=== PATIENT | male | born 1990 | race Caucasian/White ===

== ENCOUNTER 2021-07-02 09:32 | Inpatient (IN) | payer MEDICAID, SELFPAY ==
[2021-07-02 09:42] VITALS: BP 125/82; PULSE 78; RESP 16; TEMP 37.2; O2SAT 98; BMI 19.4
--- NOTE | 2021-07-02 09:53 | ED_ITS ---
HPI - Psych General: Chief Complaint: Altered Mental Status Stated Complaint: MHE EVAL Time Seen by Provider: 07/02/21 09:33 History of Present Illness: HPI Narrative: 30-year-old male presents emergency room via EMS. He was stopped by the police for driving a vehicle without tags on it he was unable to answer questions and seemed altered. EMS was called and he was transported here. On arrival here he is not able to answer very many questions he can tell me he has asthma and uses albuterol on produces an albuterol inhaler that is 124 puffs out of it but is from May 2020 the inhaler is also broken. He denies any recent illness. He does state that he was headed to [place] then later when asked about a pain smear on his right forearm states he had been painting in [place] but he cannot tell me who he was with where he stayed or any other details. He denies any suicidal homicidal ideation denies any visual or auditory hallucinations. He does admit to using alcohol yesterday but will not quantify the amount he used he denies any other illicit drug use. Denies any history of suicidal ideation previous psychiatry admissions or mental health diagnoses. MD complaint: altered mental status Onset (ago): unknown Duration: constant History of same: No Relieving factors: none Exacerbating factors: none Associated psychiatric symptoms: none Associated symptoms: Deny auditory hallucinations, visual hallucinations, delusions, depression, homicidal ideation, suicidal ideation or racing thoughts Treatments prior to arrival: none Review of Systems Const: Denies: fever(s), chills, body aches, change in appetite, fatigue or malaise ENMT: Denies: throat pain, ear or mastoid pain, nasal discharge or nasal congestion Card: Denies: chest pain, edema, dyspnea on exertion or orthopnea Resp: Denies: dyspnea, productive cough or non-productive cough GI: Denies: abdominal pain, nausea, vomiting, hematemesis, coffee ground emesis, diarrhea, constipation, bloating, hematochezia or melena : Denies: flank pain, dysuria, urinary frequency or urinary urgency Skin/Breast: Denies: rash or pruritus Psych: Denies: depression, visual hallucinations, auditory hallucinations, suicidal ideation or homicidal ideation Physical Exam Const: COMMON NORMALS: no acute distress GENERAL APPEARANCE: cooperative and comfortable ORIENTATION/CONSCIOUSNESS: Yes awake and Yes oriented to time HENMT: COMMON NORMALS: normocephalic and atraumatic HEAD & SCALP: normocephalic and atraumatic Resp: COMMON NORMALS: normal respiratory effort, No retractions, No use of accessory muscles and clear to auscultation bilaterally AUSCULTATION: clear to auscultation bilaterally Cardio: COMMON NORMALS: regular rate, regular rhythm and No murmurs present (Cardio) RATE: regular rate RHYTHM: regular rhythm GI: COMMON NORMALS: Soft to palpation and No hepatosplenomegaly present AUSCULTATION: Yes normoactive bowel sounds PALPATION: Yes Soft to palpation, No Tenderness to palpation present (GI), No Guarding due to palpation present (GI) and Yes No hepatosplenomegaly present Extremity: COMMON NORMALS: normal to inspection, capillary refill normal, no clubbing, cyanosis or edema, no calf tenderness and no pedal edema Neuro: SENSORIUM/ORIENTATION: Yes oriented to time Psych: THOUGHT CONTENT: No delusions Skin: COMMON NORMALS: no rashes or lesions noted GENERAL SKIN EXAM: no rashes or lesions noted Course Vital Signs: Vital signs: Vital Signs Temperature 98.9 F 07/02/21 09:42 Pulse Rate 78 07/02/21 09:42 Respiratory Rate 16 07/02/21 09:42 Blood Pressure 125/82 07/02/21 09:42 Pulse Oximetry 98 07/02/21 09:42 MDM - Psych MDM Narrative: Medical decision making narrative: Discussed with Dr. Schulz he is agreed to accept the patient admission discussed with the patient he is agreeable to admission. Registration is still time to determine the patient's exact right name. First name he registered on appears to be some sort of alias. Lab Data: Labs: Lab Results 07/02/21 07/02/21 07/02/21 10:05 10:05 10:05 WBC 10.5 10^3/uL H 10 ^3/uL (4.0-10.0) RBC 4.62 10^6/uL 10^6 /uL (4.1-5.3) Hgb 14.4 g/dL g/dL (11.7-16.6) Hct 41.5 % L % (42.0-52.0) MCV 89.8 fl fl (80-94) MCH 31.2 pg pg (28.0-34.0) MCHC 34.7 g/dL g/dL (30.0-36.0) RDW 11.4 % L % (12.1-15.1) Plt Count 257 10^3/cmm 10^3 /cmm (130-400) MPV 12.0 fL H fL (7.4-10.4) Neut % (Auto) 74.6 % % Lymph % (Auto) 15.4 % % [place] % (Auto) 8.3 % % Eos % (Auto) 1.2 % % Baso % (Auto) 0.3 % % Neut # (Auto) 7.81 10^3/uL H 10 ^3/uL (1.8-7.7) Lymph # (Auto) 1.6 10^3/uL 10^3/ uL (0.8-4.8) [place] # (Auto) 0.9 10^3/uL 10^3/ uL (0.2-0.9) Eos # (Auto) 0.1 10^3/uL 10^3/ uL (0.0-0.8) Baso # (Auto) 0.0 10^3/uL 10^3/ uL (0.0-0.1) Nucleated RBC % (a uto) 0 % % Nucleated RBCs # 0.0 /100WBC /100W BC Specimen Type Sample Site ABG pH ABG pCO2 ABG pO2 ABG HCO3 ABG O2 Saturation ABG Base Excess Sancho Test A-a O2 Gradient Hematocrit Hgb O2 Saturation Carboxyhemoglobin Methemoglobin Total Hemoglobin Ionized Calcium O2 Delivery Device FiO2 Freight Shipping Agent ID Sodium 139 mmol/L mmol/L (136-145) Potassium 4.4 mmol/L mmol/L (3.5-5.1) Chloride 103 mmol/L mmol/L (98-107) Carbon Dioxide 28 mmol/L mmol/L (22-29) Anion Gap 12.4 (5-19) BUN 9 mg/dL mg/dL (6-20) Creatinine 0.5 mg/dL L mg/dL (0.7-1.2) GFR Calculation 195.2 mL/min H mL /min (90-130) Glucose 110 mg/dL mg/dL (65-115) POC Glucose Calculated Osmolal ity 287 mOsm/kg mOsm/ kg (285-295) Lactic Acid 1.1 mmol/L mmol/L (0.5-2.2) Calcium 9.4 mg/dL mg/dL (8.5-10.5) Total Bilirubin 0.3 mg/dL mg/dL (0.15-1.2) AST 27 U/L U/L (0-40) ALT 53 U/L H U/L (0-41) Alkaline Phosphata se 74 IU/L IU/L (40-130) Total Protein 6.8 g/dL g/dL (6.6-8.7) Albumin 4.5 g/dL g/dL (3.5-5.2) Globulin 2.3 g/dL g/dL (1.3-4.6) Salicylates < 0.3 mg/dL L mg/ dL (3-10) Urine Opiates Scre en Acetaminophen < 5.0 ug/mL L ug/ mL (10-30) Ur Barbiturates Sc reen Ur Phencyclidine S crn Ur Amphetamines Sc reen U Benzodiazepines Scrn Urine Cocaine Scre en U Marijuana (THC) Screen Ethyl Alcohol < 10 mg/dL mg/dL (0-10) Serum Ketones 07/02/21 07/02/21 07/02/21 10:05 10:11 10:23 WBC RBC Hgb Hct MCV MCH MCHC RDW Plt Count MPV Neut % (Auto) Lymph % (Auto) [place] % (Auto) Eos % (Auto) Baso % (Auto) Neut # (Auto) Lymph # (Auto) [place] # (Auto) Eos # (Auto) Baso # (Auto) Nucleated RBC % (a uto) Nucleated RBCs # Specimen Type Arterial Sample Site Radial, left ABG pH 7.44 (7.35-7.45) ABG pCO2 37.7 mmHg mmHg (35-45) ABG pO2 93.6 mmHg mmHg (80.0-100.0) ABG HCO3 25.5 mmol/L mmol/ L (22-26) ABG O2 Saturation 98.3 ABG Base Excess 1.4 mmol/L mmol/L (-2.0-2.0) Sancho Test Pos A-a O2 Gradient 1.1 mmHg L mmHg (5-10) Hematocrit 45.5 % % (42-52) Hgb O2 Saturation 96.8 % % (95-100) Carboxyhemoglobin 0.8 %THgb %THgb (0.4-20.1) Methemoglobin 0.7 % % (0.4-1.5) Total Hemoglobin 14.8 g/dL g/dL (14-18) Ionized Calcium 1.2 mmol/L mmol/L (1.1-1.4) O2 Delivery Device Room air FiO2 21.0 % % Freight Shipping Agent ID Caak Sodium 140.0 mmol/L mmol /L (131-143) Potassium 3.9 mmol/L mmol/L (3.5-5.0) Chloride Carbon Dioxide Anion Gap BUN Creatinine GFR Calculation Glucose 128.0 mg/dL H mg/ dL (70-115) POC Glucose 115 mg/dL H mg/dL (70-110) Calculated Osmolal ity Lactic Acid Calcium Total Bilirubin AST ALT Alkaline Phosphata se Total Protein Albumin Globulin Salicylates Urine Opiates Scre en Acetaminophen Ur Barbiturates Sc reen Ur Phencyclidine S crn Ur Amphetamines Sc reen U Benzodiazepines Scrn Urine Cocaine Scre en U Marijuana (THC) Screen Ethyl Alcohol Serum Ketones Negative (Negative) 07/02/21 10:26 WBC RBC Hgb Hct MCV MCH MCHC RDW Plt Count MPV Neut % (Auto) Lymph % (Auto) [place] % (Auto) Eos % (Auto) Baso % (Auto) Neut # (Auto) Lymph # (Auto) [place] # (Auto) Eos # (Auto) Baso # (Auto) Nucleated RBC % (a uto) Nucleated RBCs # Specimen Type Sample Site ABG pH ABG pCO2 ABG pO2 ABG HCO3 ABG O2 Saturation ABG Base Excess Sancho Test A-a O2 Gradient Hematocrit Hgb O2 Saturation Carboxyhemoglobin Methemoglobin Total Hemoglobin Ionized Calcium O2 Delivery Device FiO2 Freight Shipping Agent ID Sodium Potassium Chloride Carbon Dioxide Anion Gap BUN Creatinine GFR Calculation Glucose POC Glucose Calculated Osmolal ity Lactic Acid Calcium Total Bilirubin AST ALT Alkaline Phosphata se Total Protein Albumin Globulin Salicylates Urine Opiates Scre en Negative ng/mL ng /mL (Negative) Acetaminophen Ur Barbiturates Sc reen Negative ng/mL ng /mL (Negative) Ur Phencyclidine S crn Negative ng/mL ng /mL (Negative) Ur Amphetamines Sc reen Negative ng/mL ng /mL (Negative) U Benzodiazepines Scrn Negative ng/mL ng /mL (Negative) Urine Cocaine Scre en Negative ng/mL ng /mL (Negative) U Marijuana (THC) Screen Positive ng/mL H ng/mL (Negative) Ethyl Alcohol Serum Ketones Discharge Plan Discharge Patient Disposition: Admitted As Inpatient Admit Provider: Ar Schulz Clinical Impression: Altered mental status Condition: Stable Coding Level of Care Code ED Residential Nurse for Mandeep Fwd Exam Comprehensive
--- NOTE | 2021-07-02 10:03 | CT_ITS ---
WS: [id number] CT HEAD TECHNIQUE: Noncontrast CT of the head obtained from the skullbase to the vertex. CLINICAL INFORMATION: altered mental status COMPARISON: None. DLP: 839.[address] scans at [facility] use at least one of these dose optimization techniques: automated e xposure control; mA and/or kV adjustment per patient size (includes targeted exams where dose is matc hed to clinical indication); or iterative reconstruction. FINDINGS: No evidence of intracranial hemorrhage or mass effect. Ventricular system and basal cisterns are vital nt.No extra-axial fluid collections. No evidence of mass or mass effect. Normal jara-white differenti ation. Paranasal sinuses and mastoid air cells are well aerated. .Normal visualized soft tissues. CT/CT head wo con* [id number] IMPRESSION: 1. No evidence of intracranial hemorrhage or mass effect. 2. Normal jara-white differentiation. 3. No acute intracranial findings.
[2021-07-02 10:14] LABS: Glucose Point of Care 115 mg/dL (70-110)
[2021-07-02 10:21] LABS: Basophils % 0.3 %; Eosinophils # 0.1 10^3/uL (0.0-0.8); Eosinophils % 1.2 %; Hematocrit 41.5 % (42.0-52.0); Hemoglobin 14.4 g/dL (11.7-16.6); Lymphocytes # 1.6 10^3/uL (0.8-4.8); Lymphocytes % 15.4 %; Mean Corpuscular HGB Conc 34.7 g/dL (30.0-36.0); Mean Corpuscular Hemoglobin 31.2 pg (28.0-34.0); Mean Corpuscular Volume 89.8 fl (80-94); Monocytes # 0.9 10^3/uL (0.2-0.9); Monocytes % 8.3 %; Neutrophils # 7.81 10^3/uL (1.8-7.7); Neutrophils % 74.6 %; Nucleated Red Blood Cells % 0 %; Platelet Count 257 10^3/cmm (130-400); Red Blood Count 4.62 10^6/uL (4.1-5.3); Red Cell Distribution Width 11.4 % (12.1-15.1); White Blood Count 10.5 10^3/uL (4.0-10.0)
[2021-07-02 10:32] LABS: Ketone (Acetest) Serum Negative (Negative)
[2021-07-02 10:34] LABS: ABG PCO2 37.7 mmHg (35-45); ABG PH Result 7.44 (7.35-7.45); Alveolar-Arterial Oxygen Gradi 1.1 mmHg (5-10); Arterial Blood Gas Hematocrit 45.5 % (42-52); Base Excess ABG 1.4 mmol/L (-2.0-2.0); Blood Gas Allen Test Pos; Blood Gas Operator Identificat CAAK; Blood Gas Sample Site Radial, left; Blood Gas Sample Type Arterial; Carboxyhemoglobin 0.8 %THgb (0.4-20.1); HCO3 ABG 25.5 mmol/L (22-26); HGB O2 Sat 96.8 % (95-100); Ionized Calcium Level - ABG 1.2 mmol/L (1.1-1.4); Methemoglobin 0.7 % (0.4-1.5); Oxygen Device ROOM AIR; Oxygen Saturation ABG 98.3; PO2 ABG 93.6 mmHg (80.0-100.0); Potassium Level - ABG 3.9 mmol/L (3.5-5.0); Total Hemoglobin 14.8 g/dL (14-18)
[2021-07-02 10:40] LABS: Lactic Sepsis W/Reflex 1.1 mmol/L (0.5-2.2)
--- NOTE | 2021-07-02 10:40 | PC.PHAR ---
PT STATES HE DOESNT TAKEN ANY RX MEDICATIONS PT STATES HE TAKES OTC MEDS BUT DOESNT KNOW THE NAME OF WHAT HES BEEN TAKING-NO MEDS PULL UP IN EXT MED HISTORY-PT STATES HE DOESNT KNOW THE NAME OF THE PHARMACY HE WAS USING
[2021-07-02 10:41] LABS: Alanine Aminotransferase 53 U/L (0-41); Albumin Level 4.5 g/dL (3.5-5.2); Alkaline Phosphatase 74 IU/L (40-130); Blood Urea Nitrogen 9 mg/dL (6-20); Calcium 9.4 mg/dL (8.5-10.5); Carbon Dioxide 28 mmol/L (22-29); Chloride 103 mmol/L (98-107); Globulin 2.3 g/dL (1.3-4.6); Glomerular Filtration Rate 195.2 mL/min (90-130); Glucose 110 mg/dL (65-115); Osmolality Calculated 287 mOsm/kg (285-295); Sodium 139 mmol/L (136-145); Total Bilirubin 0.3 mg/dL (0.15-1.2); Total Protein 6.8 g/dL (6.6-8.7)
[2021-07-02 10:44] LABS: Acetaminophen < 5.0 ug/mL (10-30); Alcohol Level < 10 mg/dL (0-10); Salicylate < 0.3 mg/dL (3-10)
[2021-07-02 10:46] LABS: Anion Gap 12.4 (5-19); Aspartate Amino Transferase 27 U/L (0-40); Potassium 4.4 mmol/L (3.5-5.1)
[2021-07-02 11:05] LABS: Amphetamines Screen Urine Negative (Negative); Barbiturates Screen Urine Negative (Negative); Benzodiazepines Screen Urine Negative (Negative); Cocaine Screen Urine Negative (Negative); Opiate Screen Urine Negative (Negative); PCP Screen Urine Negative (Negative); THC Screen Urine Positive (Negative)
[2021-07-02 14:00] VITALS: BP 110/78; PULSE 70; RESP 17; TEMP 37.1; O2SAT 98
[2021-07-02 20:35] VITALS: BP 94/62; PULSE 78; RESP 17; TEMP 36.9; O2SAT 96
[2021-07-03 06:00] VITALS: BP 92/58; PULSE 81; RESP 19; TEMP 36.9; O2SAT 100
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
--- NOTE | 2021-07-03 12:30 | NPU.GN ---
[facility] Topic:Coping Skills General Mood of Group:Refused group, was sick
[2021-07-03 14:00] VITALS: BP 107/61; PULSE 70; RESP 16; TEMP 36.6; O2SAT 97
[2021-07-03 22:00] VITALS: BP 121/91; PULSE 79; RESP 18; TEMP 36.7; O2SAT 98
[2021-07-04 06:00] VITALS: BP 97/62; PULSE 68; RESP 14; TEMP 36.6; O2SAT 99
--- NOTE | 2021-07-04 09:56 | P.PN_ITS ---
Subjective NPU Subjective: Interval history: Patient presents today to struggle with his thinking. He cannot give any clear conceptualization about how he got been to ideas. When pressed he said something about a wigi board and his sister and how her somehow playing with that board led to him having those diabetes and having 2 personalities.. We discussed the concerns about his confusion and clear paranoia, and the risk-benefit and alternatives of him and starting a trial of Abilify and he understood and was still resistant. Mental Status Exam MSE Comments: This is an underweight, white male, with hospital scrubs on with adequate grooming and limited eye contact. No abnormal movements except for psychomotor retardation. Mostly cooperative with exam in no acute distress. Speech was limited and decreased rate and volume with significant pauses after questions and some sense of confusion. Mood described as Oay; affect subdued and odd. Thought process, linear and at times organized. Thought content: patient denied any suicidal or homicidal ideation, he endorsed paranoia and paranoia was noted. He denied auditory or visual hallucinations. Attention and concentration were limited, and memory was unreliable, but none were formally tested. He is alert and oriented times three. Insight and judgment are impaired, impulse control is impaired. Vitals/I&O/Wt Last Vital Signs Temp 98.1 F 07/03/21 22:00 Pulse 79 07/03/21 22:00 Resp 18 07/03/21 22:00 BP 121/91 07/03/21 22:00 Pulse Ox 98 07/03/21 22:00 Weight last 48 hrs Weight 53.07 kg Data NPU : 07/02/21 10:05 07/02/21 10:05 A&P Additional A&P Information (1) Psychosis: (2) Altered mental status: (3) Cannabis abuse: This is a 30-year-old, white male, with no consistent mental health treatment in the past with past hospitalizations, suicide attempts, and genetic loading for mental health and addiction issues, who presents with confusion, likely psychosis, but currently unwilling to consider medication trial. RECOMMENDATION AND PLAN: 1. Continue to offer Abilify to assist with psychosis. He reports that he will consider it. 2. Encourage individual, group, and milieu therapy. 3. Continue q-15 minute checks for safety. 4. Encourage sober living treatment after discharge at the highest level of care to which he is willing to commit. Involuntary Hold Information 96 Hour Hold: 96 Hour Involuntary Admission: No Attestations NPU Medical Necessity Statement*: Inpatient hospitalization is medically necessary and the clinically appropriate intervention, at this time. We will monitor medications and make changes as indicated. Likely length of stay is four to six days. Coding Level of Care Code Acute Data Security Administrator for Mandeep Hammond
[2021-07-04 14:00] VITALS: BP 105/68; PULSE 90; RESP 18; TEMP 36.3; O2SAT 99
[2021-07-04 22:00] VITALS: BP 112/69; PULSE 98; RESP 18; TEMP 36.8; O2SAT 99
[2021-07-05 06:00] VITALS: BP 108/73; PULSE 68; RESP 21; TEMP 36.7; O2SAT 100
[2021-07-05] MEDS: ARIPiprazole 10 mg Tablet PO (09:59)
--- NOTE | 2021-07-05 11:59 | PM.NPN ---
Subjective NPU Subjective: Interval history: Patient presents today continuing to have confusion and not have clear answers to the questions about his identity. Continue to endorse some paranoia and some supernatural occurrences. Once again we discussed the risk benefits and alternatives of Abilify and he understood and agreed to proceed as documented in this note. He took the medication without incident and denied any issues thus far. Mental Status Exam MSE Comments: This is an underweight, white male, with hospital scrubs on with adequate grooming and limited eye contact. No abnormal movements except for psychomotor retardation. Mostly cooperative with exam in no acute distress. Speech was limited and decreased rate and volume. Mood described as okay; affect subdued and odd. Thought process, linear and at times organized. Thought content: patient denied any suicidal or homicidal ideation, he endorsed paranoia and paranoia was noted. He denied auditory or visual hallucinations. Attention and concentration were limited, and memory was unreliable, but none were formally tested. He is alert and oriented times three. Insight and judgment are impaired, impulse control is impaired. Vitals/I&O/Wt Last Vital Signs Temp 98.0 F 07/05/21 06:00 Pulse 68 07/05/21 06:00 Resp 21 H 07/05/21 06:00 BP 108/73 07/05/21 06:00 Pulse Ox 100 07/05/21 06:00 Data NPU : 07/02/21 10:05 07/02/21 10:05 A&P Additional A&P Information (1) Psychosis: (2) Altered mental status: (3) Cannabis abuse: This is a 30-year-old, white male, with no consistent mental health treatment in the past with past hospitalizations, suicide attempts, and genetic loading for mental health and addiction issues, who presents with confusion, likely psychosis, but currently unwilling to consider medication trial. RECOMMENDATION AND PLAN: 1. Abilify 10 mg p.o. every morning was started. 2. Encourage individual, group, and milieu therapy. 3. Continue q-15 minute checks for safety. 4. Encourage sober living treatment after discharge at the highest level of care to which he is willing to commit. Involuntary Hold Information 96 Hour Hold: 96 Hour Involuntary Admission: No Attestations NPU Medical Necessity Statement*: Inpatient hospitalization is medically necessary and the clinically appropriate intervention, at this time. We will monitor medications and make changes as indicated. Likely length of stay is four to six days. Coding Level of Care Code Acute Automotive Services Manager for Mandeep Hammond
[2021-07-05 14:00] VITALS: BP 113/66; PULSE 91; RESP 20; TEMP 36.3; O2SAT 100
[2021-07-05 20:45] VITALS: BP 131/79; PULSE 89; RESP 18; TEMP 37; O2SAT 98
[2021-07-06 06:00] VITALS: BP 131/79; PULSE 89; RESP 18; TEMP 37; O2SAT 98
[2021-07-06] MEDS: ARIPiprazole 10 mg Tablet PO (07:58)
[2021-07-06] MEDS: ondansetron 4 MG Tablet PO ×2 (07:58→13:36)
--- NOTE | 2021-07-06 08:19 | P.PN_ITS ---
Subjective NPU Subjective: Interval history: Patient continues to be quite confused and unclear. At one point he was asked where he would like to go when he is feeling better and less confused and he did not respond. Later he stopped this account underwriter in the hallway and said [place], and then there was a prolonged pause and he continued or some other state. He then told some story about him having a son that he is trying to protect and that he is trying to keep him alive and got somewhat tearful and try to explain how the different diabetes fit into that paradigm but failed woefully. Mental Status Exam MSE Comments: This is an underweight, white male, with hospital scrubs on with adequate grooming and limited eye contact. No abnormal movements except for psychomotor retardation. Mostly cooperative with exam in no acute distress. Speech was limited and decreased rate and volume. Mood described as okay; affect subdued and odd. Thought process, linear and at times organized. Thought shoshana nt: patient denied any suicidal or homicidal ideation, he endorsed paranoia and paranoia was noted. He denied auditory or visual hallucinations. Attention and concentration were limited, and memory was unreliable, but none were formally tested. He is alert and oriented times three. Insight and judgment are impaired, impulse control is impaired. Vitals/I&O/Wt Last Vital Signs Temp 98.6 F 07/06/21 06:00 Pulse 89 07/06/21 06:00 Resp 18 07/06/21 06:00 BP 131/79 07/06/21 06:00 Pulse Ox 98 07/06/21 06:00 Data NPU : 07/02/21 10:05 07/02/21 10:05 A&P Additional A&P Information (1) Psychosis: (2) Altered mental status: (3) Cannabis abuse: This is a 30-year-old, white male, with no consistent mental health treatment in the past with past hospitalizations, suicide attempts, and genetic loading for mental health and addiction issues, who presents with confusion, likely psychosis, but currently unwilling to consider medication trial. RECOMMENDATION AND PLAN: 1. Abilify 10 mg p.o. every morning was started. 2. Encourage individual, group, and milieu therapy. 3. Continue q-15 minute checks for safety. 4. Encourage sober living treatment after discharge at the highest level of care to which he is willing to commit. Involuntary Hold Information 96 Hour Hold: 96 Hour Involuntary Admission: No Attestations NPU Medical Necessity Statement*: Inpatient hospitalization is medically necessary and the clinically appropriate intervention, at this time. We will monitor medications and make changes as indicated. Likely length of stay is four to six days. Coding Level of Care Code Acute Entry Level Account Executive for Mandeep Hammond
[2021-07-06 14:00] VITALS: BP 121/81; PULSE 115; RESP 17; TEMP 36.7; O2SAT 97
[2021-07-06] MEDS: acetaminophen 325 mg Tablet 650 MG PO (14:22)
[2021-07-06 20:44] VITALS: BP 113/87; PULSE 96; RESP 18; TEMP 36.6; O2SAT 97
[2021-07-06] MEDS: nicotine 2 mg Gum BUCCAL (21:13)
[2021-07-06] MEDS: trazodone 50 mg Tablet PO (21:13)
[2021-07-06] MEDS: hyDROXYzine 25 mg Capsule 50 MG PO (21:13)
--- NOTE | 2021-07-06 21:40 | PC.NURSE ---
Addendum entered by Jing Jimenez RN 07/07/21 06:08: PRNS were effective. Original Note: PRN meds Pt requested Nicotine gum Trazodone 50mg PO given for sleep Visteril 50mg PO given for anxiety
--- NOTE | 2021-07-06 21:45 | PC.NURSE ---
PM Assessment Pt confused, unable to give me his last name rakesh, I don't know my last name. Pt states, I am from [place], not sure why I am here. Pt states he would like to Drive to [place], [place]. States he would like to work there but has no reference to what kind of job he would like to do .. 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 Pt is evasive when asked questions and affect is flat. Pt is not sure where he is and what time of year that it is, redirected. Pt mildly anxious, states at times I hear voices talking to me that i can not find. Pt states, I don't have any family here they are in [place] . Cooperative with assessment, lungs and heart sounds WNL. Prn's given for anxiety and sleep onset.
[2021-07-07 06:00] VITALS: BP 113/87; PULSE 96; RESP 18; TEMP 36.6; O2SAT 97
--- NOTE | 2021-07-07 08:34 | PM.NPN ---
Subjective NPU Subjective: Interval history: Patient presents today unchanged, continues to be isolative and not speaking much and was spoken to. Continue limited goal-directed behavior. He denies any new issues or concerns. Reports that he is eating fine and sleeping well. But continuing to have odd presentation. Mental Status Exam MSE Comments: This is an underweight, white male, with hospital scrubs on with adequate grooming and limited eye contact. No abnormal movements except for psychomotor retardation. Mostly cooperative with exam in no acute distress. Speech was limited and decreased rate and volume. Mood described as okay; affect subdued and odd. Thought process, linear and at times organized. Thought content: patient denied any suicidal or homicidal ideation, he endorsed paranoia and paranoia was noted. He denied auditory or visual hallucinations. Attention and concentration were limited, and memory was unreliable, but none were formally tested. He is alert and oriented times three. Insight and judgment are impaired, impulse control is impaired. Vitals/I&O/Wt Last Vital Signs Temp 97.8 F 07/07/21 06:00 Pulse 96 07/07/21 06:00 Resp 18 07/07/21 06:00 BP 113/87 07/07/21 06:00 Pulse Ox 97 07/07/21 06:00 Data NPU : 07/02/21 10:05 07/02/21 10:05 A&P Additional A&P Information (1) Psychosis: (2) Altered mental status: (3) Cannabis abuse: This is a 30-year-old, white male, with no consistent mental health treatment in the past with past hospitalizations, suicide attempts, and genetic loading for mental health and addiction issues, who presents with confusion, likely psychosis, but currently unwilling to consider medication trial. RECOMMENDATION AND PLAN: 1. Abilify 10 mg p.o. every morning was started. 2. Encourage individual, group, and milieu therapy. 3. Continue q-15 minute checks for safety. 4. Encourage sober living treatment after discharge at the highest level of care to which he is willing to commit. Involuntary Hold Information 96 Hour Hold: 96 Hour Involuntary Admission: No Attestations NPU Medical Necessity Statement*: Inpatient hospitalization is medically necessary and the clinically appropriate intervention, at this time. We will monitor medications and make changes as indicated. Likely length of stay is 3-5 days. Coding Level of Care Code Acute Director Of Plant Operations for Mandeep Hammond
[2021-07-07] MEDS: ARIPiprazole 10 mg Tablet 15 MG PO (09:59)
[2021-07-07 14:00] VITALS: BP 113/87; PULSE 96; RESP 18; TEMP 36.6; O2SAT 97
[2021-07-07 20:55] VITALS: BP 100/65; PULSE 98; RESP 18; TEMP 36.8; O2SAT 97
--- NOTE | 2021-07-07 21:13 | PC.NURSE ---
Addendum entered by Jing Jimenez RN 07/08/21 03:09: PRN's effective, reduction in anxiety and sleep achieved Original Note: PRNs Trazodone 50mg PO given for sleep onset, Vistaril 50mg po given for anxiety.
[2021-07-08 06:00] VITALS: BP 95/52; PULSE 80; RESP 16; TEMP 36.4; O2SAT 99
--- NOTE | 2021-07-08 07:31 | P.PN_ITS ---
Subjective NPU Subjective: Interval history: David presents today reporting no clear changes but from first time asking about discharge. We discussed the concerns of the treatment team that he is still fairly confused and seeming limited in his ability to have informed consent. Still reporting odd circumstances that seem much more like paranoia than reality. Still seeming quite paranoid when talking about some issues surrounding his son and he went to discuss many things do to need to maintain secrecy. Mental Status Exam MSE Comments: This is an underweight, white male, with hospital scrubs on with adequate grooming and limited eye contact. No abnormal movements except for psychomotor retardation. Mostly cooperative with exam in no acute distress. Speech was limited and decreased rate and volume. Mood described as fine I guess; affect subdued and odd. Thought process, linear and at times organized. Thought content: patient denied any suicidal or homicidal ideation, he endorsed paranoia and paranoia was noted. He denied auditory or visual hallucinations. Attention and concentration were limited, and memory was unreliable, but none were formally tested. He is alert and oriented times three. Insight and judgment are impaired, impulse control is impaired. Vitals/I&O/Wt Last Vital Signs Temp 98.2 F 07/07/21 20:55 Pulse 98 07/07/21 20:55 Resp 18 07/07/21 20:55 BP 100/65 07/07/21 20:55 Pulse Ox 97 07/07/21 20:55 Data NPU : 07/02/21 10:05 07/02/21 10:05 A&P Additional A&P Information (1) Psychosis: (2) Altered mental status: (3) Cannabis abuse: This is a 30-year-old, white male, with no consistent mental health treatment in the past with past hospitalizations, suicide attempts, and genetic loading for mental health and addiction issues, who presents with confusion, likely psychosis, but currently unwilling to consider medication trial. RECOMMENDATION AND PLAN: 1. Continue current medication. Abilify increased to 15 mg p.o. every morning yesterday. 2. Encourage individual, group, and milieu therapy. 3. Continue q-15 minute checks for safety. 4. Encourage sober living treatment after discharge at the highest level of care to which he is willing to commit. Involuntary Hold Information 96 Hour Hold: 96 Hour Involuntary Admission: No Attestations NPU Medical Necessity Statement*: Inpatient hospitalization is medically necessary and the clinically appropriate intervention, at this time. We will monitor medications and make changes as indicated. Likely length of stay is 3-5 days. Coding Level of Care Code Acute Neurological Physiotherapist for Mandeep Hammond
[2021-07-08] MEDS: ARIPiprazole 10 mg Tablet 15 MG PO (08:21)
[2021-07-08 14:00] VITALS: BP 115/79; PULSE 95; RESP 16; TEMP 36.3; O2SAT 99
[2021-07-08] MEDS: nicotine 2 mg Gum BUCCAL (17:27)
[2021-07-08 20:06] VITALS: BP 92/66; PULSE 79; RESP 17; TEMP 36.6; O2SAT 94
[2021-07-08] MEDS: trazodone 50 mg Tablet PO (21:50)
[2021-07-08] MEDS: acetaminophen 325 mg Tablet 650 MG PO (21:50)
[2021-07-08] MEDS: hyDROXYzine 25 mg Capsule 50 MG PO (21:50)
--- NOTE | 2021-07-08 21:55 | PC.NURSE ---
pt requested sleep, anxiety and med for a headache. tylenol 650mg po for headache, trazodone 50mg po for sleep and vistaril 50mg po for anxiety given.
--- NOTE | 2021-07-08 22:45 | PC.NURSE ---
pt resting quietly with both eyes closed
[2021-07-09 06:00] VITALS: BP 106/71; PULSE 82; RESP 17; TEMP 36.8; O2SAT 98
[2021-07-09] MEDS: ARIPiprazole 10 mg Tablet 15 MG PO (09:31)
[2021-07-09 14:00] VITALS: BP 108/72; PULSE 95; RESP 18; TEMP 37.1; O2SAT 98
--- NOTE | 2021-07-09 15:46 | PM.NPN ---
Subjective NPU Subjective: Interval history: I reviewed the case with Dr. Schulz and the treatment team. There are many questions still unanswered about this young man's condition. Dr. Schulz described him as quite guarded and protective of his son. When I spoke with him he said he was having a good day. He said his mood was okay and denied any depression or worry. He did not want to talk much about his son, who he did disclose was in foster care. He cannot say what makes him not want to talk about his son. He denied auditory and visual hallucinations. He denied suicidal and homicidal ideation. He also denied medication side effects. Mental Status Exam MSE Comments: This is an underweight, white male, with hospital scrubs on with adequate grooming and limited eye contact. No abnormal movements or tics noted. He does have psychomotor retardation. He is pretty guarded and removed. Speech was limited and decreased rate and volume. Mood described as pretty good. Affect continues to be subdued and odd. Thought process: He has poverty of thinking. Thought content: patient denied any suicidal or homicidal ideation, he continues to express paranoia. He denied auditory or visual hallucinations. Attention and concentration were limited, and memory was unreliable, but none were formally tested. He is alert and oriented times three. Insight and judgment are impaired, impulse control is impaired. Vitals/I&O/Wt Last Vital Signs Temp 97.8 F 07/09/21 22:00 Pulse 97 07/09/21 22:00 Resp 15 07/09/21 22:00 BP 106/66 07/09/21 22:00 Pulse Ox 98 07/09/21 22:00 Weight last 48 hrs Weight 52.163 kg Data NPU : 07/02/21 10:05 07/02/21 10:05 A&P Assessment and plan (1) Psychosis: Status: Acute (2) Altered mental status: Status: Acute (3) Cannabis abuse: Status: Acute Additional A&P Information This is a 30-year-old, white male, with no consistent mental health treatment in the past with past hospitalizations, suicide attempts, and genetic loading for mental health and addiction issues, who presents with confusion, likely psychosis, and was initially unwilling to consider medication trial. There is much information needed to make sense of his situation. RECOMMENDATION AND PLAN: 1. Continue current medication. Abilify increased to 15 mg p.o. every morning yesterday. 2. Encourage individual, group, and milieu therapy. 3. Continue q-15 minute checks for safety. 4. Encourage sober living treatment after discharge at the highest level of care to which he is willing to commit. Involuntary Hold Information 96 Hour Hold: 96 Hour Involuntary Admission: No Attestations NPU Medical Necessity Statement*: Inpatient hospitalization is medically necessary and the clinically appropriate intervention, at this time. We will monitor medications and make changes as indicated. Likely length of stay is 2-4 days. Coding Level of Care Code Acute Human Services Assistant for Mandeep Hammond Diagnoses Psychosis F29 Altered mental status R41.82 Cannabis abuse F12.10
[2021-07-09] MEDS: ondansetron 4 MG Tablet PO (16:58)
[2021-07-09] MEDS: trazodone 50 mg Tablet PO (21:42)
[2021-07-09] MEDS: hyDROXYzine 25 mg Capsule 50 MG PO (21:42)
[2021-07-09] MEDS: OLANZapine 5 mg ODT PO (21:42)
[2021-07-09 22:00] VITALS: BP 106/66; PULSE 97; RESP 15; TEMP 36.6; O2SAT 98
--- NOTE | 2021-07-10 02:08 | PC.NURSE ---
2nd Trazodone 50mg PO given for insomnia and to enable pt to return to sleep.
[2021-07-10] MEDS: trazodone 50 mg Tablet PO ×2 (02:17→19:49)
[2021-07-10 06:00] VITALS: BP 112/73; PULSE 67; RESP 15; TEMP 37.1; O2SAT 97
[2021-07-10] MEDS: ARIPiprazole 10 mg Tablet 15 MG PO (08:01)
[2021-07-10] MEDS: ondansetron 4 MG Tablet PO (11:36)
--- NOTE | 2021-07-10 11:36 | PC.NURSE ---
PRN ZOFRAN 4 MG GIVEN PO PER PT C/O STATED NAUSEA
--- NOTE | 2021-07-10 13:03 | PM.NPN ---
Subjective NPU Subjective: Interval history: I met with the patient in his room with the door open. I chatted with him some about his life. He says he was raised in [place]. When I asked what brought him to [place] he said, I am here because I was just driving around. And he gives no more details. He does not seem to know that this would be an insufficient description of his motivation to move to another state. He says he was raised by his grandmother who is no longer living, who also raised his brothers. He says his brothers all live in different states. He has no connection to any family members. When I asked him if he is the kind of bandar who has a set of friends, he said, I know how to make friends. When I ask him if he has friends currently, he says he has made friends with some of the people on the unit. 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 He could not say what he enjoyed about this. The patient says that he has been living in his car for 1 or 2 years. He also says that he had recently pawned the title to his car, and the police impounded his car, so he no longer has it. He is interested in obtaining housing and finding out how to get another vehicle. He says his mood is okay, and he does not feel depressed. He denied auditory and visual hallucinations. He denied suicidal and homicidal ideation. He also denied medication side effects. Mental Status Exam MSE Comments: This is an underweight, white male, with hospital scrubs on with adequate grooming and improved eye contact. No abnormal movements or tics noted. He continues to have psychomotor retardation. He is guarded but not as much as yesterday. Speech --he was more talkative today. Regular rate and rhythm. Mood is improving affect continues to be subdued and odd. Thought process: He shares his thoughts more today, that his thinking is disorganized at times. Thought content: patient denied any suicidal or homicidal ideation, he continues to express paranoia. He denied auditory or visual hallucinations. Attention and concentration were limited, and memory was unreliable, but none were formally tested. He is alert and oriented times three. Insight and judgment are impaired, impulse control is impaired. Vitals/I&O/Wt Last Vital Signs Temp 97.2 F L 07/10/21 14:00 Pulse 78 07/10/21 14:00 Resp 20 H 07/10/21 14:00 BP 117/80 07/10/21 14:00 Pulse Ox 99 07/10/21 14:00 Data NPU : 07/02/21 10:05 07/02/21 10:05 A&P Assessment and plan (1) Cannabis abuse: Status: Acute (2) Psychosis: Status: Acute (3) Altered mental status: Status: Acute Additional A&P Information This is a 30-year-old, white male, with no consistent mental health treatment in the past with past hospitalizations, suicide attempts, and genetic loading for mental health and addiction issues, who presents with confusion, likely psychosis, and was initially unwilling to consider medication trial. There is much information needed to make sense of his situation. He seems like a lost soul and it is not clear yet to what degree mental illness plays a role in his retreat from the world. RECOMMENDATION AND PLAN: 1. Continue current medication. Abilify was increased to 15 mg p.o. every morning. He appears to be opening up more the longer he is on this medication. No side effects. 2. Encourage individual, group, and milieu therapy. 3. Continue q-15 minute checks for safety. 4. Encourage sober living treatment after discharge at the highest level of care to which he is willing to commit. Involuntary Hold Information 96 Hour Hold: 96 Hour Involuntary Admission: No Attestations NPU Medical Necessity Statement*: Inpatient hospitalization is medically necessary and the clinically appropriate intervention, at this time. We will monitor medications and make changes as indicated. Likely length of stay is 2-3 days. Coding Level of Care Code Acute Thread Singer for Mandeep Hammond Diagnoses Cannabis abuse F12.10 Psychosis F29 Altered mental status R41.82
[2021-07-10] MEDS: acetaminophen 325 mg Tablet 650 MG PO (13:43)
[2021-07-10 14:00] VITALS: BP 117/80; PULSE 78; RESP 20; TEMP 36.2; O2SAT 99
[2021-07-10] MEDS: hyDROXYzine 25 mg Capsule 50 MG PO ×2 (16:28→19:49)
--- NOTE | 2021-07-10 16:28 | PC.NURSE ---
MED SEEKING FOR ANY AND ALL PRN MEDICATIONS. SOMATIC COMPLAINTS, PRN VISTARIL 50 MG GIVEN PO PER PT C/O STATED ANXIETY ALTHOUGH NO OUTWARD S/S OF ANXIETY NOTED. PT HAS HAS MANY COMPLAINTS TODAY AND PRN MEDICATIONS GIVEN REQUESTED. WILL CONT TO MONITOR
[2021-07-10] MEDS: nicotine 2 mg Gum BUCCAL (19:49)
--- NOTE | 2021-07-10 19:50 | PC.NURSE ---
PRNs Vistaril 50mg PO given for anxiety. Trazdone 50 mg PO given for sleep Nicotine Gum given to pt
[2021-07-10 22:00] VITALS: BP 112/77; PULSE 77; RESP 20; TEMP 36.4; O2SAT 97
[2021-07-10] MEDS: docusate sodium 100 mg Capsule 200 MG PO (22:06)
[2021-07-11 06:00] VITALS: BP 114/76; PULSE 85; RESP 18; TEMP 36.8; O2SAT 99
[2021-07-11] MEDS: ARIPiprazole 10 mg Tablet 15 MG PO (08:30)
[2021-07-11 14:00] VITALS: BP 114/76; PULSE 85; RESP 18; TEMP 36.8; O2SAT 99
--- NOTE | 2021-07-11 14:21 | P.PN_ITS ---
Subjective NPU Subjective: Interval history: The patient started off by asking how he could get an emotional support animal. We talked about his experience with a previous pet dog, who knew when he was in distress and would come to him. He would like to have a similar experience in the future. He says his mood is improving. He fell asleep fairly easily last night. He denies auditory and visual hallucinations. He denies suicidal and homicidal ideation. He denies medication side effects. When we started talking about his son, who was previously part of his paranoia, his thinking began to get more disorganized. His thoughts did not fit together in any logical sequence, and, when questioned, he was unable to put them together. For example, he talked about children's eyes twitching, and that that set some signal. Mental Status Exam MSE Comments: This is an underweight, white male, with hospital scrubs on with adequate grooming and improved eye contact. No abnormal movements or tics noted. He continues to have psychomotor retardation. He is less guarded. Speech --fairly talkative today. Regular rate and rhythm. Mood is improving -- affect continues to be subdued and odd. Thought process: He shares his thoughts more today, that his thinking is disorganized at times. Thought content: patient denied any suicidal or homicidal ideation, he continues to express paranoia. He denied auditory or visual hallucinations. Attention and concentration were limited, and memory was unreliable, but none were formally tested. He is alert and oriented times three. Insight and judgment are impaired, impulse control is impaired. Vitals/I&O/Wt Last Vital Signs Temp 98.2 F 07/11/21 14:00 Pulse 85 07/11/21 14:00 Resp 18 07/11/21 14:00 BP 114/76 07/11/21 14:00 Pulse Ox 99 07/11/21 14:00 Data NPU : 07/02/21 10:05 07/02/21 10:05 A&P Assessment and plan (1) Psychosis: Status: Acute (2) Altered mental status: Status: Acute (3) Cannabis abuse: Status: Acute Additional A&P Information This is a 30-year-old, white male, with no consistent mental health treatment in the past with past hospitalizations, suicide attempts, and genetic loading for mental health and addiction issues, who presents with confusion, likely psychosis, and was initially unwilling to consider medication trial. There is much information needed to make sense of his situation. He seems like a lost soul and it is not clear yet to what degree mental illness plays a role in his retreat from the world. RECOMMENDATION AND PLAN: 1. Continue current medication. Abilify was increased to 15 mg p.o. every morning. He appears to be opening up more the longer he is on this medication. No side effects. 2. Encourage individual, group, and milieu therapy. 3. Continue q-15 minute checks for safety. 4. Encourage sober living treatment after discharge at the highest level of care to which he is willing to commit. Involuntary Hold Information 96 Hour Hold: 96 Hour Involuntary Admission: No Attestations NPU Medical Necessity Statement*: Inpatient hospitalization is medically necessary and the clinically appropriate intervention, at this time. We will monitor medications and make changes as indicated. Likely length of stay is 2-3 days. Coding Level of Care Code Acute Registered Mail Clerk for Mandeep Hammond Diagnoses Psychosis F29 Altered mental status R41.82 Cannabis abuse F12.10
[2021-07-11] MEDS: acetaminophen 325 mg Tablet 650 MG PO (17:21)
[2021-07-11] MEDS: trazodone 50 mg Tablet PO ×2 (21:24→23:26)
[2021-07-11] MEDS: hyDROXYzine 25 mg Capsule 50 MG PO (21:25)
[2021-07-11] MEDS: docusate sodium 100 mg Capsule 200 MG PO (21:25)
--- NOTE | 2021-07-11 21:38 | PC.NURSE ---
PRN's Visteril 50 mg po given for anxiety colace 200mg po given for constipation, last bowel movement 07/08/21 trazodone given for sleep onset
[2021-07-11 21:51] VITALS: BP 108/69; PULSE 83; RESP 14; O2SAT 98
[2021-07-11] MEDS: OLANZapine 5 mg ODT PO (23:27)
[2021-07-12 06:00] VITALS: BP 106/70; PULSE 100; RESP 16; O2SAT 96
[2021-07-12] MEDS: ARIPiprazole 10 mg Tablet 15 MG PO (09:26)
--- NOTE | 2021-07-12 13:42 | P.PN_ITS ---
Subjective NPU Subjective: Interval history: The patient says his mood is all right, and he slept well last night. He denies auditory or visual hallucinations. He says that the Abilify has been helping his anxiety and causes no side effects. On the other hand, he says he is not yet back to normal. He is not able to characterize what normal is for him. We did talk about discharge plans. He is hoping to go to [facility]. We talked about the emotional support animal as well. He would need to make that application when he is in more permanent housing. Mental Status Exam MSE Comments: This is an underweight, white male, with hospital scrubs on with adequate grooming and improved eye contact. No abnormal movements or tics noted. He continues to have psychomotor retardation. He is less guarded. Speech -- fairly talkative today. Regular rate and rhythm. Mood is improving -- affect continues to be subdued and odd. Thought process: He shares his thoughts more today, that his thinking is disorganized at times. Thought content: patient denied any suicidal or homicidal ideation, he continues to express paranoia. He denied auditory or visual hallucinations. Attention and concentration were limited, and memory was unreliable, but none were formally tested. He is alert and oriented times three. Insight and judgment are impaired, impulse control is impaired. Vitals/I&O/Wt Last Vital Signs Temp 96.8 F L 07/12/21 14:00 Pulse 89 07/12/21 14:00 Resp 18 07/12/21 14:00 BP 103/58 07/12/21 14:00 Pulse Ox 98 07/12/21 14:00 Data NPU : 07/02/21 10:05 07/02/21 10:05 A&P Assessment and plan (1) Cannabis abuse: Status: Acute (2) Psychosis: Status: Acute (3) Altered mental status: Status: Acute Additional A&P Information This is a 30-year-old, white male, with no consistent mental health treatment in the past with past hospitalizations, suicide attempts, and genetic loading for mental health and addiction issues, who presents with confusion, likely psychosis, and was initially unwilling to consider medication trial. There is much information needed to make sense of his situation. He seems like a lost soul and it is not clear yet to what degree mental illness plays a role in his retreat from the world. RECOMMENDATION AND PLAN: 1. Continue current medication. Abilify was increased to 15 mg p.o. every morning. He appears to be opening up more the longer he is on this medication. No side effects. 2. Encourage individual, group, and milieu therapy. 3. Continue q-15 minute checks for safety. 4. Encourage sober living treatment after discharge at the highest level of care to which he is willing to commit. Involuntary Hold Information 96 Hour Hold: 96 Hour Involuntary Admission: No Attestations NPU 2 Medical Necessity Statement*: Inpatient hospitalization is medically necessary and the clinically appropriate intervention, at this time. We will monitor medic ations and make changes as indicated. Likely length of stay is 2-3 days. Coding Level of Care Code Acute Pediatric Orthodontist for Mandeep Hammond Diagnoses Cannabis abuse F12.10 Psychosis F29 Altered mental status R41.82
[2021-07-12 14:00] VITALS: BP 103/58; PULSE 89; RESP 18; TEMP 36; O2SAT 98
[2021-07-12] MEDS: polyethylene glycol 3350 Pkt 17 gm PO (17:32)
[2021-07-12 22:00] VITALS: PULSE 79; RESP 18; TEMP 37; O2SAT 96
[2021-07-13 06:00] VITALS: BP 108/60; PULSE 90; RESP 16; TEMP 36.6; O2SAT 96
[2021-07-13] MEDS: ARIPiprazole 10 mg Tablet 15 MG PO (09:16)
[2021-07-13] MEDS: polyethylene glycol 3350 Pkt 17 gm PO ×2 (09:16→17:31)
--- NOTE | 2021-07-13 13:41 | PM.NPN ---
Subjective NPU Subjective: Interval history: I met with the patient in his room with the door open. He says that he is anxious to get out of here. We talked about aiming for Friday or Friday to leave. He likes this idea. He will [place] [facility] [place] He is interested in assistance getting a job and finding transportation to and from the job. No auditory visual hallucinations. No suicidal and homicidal ideation. No medication side effects. Mental Status Exam MSE Comments: This is an underweight, white male, with hospital scrubs on with adequate grooming and improved eye contact. No abnormal movements or tics noted. Psychomotor retardation is improving. He continues to get more open about his inner experiences. Speech --chatty. Regular rate and rhythm. Mood is improving -- affect is a little brighter but still odd. Thought process: Becoming more organized. Thought content: patient denied any suicidal or homicidal ideation. Less paranoia. He denied auditory or visual hallucinations. Attention and concentration were limited, and memory was unreliable, but none were formally tested. He is alert and oriented times three. Insight and judgment are impaired, impulse control is impaired. Vitals/I&O/Wt Last Vital Signs Temp 97.8 F 07/13/21 06:00 Pulse 90 07/13/21 06:00 Resp 16 07/13/21 06:00 BP 108/60 07/13/21 06:00 Pulse Ox 96 07/13/21 06:00 Data NPU : 07/02/21 10:05 07/02/21 10:05 A&P Assessment and plan (1) Psychosis: Status: Acute (2) Altered mental status: Status: Acute (3) Cannabis abuse: Status: Acute Additional A&P Information This is a 30-year-old, white male, with no consistent mental health treatment in the past with past hospitalizations, suicide attempts, and genetic loading for mental health and addiction issues, who presents with confusion, likely psychosis, and was initially unwilling to consider medication trial. There is much information needed to make sense of his situation. He seems like a lost soul and it is not clear yet to what degree mental illness plays a role in his retreat from the world. RECOMMENDATION AND PLAN: 1. Continue current medication. Abilify was increased to 15 mg p.o. every morning. He appears to be opening up more the longer he is on this medication. No side effects. 2. Encourage individual, group, and milieu therapy. 3. Continue q-15 minute checks for safety. 4. Encourage sober living treatment after discharge at the highest level of care to which he is willing to commit. Involuntary Hold Information 96 Hour Hold: 96 Hour Involuntary Admission: No Attestations NPU Medical Necessity Statement*: Inpatient hospitalization is medically necessary and the clinically appropriate intervention, at this time. We will monitor medications and make changes as indicated. Likely length of stay is 2-3 days. Coding Level of Care Code Acute Geothermal Heat Pump Machinist for Mandeep Hammond Diagnoses Psychosis F29 Altered mental status R41.82 Cannabis abuse F12.10
[2021-07-13 14:00] VITALS: BP 116/82; PULSE 90; RESP 20; TEMP 36.3; O2SAT 100
[2021-07-13] MEDS: acetaminophen 325 mg Tablet 650 MG PO ×2 (16:55→20:43)
[2021-07-13] MEDS: nicotine 2 mg Gum BUCCAL (17:31)
[2021-07-13 20:39] VITALS: BP 130/84; PULSE 67; RESP 16; TEMP 36.9; O2SAT 99
[2021-07-13] MEDS: hyDROXYzine 25 mg Capsule 50 MG PO (20:43)
[2021-07-13] MEDS: docusate sodium 100 mg Capsule 200 MG PO (20:43)
[2021-07-13] MEDS: trazodone 50 mg Tablet PO (20:43)
--- NOTE | 2021-07-14 03:26 | PC.NURSE ---
Patient was given trazodone and vistaril for sleep and anxiety, pt responded well
[2021-07-14] MEDS: hyDROXYzine 25 mg Capsule 50 MG PO ×2 (05:05→20:32)
[2021-07-14 06:00] VITALS: BP 107/75; PULSE 18; RESP 104; TEMP 36.9; O2SAT 95
[2021-07-14] MEDS: polyethylene glycol 3350 Pkt 17 gm PO ×2 (08:22→16:50)
[2021-07-14] MEDS: ARIPiprazole 10 mg Tablet 15 MG PO (08:22)
[2021-07-14 14:00] VITALS: BP 120/86; PULSE 92; RESP 17; TEMP 36.6; O2SAT 97
--- NOTE | 2021-07-14 15:02 | P.PN_ITS ---
Subjective NPU Subjective: Interval history: Patient is about the same today. He continues to work on future goals. No auditory or visual hallucinations. No suicidal or homicidal ideation. No medication side effects. Thinking is becoming more organized. Mental Status Exam MSE Comments: This is an underweight, white male, with hospital scrubs on with adequate grooming and improved eye contact. No abnormal movements or tics noted. Psychomotor retardation is improving. He continues to get more open about his inner experiences. Speech --chatty. Regular rate and rhythm. Mood is improving -- affect is a little brighter but still odd. Thought process: Becoming more organized. Thought content: patient denied any suicidal or homicidal ideation. Less paranoia. He denied auditory or visual hallucinations. Attention and concentration were limited, and memory was unreliable, but none were formally tested. He is alert and oriented times three. Insight and judgment are impaired, impulse control is impaired. Vitals/I&O/Wt Last Vital Signs Temp 97.8 F 07/14/21 14:00 Pulse 92 07/14/21 14:00 Resp 17 07/14/21 14:00 BP 120/86 07/14/21 14:00 Pulse Ox 97 07/14/21 14:00 Data NPU : 07/02/21 10:05 07/02/21 10:05 A&P Assessment and plan (1) Psychosis: Status: Acute (2) Altered mental status: Status: Acute (3) Cannabis abuse: Status: Acute Additional A&P Information This is a 30-year-old, white male, with no consistent mental health treatment in the past with past hospitalizations, suicide attempts, and genetic loading for mental health and addiction issues, who presents with confusion, likely psychosis, and was initially unwilling to consider medication trial. There is much information needed to make sense of his situation. He seems like a lost soul and it is not clear yet to what degree mental illness plays a role in his retreat from the world. RECOMMENDATION AND PLAN: 1. Continue current medication. Abilify was increased to 15 mg p.o. every morning. He appears to be opening up more the longer he is on this medication. No side effects. 2. Encourage individual, group, and milieu therapy. 3. Continue q-15 minute checks for safety. 4. Encourage sober living treatment after discharge at the highest level of care to which he is willing to commit. Involuntary Hold Information 96 Hour Hold: 96 Hour Involuntary Admission: No Attestations NPU Medical Necessity Statement*: Inpatient hospitalization is medically necessary and the clinically appropriate intervention, at this time. We will monitor medications and make changes as indicated. Likely length of stay is 2-3 days. Coding Level of Care Code Acute Air Conditioning Manager for Mandeep Fwd Diagnoses Psychosis F29 Altered mental status R41.82 Cannabis abuse F12.10
[2021-07-14] MEDS: acetaminophen 325 mg Tablet 650 MG PO (15:21)
[2021-07-14] MEDS: trazodone 50 mg Tablet PO (20:32)
[2021-07-14 20:50] VITALS: BP 107/66; PULSE 68; RESP 16; TEMP 36.7; O2SAT 97
[2021-07-14] MEDS: OLANZapine 5 mg ODT PO (22:42)
[2021-07-14] MEDS: docusate sodium 100 mg Capsule 200 MG PO (22:42)
[2021-07-15 06:00] VITALS: BP 95/62; PULSE 108; RESP 19; TEMP 37.1; O2SAT 95
[2021-07-15] MEDS: ARIPiprazole 10 mg Tablet 15 MG PO (09:30)
--- NOTE | 2021-07-15 09:30 | PC.NURSE ---
refused scheduled Miralax packet
[2021-07-15] MEDS: acetaminophen 325 mg Tablet 650 MG PO ×2 (11:02→15:27)
[2021-07-15] MEDS: nicotine 2 mg Gum BUCCAL ×2 (13:12→15:33)
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
--- NOTE | 2021-07-15 13:44 | PC.NURSE ---
Patient is JAJA Davis. Patient states his name is David Huerta JR. but he has had problems because his father's name is also David Huerta. Patient states he has legally changed his name to Yasir Davis. RD notified and states he will call the [facility].
[2021-07-15 14:00] VITALS: BP 111/67; PULSE 81; RESP 17; TEMP 36.6; O2SAT 95
[2021-07-15] MEDS: trazodone 50 mg Tablet PO (20:37)
[2021-07-15] MEDS: polyethylene glycol 3350 Pkt 17 gm PO (20:37)
--- NOTE | 2021-07-15 20:40 | PC.NURSE ---
pt requested ttrazodone for sleep. Trazodone 50mg po given.
[2021-07-15 21:25] VITALS: BP 118/78; PULSE 98; RESP 16; TEMP 37.2; O2SAT 98
--- NOTE | 2021-07-15 22:50 | PC.NURSE ---
pt requested andditional medication to help him sleep. i've got to sleep zyprexa 5mg SL given.
[2021-07-15] MEDS: OLANZapine 5 mg ODT PO (22:54)
[2021-07-16 06:00] VITALS: BP 124/82; PULSE 92; RESP 16; TEMP 36.7; O2SAT 97
[2021-07-16] MEDS: ARIPiprazole 10 mg Tablet 15 MG PO (08:57)
--- NOTE | 2021-07-16 08:59 | PC.NURSE ---
refused scheduled Miralax packet
[2021-07-16] MEDS: acetaminophen 325 mg Tablet 650 MG PO (12:11)
[2021-07-16 14:00] VITALS: BP 123/69; PULSE 87; RESP 18; TEMP 36.5; O2SAT 98
[2021-07-16] MEDS: nicotine 2 mg Gum BUCCAL ×2 (14:21→17:42)
--- NOTE | 2021-07-16 15:57 | PM.NPN ---
Subjective NPU Subjective: Interval history: I met with the patient in his room. He asked for a mood stabilizer medicine. He explained that sometimes he feels agitated and sometimes he feels anxious, and his mood shifts between the 2 states. I explained that he probably needs a medication like sertraline which can help with anxiety. He understands risks, benefits and side effects and agrees to a trial. He also ask whether I could start him on progesterone. I explained that he needs to find someone with expertise in transitioning medicine. The patient's mother called and I returned her call but we haven't connected yet. Mental Status Exam MSE Comments: This is an underweight, white male, with hospital scrubs on with adequate grooming and improved eye contact. No abnormal movements or tics noted. Psychomotor retardation is improving. He continues to get more open about his inner experiences. Speech -- not hesitating now. Regular rate and rhythm. Mood is improving -- affect is still pretty serious and odd. Thought process: Becoming more organized. Thought content: patient denied any suicidal or homicidal ideation. He still has delusional ideas, for example about being poisoned. He denied auditory or visual hallucinations. Attention and concentration were limited, and memory was unreliable, but none were formally tested. He is alert and oriented times three. Insight and judgment are impaired, impulse control is impaired. Vitals/I&O/Wt Last Vital Signs Temp 97.7 F 07/16/21 14:00 Pulse 87 07/16/21 14:00 Resp 18 07/16/21 14:00 BP 123/69 07/16/21 14:00 Pulse Ox 98 07/16/21 14:00 Weight last 48 hrs Weight 61.915 kg Data NPU : 07/02/21 10:05 07/02/21 10:05 A&P Assessment and plan (1) Schizotypal personality disorder: Status: Acute (2) Cannabis abuse: Status: Acute (3) Psychosis: Status: Acute (4) Altered mental status: Status: Acute (5) Anxiety disorder, unspecified: Status: Acute Additional A&P Information This is a 30-year-old, white male, with no consistent mental health treatment in the past with past hospitalizations, suicide attempts, and genetic loading for mental health and addiction issues, who presents with confusion, likely psychosis, and was initially unwilling to consider medication trial. There is much information needed to make sense of his situation. He seems like a lost soul and it is not clear yet to what degree mental illness plays a role in his retreat from the world. Now it appears that he does have a delusions, perhaps schizotypal personality disorder or delusional disorder or schizophrenia. RECOMMENDATION AND PLAN: 1. Continue current medication. Abilify was increased to 15 mg p.o. every morning. He appears to be opening up more the longer he is on this medication. No side effects. 2. Add Zoloft 50 mg daily for anxiety - will also add a diagnosis of unspecified anxiety disorder. 3. Clarify diagnosis: schizotypal personality disorder vs delusional disorder vs schizophrenia. We will give a presumptive diagnosis of schizotypal personality disorder at this time. It would be helpful if we had collateral information, but he is unwilling to let us contact anyone in his family. 4. Encourage individual, group, and milieu therapy. 5. Continue q-15 minute checks for safety. 6. Encourage sober living treatment after discharge at the highest level of care to which he is willing to commit. 7. The hospital will need to sort out what his true identity is, for the purposes of registration, billing, etc. Involuntary Hold Information 96 Hour Hold: 96 Hour Involuntary Admission: No Attestations NPU Medical Necessity Statement*: Inpatient hospitalization is medically necessary and the clinically appropriate intervention, at this time. We will monitor medications and make changes as indicated. Starting new medication today. Likely length of stay is 1-2 days. Coding Level of Care Code Acute Temporary Help Agency Referral Clerk for Mandeep Hammond Diagnoses Schizotypal personality disorder F21 Cannabis abuse F12.10 Psychosis F29 Altered mental status R41.82 Anxiety disorder, unspecified F41.9
[2021-07-16] MEDS: sertraline 50 mg Tablet PO (17:04)
[2021-07-16] MEDS: trazodone 50 mg Tablet PO (21:36)
[2021-07-16] MEDS: polyethylene glycol 3350 Pkt 17 gm PO (21:36)
[2021-07-16 22:00] VITALS: BP 120/82; PULSE 107; RESP 18; TEMP 36.9; O2SAT 94
[2021-07-17 06:00] VITALS: BP 104/67; PULSE 95; RESP 15; TEMP 37.1; O2SAT 96
[2021-07-17] MEDS: ARIPiprazole 10 mg Tablet 15 MG PO (09:00)
--- NOTE | 2021-07-17 09:00 | PC.NURSE ---
refused scheduled zoloft
[2021-07-17] MEDS: polyethylene glycol 3350 Pkt 17 gm PO (09:01)
[2021-07-17] MEDS: nicotine 2 mg Gum BUCCAL (09:26)
[2021-07-17 11:28] VITALS: BP 104/67; PULSE 95; RESP 15; TEMP 37.1; O2SAT 96
[2021-07-17 14:00] VITALS: BP 104/67; PULSE 95; RESP 15; TEMP 37.1; O2SAT 96
--- NOTE | 2021-07-17 18:07 | P.PN_ITS ---
Subjective NPU Subjective: Interval history: The plan was to discharge the patient to the [facility] today, however we were unable to make contact with him despite numerous attempts. The patient refused to take his Zoloft, because he is convinced that it made him dizzy. He says that this is the only time he has felt dizzy after taking it. No amount of discussion or encouragement succeeded in getting him to take the medication. He said his mood is okay, and he denies feeling depressed. He does have worries about how he will manage his life, including how to get a job, how to get transportation between the homeless skilled nursing and treatment and between the [facility] skilled nursing and work, etc. He denies auditory and visual hallucinations. No suicidal or homicidal ideation. No side effects on medication except for Zoloft. Mental Status Exam MSE Comments: This is an underweight, white male, with hospital scrubs on with adequate grooming and fair eye contact. No abnormal movements or tics noted. Psychomotor retardation is improving. He does posture some with his arms bent at a 90 degree angle when he walks. He continues to get more open about his inner experiences. Speech --more fluent. Regular rate and rhythm. Mood is improving -- affect is still pretty serious and odd. Thought process: more organized. Thought content: patient denied any suicidal or homicidal ideation. He still has delusional ideas, for example about being poisoned. He denied auditory or visual hallucinations. Attention and concentration were limited, and memory was unreliable, but none were formally tested. He is alert and oriented times three. Insight and judgment are improved, impulse control is improved. Vitals/I&O/Wt Last Vital Signs Temp 98.7 F 07/17/21 20:29 Pulse 95 07/17/21 20:29 Resp 15 07/17/21 20:29 BP 104/67 07/17/21 20:29 Pulse Ox 96 07/17/21 20:29 Data NPU : 07/02/21 10:05 07/02/21 10:05 A&P Assessment and plan (1) Schizotypal personality disorder: Status: Chronic (2) Anxiety disorder, unspecified: Status: Chronic (3) Cannabis abuse: Status: Chronic (4) Psychosis: Status: Resolved (5) Altered mental status: This is resolved. Status: Resolved Additional A&P Information This is a 30-year-old, white male, with no consistent mental health treatment in the past with past hospitalizations, suicide attempts, and genetic loading for mental health and addiction issues, who presents with confusion, likely psycho sis, and was initially unwilling to consider medication trial. There is much information needed to make sense of his situation. He seems like a lost soul and it is not clear yet to what degree mental illness plays a role in his retreat from the world. Now it appears that he does have a delusions, perhaps schizotypal personality disorder or delusional disorder or schizophrenia. RECOMMENDATION AND PLAN: 1. Continue current medication. Abilify was increased to 15 mg p.o. every morning. He appears to be opening up more the longer he is on this medication. No side effects. 2. Add Zoloft 50 mg daily for anxiety -patient is now refusing to take it because he believes it caused him to be dizzy today. 3. Clarify diagnosis: schizotypal personality disorder vs delusional disorder vs schizophrenia. We will give a presumptive diagnosis of schizotypal personality disorder at this time. It would be helpful if we had collateral information, but he is unwilling to let us contact anyone in his family. 4. Encourage individual, group, and milieu therapy. 5. Continue q-15 minute checks for safety. 6. Encourage sober living treatment after discharge at the highest level of care to which he is willing to commit. 7. The patient's mother says that his name is David HuertaJunior. She confirms that he legally changed his name to Yasir Davis. Involuntary Hold Information 96 Hour Hold: 96 Hour Involuntary Admission: No Attestations NPU Medical Necessity Statement*: We were planning on discharging the patient today. Psychiatric hospitalization is medically necessary, because without adequate housing, the patient is at risk of harming himself. Anticipate discharge tomorrow. Coding Level of Care Code Acute Panel Gluer for Mandeep Hammond Diagnoses Schizotypal personality disorder F21 Anxiety disorder, unspecified F41.9 Cannabis abuse F12.10 Psychosis F29 Altered mental status R41.82
[2021-07-17 20:29] VITALS: BP 104/67; PULSE 95; RESP 15; TEMP 37.1; O2SAT 96
[2021-07-17] MEDS: hyDROXYzine 25 mg Capsule 50 MG PO (21:25)
[2021-07-18] MEDS: trazodone 50 mg Tablet PO (01:25)
[2021-07-18 06:00] VITALS: BP 125/81; PULSE 81; RESP 17; TEMP 37.2; O2SAT 99
[2021-07-18] MEDS: sertraline 50 mg Tablet PO (09:43)
[2021-07-18] MEDS: ARIPiprazole 10 mg Tablet 15 MG PO (09:43)
[2021-07-18] MEDS: polyethylene glycol 3350 Pkt 17 gm PO (09:43)
--- NOTE | 2021-07-18 11:00 | P.DS_ITS ---
Diagnoses at Discharge Discharge Diagnosis (1) Schizotypal personality disorder: Status: Chronic (2) Cannabis abuse: Status: Chronic (3) Psychosis: Status: Resolved (4) Altered mental status: Status: Resolved (5) Anxiety disorder, unspecified: Status: Chronic Reason for Visit Reason for Visit: MHE EVAL Brief History: Daivd Huerta is a 30 year old male who presented to the ED with the following report: Chief Complaint: Altered Mental Status Stated Complaint: MHE EVAL Time Seen by Provider: 07/02/21 09:33 History of Present Illness: HPI Narrative: 30-year-old male presents emergency room via EMS. He was stopped by the police for driving a vehicle without tags on it he was unable to answer questions and seemed altered. EMS was called and he was transported here. On arrival here he is not able to answer very many questions he can tell me he has asthma and uses albuterol on produces an albuterol inhaler that is 124 puffs out of it but is from May 2020 the inhaler is also broken. He denies any recent illness. He does state that he was headed to [place] then later when asked about a pain smear on his right forearm states he had been painting in [place] but he cannot tell me who he was with where he stayed or any other details. He denies any suicidal homicidal ideation denies any visual or auditory hallucinations. He does admit to using alcohol yesterday but will not quantify the amount he used he denies any other illicit drug use. Denies any history of suicidal ideation previous psychiatry admissions or mental health diagnoses. MD complaint: altered mental status Onset (ago): unknown Duration: constant History of same: No Relieving factors: none Exacerbating factors: none Associated psychiatric symptoms: none Associated symptoms: Deny auditory hallucinations, visual hallucinations, delusions, depression, homicidal ideation, suicidal ideation or racing thoughts Treatments prior to arrival: none. He was admitted to the neuropsychiatric unit for definitive treatment of those issues. He presents today reporting that he had one psychiatric hospitalization at [facility] in 2017 or 2018 but denies outpatient services or ever being on medication. He reports he did have a suicide attempt in 2012 after his son?s mom was keeping his son away and he did not respond well to that. He endorses smoking two to three packs of cigars a day, drinking alcohol maybe once a week, smoking marijuana daily, but denied any other illicit drug use. He denies ever being in a rehab or having a DUI. He was positive for cannabis on his drug screen. After this, his ability to provide history was very limited with many questions followed by significant pauses and answers of I don?t know. He reports he is here because the tool specialist pulled him over and took his ID?s and brought him here, but he has no understanding of why they brought him here. He reports his vehicle had no tags and that is what elicited the stop, but beyond that he cannot give any articulated information about what happened. When asked about what could lead to concerns that people were having, that led to him being put on a 96-hour hold, he said he did not know, and then he reported that sometimes he cannot eat because he was poisoned from years ago. He did endorse paranoia and we discussed the risks, benefits, and alternatives of a trial of Abilify, and he understood and agreed to proceed as is documented in this note but was unwilling to start medication at this time. PSYCHIATRIC HISTORY: As above. SUBSTANCE ABUSE HISTORY: As above. FAMILY HISTORY: He reports that there is mental health on his mother?s side including DID and addiction issues on his father?s side. He denies any suicide attempts or completions in the family. DEVELOPMENTAL HISTORY: He denies any issues with his mother?s or delivery of him. He met all developmental milestones on time. He denies learning support, emotional support, or special education classes. He stated that he required speech therapy in school. PSYCHOSOCIAL HISTORY: He reports his parents were together when he was born but ended up splitting up. They had four children together including him as the youngest and his three older sisters. His mother did not have any other children, but he is unsure about whether his father has other children. When asked about his childhood, he had one of the longest pauses that happened during the interview, and then he reported he did not know how his childhood was. He could not explain this, but then when asked specifically about emotional, physical, or sexual abuse, he did not have any, and when I asked how he could not remember his childhood, but knew that there was no abuse, he made some response about his mother asking him did he want some job and somehow the intonation in her voice let him know that ev erything was alright, but he denied CYS involvement or placement. He graduated from high school and had a few credits of college. He endorses being homosexual with his longest relationship being seven years. He has never been , he has an 11-year-old son with whom he does not have contact, he has never been in the , and does not have any congregation belief system. His longest employment he reports was in his youth when he worked for [employer] and [employer] until about 2004 for about three or four years. He is currently homeless; he could not give an approximation of how long that has been the case. LEGAL HISTORY: He endorses he went to residential one time in 2014 for two weeks. MEDICAL HISTORY: He denied any issues but please see E.D. note for full details. Hospital Course Hospital Course The patient was admitted to the neuropsychiatric unit for definitive treatment of these issues. On the unit he slowly acclimated to the individual, group and milieu therapies. There were some psychotic symptoms present initially which improved with addition of Abilify and its titration to 15 mg daily. He was also started on Zoloft 50 mg for anxiety. At the time of discharge he had one episode of dizziness which he was convinced was caused by the Zoloft, and refused to take it again. I said we couldn't be sure it was the Zoloft since he had been on it for several days without side effects, but he wanted to stop it anyway. The patient never gave us permission to speak with his family. On 07/16/21, the patient's mother, Candace, called. She said she knew the patient was here because he called her and told her. I explained that she was not on his contact list, so I couldn't provide her with any information. I told her that she could provide me with information, though. We felt that the patient most closely met criteria for schizotypal personality disorder. He had a pervasive pattern of intense discomfort with and reduced capacity for close relationships, had distorted cognition and perceptions, and had eccentric behavior. Candace says that the patient was born by emergency due to breach presentation. They kept them in the hospital for a few days. He quit breathing at 2 weeks and then was placed on a monitor until 8 or 9 months old. He didn't have noticeable sequelae from these events. He got average grades in school and had a friend named Carlos. Candace says the patient has called Carlos from here, too. She says he had no mental health issues while growing up. Candace says that several years ago, her son had gotten some charges from an altercation he had with his sister. He missed his court date because he had traveled to [place] for the first time, about two years ago. When he returned to [place], the container crane operator picked him up on a warrant for missing his court date. The patient wasn't acting right, so the container crane operator took him to [facility]. [place] said he had either Bipolar or Schizophrenia. He also had meth in his system. They got him on a medicine that helped. Sometime after that he was not acting right at a homeless intermediate, and they called an ambulance that took him to the [facility]. He was talking to himself. He was saying strange things. For example, he was talking about where his dog was buried, but his dog wasn't even . [facility] also said he had either Bipolar or Schizophrenia too. Candace says that David has applied for disability. Also, when David tried to get medicaid, it messed up his son's medicaid. So Candace asked him to change his address to see if that would help the Medicaid application. She also confirms that he had his name legally changed from David to Yasir Davis. She was not sure why he did that. She is hoping that he gets into some treatment and can get straightened out. The patient was receptive to treatment team recommendations and showed modest improvement and was able to contract for safety prior to discharge. Plans were made for him to go to the [facility] and to follow up with [facility], with recommendations to attend the [facility] day treatment program and have a correctional case records supervisor. During the hospitalization, patient had routine laboratory studies which were within normal limits except for few outliers. Additionally there was a general medical evaluation which was also within normal limits and revealed no new acute processes. Discharge Summary: At the time of discharge, psychosis and lethality were denied. Mood and anxiety were well managed. Patient endorsed a plan to avoid all drugs of abuse and follow-up with the aftercare recommendations of the treatment team. Patient was evaluated and deemed to be absent credible lethality, and had achieved the maximum benefit from an inpatient hospitalization, so was discharged. Involuntary Hold Information 96 Hour Hold: 96 Hour Involuntary Admission: No Mental Status Exam MSE Comments: This is an underweight, white male, with hospital scrubs on with adequate grooming and fair eye contact. No abnormal movements or tics noted. Psychomotor retardation is improving. He does posture some with his arms bent at a 90 degree angle when he walks. He continues to get more open about his inner experiences. Speech --more fluent. Regular rate and rhythm. Mood is improving -- affect is still pretty serious and odd. Thought process: more organized. Thought content: patient denied any suicidal or homicidal ideation. He still has delusional ideas, for example about being poisoned. He denied auditory or visual hallucinations. Attention and concentration were limited, and memory was unreliable, but none were formally tested. He is alert and oriented times three. Insight and judgment are improved, impulse control is improved. Discharge Data Data Completed and Pending: Completed Studies During Hospitalization Category Date Time Status CT head wo con* 7 0450 Stat Cat Scan 07/02/21 10:03 Completed Vitals: Last Vital Signs Temp 98.7 F 07/17/21 06:00 Pulse 95 07/17/21 06:00 Resp 15 07/17/21 06:00 BP 104/67 07/17/21 06:00 Pulse Ox 96 07/17/21 06:00 Discharge Plan Discharge Patient Disposition: Home Condition: Stable Prescriptions: New aripiprazole 10 mg Tablet 15 mg PO DAILY 30 Days Qty: 45 RF: 0 Discharge Orders: Discharge Order (Routine); Ordered 07/18/21 Ordered By: Todd Brenner Referrals: [facility] [Outside] Discharge Diet: Usual diet Discharge Activity: Resume usual activity Patient Instructions: Aripiprazole (By mouth), Opioid Safety Discharge Attestations NPU Time Spent in Discharge Care*: less than 30 min Specific Discharge Activities: Specific discharge activities: educating patient, discussing with caser shoe parts/social workers/dc planners, documenting/other paperwork and evaluating patient/reviewing data Status at Discharge: Cognitive status at discharge: mildly impaired cognition , Behavioral status at discharge: cooperative and can be uncooperative , Functional status at discharge: independent ambulation Overall status at discharge: patient is back to baseline Coding Level of Care Code Acute Chg FW DC note Diagnoses Schizotypal personality disorder F21 Cannabis abuse F12.10 Psychosis F29 Altered mental status R41.82 Anxiety disorder, unspecified F41.9
[2021-07-18] MEDS: nicotine 2 mg Gum BUCCAL (12:16)
[2021-07-18 14:00] VITALS: BP 124/78; PULSE 63; RESP 17; TEMP 36.6; O2SAT 98
[2021-07-18 14:19] VITALS: BP 125/81; PULSE 81; RESP 17; TEMP 37.2; O2SAT 99
== END 2021-07-18 16:00 | disposition home or self-care (01) | DRG 883 ==
LOC: ER 11:34 → NP 11:48
PROVIDERS: Admitting Provider Psychiatry & Neurology Psychiatry; Emergency Provider Family Medicine; Visit Provider Psychiatry & Neurology Child & Adolescent Psychiatry
DX: F21 Schizotypal disorder (principal); J45.909 Unspecified asthma, uncomplicated; Z86.51 Personal history of combat and operational stress reaction; F12.10 Cannabis abuse, uncomplicated; F41.9 Anxiety disorder, unspecified
CPT/HCPCS: 36416; 36600; 70450; 80051; 80053; 80306; 80307; 82009; 82330; 82805; 82962; 83605; 85025; 97150; 97165; 99285; Q0162

== ENCOUNTER 2021-07-21 17:22 | Inpatient (IN) | payer MEDICAID, SELFPAY ==
[2021-07-21 17:26] VITALS: BP 132/86; PULSE 94; RESP 14; TEMP 36.8; O2SAT 95; BMI 22.6
[2021-07-21 17:39] VITALS: BP 145/96; PULSE 107; O2SAT 96
--- NOTE | 2021-07-21 17:54 | W.ED.GENADLT ---
HPI - General Adult General: Chief complaint: General Medical Stated complaint: TIRED; EXCESSIVE SALIVATION Time Seen by Provider: 07/21/21 17:31 History of Present Illness: HPI narrative: 30-year-old male presents emergency room via EMS. He was recently hospitalized in the neuropsychiatric unit for an extended period of time. He was discharged home on 15 mg of Abilify and went to the [facility]. He presents to the emergency room today via EMS complaining of excessive drooling essentially his arms neck being locked into place. On initial arrival he has obviously having extrapyramidal symptoms. He denies any other issues. He is on still been taking his Abilify regularly denies taking any excessive doses. Onset (ago): unknown Location: head, neck and upper extremity Severity: severe Relieving factors: none Exacerbating factors: none Associated symptoms: Deny chest pain, dyspnea, nausea or vomiting Review of Systems Const: Denies: fever(s) or chills ENMT: Denies: throat pain, ear or mastoid pain, nasal discharge or nasal congestion Card: Denies: chest pain, edema or dyspnea on exertion Resp: Denies: dyspnea, productive cough or non-productive cough GI: Denies: abdominal pain, nausea or vomiting : Denies: flank pain, dysuria, urinary frequency or urinary urgency Physical Exam Const: COMMON NORMALS: no acute distress GENERAL APPEARANCE: cooperative HENMT: COMMON NORMALS: normocephalic and atraumatic HEAD & SCALP: normocephalic and atraumatic Neck/C-Spine: COMMON NORMALS: no JVD Resp: COMMON NORMALS: normal respiratory effort, No retractions, No use of accessory muscles and clear to auscultation bilaterally AUSCULTATION: clear to auscultation bilaterally Cardio: COMMON NORMALS: no JVD, regular rate, regular rhythm and No murmurs present (Cardio) RATE: regular rate RHYTHM: regular rhythm GI: COMMON NORMALS: Soft to palpation and No hepatosplenomegaly present AUSCULTATION: Yes normoactive bowel sounds PALPATION: Yes Soft to palpation, No Tenderness to palpation present (GI), No Guarding due to palpation present (GI) and Yes No hepatosplenomegaly present Extremity: COMMON NORMALS: normal to inspection, capillary refill normal, no clubbing, cyanosis or edema, no calf tenderness and no pedal edema OTHER: Patient has obvious classical symptoms of extraparametal side effects. His stiffening of the neck and upper extremities locked into position. Skin: COMMON NORMALS: no rashes or lesions noted GENERAL SKIN EXAM: no rashes or lesions noted Course Vital Signs: Vital signs: Vital Signs Temperature 97.2 F L 07/24/21 14:00 Pulse Rate 68 07/24/21 14:00 Respiratory Rate 17 07/24/21 14:00 Blood Pressure 116/78 07/24/21 14:00 Pulse Oximetry 98 07/24/21 14:00 MDM - General Adult MDM Narrative: Medical decision making narrative: Discussed with Dr. Schulz. Given his prolonged hospital stay difficulty they had getting his medications adjusted change medications regularly precipitate another episode of psychosis. We will go ahead and readmit him for medication side effects hold the Abilify and giving Benadryl and Cogentin in the emergency room Dr. Schulz will make adjustments to his medications. Discharge Plan Discharge Patient Disposition: Admitted As Inpatient Admit Provider: Ar Schulz Clinical Impression: Extrapyramidal reaction, Schizotypal personality disorder Condition: Stable Discharge Diet: Regular Discharge Activity: Resume usual activity Coding Level of Care Code ED Lidding Machine Operator for [place] Fwd Exam Comprehensive
[2021-07-21] MEDS: benztropine 1 mg/mL SDV 2 mL IM (18:04)
[2021-07-21] MEDS: diphenhydrAMINE 50 mg/mL SDV 1mL IM (18:07)
[2021-07-21 19:52] VITALS: BP 121/87; PULSE 76; RESP 17; O2SAT 98
[2021-07-21] MEDS: benztropine 1 mg/mL SDV 2 mL IVP (20:27)
[2021-07-21 20:29] VITALS: BP 114/72; PULSE 63; RESP 16; O2SAT 100
[2021-07-21 21:29] VITALS: BP 107/70; PULSE 61; RESP 18; O2SAT 100
[2021-07-21 22:50] VITALS: BP 117/78; PULSE 85; RESP 18; TEMP 36.7; O2SAT 97
[2021-07-22] MEDS: blistex lip oint 7 gm Tube 1 APPLIC TOPICAL (03:48)
[2021-07-22] MEDS: hyDROXYzine 25 mg Capsule 50 MG PO ×2 (03:48→22:51)
--- NOTE | 2021-07-22 03:48 | PC.NURSE ---
PRN Vistaril given for anxiety. Patient tolerated well. Will continue to monitor.
[2021-07-22 06:00] VITALS: BP 119/82; PULSE 80; RESP 17; TEMP 36.6; O2SAT 98
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
[2021-07-22 14:00] VITALS: BP 132/69; PULSE 98; RESP 20; TEMP 36.8; O2SAT 98
[2021-07-22 21:28] VITALS: BP 128/78; PULSE 68; RESP 17; TEMP 36.7; O2SAT 95
[2021-07-22] MEDS: trazodone 50 mg Tablet PO (22:51)
--- NOTE | 2021-07-22 23:00 | PC.NURSE ---
pt requesting meds for sleep and anxiety, trazodone 50mg for sleep and vistaril 50mg for anxiety given.
--- NOTE | 2021-07-23 02:38 | PC.NURSE ---
pt resting quietly with both eyes closed
[2021-07-23 06:00] VITALS: BP 121/86; PULSE 86; RESP 19; TEMP 37; O2SAT 98
[2021-07-23] MEDS: benztropine 1 mg Tablet PO (11:51)
--- NOTE | 2021-07-23 11:52 | PC.NURSE ---
Addendum entered by Stella Patel LPN 07/23/21 18:43: LATE ENTRY PRN MED EFFECTIVE NO FURTHER C/O EPS Original Note: PRN COGENTIN 1 MG GIVEN PO PER PT C/O STATED EPS, SAYS HIS HANDS ARE ALL SHAKY
[2021-07-23 14:00] VITALS: BP 102/64; PULSE 82; RESP 20; TEMP 36.6; O2SAT 96
--- NOTE | 2021-07-23 14:59 | PC.NURSE ---
Patient complaining of headache 4/10 scale, Tylenol given, instructed patient to inform if no improvement in 1 hour.
[2021-07-23] MEDS: acetaminophen 325 mg Tablet 650 MG PO (15:00)
--- NOTE | 2021-07-23 15:26 | NPU.GN ---
[facility] Topic:Depression Bingo General Mood of Group: Yasir refused he was too sleepy.
--- NOTE | 2021-07-23 18:13 | PM.NPN ---
Subjective NPU Subjective: Interval history: Patient resents today reporting that he is feeling better now that he has the medication for EPS as medication has been decreased. He denies any specific symptoms and reports that the people SOC told him that as long as you know the hospital will have a place to stay when he returns. Reports he is eating and sleeping okay. We discussed the likelihood of discharge tomorrow. Mental Status Exam MSE Comments: This is an underweight, white male, with hospital scrubs on with adequate grooming and limited eye contact. No abnormal movements except for psychomotor retardation. Cooperative with exam in no acute distress. Speech was limited and decreased rate and volume. Mood described as better; affect subdued and odd. Thought process organized. Thought content: patient denied any suicidal or homicidal ideation, he denied delusions and none specifically were noted. He denied auditory or visual hallucinations. Attention and concentration were intact, and memory was mostly reliable, but none were formally tested. He is alert and oriented times three. Insight and judgment are limited, impulse control is fair. Vitals/I&O/Wt Last Vital Signs Temp 97.8 F 07/23/21 14:00 Pulse 82 07/23/21 14:00 Resp 18 07/23/21 21:10 BP 102/64 07/23/21 14:00 Pulse Ox 96 07/23/21 14:00 Weight last 48 hrs Weight 61.689 kg A&P Additional A&P Information (1) Extrapyramidal reaction: (2) Anxiety disorder, unspecified: (3) Schizotypal personality disorder: (4) Cannabis abuse: Additional A&P Information (1) Psychosis: This is a 30-year-old, white male, with no consistent mental health treatment in the past with past hospitalizations, suicide attempts, and genetic loading for mental health and addiction issues, who presents after recent successful discharge to [facility] returning now with clear EPS. RECOMMENDATION AND PLAN: 1. Continue current medication. 2. Encourage individual, group, and milieu therapy. 3. Continue q-15 minute checks for safety. 4. Encourage sober living treatment after discharge at the highest level of care to which he is willing to commit. Involuntary Hold Information 96 Hour Hold: 96 Hour Involuntary Admission: No Attestations NPU Medical Necessity Statement*: Inpatient hospitalization is medically necessary and the clinically appropriate intervention, at this time. We will monitor medications and make changes as indicated. Likely length of stay is 1-3 days. Coding Level of Care Code Acute Customer Success Manager for Mandeep Hammond
[2021-07-23 21:10] VITALS: RESP 18
[2021-07-23] MEDS: ARIPiprazole 10 mg Tablet PO (21:15)
[2021-07-24] MEDS: hyDROXYzine 25 mg Capsule 50 MG PO (00:15)
[2021-07-24] MEDS: trazodone 50 mg Tablet PO (00:15)
[2021-07-24 06:00] VITALS: PULSE 78; RESP 17; O2SAT 99
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
[2021-07-24 07:51] VITALS: BP 112/78; PULSE 64; RESP 16; TEMP 36.8; O2SAT 99
[2021-07-24] MEDS: ARIPiprazole 10 mg Tablet PO (08:35)
--- NOTE | 2021-07-24 11:05 | NPU.GN ---
[facility] Group Topic:Sail Boat/ Mechanisms General Mood of Group: Yasir did not attend group today.
[2021-07-24] MEDS: nicotine 2 mg Gum BUCCAL (12:19)
[2021-07-24 14:00] VITALS: BP 116/78; PULSE 68; RESP 17; TEMP 36.2; O2SAT 98
== END 2021-07-24 15:49 | disposition home or self-care (01) | DRG 57 ==
LOC: ER 20:57 → NP 21:44
PROVIDERS: Admitting Provider Psychiatry & Neurology Psychiatry; Emergency Provider Family Medicine; Visit Provider Psychiatry & Neurology Psychiatry
DX: G25.9 Extrapyramidal and movement disorder, unspecified (principal); F41.9 Anxiety disorder, unspecified; F21 Schizotypal disorder; F12.10 Cannabis abuse, uncomplicated
CPT/HCPCS: 96372; 96374; 97150; 97165; 99285; J0515; J1200

== ENCOUNTER 2021-09-06 09:46 | Emergency (ER) | payer MEDICAID, SELFPAY ==
[2021-09-06 09:47] VITALS: BP 129/77; PULSE 91; RESP 15; TEMP 36.8; O2SAT 98; BMI 22.7
[2021-09-06] MEDS: sodium chloride 0.9% 1,000 ML 999 ML IV (10:32)
[2021-09-06] MEDS: ondansetron 2 mg/ML SDV 2 mL 4 MG IVP (10:34)
[2021-09-06 10:35] LABS: Basophils % 0.5 %; Eosinophils # 0.1 10^3/uL (0.0-0.8); Eosinophils % 1.3 %; Lymphocytes # 1.5 10^3/uL (0.8-4.8); Lymphocytes % 23.6 %; Mean Corpuscular HGB Conc 34.1 g/dL (30.0-36.0); Mean Corpuscular Volume 90.9 fl (80-94); Mean Platelet Volume 11.7 fL (7.4-10.4); Monocytes # 0.4 10^3/uL (0.2-0.9); Monocytes % 6.6 %; Neutrophils # 4.21 10^3/uL (1.8-7.7); Neutrophils % 67.7 %; Nucleated Red Blood Cells % 0 %; Platelet Count 243 10^3/cmm (130-400); Red Blood Count 4.51 10^6/uL (4.1-5.3); Red Cell Distribution Width 12.2 % (12.1-15.1); White Blood Count 6.2 10^3/uL (4.0-10.0)
--- NOTE | 2021-09-06 10:38 | ED_ITS ---
HPI - Headache General: Chief Complaint: Headache Stated Complaint: HEADACHE, ABD PAIN Time Seen by Provider: 09/06/21 09:47 Source: patient Mode of arrival: EMS History of Present Illness: HPI Narrative: 30-year-old male presenting with history of headache and abdominal pain for the last 5 days. Household contact tested positive for Covid yesterday. No cough or difficulty breathing. No upper respiratory congestion. Does have midepigastric abdominal pain, nausea and decreased appetite, but no vomiting. Has chills and sweats, denies any objective fever. No loss of taste or smell. He took aspirin, 1000 mg, last night for his headache. He has not been vaccinated for COVID-19. He denies marijuana use in the last month. MD elicited complaint: headache Onset (ago): day(s) Associated symptoms: Reports diaphoresis, malaise and nausea; Deny chest pain, confusion, rash or vomiting Review of Systems General: Reports: 10 or more systems reviewed and unremarkable except in HPI and below Const: Reports: chills, body aches, change in appetite, fatigue, malaise and diaphoresis Eyes: Denies: change in vision or blurry vision ENMT: Denies: hoarseness, mouth pain or oral sores Card: Denies: chest pain or irregular heart rhythm Resp: Denies: dyspnea, productive cough or non-productive cough GI: Reports: abdominal pain and nausea; Denies: vomiting : Denies: flank pain, difficulty urinating or dysuria Musc: Denies: neck pain, back pain or extremity pain Skin/Breast: Reports: erythema; Denies: rash or pruritus Neuro: Reports: headache(s); Denies: numbness in extremities, weakness in extremities, lack of coordination or confusion Psych: Reports: anxiety and depression Axel/Lymph: Denies: easy bruising or easy bleeding PFSH ED PFSH: Medical History Psychiatric care Social History Smoking and tobacco status: current every day smoker Physical Exam Const: COMMON NORMALS: no acute distress and patient oriented x3 GENERAL APPEARANCE: anxious, disheveled and ill appearing; not in distress and not frail appearing HENMT: COMMON NORMALS: normocephalic and atraumatic HEAD & SCALP: n ormocephalic and atraumatic FACE & SINUS: normal facial exam and face symmetric Eye: COMMON NORMALS: Equal, round and reactive pupils present, EOMs intact bilaterally, conjunctivae normal and no scleral icterus CONJUNCTIVA: Yes conjunctivae normal PUPIL: Yes Equal, round and reactive pupils present Resp: COMMON NORMALS: normal respiratory effort, No retractions and No use of accessory muscles EFFORT & INSPECTION: Yes able to speak in complete sentences Cardio: COMMON NORMALS: regular rate and regular rhythm RATE: regular rate RHYTHM: regular rhythm GI: COMMON NORMALS: Soft to palpation; negative for No hepatosplenomegaly present AUSCULTATION: Yes normoactive bowel sounds PALPATION: Yes Soft to palpation, Yes Tenderness to palpation present (GI) (Mild epigastric), No Guarding due to palpation present (GI), No Rigid due to palpation, No No hepatosplenomegaly present, No Pulsatile mass present and No Ascites present Extremity: COMMON NORMALS: normal to inspection, full ROM, capillary refill normal and no clubbing, cyanosis or edema GENERAL: Yes normal exam except as noted Neuro: COMMON NORMALS: patient oriented x3, CN's II-XII intact bilaterally, moves all extremities and no focal motor deficits Skin: COMMON NORMALS: no rashes or lesions noted, no wounds, turgor normal and no jaundice GENERAL SKIN EXAM: no rashes or lesions noted and turgor normal Course Vital Signs: Vital signs: Vital Signs Temperature 98.3 F 09/06/21 09:47 Pulse Rate 91 09/06/21 09:47 Respiratory Rate 15 09/06/21 12:49 Blood Pressure 138/91 09/06/21 12:49 Pulse Oximetry 100 09/06/21 12:49 MDM - Headache MDM Narrative: Medical decision making narrative: 30-year-old male with headache, abdominal pain, household exposure to Covid?19. Covid test today is negative. Lab work stable, Symptoms improved with a dose of Zofran and IV fluid bolus. Most likely nonspecific viral syndrome versus false negative Covid result. Prescription for promethazine 25 mg as needed for nausea and difficulty sleeping. Emphasized importance of avoiding any cannabis as it can cause abdominal pain and nausea Medical Records: Attestation: I reviewed the patient's medical records. Lab Data: Attestation: I reviewed the patient's lab results. Labs: Lab Results 09/06/21 09/06/21 09/06/21 10:22 10:22 11:20 WBC 6.2 10^3/uL 10^3/ uL (4.0-10.0) RBC 4.51 10^6/uL 10^6 /uL (4.1-5.3) Hgb 14.0 g/dL g/dL (11.7-16.6) Hct 41.0 % L % (42.0-52.0) MCV 90.9 fl fl (80-94) MCH 31.0 pg pg (28.0-34.0) MCHC 34.1 g/dL g/dL (30.0-36.0) RDW 12.2 % % (12.1-15.1) Plt Count 243 10^3/cmm 10^3 /cmm (130-400) MPV 11.7 fL H fL (7.4-10.4) Neut % (Auto) 67.7 % % Lymph % (Auto) 23.6 % % [place] % (Auto) 6.6 % % Eos % (Auto) 1.3 % % Baso % (Auto) 0.5 % % Neut # (Auto) 4.21 10^3/uL 10^3 /uL (1.8-7.7) Lymph # (Auto) 1.5 10^3/uL 10^3/ uL (0.8-4.8) [place] # (Auto) 0.4 10^3/uL 10^3/ uL (0.2-0.9) Eos # (Auto) 0.1 10^3/uL 10^3/ uL (0.0-0.8) Baso # (Auto) 0.0 10^3/uL 10^3/ uL (0.0-0.1) Nucleated RBC % (a uto) 0 % % Nucleated RBCs # 0.0 /100WBC /100W BC Sodium 138 mmol/L mmol/L (136-145) Potassium 4.0 mmol/L mmol/L (3.5-5.1) Chloride 103 mmol/L mmol/L (98-107) Carbon Dioxide 24 mmol/L mmol/L (22-29) Anion Gap 15.0 (5-19) BUN 7 mg/dL mg/dL (6-20) Creatinine 0.5 mg/dL L mg/dL (0.7-1.2) GFR Calculation 195.2 mL/min H mL /min (90-130) Glucose 94 mg/dL mg/dL (65-115) Calculated Osmolal ity 284 mOsm/kg L mOs m/kg (285-295) Calcium 9.0 mg/dL mg/dL (8.5-10.5) Total Bilirubin 0.6 mg/dL mg/dL (0.15-1.2) AST 22 U/L U/L (0-40) ALT 22 U/L U/L (0-41) Alkaline Phosphata se 75 IU/L IU/L (40-130) C-Reactive Protein 1.4 mg/L mg/L (0.0-4.9) Total Protein 6.7 g/dL g/dL (6.6-8.7) Albumin 4.7 g/dL g/dL (3.5-5.2) Globulin 2.0 g/dL g/dL (1.3-4.6) Lipase 10 U/L L U/L (13-60) SARS-CoV-2 Ag (Rap id) Negative (Negative) Discharge Plan Discharge Patient Disposition: Home Clinical Impression: Nonspecific syndrome suggestive of viral illness, Close exposure to COVID-19 virus Headache Qualifiers: Headache type: unspecified Headache chronicity pattern: unspecified pattern Intractability: not intractable Qualified Code(s): R51.9 - Headache, unspecified Condition: Stable Prescriptions: New promethazine 25 mg tablet 25 mg PO TID PRN (Reason: sleep, nausea) Qty: 20 RF: 0 No Action prednisone 20 mg tablet 20 mg PO DAILY 5 Days Qty: 10 RF: 0 triamcinolone acetonide 0.1 % cream 1 applic topical BID 7 Days Qty: 30 RF: 0 benztropine 1 mg Tablet 1 mg PO BID PRN (Reason: Mild Extrapyramidal symptoms) 30 Days Qty: 60 RF: 1 aripiprazole 10 mg Tablet 10 mg PO QAM 30 Days Qty: 30 RF: 1 Discharge Orders: Discharge ED (Routine); Ordered 09/06/21 Ordered By: Pam Jimenez Discharge Diet: Advance as tolerated Discharge Activity: Increase activity as tolerated Patient Instructions: Viral Syndrome (ED) Activity Restrictions/Additional Instructions: Rest, drink plenty of fluids, take [id number] Tylenol or ibuprofen as needed for headache. Follow-up with your primary care doctor in the next 3 to 5 days for recheck. Avoid any marijuana or cannabis products as they could be making your nausea and abdominal pain worse. Return immediately to ER if you develop worsening abdominal pain, vomiting, fever, or if you cannot keep down liquids. Coding Level of Care Code ED [facility] Dental Technician for Mandeep Hammond
[2021-09-06 11:05] LABS: Alanine Aminotransferase 22 U/L (0-41); Albumin Level 4.7 g/dL (3.5-5.2); Alkaline Phosphatase 75 IU/L (40-130); Blood Urea Nitrogen 7 mg/dL (6-20); C Reactive Protein 1.4 mg/L (0.0-4.9); Carbon Dioxide 24 mmol/L (22-29); Chloride 103 mmol/L (98-107); Glomerular Filtration Rate 195.2 mL/min (90-130); Glucose 94 mg/dL (65-115); Lipase 10 U/L (13-60); Osmolality Calculated 284 mOsm/kg (285-295); Sodium 138 mmol/L (136-145); Total Bilirubin 0.6 mg/dL (0.15-1.2); Total Protein 6.7 g/dL (6.6-8.7)
[2021-09-06 11:08] LABS: Aspartate Amino Transferase 22 U/L (0-40)
[2021-09-06 11:47] LABS: SARS Covid-2 Antigen Negative (Negative)
[2021-09-06 12:49] VITALS: BP 138/91; RESP 15; O2SAT 100
== END 2021-09-06 12:50 | disposition home or self-care (01) ==
PROVIDERS: Emergency Provider Family Medicine
DX: R51.9 Headache, unspecified (principal); B34.9 Viral infection, unspecified; Z20.822 Contact with and (suspected) exposure to COVID-19; F17.210 Nicotine dependence, cigarettes, uncomplicated
CPT/HCPCS: 80053; 83690; 85025; 86140; 87426; 96361; 96374; 99283; J2405; J7030

== ENCOUNTER → 2021-09-13 13:39 | Outpatient (BNVA) | payer MEDICAID, SELFPAY | PROVIDERS: Visit Provider Psychiatry & Neurology Psychiatry | DX: F60.9 Personality disorder, unspecified (principal); F64.9 Gender identity disorder, unspecified; F12.10 Cannabis abuse, uncomplicated; L23.7 Allergic contact dermatitis due to plants, except food | CPT/HCPCS: 99204 ==

== ENCOUNTER → 2022-01-11 14:47 | Outpatient (BNVA) | payer MEDICAID, SELFPAY | PROVIDERS: Visit Provider Psychiatry & Neurology Psychiatry | DX: F60.9 Personality disorder, unspecified (principal); F64.9 Gender identity disorder, unspecified; F12.10 Cannabis abuse, uncomplicated | CPT/HCPCS: 99213 ==

== ENCOUNTER 2022-02-26 07:25 | Inpatient (IN) | payer MEDICAID, SELFPAY ==
[2022-02-26 07:32] VITALS: BP 122/87; PULSE 83; RESP 18; TEMP 37.2; O2SAT 97; BMI 19.8
--- NOTE | 2022-02-26 07:47 | W.ED.PSYCHS ---
Documented by User: ASPEN Faye 02/26/22 09:16 HPI - Psych General: Chief Complaint: Psychiatric Symptoms Stated Complaint: Mental Health eval Time Seen by Provider: 02/26/22 07:26 Source: patient Mode of arrival: ambulatory Limitations: no limitations History of Present Illness: Patient is a 31-year-old male who presents to the ED today requesting a mental health evaluation . During my assessment when I asked patient what symptoms he is having to warrant a mental health evaluation, he does not respond and instead pulls out his certificate and points to the hospital in which he was born at. I asked patient how this is affecting his mental health and again he does not respond but instead pulls out his change of address form and points to his new address. Patient then pulls out a notary stamp that does indeed have his name on it. 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 I questioned him further and he states that he obtained this due to his work but then tells me he worked at [employer]. 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 He responds no ma'am when asked if he is SI/HI, hallucinations, drug/etoh abuse, previous psychiatric diagnoses, or any current medications. Patient was seen at [facility] twice last year for similar presentation (diagnosed with schizotypal personality disorder). Overall his ability to provide history was very limited with many questions followed by significant pauses and answers of I don?t know.? complaint: altered mental status Onset (ago): unknown History of same: Yes Associated psychiatric symptoms: none Associated symptoms: Reports no associated symptoms; Deny auditory hallucinations, visual hallucinations, depression, homicidal ideation or suicidal ideation Treatments prior to arrival: none Review of Systems Const: Denies: fever(s) or chills Card: Denies: chest pain, palpitations, lightheadedness or syncope Resp: Denies: dyspnea GI: Denies: abdominal pain, nausea, vomiting or diarrhea Skin/Breast: Denies: rash Neuro: Denies: headache(s) Psych: Denies: anxiety, depression, visual hallucinations, auditory hallucinations, suicidal ideation or homicidal ideation [facility] ED PFSH: Medical History Psychiatric care Social History Smoking and tobacco status: current every day smoker cigars Cigars smoked per week: 40 Years smoked cigars: 19 Quit status (tobacco): has tried quititng Number of times tried to quit tobacco: 1 Second hand smoke exposure: Yes Physical Exam Const: COMMON NORMALS: no acute distress, average body habitus, alert and well nourished GENERAL APPEARANCE: cooperative ORIENTATION/CONSCIOUSNESS: Yes awake and Yes oriented to person HENMT: COMMON NORMALS: normocephalic and atraumatic HEAD & SCALP: normocephalic and atraumatic Resp: COMMON NORMALS: normal respiratory effort and clear to auscultation bilaterally AUSCULTATION: clear to auscultation bilaterally Cardio: COMMON NORMALS: regular rate and regular rhythm RATE: regular rate RHYTHM: regular rhythm Neuro: RAMO COMA SCALE: document GCS findings Ramo coma scale eye opening: Spontaneous [place] coma scale verbal response: Orientated [place] coma scale motor response: Obey commands [place] coma scale total score: 15 COMMON NORMALS: moves all extremities, no focal motor deficits, no sensory deficits noted and gait normal SENSORIUM/ORIENTATION: Yes alert and Yes oriented to person Psych: COMMON NORMALS: cooperative, activity/motor behavior normal, denies hallucinations, denies homicidal ideation and denies suicidal ideation APPEARANCE: Yes grossly normal ATTITUDE: Yes bizarre ACTIVITY/MOTOR BEHAVIOR: Yes appropriate eye contact SPEECH: Yes delayed THOUGHT PROCESS: disorganized and Illogical thought process present THOUGHT CONTENT: Yes Normal thought content present ATTENTION/CONCENTRATION: Yes attention grossly intact and Yes concentration grossly intact INSIGHT: Limited insight present (Psych) JUDGEMENT: Limited judgement present (Psych) Course Consultations: Consultation #1: Dr. Hollins-accepts to [facility] Vital Signs: Vital signs: Vital Signs Temperature 98.7 F 02/26/22 08:39 Pulse Rate 68 02/26/22 08:39 Respiratory Rate 18 02/26/22 08:39 Blood Pressure 112/55 02/26/22 08:39 Pulse Oximetry 96 02/26/22 08:39 MDM - Psych Medical Decision Making Patient will be voluntary to [facility] to Dr. Hollins. Lab Data : 02/26/22 07:40 02/26/22 07:40 Laboratory Results WBC 8.0 10^3/uL (4.0-10.0) 02/26/22 07:40 RBC 4.54 10^6/uL (4.1-5.3) 02/26/22 07:40 Hgb 14.2 g/dL (11.7-16.6) 02/26/22 07:40 Hct 41.6 % (42.0-52.0) L 02/26/22 07:40 MCV 91.6 fl (80-94) 02/26/22 07:40 MCH 31.3 pg (28.0-34.0) 02/26/22 07:40 MCHC 34.1 g/dL (30.0-36.0) 02/26/22 07:40 RDW 12.1 % (12.1-15.1) 02/26/22 07:40 Plt Count 251 10^3/cmm (130-400) 02/26/22 07:40 MPV 13.0 fL (7.4-10.4) H 02/26/22 07:40 Neut % (Auto) 58.8 % 02/26/22 07:40 Lymph % (Auto) 27.3 % 02/26/22 07:40 [place] % (Auto) 8.6 % 02/26/22 07:40 Eos % (Auto) 4.0 % 02/26/22 07:40 Baso % (Auto) 1.0 % 02/26/22 07:40 Neut # (Auto) 4.70 10^3/uL (1.8-7.7) 02/26/22 07:40 Lymph # (Auto) 2.2 10^3/uL (0.8-4.8) 02/26/22 07:40 [place] # (Auto) 0.7 10^3/uL (0.2-0.9) 02/26/22 07:40 Eos # (Auto) 0.3 10^3/uL (0.0-0.8) 02/26/22 07:40 Baso # (Auto) 0.1 10^3/uL (0.0-0.1) 02/26/22 07:40 Nucleated RBC % (auto) 0 % 02/26/22 07:40 Nucleated RBCs # 0.0 /100WBC 02/26/22 07:40 Sodium 139 mmol/L (136-145) 02/26/22 07:40 Potassium 3.8 mmol/L (3.5-5.1) 02/26/22 07:40 Chloride 103 mmol/L (98-107) 02/26/22 07:40 Carbon Dioxide 24 mmol/L (22-29) 02/26/22 07:40 Anion Gap 15.8 (5-19) 02/26/22 07:40 BUN 25 mg/dL (6-20) H 02/26/22 07:40 Creatinine 0.7 mg/dL (0.7-1.2) 02/26/22 07:40 GFR Calculation 131.5 mL/min (90-130) H 02/26/22 07:40 Glucose 101 mg/dL (65-115) 02/26/22 07:40 Calculated Osmolality 293 mOsm/kg (285-295) 02/26/22 07:40 Calcium 8.7 mg/dL (8.5-10.5) 02/26/22 07:40 Total Bilirubin 0.7 mg/dL (0.15-1.2) 02/26/22 07:40 AST 27 U/L (0-40) 02/26/22 07:40 ALT 22 U/L (0-41) 02/26/22 07:40 Alkaline Phosphatase 76 IU/L (40-130) 02/26/22 07:40 Total Protein 7.0 g/dL (6.6-8.7) 02/26/22 07:40 Albumin 4.9 g/dL (3.5-5.2) 02/26/22 07:40 Globulin 2.1 g/dL (1.3-4.6) 02/26/22 07:40 Salicylates < 0.3 mg/dL (3-10) L 02/26/22 07:40 Urine Opiates Screen Negative ng/mL (Negative) 02/26/22 Unknown Acetaminophen < 5.0 ug/mL (10-30) L 02/26/22 07:40 Ur Barbiturates Screen Negative ng/mL (Negative) 02/26/22 Unknown Ur Phencyclidine Scrn Negative ng/mL (Negative) 02/26/22 Unknown Ur Amphetamines Screen Negative ng/mL (Negative) 02/26/22 Unknown U Benzodiazepines Scrn Negative ng/mL (Negative) 02/26/22 Unknown Urine Cocaine Screen Negative ng/mL (Negative) 02/26/22 Unknown U Marijuana (THC) Screen Negative ng/mL (Negative) 02/26/22 Unknown Ethyl Alcohol < 10 mg/dL (0-10) 02/26/22 07:40 Discharge Plan Discharge Patient Disposition: Admitted As Inpatient Clinical Impression: History of schizotypal personality disorder, Bizarre behavior Condition: Stable Coding Level of Care Code ED Principal Military Analyst for Chg Fwd Exam Detailed Documented by User: Keshawn Gomez DO 02/26/22 09:57 HPI - Psych General: Chief Complaint: Psychiatric Symptoms Stated Complaint: Mental Health eval Time Seen by Provider: 02/26/22 07:26 PFSH ED PFSH: Medical History Psychiatric care Social History Smoking and tobacco status: current every day smoker cigars Cigars smoked per week: 40 Years smoked cigars: 19 Quit status (tobacco): has tried quititng Number of times tried to quit tobacco: 1 Second hand smoke exposure: Yes Physical Exam Neuro: RAMO COMA SCALE: document GCS findings Ramo coma scale total score: 15 Course Vital Signs: Vital signs: Vital Signs Temperature 98.7 F 02/26/22 08:39 Pulse Rate 68 02/26/22 08:39 Respiratory Rate 18 02/26/22 08:39 Blood Pressure 112/55 02/26/22 08:39 Pulse Oximetry 96 02/26/22 08:39 MDM - Psych Medical Decision Making Patient will be voluntary to [facility] to Dr. Hollins. Acute psychosis. Patient does not have any suicidal homicidal ideation. Will admit discussed with [facility]-Hist actually received initially. Lab Data : 02/26/22 07:40 02/26/22 07:40 Laboratory Results WBC 8.0 10^3/uL (4.0-10.0) 02/26/22 07:40 RBC 4.54 10^6/uL (4.1-5.3) 02/26/22 07:40 Hgb 14.2 g/dL (11.7-16.6) 02/26/22 07:40 Hct 41.6 % (42.0-52.0) L 02/26/22 07:40 MCV 91.6 fl (80-94) 02/26/22 07:40 MCH 31.3 pg (28.0-34.0) 02/26/22 07:40 MCHC 34.1 g/dL (30.0-36.0) 02/26/22 07:40 RDW 12.1 % (12.1-15.1) 02/26/22 07:40 Plt Count 251 10^3/cmm (130-400) 02/26/22 07:40 MPV 13.0 fL (7.4-10.4) H 02/26/22 07:40 Neut % (Auto) 58.8 % 02/26/22 07:40 Lymph % (Auto) 27.3 % 02/26/22 07:40 [place] % (Auto) 8.6 % 02/26/22 07:40 Eos % (Auto) 4.0 % 02/26/22 07:40 Baso % (Auto) 1.0 % 02/26/22 07:40 Neut # (Auto) 4.70 10^3/uL (1.8-7.7) 02/26/22 07:40 Lymph # (Auto) 2.2 10^3/uL (0.8-4.8) 02/26/22 07:40 [place] # (Auto) 0.7 10^3/uL (0.2-0.9) 02/26/22 07:40 Eos # (Auto) 0.3 10^3/uL (0.0-0.8) 02/26/22 07:40 Baso # (Auto) 0.1 10^3/uL (0.0-0.1) 02/26/22 07:40 Nucleated RBC % (auto) 0 % 02/26/22 07:40 Nucleated RBCs # 0.0 /100WBC 02/26/22 07:40 Sodium 139 mmol/L (136-145) 02/26/22 07:40 Potassium 3.8 mmol/L (3.5-5.1) 02/26/22 07:40 Chloride 103 mmol/L (98-107) 02/26/22 07:40 Carbon Dioxide 24 mmol/L (22-29) 02/26/22 07:40 Anion Gap 15.8 (5-19) 02/26/22 07:40 BUN 25 mg/dL (6-20) H 02/26/22 07:40 Creatinine 0.7 mg/dL (0.7-1.2) 02/26/22 07:40 GFR Calculation 131.5 mL/min (90-130) H 02/26/22 07:40 Glucose 101 mg/dL (65-115) 02/26/22 07:40 Calculated Osmolality 293 mOsm/kg (285-295) 02/26/22 07:40 Calcium 8.7 mg/dL (8.5-10.5) 02/26/22 07:40 Total Bilirubin 0.7 mg/dL (0.15-1.2) 02/26/22 07:40 AST 27 U/L (0-40) 02/26/22 07:40 ALT 22 U/L (0-41) 02/26/22 07:40 Alkaline Phosphatase 76 IU/L (40-130) 02/26/22 07:40 Total Protein 7.0 g/dL (6.6-8.7) 02/26/22 07:40 Albumin 4.9 g/dL (3.5-5.2) 02/26/22 07:40 Globulin 2.1 g/dL (1.3-4.6) 02/26/22 07:40 Salicylates < 0.3 mg/dL (3-10) L 02/26/22 07:40 Urine Opiates Screen Negative ng/mL (Negative) 02/26/22 Unknown Acetaminophen < 5.0 ug/mL (10-30) L 02/26/22 07:40 Ur Barbiturates Screen Negative ng/mL (Negative) 02/26/22 Unknown Ur Phencyclidine Scrn Negative ng/mL (Negative) 02/26/22 Unknown Ur Amphetamines Screen Negative ng/mL (Negative) 02/26/22 Unknown U Benzodiazepines Scrn Negative ng/mL (Negative) 02/26/22 Unknown Urine Cocaine Screen Negative ng/mL (Negative) 02/26/22 Unknown U Marijuana (THC) Screen Negative ng/mL (Negative) 02/26/22 Unknown Ethyl Alcohol < 10 mg/dL (0-10) 02/26/22 07:40 Discharge Plan Discharge Patient Disposition: Admitted As Inpatient Clinical Impression: History of schizotypal personality disorder, Bizarre behavior Condition: Stable Coding Level of Care Code ED Principal Military Analyst for Mandeep Fwginny Exam Detailed
[2022-02-26 08:08] LABS: Basophils # 0.1 10^3/uL (0.0-0.1); Eosinophils # 0.3 10^3/uL (0.0-0.8); Hematocrit 41.6 % (42.0-52.0); Hemoglobin 14.2 g/dL (11.7-16.6); Lymphocytes # 2.2 10^3/uL (0.8-4.8); Lymphocytes % 27.3 %; Mean Corpuscular HGB Conc 34.1 g/dL (30.0-36.0); Mean Corpuscular Hemoglobin 31.3 pg (28.0-34.0); Mean Corpuscular Volume 91.6 fl (80-94); Monocytes # 0.7 10^3/uL (0.2-0.9); Monocytes % 8.6 %; Neutrophils % 58.8 %; Nucleated Red Blood Cells % 0 %; Platelet Count 251 10^3/cmm (130-400); Red Blood Count 4.54 10^6/uL (4.1-5.3); Red Cell Distribution Width 12.1 % (12.1-15.1)
[2022-02-26 08:25] LABS: Alanine Aminotransferase 22 U/L (0-41); Albumin Level 4.9 g/dL (3.5-5.2); Alkaline Phosphatase 76 IU/L (40-130); Anion Gap 15.8 (5-19); Aspartate Amino Transferase 27 U/L (0-40); Blood Urea Nitrogen 25 mg/dL (6-20); Calcium 8.7 mg/dL (8.5-10.5); Carbon Dioxide 24 mmol/L (22-29); Chloride 103 mmol/L (98-107); Globulin 2.1 g/dL (1.3-4.6); Glomerular Filtration Rate 131.5 mL/min (90-130); Glucose 101 mg/dL (65-115); Osmolality Calculated 293 mOsm/kg (285-295); Potassium 3.8 mmol/L (3.5-5.1); Sodium 139 mmol/L (136-145); Total Bilirubin 0.7 mg/dL (0.15-1.2)
[2022-02-26 08:26] LABS: Acetaminophen < 5.0 ug/mL (10-30); Alcohol Level < 10 mg/dL (0-10); Salicylate < 0.3 mg/dL (3-10)
[2022-02-26 08:39] VITALS: BP 112/55; PULSE 68; RESP 18; TEMP 37.1; O2SAT 96
[2022-02-26 09:05] LABS: Amphetamines Screen Urine Negative (Negative); Barbiturates Screen Urine Negative (Negative); Benzodiazepines Screen Urine Negative (Negative); Cocaine Screen Urine Negative (Negative); Opiate Screen Urine Negative (Negative); PCP Screen Urine Negative (Negative); THC Screen Urine Negative (Negative)
--- NOTE | 2022-02-26 09:46 | PC.NURSE ---
Sleeping, has been cooperative & calm since arrival.
[2022-02-26] MEDS: acetaminophen 325 mg Tablet 650 MG PO (13:48)
[2022-02-26] MEDS: nicotine 2 mg Gum BUCCAL (13:48)
[2022-02-26 14:00] VITALS: BP 106/69; PULSE 82; RESP 16; TEMP 37.4; O2SAT 99
[2022-02-26 20:22] VITALS: BP 117/76; PULSE 88; RESP 18; TEMP 36.8; O2SAT 96
[2022-02-26] MEDS: hyDROXYzine 25 mg Capsule 50 MG PO (21:31)
--- NOTE | 2022-02-26 22:08 | PC.NURSE ---
PT C/O OF POISON PAN ON RIGHT ANKLE. SMALL RED RASH NOTED, REPORTS SLIGHTLY ITCHY AT THAT TIME. NEW ORDER FOR HYDROCORTISONE CREAM AND BENADRYL PRN. PT IN BED SOON AFTER REPORT WITH NO FURTHER C/O. MED CHANGE NOTED.
[2022-02-27 06:00] VITALS: BP 93/49; PULSE 56; RESP 16; TEMP 36.6; O2SAT 99
[2022-02-27] MEDS: hydrocortisone 1% cream 28 gm 1 APPLIC TOPICAL (09:36)
--- NOTE | 2022-02-27 10:03 | PC.NURSE ---
RESTING IN BED AROUSES TO VOICE. DENIES SI/HI AND AVH AT THIS TIME. DENIES PAIN. STATES HE WAS TIRED AND ROLLED OVER IN BED AND WENT BACK TO BED.
--- NOTE | 2022-02-27 10:54 | P.NPUHP_ITS ---
Providers/Chief Complaint Admitting Physician: Cal Hollins MD Chief Complaint: Mental Health eval [facility] History of Present Illness Yasir Davis is a 31 year old male who was admitted to our emergency department with the following report: Patient is a 31-year-old male who presents to the ED today requesting a mental health evaluation .? During my assessment when I asked patient what symptoms he is having to warrant a mental health evaluation, he does not respond and instead pulls out his certificate and points to the hospital in which he was born at.? I asked patient how this is affecting his mental health and again he does not respond but instead pulls out his change of address form and points to his new address.? Patient then pulls out a notary stamp that does indeed have his name on it.? 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 I questioned him further and he states that he obtained this due to his work but then tells me he worked at [employer]. 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 He responds no ma'am when asked if he is SI/HI, hallucinations, drug/etoh abuse, previous psychiatric diagnoses, or any current medications. Patient was seen at [facility] twice last year for similar presentation (diagnosed with schizotypal personality disorder). Overall his ability to provide history was very limited with many questions followed by significant pauses and answers of I don?t know.? He was admitted to the neuropsychiatry unit for definitive treatment of his problems. He says that he came to the emergency room because when he was walking his bone was hitting his leg. He does not know why they sent him to the neuropsychiatry unit. He says that he has no emotional difficulties. He says that he does not have anxiety, depression, auditory or visual hallucinations or paranoia. He says that he sleeps and eats well. He says that he has been homeless for the last couple of months. He worked at [employer] for 2 months but has not had significant other employment. He actually has been homeless for significantly longer than that. He was living with some people in [place] that were not his family and they kicked him out because the matriarch of the family . For some reason they needed to kick him out so that they could keep the house. He said that he visited [place] and has a fake address there. He says that he has something all prepared and it just needs to be notarized and sent to [place]. He implied start something special would happen because the previous governor of [place] is now the automotive service professionalvice president of advertising. He also said he scanned something with his cell phone and now he can listen to other people through other people's cell phones. He said that the president can also hear it also. I told him that I heard that he was transitioning to female using some supplements from [place]. He also said something about going after Lauro Britneyin. He said it would be better if he did not. He was admitted here last year and treated with Abilify 15 mg but returned shortly thereafter with extrapyramidal side effects. The Abilify was reduced to 10 mg daily and Cogentin 1 mg twice a day was added with good response. Psychiatry SOAP Note Diagnosis (1) Unspecified personality disorder: ?Status:?Acute (2) Cannabis use disorder, mild, abuse: ?Status:?Acute (3) Gender dysphoria: ?Status:?Acute Subjective Subjective: Patient was seen by telemedicine for total 15 minutes.? We did review his past evaluation, he is not interested in medication management at this time.? He denies any suicidal thoughts denies any need for medications at this time.? He says he does have gender dysphoria and he still plans on applying for disability in [place] but is working in [place].? He did indicate that he may be interested in seeing a therapist so I advised him to get on the wait list.? Overall seems a little unclear about what he is wanting from our clinic and why he is applying for disability in [place] but working in [place].? He acknowledges continued occasional marijuana use but denies other alcohol or drugs. Objective Objective: He is alert and oriented to person, place, time, and situation. His hygiene is appropriate. Sensorium is clear. Speech is of a regular rate, rhythm, volume, tone, and prosody. Eye contact is appropriate. There are no psychomotor changes reported. Mood is fine . Affect is mood congruent and non-labile. Thought process is linear, logical, and goal directed. He denies auditory or visual hallucinations and does not endorse any delusional thinking. He denies suicidal or homicidal thoughts. There is no passive wish of . Memory is intact for recent and remote events. He is cooperative and relates well to me by phone. Insight and judgment were deemed to be good given the recognition of problems and desire for treatment. He was admitted here last year and discharged on 13 July with the following discharge summary: Diagnoses at Discharge Discharge Diagnosis (1) Extrapyramidal reaction: ?Status:?Acute (2) Anxiety disorder, unspecified: ?Status:?Chronic (3) Schizotypal personality disorder: ?Status:?Chronic (4) Cannabis abuse: ?Status:?Chronic ? TIRED; EXCESSIVE SALIVATION? Brief History: History of Present Illness Yasir Davis is a 30 year old male who presented to the emergency department with the following report: Chief complaint: General Medical Stated complaint: TIRED; EXCESSIVE SALIVATION Time Seen by Provider: 07/21/21 17:31 History of Present Illness:? HPI narrative: 30-year-old male presents emergency room via EMS.? He was rec ently hospitalized in the neuropsychiatric unit for an extended period of time.? He was discharged home on 15 mg of Abilify and went to the [facility].? He presents to the emergency room today via EMS complaining of excessive drooling essentially his arms neck being locked into place.? On initial arrival he has obviously having extrapyramidal symptoms.? He denies any other issues.? He is on still been taking his Abilify regularly denies taking any excessive doses. Onset (ago): unknown Location: head, neck and upper extremity Severity: severe Relieving factors: none Exacerbating factors: none Associated symptoms: Deny chest pain, dyspnea, nausea or vomiting. He was admitted to the neuropsychiatric unit for definitive treatment of those issues.? 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 We treated and had significant response and he was discharged to [facility].? He presented back to the emergency department as identified above secondary to significant EPS.? In the emergency department he received Cogentin and Benadryl with positive response essentially verifying the diagnosis.? He presents today with limited speech as usual but confirming the stiffening and side effects of EPS that were identified and also reporting improvement with the medications given.? We discussed the risk benefits and alternatives of adjusting the medication down to 10 mg p.o. daily of the Abilify and continuing Cogentin and Benadryl as needed to make sure that he can tolerate the medication going forward.? He understood agreed to proceed as documented in this note.? We reviewed his last inpatient hospitalization and he denies any substantive changes so an excerpt is included below for context. Per his 07/03/2021 [facility] inpatient psychiatric evaluation: History of Present Illness David Huerta is a 30 year old male who presented to the ED with the following report: Chief Complaint: Altered Mental Status Stated Complaint: MHE EVAL Time Seen by Provider: 07/02/21 09:33 History of Present Illness:? HPI Narrative: 30-year-old male presents emergency room via EMS.? He was stopped by the police for driving a vehicle without tags on it he was unable to answer questions and seemed altered.? EMS was called and he was transported here.? On arrival here he is not able to answer very many questions he can tell me he has asthma and uses albuterol on produces an albuterol inhaler that is 124 puffs out of it but is from May 2020 the inhaler is also broken.? He denies any recent illness.? 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 He denies any suicidal homicidal ideation denies any visual or auditory hallucinations.? He does admit to using alcohol yesterday but will not quantify the amount he used he denies any other illicit drug use.? Denies any history of suicidal ideation previous psychiatry admissions or mental health diagnoses. complaint: altered mental status Onset (ago): unknown Duration: constant History of same: No Relieving factors: none Exacerbating factors: none Associated psychiatric symptoms: none Associated symptoms: Deny auditory hallucinations, visual hallucinations, delusions, depression, homicidal ideation, suicidal ideation or racing thoughts Treatments prior to arrival: none. He was admitted to the neuropsychiatric unit for definitive treatment of those issues. He presents today reporting that he had one psychiatric hospitalization at [facility] in 2017 or 2018 but denies outpatient services or ever being on medication. He reports he did have a suicide attempt in 2012 after his son?s mom was keeping his son away and he did not respond well to that. He endorses smoking two to three packs of cigars a day, drinking alcohol maybe once a week, smoking marijuana daily, but denied any other illicit drug use. He denies ever being in a rehab or having a DUI. He was positive for cannabis on his drug screen. After this, his ability to provide history was very limited with many questions followed by significant pauses and answers of I don?t know. He reports he is here because the superintendent container terminal pulled him over and took his ID?s and brought him here, but he has no understanding of why they brought him here. He reports his vehicle had no tags and that is what elicited the stop, but beyond that he cannot give any articulated information about what happened. When asked about what could lead to concerns that people were having, that led to him being put on a 96-hour hold, he said he did not know, and then he reported that sometimes he cannot eat because he was poisoned from years ago. He did endorse paranoia and we discussed the risks, benefits, and alternatives of a trial of Abilify, and he understood and agreed to proceed as is documented in this note but was unwilling to start medication at this time. Hospital Course He quickly acclimated to individual, group and milieu therapies. Cogentin was started and Abilify was decreased to 10 mg from 15mg po qdaily with marked improvement. He was able to contract for safety outside of the hospital. During the hospitalization, patient had routine laboratory studies which were within normal limits except for few outliers.? Additionally there was a general medical evaluation which was also within normal limits and revealed no new acute processes. Discharge Summary: At the time of discharge, he denied psychosis or lethality.? Mood and anxiety were well managed.? Patient endorsed a plan to avoid all drugs of abuse and follow-up with the aftercare recommendations of the treatment team.? Patient was evaluated and deemed to be absent credible lethality, and had achieved the maximum benefit from an inpatient hospitalization, so was discharged. ? Prescriptions: New ? benztropine 1 mg Tablet ?? 1 mg PO BID PRN (Reason: Mild Extrapyramidal symptoms) 30 Days Qty: 60 RF: 1 ? aripiprazole 10 mg Tablet ?? 10 mg PO QAM 30 Days Qty: 30 RF: 1 Meds NPU Home Medications Medication Instructions Recorded Confirmed Last Taken Type No Known Home Medications 02/26/22 02/26/22 Unknown History Allergies Allergy/AdvReac Type Severity Reaction Status Date / Time No Known Allergies Allergy Verified 02/26/22 11:47 PFSH N[facility] PFSH: Medical History Psychiatric care Social History Smoking and tobacco status: current every day smoker cigars Cigars smoked per week: 40 Years smoked cigars: 19 Quit status (tobacco): has tried quititng Number of times tried to quit tobacco: 1 Second hand smoke exposure: Yes Mental Status Exam MSE Comments: This is a 31-year-old and male who appears well- developed and well-nourished and approximately his stated age. He is pleasant and cooperative with the evaluation. He is evasive with some questions. His grooming is only fair. He has long hair and it is uncombed. He is dressed in hospital scrubs psychomotor activity is normal. Speech is at a regular rate and rhythm, normal volume, good articulation, not pressured. Alert, oriented X3 Attention and concentration appears to be normal. Memory is intact Mood is good. Affect is mildly blunted. Thought process is logical and goal-directed. Thought content: Denies auditory and visual hallucinations. He appears to be delusional. He denies current suicidal ideation. He denies homicidal ideation. Fund of knowledge is probably average. Insight and judgment appear to be poor. Impulse control is poor. Vitals/I&O/Wt Last Vital Signs Temp 97.9 F 02/27/22 06:00 Pulse 56 L 02/27/22 06:00 Resp 16 02/27/22 06:00 BP 93/49 02/27/22 06:00 Pulse Ox 99 02/27/22 06:00 Weight last 48 hrs Weight 57.606 kg Data NPU : 02/26/22 07:40 02/26/22 07:40 A&P Assessment and plan (1) Schizophrenia: Status: Acute (2) Bizarre behavior: Status: Acute (3) Gender dysphoria: Status: Acute (4) Cannabis use disorder, mild, abuse: Status: Acute Plan This is a 31-year-old male who has reported 12 hospitalizations in the last 2 years and has been homeless for the last 2 years. He was treated here previous ly with Abilify 10 mg and Cogentin 1 mg twice a day. Plan: 1. Restart Abilify at 5 mg daily and Cogentin 1 mg twice daily would increase the Abilify to 10 mg as tolerated. 2. Continue every 15 minute checks for safety. 3. Encourage individual, group and milieu therapies. 4. Encourage sober living treatment after discharge at the highest level of care to which he is willing to commit. 5. We will monitor for safety for himself in the community prior to discharge. Involuntary Hold Information 96 Hour Hold: 96 Hour Involuntary Admission: No Attestations U Medical Necessity Statement*: Inpatient hospitalization is medically necessary and the clinically appropriate intervention at this time. We will initiate medications and make changes as indicated. He will be in the hospital for over 2 midnights. Likely length of stay 4-6 days Coding Level of Care Code Acute Mail Sorting Supervisor for Mandeep Skaggsd Diagnoses Schizophrenia F20.9 Bizarre behavior R46.2 Gender dysphoria F64.9 Cannabis use disorder, mild, abuse F12.10
[2022-02-27] MEDS: ARIPiprazole 10 mg Tablet 5 MG PO (12:47)
[2022-02-27 14:00] VITALS: BP 101/67; PULSE 75; RESP 18; TEMP 36.8; O2SAT 96
--- NOTE | 2022-02-27 18:46 | PC.NURSE ---
Pt refused to take scheduled med 1mg of Benztropine. Pt seemed confused when nurse explained and educated about the medication.
[2022-02-27 20:53] VITALS: RESP 18
[2022-02-28 06:00] VITALS: BP 101/65; PULSE 77; RESP 16; TEMP 36.8; O2SAT 96
[2022-02-28] MEDS: acetaminophen 325 mg Tablet 650 MG PO (07:57)
[2022-02-28] MEDS: ARIPiprazole 10 mg Tablet 5 MG PO (07:57)
[2022-02-28] MEDS: nicotine 2 mg Gum BUCCAL (07:58)
[2022-02-28] MEDS: benztropine 1 mg Tablet PO ×2 (08:24→17:01)
--- NOTE | 2022-02-28 13:49 | W.PM.NPUPNS ---
Subjective NPU Subjective: Patient presents today much like he has in previous interactions. Limited clarity in his thoughts and ability to articulate the reasons for anything going on or asked about. When asked why he came to the hospital he reported that the hospital is virtual difficult was noted there cannot explain why that, him having right lower leg bone pain, or him riding in a helicopter when he was real real small led to him coming to the hospital or needing psychiatric care. He denied being open or interested in medication. Lacked any insight into the purpose of the medication concern for him and reports he has been living under a bridge and had no clear plan about what he would do when he left the hospital. Mental Status Exam MSE Comments: This is an underweight, white male, with hospital scrubs on with adequate grooming and eye contact. No abnormal movements except for mild psychomotor retardation. Cooperative with exam in no acute distress. Speech was limited and decreased rate and volume. Mood described as great; affect subdued and odd. Thought process disorganized. Thought content: patient denied any suicidal or homicidal ideation, he denied delusions and none were specifically noted. He denied auditory or visual hallucinations. Attention and concentration were intact, and memory was mostly reliable, but none were formally tested. He is alert and oriented times person and place. Insight and judgment are impaired, impulse control is fair. Vitals/I&O/Wt Last Vital Signs Temp 98.3 F 02/28/22 06:00 Pulse 77 02/28/22 06:00 Resp 16 02/28/22 06:00 BP 101/65 02/28/22 06:00 Pulse Ox 96 02/28/22 06:00 Data NPU : 02/26/22 07:40 02/26/22 07:40 A&P Assessment and plan (1) Schizophrenia: Status: Acute (2) Bizarre behavior: Status: Acute (3) Gender dysphoria: Status: Acute (4) Cannabis use disorder, mild, abuse: Status: Acute (5) Unspecified personality disorder: Status: Acute (6) History of schizotypal personality disorder: Status: Acute Plan This is a 31-year-old male who has reported 12 hospitalizations in the last 2 years and has been homeless for the last 2 years.? He was treated here previously with Abilify 10 mg and Cogentin 1 mg twice a day. Consistent with past hospitalizations he has disjointed thought/thought disorder and significantly impaired insight. Plan: 1.? Restarted Abilify at 5 mg daily and Cogentin 1 mg twice daily will increase the Abilify to 10 mg as tolerated soon. 2.? Continue every 15 minute checks for safety. 3.? Encourage individual, group and milieu therapies. 4.? Encourage sober living treatment after discharge at the highest level of care to which he is willing to commit. 5.? We will need to determine whether he is well enough to be discharged as desired or a 96-hour hold may be indicated. Involuntary Hold Information 96 Hour Hold: 96 Hour Involuntary Admission: No Attestations [facility] Medical Necessity Statement*: Inpatient hospitalization is medically necessary and the clinically appropriate intervention at this time.? We will initiate medications and make changes as indicated.? Likely length of stay 4-6 days Coding Level of Care Code Acute Insurance Salesman for g Fwd Diagnoses Schizophrenia F20.9 Bizarre behavior R46.2 Gender dysphoria F64.9 Cannabis use disorder, mild, abuse F12.10 Unspecified personality disorder F60.9 History of schizotypal personality disorder Z86.59
[2022-02-28 14:00] VITALS: BP 95/56; PULSE 75; RESP 18; TEMP 36.6; O2SAT 98
[2022-02-28] MEDS: ibuprofen 600 mg Tablet PO (16:12)
[2022-02-28 21:23] VITALS: BP 113/77; PULSE 68; RESP 17; TEMP 36.6; O2SAT 95
[2022-03-01 06:00] VITALS: BP 110/68; PULSE 107; RESP 18; TEMP 36.8; O2SAT 95
[2022-03-01] MEDS: ARIPiprazole 10 mg Tablet 5 MG PO (09:11)
--- NOTE | 2022-03-01 09:24 | PC.NURSE ---
Pt refused to take benztropine, in the morning med pass. Pt stated that he doesn't take that.
[2022-03-01] MEDS: hydrocortisone 1% cream 28 gm 1 APPLIC TOPICAL ×2 (10:08→21:29)
[2022-03-01] MEDS: ondansetron 4 MG Tablet PO (10:59)
[2022-03-01 14:00] VITALS: BP 102/61; PULSE 100; RESP 18; TEMP 36.7; O2SAT 96
--- NOTE | 2022-03-01 18:17 | W.PM.NPUPNS ---
Subjective NPU Subjective: Patient presents today continuing to have an awkwardness and limitations in his motivation and self determination. Answers to questions about what he is going to do and what he hopes to be the next step in his treatment progression I generally met with no and clear lack of energy and motivation. He denies any issues with the medication and we discussed increasing the as planned to 10 mg p.o. every morning. He reports he is eating and sleeping okay. Mental Status Exam MSE Comments: This is an underweight, white male, with hospital scrubs on with adequate grooming and eye contact. No abnormal movements except for mild psychomotor retardation. Cooperative with exam in no acute distress. Speech was limited and decreased rate and volume. Mood described as pretty good; affect subdued and odd. Thought process disorganized. Thought content: patient denied any suicidal or homicidal ideation, he denied delusions and none were specifically noted. He denied auditory or visual hallucinations. Attention and concentration were intact, and memory was mostly reliable, but none were formally tested. He is alert and oriented times person and place. Insight and judgment are impaired, impulse control is fair. Vitals/I&O/Wt Last Vital Signs Temp 98.6 F 03/01/22 21:13 Pulse 84 03/01/22 21:13 Resp 14 03/01/22 21:13 BP 98/60 03/01/22 21:13 Pulse Ox 98 03/01/22 21:13 Data NPU : 02/26/22 07:40 02/26/22 07:40 A&P Assessment and plan (1) Schizophrenia: Status: Acute (2) Bizarre behavior: Status: Acute (3) Gender dysphoria: Status: Acute (4) Cannabis use disorder, mild, abuse: Status: Acute (5) Unspecified personality disorder: Status: Acute (6) History of schizotypal personality disorder: Status: Acute Plan This is a 31-year-old male who has reported 12 hospitalizations in the last 2 years and has been homeless for the last 2 years.? He was treated here previously with Abilify 10 mg and Cogentin 1 mg twice a day.? Consistent with past hospitalizations he has disjointed thought/thought disorder and significantly impaired insight. Plan: 1.? Restarted Abilify at 5 mg daily and Cogentin 1 mg twice daily will increase the Abilify to 10 mg as tolerated soon. 2.? Continue every 15 minute checks for safety. 3.? Encourage individual, group and milieu therapies. 4.? Encourage sober living treatment after discharge at the highest level of care to which he is willing to commit. 5.? We will need to determine whether he is well enough to be discharged as desired when he requests it or a 96-hour hold may be indicated. Involuntary Hold Information 96 Hour Hold: 96 Hour Involuntary Admission: No Attestations [facility] Medical Necessity Statement*: Inpatient hospitalization is medically necessary and the clinically appropriate intervention at this time.? We will initiate medications and make changes as indicated.? Likely length of stay 4-6 days Coding Level of Care Code Acute Section Crews Activities Clerk for g Fwd Diagnoses Schizophrenia F20.9 Bizarre behavior R46.2 Gender dysphoria F64.9 Cannabis use disorder, mild, abuse F12.10 Unspecified personality disorder F60.9 History of schizotypal personality disorder Z86.59
[2022-03-01] MEDS: acetaminophen 325 mg Tablet 650 MG PO (20:15)
[2022-03-01 21:13] VITALS: BP 98/60; PULSE 84; RESP 14; TEMP 37; O2SAT 98
[2022-03-02 06:00] VITALS: BP 92/59; PULSE 80; RESP 16; TEMP 36.4; O2SAT 98
[2022-03-02] MEDS: ARIPiprazole 10 mg Tablet PO (08:33)
[2022-03-02] MEDS: nicotine 2 mg Gum BUCCAL ×2 (09:32→17:28)
--- NOTE | 2022-03-02 13:47 | P.NPUPN_ITS ---
Subjective NPU Subjective: Patient presents today reporting that he is feeling okay. He got his first dose of Abilify 10 this morning and does not know if him feeling sleepy or lethargic is secondary to the increase or just how his day is going today. She denied any new issues denied any inspiration or direction on what he plans on doing next. Reports he is eating and sleeping okay and denied any concerns at this time. Mental Status Exam MSE Comments: This is an underweight, white male, with hospital scrubs on with adequate grooming and eye contact. No abnormal movements except for psychomotor retardation. Cooperative with exam in no acute distress. Speech was limited and decreased rate and volume. Mood described as really tired; affect subdued and odd. Thought process linear. Thought content: patient denied any suicidal or homicidal ideation, he denied delusions and none were specifically noted. He denied auditory or visual hallucinations. Attention and concentration were intact, and memory was mostly reliable, but none were formally tested. He is alert and oriented times person and place. Insight and judgment are impaired, impulse control is fair. Vitals/I&O/Wt Last Vital Signs Temp 97.5 F L 03/02/22 06:00 Pulse 80 03/02/22 06:00 Resp 16 03/02/22 06:00 BP 92/59 03/02/22 06:00 Pulse Ox 98 03/02/22 06:00 Data NPU : 02/26/22 07:40 02/26/22 07:40 A&P Assessment and plan (1) Schizophrenia: Status: Acute (2) Bizarre behavior: Status: Acute (3) Gender dysphoria: Status: Acute (4) Cannabis use disorder, mild, abuse: Status: Acute (5) Unspecified personality disorder: Status: Acute (6) History of schizotypal personality disorder: Status: Acute Plan This is a 31-year-old male who has reported 12 hospitalizations in the last 2 years and has been homeless for the last 2 years.? He was treated here previously with Abilify 10 mg and Cogentin 1 mg twice a day.? Consistent with past hospitalizations he has disjointed thought/thought disorder and s ignificantly impaired insight. Plan: 1.? Continue current medication. Restarted Abilify and increased to 10 mg p.o. every morning and Cogentin 1 mg twice daily. 2.? Continue every 15 minute checks for safety. 3.? Encourage individual, group and milieu therapies. 4.? Encourage sober living treatment after discharge at the highest level of care to which he is willing to commit. 5.? We will need to determine whether he is well enough to be discharged as desired when he requests it or a 96-hour hold may be indicated. Still lacking direction or insight. But taking the Abilify and the increase without conflict. Work with treatment team for safe and proper discharge. Involuntary Hold Information 96 Hour Hold: 96 Hour Involuntary Admission: No Attestations NPU Medical Necessity Statement*: Inpatient hospitalization is medically necessary and the clinically appropriate intervention at this time.? We will initiate medications and make changes as indicated.? Likely length of stay 4-6 days Coding Level of Care Code Acute Bonbon Cream Warmer for g Fwd Diagnoses Schizophrenia F20.9 Bizarre behavior R46.2 Gender dysphoria F64.9 Cannabis use disorder, mild, abuse F12.10 Unspecified personality disorder F60.9 History of schizotypal personality disorder Z86.59
[2022-03-02 14:00] VITALS: BP 153/62; PULSE 70; RESP 18; TEMP 37.1; O2SAT 99
[2022-03-02] MEDS: hydrocortisone 1% cream 28 gm 1 APPLIC TOPICAL (15:46)
[2022-03-02 20:31] VITALS: BP 110/65; PULSE 77; RESP 18; TEMP 36.6; O2SAT 98
[2022-03-03] MEDS: nicotine 2 mg Gum BUCCAL ×3 (04:52→18:14)
[2022-03-03 05:44] VITALS: BMI 22.6
[2022-03-03 06:00] VITALS: BP 123/70; PULSE 78; RESP 18; TEMP 37.2; O2SAT 100
[2022-03-03] MEDS: ARIPiprazole 10 mg Tablet PO (08:40)
[2022-03-03] MEDS: hydrocortisone 1% cream 28 gm 1 APPLIC TOPICAL ×2 (09:48→15:20)
[2022-03-03] MEDS: neomycin-poly-bacitracin oint 28 gm 1 APPLIC TOPICAL (09:56)
--- NOTE | 2022-03-03 13:02 | P.NPUPN_ITS ---
Subjective NPU Subjective: Patient presents today reporting that he is feeling okay. He denies any problems with the increase in the Abilify. He was somewhat bizarre and that his main question that he had today was when was going to raining and. He did not express any information that would identify the importance of when it was normal and and how strong a chance it was. We continue to discuss the possible plan for discharge which he had limited options reported. We discussed the fact that the social work team will be back tomorrow and we can really focus on the options that exist. We talked about the possibility of long-acting injection and he he seems somewhat ambivalent about the conversation but did not express interest in moving forward with an injection. Mental Status Exam MSE Comments: This is an underweight, white male, with hospital scrubs on with adequate grooming and eye contact. No abnormal movements except for psychomotor retardation. Cooperative with exam in no acute distress. Speech was limited and decreased rate and volume. Mood described as still tired, but okay affect subdued and odd. Thought process linear but disorganized at a certain level. Thought content: patient denied any suicidal or homicidal ideation, he denied delusions and none were specifically noted. He denied auditory or visual hallucinations. Attention and concentration were intact, and memory was mostly reliable, but none were formally tested. He is alert and oriented times person and place. Insight and judgment are impaired, impulse control is fair. Vitals/I&O/Wt Last Vital Signs Temp 98.3 F 03/03/22 13:40 Pulse 75 03/03/22 13:40 Resp 17 03/03/22 13:40 BP 89/52 03/03/22 13:40 Pulse Ox 98 03/03/22 13:40 Weight last 48 hrs Weight 65.589 kg Weight 65.589 kg Data NPU : 02/26/22 07:40 02/26/22 07:40 A&P Assessment and plan (1) Schizophrenia: Status: Acute (2) Bizarre behavior: Status: Acute (3) Gender dysphoria: Status: Acute (4) Cannabis use disorder, mild, abuse: Status: Acute (5) Unspecified personality disorder: Status: Acute (6) History of schizotypal personality disorder: Status: Acute Plan This is a 31-year-old male who has reported 12 hospitalizations in the last 2 years and has been homeless for the last 2 years.? He was treated here previously with Abilify 10 mg and Cogentin 1 mg twice a day.? Consistent with past hospitalizations he has disjointed thought/thought disorder and significantly impaired insight. Plan: 1.? Continue current medication.? Restarted Abilify and increased to 10 mg p.o. every morning and Cogentin 1 mg twice daily. Consider continuing to increase the Abilify as well as initiate a long-acting injectable. 2.? Continue every 15 minute checks for safety. 3.? Encourage individual, group and milieu therapies. 4.? Encourage sober living treatment after discharge at the highest level of care to which he is willing to commit. 5.? We will need to determine whether he is well enough to be discharged as desired when he requests it or a 96-hour hold may be indicated.? Still lacking direction or insight.? But taking the Abilify and the increase without conflict.? Work with treatment team for safe and proper discharge. Involuntary Hold Information 96 Hour Hold: 96 Hour Involuntary Admission: No Attestations NPU Medical Necessity Statement*: Inpatient hospitalization is medically necessary and the clinically appropriate intervention at this time.? We will initiate medications and make changes as indicated.? 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
[2022-03-03 13:23] VITALS: BP 123/70; PULSE 78; RESP 18; TEMP 37.2; O2SAT 100
[2022-03-03 13:40] VITALS: BP 89/52; PULSE 75; RESP 17; TEMP 36.8; O2SAT 98
[2022-03-03] MEDS: diphenhydrAMINE 25 mg Capsule PO (15:20)
[2022-03-03] MEDS: ondansetron 4 MG Tablet PO (17:10)
[2022-03-03 19:53] VITALS: BP 122/76; PULSE 88; RESP 16; TEMP 37.1; O2SAT 98
[2022-03-03 21:48] VITALS: BP 122/76; PULSE 88; RESP 16; TEMP 37.1; O2SAT 98
[2022-03-04 06:00] VITALS: BP 121/78; PULSE 84; RESP 18; TEMP 36.6; O2SAT 98
[2022-03-04] MEDS: ibuprofen 600 mg Tablet PO (06:30)
[2022-03-04] MEDS: ARIPiprazole 10 mg Tablet PO (08:28)
--- NOTE | 2022-03-04 08:31 | PC.NURSE ---
REFUSED SCHEDULED COGENTIN AND TRIPLE ANTIBIOTIC OINTMENT
[2022-03-04] MEDS: nicotine 2 mg Gum BUCCAL ×2 (12:20→12:36)
[2022-03-04] MEDS: acetaminophen 325 mg Tablet 650 MG PO (13:06)
--- NOTE | 2022-03-04 13:59 | P.NPUPN_ITS ---
Subjective NPU Subjective: Patient presents today reporting that he is feeling a little better. He still making occasional odd comments like he is tired about a cordero that had millions of dollars buried in his backyard. He also asked about a person with a suitcase at his last visit and other just random thoughts that seem to come to his mind when you ask him why he is asking about that thing he asked about the answer is I don't know. He did bring up the idea of discharge but then acknowledged he was homeless and had no plan for what's next and appeared aimless again. Mental Status Exam MSE Comments: This is an underweight, white male, with hospital scrubs on with adequate grooming and eye contact. No abnormal movements except for mild psychomotor retardation. Cooperative with exam in no acute distress. Speech was limited and decreased rate and volume. Mood described as a little better, affect subdued and odd. Thought process appears slightly more organized.? Thought content: patient denied any suicidal or homicidal ideation, he denied delusions and none were specifically noted, but some bizarre delusions likely present based on his comments during conversations. He denied auditory or visual hallucinations. Attention and concentration were intact, and memory was mostly reliable, but none were formally tested. He is alert and oriented times person and place. Insight and judgment are impaired, impulse control is fair. Vitals/I&O/Wt Last Vital Signs Temp 97.8 F 03/04/22 06:00 Pulse 84 03/04/22 06:00 Resp 18 03/04/22 06:00 BP 121/78 03/04/22 06:00 Pulse Ox 98 03/04/22 06:00 Weight last 48 hrs Weight 65.589 kg Weight 65.589 kg Data NPU : 02/26/22 07:40 02/26/22 07:40 A&P Assessment and plan (1) Schizophrenia: Status: Acute (2) Bizarre behavior: Status: Acute (3) Gender dysphoria: Status: Acute (4) Cannabis use disorder, mild, abuse: Status: Acute (5) Unspecified personality disorder: Status: Acute (6) History of schizotypal personality disorder: Status: Acute (7) Anxiety disorder, unspecified: Status: Chronic Plan This is a 31-year-old male who has reported 12 hospitalizations in the last 2 years and has been homeless for the last 2 years.? He was treated here previously with Abilify 10 mg and Cogentin 1 mg twice a day.? Consistent with past hospitalizations he has disjointed thought/thought disorder and significantly impaired insight. Plan: 1.? Continue current medication.? Restarted Abilify and increased to 10 mg p.o. every morning and Cogentin 1 mg twice daily.? Consider increasing the Abilify to 15 mg as well as initiate a long-acting injectable. 2.? Continue every 15 minute checks for safety. 3.? Encourage individual, group and milieu therapies. 4.? Encourage sober living treatment after discharge at the highest level of care to which he is willing to commit. 5.? We will need to determine whether he is well enough to be discharged as desired when he requests it or a 96-hour hold may be indicated.? Still lacking direction or insight.? But taking the Abilify and taking the increase without conflict.? Work with treatment team for safe and proper discharge. Involuntary Hold Information 96 Hour Hold: 96 Hour Involuntary Admission: No Attestations NPU Medical Necessity Statement*: Inpatient hospitalization is medically necessary and the clinically appropriate intervention at this time.? We will initiate medications and make changes as indicated.? Likely length of stay 3-5 days Coding Level of Care Code Acute Synthetic Chemist for g Fwd Diagnoses Schizophrenia F20.9 Bizarre behavior R46.2 Gender dysphoria F64.9 Cannabis use disorder, mild, abuse F12.10 Unspecified personality disorder F60.9 History of schizotypal personality disorder Z86.59 Anxiety disorder, unspecified F41.9
[2022-03-04 14:00] VITALS: BP 124/77; PULSE 80; RESP 17; TEMP 36.4; O2SAT 99
[2022-03-04] MEDS: trazodone 50 mg Tablet PO (19:56)
[2022-03-04 21:26] VITALS: BP 126/89; PULSE 77; RESP 16; TEMP 37
[2022-03-05 06:00] VITALS: BP 116/65; PULSE 66; RESP 16; TEMP 36.8; O2SAT 98
[2022-03-05] MEDS: acetaminophen 325 mg Tablet 650 MG PO ×2 (07:56→18:29)
[2022-03-05] MEDS: ARIPiprazole 10 mg Tablet PO (07:57)
[2022-03-05] MEDS: neomycin-poly-bacitracin oint 28 gm 1 APPLIC TOPICAL (07:59)
[2022-03-05] MEDS: nicotine 2 mg Gum BUCCAL (10:34)
--- NOTE | 2022-03-05 13:21 | W.PM.NPUPNS ---
Subjective NPU Subjective: And thenPatient presents today being mostly just with increase in the Abilify. Discussed possibly changing to nighttime dosing. Otherwise he continues to work with the treatment team for possible discharge plan. He continues to not have any clear direction as to what he is going to do as far as living. He does believe however if he gets that he will be able to get a place just from that tax money. Discussed consideration of discharge soon. Mental Status Exam MSE Comments: This is an underweight, white male, with hospital scrubs on with adequate grooming and eye contact. No abnormal movements except for mild psychomotor retardation. Cooperative with exam in no acute distress. Speech was limited and decreased rate and volume. Mood described as okay I guess, affect subdued and odd. Thought process appears slightly more organized.? Thought content: patient denied any suicidal or homicidal ideation, he denied delusions and none were specifically noted, but some bizarre delusions likely present based on his comments during conversations.? He denied auditory or visual hallucinations. Attention and concentration were intact, and memory was mostly reliable, but none were formally tested. He is alert and oriented times person and place. Insight and judgment are impaired, impulse control is fair. Vitals/I&O/Wt Last Vital Signs Temp 98.3 F 03/05/22 06:00 Pulse 66 03/05/22 06:00 Resp 16 03/05/22 06:00 BP 116/65 03/05/22 06:00 Pulse Ox 98 03/05/22 06:00 Data NPU : 02/26/22 07:40 02/26/22 07:40 A&P Assessment and plan (1) Schizophrenia: Status: Acute (2) Bizarre behavior: Status: Acute (3) Gender dysphoria: Status: Acute (4) Cannabis use disorder, mild, abuse: Status: Acute (5) Unspecified personality disorder: Status: Acute (6) History of schizotypal personality disorder: Status: Acute (7) Anxiety disorder, unspecified: Status: Chronic Plan This is a 31-year-old male who has reported 12 hospitalizations in the last 2 years and has been homeless for the last 2 years.? He was treated here previously with Abilify 10 mg and Cogentin 1 mg twice a day.? Consistent with past hospitalizations he has disjointed thought/thought disorder and significantly impaired insight. Plan: 1.? Continue current medication.? Restarted Abilify and increased to 10 mg p.o. every morning and Cogentin 1 mg twice daily.? Consider increasing the Abilify to 15 mg as well as initiating a long-acting injectable. 2.? Continue every 15 minute checks for safety. 3.? Encourage individual, group and milieu therapies. 4.? Encourage sober living treatment after discharge at the highest level of care to which he is willing to commit. 5.? We will need to determine whether he is well enough to be discharged as desired when he requests it or a 96-hour hold may be indicated.? Still lacking direction or insight.? But taking the Abilify and taking the increase without conflict.? Work with treatment team for safe and proper discharge. Involuntary Hold Information 96 Hour Hold: 96 Hour Involuntary Admission: No Attestations NPU Medical Necessity Statement*: Inpatient hospitalization is medically necessary and the clinically appropriate intervention at this time.? We will initiate medications and make changes as indicated.? Likely length of stay 3-5 days Coding Level of Care Code Acute Hand Finisher for [facility] Fwd Diagnoses Schizophrenia F20.9 Bizarre behavior R46.2 Gender dysphoria F64.9 Cannabis use disorder, mild, abuse F12.10 Unspecified personality disorder F60.9 History of schizotypal personality disorder Z86.59 Anxiety disorder, unspecified F41.9
[2022-03-05 14:00] VITALS: BP 113/78; PULSE 66; RESP 16; TEMP 36.9; O2SAT 96
[2022-03-05 20:54] VITALS: BP 116/73; PULSE 88; RESP 17; TEMP 36.5; O2SAT 100
[2022-03-06 06:00] VITALS: BP 109/65; PULSE 90; RESP 16; TEMP 37.1; O2SAT 98
[2022-03-06] MEDS: ARIPiprazole 10 mg Tablet PO (08:30)
[2022-03-06] MEDS: nicotine 2 mg Gum BUCCAL (08:39)
[2022-03-06] MEDS: hydrocortisone 1% cream 28 gm 1 APPLIC TOPICAL (09:22)
[2022-03-06] MEDS: neomycin-poly-bacitracin oint 28 gm 1 APPLIC TOPICAL (09:22)
--- NOTE | 2022-03-06 13:51 | P.NPUPN_ITS ---
Subjective NPU Subjective: Patient presents today reporting that he is doing a little bit better. Conversation with social work team confirmed this plan but he is hoping he can get his tax return and use that as the foundation of getting himself back on his feet. He seems a little less foggy today and that is the report getting from staff of greater clarity. He also is endorsing some difficulty with being tired but denies thinking that it is a product of the morning Abilify. We discussed working with treatment team to figure out a discharge plan possibly in the next few days. He continues to have no insight into any approach or options he can have outside of going back under the bridge. Mental Status Exam MSE Comments: This is an underweight, white male, with hospital scrubs on with adequate grooming and eye contact. No abnormal movements except for mild psychomotor retardation. Cooperative with exam in no acute distress. Speech was limited and decreased rate and volume. Mood described as maybe feeling better, affect subdued and odd. Thought process appears slightly more organized.? Thought content: patient denied any suicidal or homicidal ideation, he denied delusions and none were specifically noted, but some bizarre delusions likely present based on his comments during conversations.? He denied auditory or visual hallucinations. Attention and concentration were intact, and memory was mostly reliable, but none were formally tested. He is alert and oriented times person and place. Insight and judgment are impaired, impulse control is fair. Vitals/I&O/Wt Last Vital Signs Temp 98.7 F 03/06/22 06:00 Pulse 90 03/06/22 06:00 Resp 16 03/06/22 06:00 BP 109/65 03/06/22 06:00 Pulse Ox 98 03/06/22 06:00 Data NPU : 02/26/22 07:40 02/26/22 07:40 A&P Assessment and plan (1) Schizophrenia: Status: Acute (2) Bizarre behavior: Status: Acute (3) Gender dysphoria: Status: Acute (4) Cannabis use disorder, mild, abuse: Status: Acute (5) Unspecified personality disorder: Status: Acute (6) History of schizotypal personality disorder: Status: Acute (7) Anxiety disorder, unspecified: Status: Chronic Plan This is a 31-year-old male who has reported 12 hospitalizations in the last 2 years and has been homeless for the last 2 years.? He was treated here previously with Abilify 10 mg and Cogentin 1 mg twice a day.? Consistent with past hospitalizations he has disjointed thought/thought disorder and signif icantly impaired insight. Plan: 1.? Continue current medication.? Restarted Abilify and increased to 10 mg p.o. every morning and Cogentin 1 mg twice daily.? Consider increasing the Abilify to 15 mg as well as initiating a long-acting injectable. 2.? Continue every 15 minute checks for safety. 3.? Encourage individual, group and milieu therapies. 4.? Encourage sober living treatment after discharge at the highest level of care to which he is willing to commit. 5.? We will need to determine whether he is well enough to be discharged as desired when he requests it or a 96-hour hold may be indicated.? Still lacking direction or insight.? But taking the Abilify and taking the increase without co nflict.? Work with treatment team for safe and proper discharge. Involuntary Hold Information 96 Hour Hold: 96 Hour Involuntary Admission: No Attestations NPU Medical Necessity Statement*: Inpatient hospitalization is medically necessary and the clinically appropriate intervention at this time.? We will initiate medications and make changes as indicated.? 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
[2022-03-06 14:00] VITALS: BP 106/65; PULSE 104; RESP 16; TEMP 36.3; O2SAT 98
[2022-03-06 20:35] VITALS: BP 97/62; PULSE 95; RESP 18; TEMP 36.6; O2SAT 96
[2022-03-07] MEDS: acetaminophen 325 mg Tablet 650 MG PO ×3 (01:11→16:05)
[2022-03-07 06:00] VITALS: BP 102/77; PULSE 92; RESP 16; TEMP 36.4; O2SAT 77
[2022-03-07] MEDS: nicotine 2 mg Gum BUCCAL ×4 (08:38→17:28)
[2022-03-07] MEDS: ARIPiprazole 10 mg Tablet PO (08:38)
[2022-03-07] MEDS: ibuprofen 600 mg Tablet PO (12:25)
[2022-03-07 14:00] VITALS: BP 134/73; PULSE 86; RESP 18; TEMP 36.7; O2SAT 99
--- NOTE | 2022-03-07 18:22 | W.PM.NPUPNS ---
Subjective NPU Subjective: Patient is in today reporting that he is having some improvement and has a plan for where to go from here. He worked with social work team for a possible discharge plan which appears to have materialized with him going to [facility] and working his way hopefully back to work he had [employer]. He plans on switching his address over to [facility] as he waits for his income tax check. He did request that he be discharged with an inhaler since he has not seen his PCP recently. We had a lengthy discussion and patient had no recollection or idea about why gender dysphoria was identified by Dr. Hollins. Endorsing being heterosexual and denies any confusion about his sexuality. Mental Status Exam MSE Comments: This is an underweight, white male, with hospital scrubs on with adequate grooming and eye contact. No abnormal movements except for mild psychomotor retardation. Cooperative with exam in no acute distress. Speech was more spontaneous and more normal rate and volume. Mood described as feeling better, affect congruent but odd. Thought process appears slightly more organized.? Thought content: patient denied any suicidal or homicidal ideation, he denied delusions and none were specifically noted.? He denied auditory or visual hallucinations. Attention and concentration were intact, and memory was mostly reliable, but none were formally tested. He is alert and oriented times 3. Insight and judgment are limited but improving, impulse control is fair. Vitals/I&O/Wt Last Vital Signs Temp 97.3 F L 03/07/22 20:25 Pulse 80 03/07/22 20:25 Resp 16 03/07/22 20:25 BP 93/61 03/07/22 20:25 Pulse Ox 98 03/07/22 20:25 Data NPU : 02/26/22 07:40 02/26/22 07:40 A&P Assessment and plan (1) Schizophrenia: Status: Acute (2) Bizarre behavior: Status: Acute (3) Cannabis use disorder, mild, abuse: Status: Acute (4) Unspecified personality disorder: Status: Acute (5) History of schizotypal personality disorder: Status: Acute (6) Anxiety disorder, unspecified: Status: Chronic Plan This is a 31-year-old male who has reported 12 hospitalizations in the last 2 years and has been homeless for the last 2 years.? He was treated here previously with Abilify 10 mg and Cogentin 1 mg twice a day.? Consistent with past hospitalizations he has disjointed thought/thought disorder and significantly impaired insight. Plan: 1.? Continue current medication.? Restarted Abilify and increased to 10 mg p.o. every morning and Cogentin 1 mg twice daily.? 2.? Continue every 15 minute checks for safety. 3.? Encourage individual, group and milieu therapies. 4.? Encourage sober living treatment after discharge at the highest level of care to which he is willing to commit. 5.? Plan for discharge tomorrow. Involuntary Hold Information 96 Hour Hold: 96 Hour Involuntary Admission: No Attestations NPU Medical Necessity Statement*: Inpatient hospitalization is medically necessary and the clinically appropriate intervention at this time.? We will initiate medications and make changes as indicated.? Likely length of stay 1-3 days Coding Level of Care Code Acute Thermometer Tester for g Fwd Diagnoses Schizophrenia F20.9 Bizarre behavior R46.2 Cannabis use disorder, mild, abuse F12.10 Unspecified personality disorder F60.9 History of schizotypal personality disorder Z86.59 Anxiety disorder, unspecified F41.9
[2022-03-07 20:25] VITALS: BP 93/61; PULSE 80; RESP 16; TEMP 36.3; O2SAT 98
[2022-03-08] MEDS: acetaminophen 325 mg Tablet 650 MG PO ×2 (02:10→10:32)
[2022-03-08 06:00] VITALS: BP 100/64; PULSE 75; RESP 16; TEMP 36.6; O2SAT 95
[2022-03-08] MEDS: nicotine 2 mg Gum BUCCAL ×2 (07:47→11:42)
[2022-03-08] MEDS: ARIPiprazole 10 mg Tablet PO (09:04)
--- NOTE | 2022-03-08 10:33 | PC.NURSE ---
PRN PATIENT COMPLAINED OF HEADACHE /. ONLY WANTED ONE TABLET OF TYLENOL (325MG). OTHER TAB WAS WASTED.
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
[2022-03-08 12:55] VITALS: BP 100/64; PULSE 75; RESP 16; TEMP 36.6; O2SAT 95
== END 2022-03-08 13:30 | disposition home or self-care (01) | DRG 885 ==
LOC: ER 09:45 → NP 02-28 11:41
PROVIDERS: Physician Assistant; Admitting Provider Psychiatry & Neurology Psychiatry; Emergency Provider Family Medicine; Visit Provider Psychiatry & Neurology Psychiatry
DX: F20.9 Schizophrenia, unspecified (principal); F12.10 Cannabis abuse, uncomplicated; F41.9 Anxiety disorder, unspecified; F60.9 Personality disorder, unspecified; Z59.00 Homelessness unspecified
CPT/HCPCS: 80053; 80306; 80307; 85025; 97150; 97165; 99285; Q0162

== ENCOUNTER → 2022-03-12 08:26 | Outpatient (BNVA) | payer MEDICAID, SELFPAY | PROVIDERS: Visit Provider Psychiatry & Neurology Psychiatry | DX: F60.9 Personality disorder, unspecified (principal); F12.10 Cannabis abuse, uncomplicated | CPT/HCPCS: 99214 ==

== ENCOUNTER 2022-04-26 23:31 | Emergency (ER) | payer MEDICAID, SELFPAY ==
[2022-04-26 23:39] VITALS: BP 120/75; PULSE 76; RESP 18; TEMP 37.1; O2SAT 95; BMI 20.9
--- NOTE | 2022-04-27 00:42 | ED.C_ITS ---
Documented by User: ASPEN Davis 04/28/22 02:55 HPI - Psych General: Chief Complaint: Psychiatric Symptoms Stated Complaint: MHE Time Seen by Provider: 04/26/22 23:57 History of Present Illness: Patient is a 31-year-old male who comes to the ED via EMS for mental health evaluation. Past medical history of schizophrenia schizotypal personality disorder and anxiety. Patient was at [facility] just prior to arrival and swiped his EBT card and then felt a buzzing in his stomach immediately after. Episode only lasted for a second. He says that is never happened before. Denies any abdominal pain, nausea, vomiting or fever. He denies any SI, HI, hearing voices or any visual hallucinations. He denies any thoughts of self-harm. Associated symptoms: Deny auditory hallucinations, visual hallucinations, depression, homicidal ideation or suicidal ideation Review of Systems Const: Denies: fever(s), chills or fatigue Eyes: Denies: change in vision or eye discomfort ENMT: Denies: throat pain, odynophagia, nasal discharge or nasal congestion Card: Denies: chest pain, palpitations, edema, swelling of feet/ankles, dyspnea on exertion or orthopnea Resp: Denies: dyspnea, productive cough or non-productive cough GI: Denies: abdominal pain, nausea, vomiting, diarrhea, constipation or hematochezia : Denies: flank pain, difficulty urinating, dysuria or hematuria Musc: Denies: neck pain, back pain or extremity swelling Skin/Breast: Denies: rash or new lesions Neuro: Denies: headache(s), numbness in extremities or weakness in extremities Psych: Denies: anxiety, depression, visual hallucinations, auditory hallucinations, suicidal ideation or homicidal ideation PFS ED PFSH: Medical History (Updated 04/28/22 @ 02:54 by ASPEN Davis) History of schizotypal personality disorder Psychiatric care Schizophrenia Surgical History (Updated 04/28/22 @ 02:54 by ASPEN Davis) No pertinent past surgical history Social History (Updated 03/12/22 @ 09:10 by Miguel Sosa LPN) Smoking and tobacco status: current every day smoker cigarettes Packs smoked per day: 1 Years cigarettes smoked: 20 and cigars Cigars smoked per week: 40 Years smoked cigars: 19 Quit status (tobacco): has tried quititng Number of times tried to quit tobacco: 5 Second hand smoke exposure: Yes Physical Exam Const: COMMON NORMALS: no acute distress, patient oriented x3 and alert GENERAL APPEARANCE: cooperative and comfortable HENMT: COMMON NORMALS: normocephalic HEAD & SCALP: normocephalic MOUTH: Normal oral and palatal mucosa present THROAT: posterior oropharynx normal and uvula midline Neck/C-Spine: COMMON NORMALS: supple GENERAL: Yes normal visual inspection Resp: COMMON NORMALS: normal respiratory effort, No retractions, No use of accessory muscles and clear to auscultation bilaterally AUSCULTATION: clear to auscultation bilaterally Cardio: COMMON NORMALS: regular rate, regular rhythm, S1 normal heart sound present, S2 normal heart sound present, No gallops present (Cardio), No clicks present (Cardio), No murmurs present (Cardio) and Peripheral pulses 2+ throughout RATE: regular rate RHYTHM: regular rhythm HEART SOUNDS: S1 normal heart sound present and S2 normal heart sound present PERIPHERAL PULSES: Peripheral pulses 2+ throughout GI: COMMON NORMALS: Normal to inspection, nondistended, normoactive bowel sounds present, Soft to palpation, non-tender and no masses PALPATION: Yes Soft to palpation : COMMON NORMALS: Yes no CVA tenderness BLADDER/KIDNEY EXAM: Yes no CVA tenderness Back/Pelvis: COMMON NORMALS: no CVA tenderness Extremity: COMMON NORMALS: normal to inspection Neuro: COMMON NORMALS: patient oriented x3 and moves all extremities SENSORIUM/ORIENTATION: Yes alert Psych: COMMON NORMALS: mental status grossly normal, cooperative, speech normal, activity/motor behavior normal, denies hallucinations, denies homicidal ideation and denies suicidal ideation SPEECH: Yes normal speech Skin: GENERAL SKIN EXAM: dry skin Course Vital Signs: Vital signs: Vital Signs Temperature 98.7 F 04/26/22 23:39 Pulse Rate 72 04/27/22 02:01 Respiratory Rate 18 04/26/22 23:39 Blood Pressure 120/80 04/27/22 02:01 Pulse Oximetry 98 04/27/22 02:01 [facility] - Psych Medical Decision Making Patient is a 31-year-old male who comes to the ED via EMS for mental health evaluation. Past medical history of schizophrenia schizotypal personality disorder and anxiety. Patient was at [facility] just prior to arrival and swiped his EBT card and then felt a buzzing in his stomach immediately after. Episode only lasted for a second. He says that is never happened before. Denies any abdominal pain, nausea, vomiting or fever. He denies any SI, HI, hearing voices or any visual hallucinations. He denies any thoughts of self-harm. Vitals are stable and exam is benign. I talked with Dr. Arana about patient case and he agreed patient is safe to discharge home and does not appear to be at any risk of harming himself or others. Patient diagnosed with a history of schizophrenia and was discharged home. Strict return to ED precautions given. Follow-up with PCP in the next week for reevaluation. Patient understood and agreed with plan. Discharge Plan Discharge Patient Disposition: Home Clinical Impression: History of schizophrenia Condition: Stable Prescriptions: No Action No Known Home Medications 0RF Discharge Orders: Discharge ED (Routine); Ordered 04/27/22 Ordered By: Marco A Whitlock Discharge Diet: Regular Discharge Activity: Increase activity as tolerated Activity Restrictions/Additional Instructions: Follow-up with medical provider as directed. Take medications as prescribed. Return to the ER or your medical provider if condition worsens. Please read and understand discharge instructions. Thank you for choosing [facility] for your healthcare needs today. Please realize this is an emergency room and that we are providing you with a medical screening exam and this may not be complete and all inclusive of all the testing and or work up that you may need to determine your ailment or severity of your illness. It is very important that you follow up as instructed or that you return to the Emergency Department should you have concerns or if your condition changes or worsens in any way. Coding Level of Care Code ED Technical Specialist Cytology for Chg Fwd Exam Comprehensive Documented by User: Samir Arana, 04/28/22 15:24 HPI - Psych General: Chief Complaint: Psychiatric Symptoms Stated Complaint: MHE Time Seen by Provider: 04/26/22 23:57 PFS ED PFSH: Medical History (Updated 04/28/22 @ 02:54 by ASPEN Davis) History of schizotypal personality disorder Psychiatric care Schizophrenia Surgical History (Updated 04/28/22 @ 02:54 by ASPEN Davis) No pertinent past surgical history Social History (Updated 03/12/22 @ 09:10 by Miguel Sosa LPN) Smoking and tobacco status: current every day smoker cigarettes Packs smoked per day: 1 Years cigarettes smoked: 20 and cigars Cigars smoked per week: 40 Years smoked cigars: 19 Quit status (tobacco): has tried quititng Number of times tried to quit tobacco: 5 Second hand smoke exposure: Yes Course Vital Signs: Vital signs: Vital Signs Temperature 98.7 F 04/26/22 23:39 Pulse Rate 72 04/27/22 02:01 Respiratory Rate 18 04/26/22 23:39 Blood Pressure 120/80 04/27/22 02:01 Pulse Oximetry 98 04/27/22 02:01 MDM - Psych Medical Decision Making Patient is a 31-year-old male who comes to the ED via EMS for mental health evaluation. Past medical history of schizophrenia schizotypal personality disorder and anxiety. Patient was at [facility] just prior to arrival and swiped his EBT card and then felt a buzzing in his stomach immediately after. Episode only lasted for a second. He says that is never happened before. Denies any abdominal pain, nausea, vomiting or fever. He denies any SI, HI, hearing voices or any visual hallucinations. He denies any thoughts of self-harm. Vitals are stable and exam is benign. I talked with Dr. Arana about patient case and he agreed patient is safe to discharge home and does not appear to be at any risk of harming himself or others. Patient diagnosed with a history of schizophrenia and was discharged home. Strict return to ED precautions given. Follow-up with PCP in the next week for reevaluation. Patient understood and agreed with plan. This patient was originally seen by Mr. Kamlesh PA-C. I agree with his history, evaluation and treatement. Discharge Plan Discharge Patient Disposition: Home Clinical Impression: History of schizophrenia Condition: Stable Prescriptions: No Action No Known Home Medications 0RF Discharge Orders: Discharge ED (Routine); Ordered 04/27/22 Ordered By: Marco A Whitlock Discharge Diet: Regular Discharge Activity: Increase activity as tolerated Activity Restrictions/Additional Instructions: Follow-up with medical provider as directed. Take medications as prescribed. Return to the ER or your medical provider if condition worsens. Please read and understand discharge instructions. Thank you for choosing [facility] for your healthcare needs today. Please realize this is an emergency room and that we are providing you with a medical screening exam and this may not be complete and all inclusive of all the testing and or work up that you may need to determine your ailment or severity of your illness. It is very important that you follow up as instructed or that you return to the Emergency Department should you have concerns or if your condition changes or worsens in any way. Coding Level of Care Code ED Technical Specialist Cytology for Mandeep Fwd Exam Comprehensive
[2022-04-27 02:01] VITALS: BP 120/80; PULSE 72; O2SAT 98
== END 2022-04-27 02:02 | disposition home or self-care (01) ==
PROVIDERS: Emergency Provider Physician Assistant
DX: Z00.8 Encounter for other general examination (principal); F20.9 Schizophrenia, unspecified; F17.210 Nicotine dependence, cigarettes, uncomplicated
CPT/HCPCS: 99283

== ENCOUNTER 2022-04-30 09:20 | Inpatient (IN) | payer MEDICAID, SELFPAY ==
[2022-04-30 09:25] VITALS: BP 108/67; PULSE 76; RESP 18; TEMP 36.7; O2SAT 95; BMI 24.6
--- NOTE | 2022-04-30 09:54 | ED.C_ITS ---
HPI - Psych General: Chief Complaint: Psychiatric Symptoms Stated Complaint: MHE Time Seen by Provider: 04/30/22 09:35 Source: patient and other (caes worker) Mode of arrival: ambulatory Limitations: altered mental status History of Present Illness: Patient is a 31-year-old male here along with his static balancer for concerns of bizarre behavior. Apparently patient resides at [facility]. All of history is provided by caser up as patient himself apparently doesn't know why he is here and answers no to the majority of my questions. Geriatric Nursing Assistant states that the patient has been having very bizarre behaviors stating that he will stay up all night and rearrange the thrift store. He has been found breaking eggs randomly in the hallway. He takes markers and pins and writes gibberish above electrical outlets. He states he has a device in his stomach that was placed in [place] many years ago that intermittently beeps and has interference on cell phones or nearby. He also states his device is affected by the campos. He was found attempting to clean a dumpster for hours. MD complaint: other (bizarre behavior) History of same: Yes Relieving factors: none Exacerbating factors: none Treatments prior to arrival: other (affidavit by caser up) Review of Systems General: Reports: ROS unobtainable due to medical condition [facility] ED PFSH: Medical History History of schizotypal personality disorder Psychiatric care Schizophrenia Surgical History No pertinent past surgical history Social History Smoking and tobacco status: current every day smoker cigarettes Packs smoked per day: 1 Years cigarettes smoked: 20 and cigars Cigars smoked per week: 40 Years smoked cigars: 19 Quit status (tobacco): has tried quititng Number of times tried to quit tobacc o: 5 Second hand smoke exposure: Yes Physical Exam Const: COMMON NORMALS: no acute distress, alert and well nourished EXAM LIMITATIONS: altered mental status GENERAL APPEARANCE: cooperative ORIENTA TION/CONSCIOUSNESS: Yes awake, Yes oriented to person and Yes oriented to place ([facility] [place] ) HENMT: COMMON NORMALS: normocephalic and atraumatic HEAD & SCALP: normal to inspection, normocephalic and atraumatic Resp: COMMON NORMALS: normal respiratory effort and clear to auscultation bilaterally AUSCULTATION: clear to auscultation bilaterally Cardio: COMMON NORMALS: regular rate and regular rhythm RATE: regular rate RHYTHM: regular rhythm Neuro: REGLA COMA SCALE: document GCS findings Richey coma scale eye opening: Spontaneous Richey coma scale verbal response: Orientated Richey coma scale motor response: Obey commands Regla coma scale total score: 15 COMMON NORMALS: moves all extremities, no focal motor deficits and no sensory deficits noted SENSORIUM/ORIENTATION: Yes alert, Yes oriented to person and Yes oriented to place ([facility] ) Psych: COMMON NORMALS: mental status grossly normal APPEARANCE: Yes grossly normal ATTITUDE: Yes calm ACTIVITY/MOTOR BEHAVIOR: Yes appropriate eye contact SPEECH: Yes minimal THOUGHT PROCESS: disorganized ATTENTION/CONCENTRATION: Yes attention grossly intact and Yes concentration grossly intact MEMORY/COGNITION: Yes cognition grossly impaired INSIGHT: Poor insight present (Psych) JUDGEMENT: Poor judgement present (Psych) Course Consultations: Consultation #1: Dr. Davila-accepts to NPU Vital Signs: Vital signs: Vital Signs Temperature 98.1 F 04/30/22 09:25 Pulse Rate 76 04/30/22 09:25 Respiratory Rate 18 04/30/22 09:25 Blood Pressure 108/67 04/30/22 09:25 Pulse Oximetry 95 04/30/22 09:25 MDM - Psych Medical Decision Making Will be a voluntary with affidavit to NPU per Dr. Davila. Lab Data : 04/30/22 10:42 04/30/22 10:42 Laboratory Results WBC 5.5 10^3/uL (4.0-10.0) 04/30/22 10:42 RBC 4.70 10^6/uL (4.1-5.3) 04/30/22 10:42 Hgb 14.7 g/dL (11.7-16.6) 04/30/22 10:42 Hct 41.9 % (42.0-52.0) L 04/30/22 10:42 MCV 89.1 fl (80-94) 04/30/22 10:42 MCH 31.3 pg (28.0-34.0) 04/30/22 10:42 MCHC 35.1 g/dL (30.0-36.0) 04/30/22 10:42 RDW 11.9 % (12.1-15.1) L 04/30/22 10:42 Plt Count 229 10^3/cmm (130-400) 04/30/22 10:42 MPV 12.2 fL (7.4-10.4) H 04/30/22 10:42 Neut % (Auto) 57.8 % 04/30/22 10:42 Lymph % (Auto) 30.2 % 04/30/22 10:42 Walsh % (Auto) 8.9 % 04/30/22 10:42 Eos % (Auto) 2.2 % 04/30/22 10:42 Baso % (Auto) 0.7 % 04/30/22 10:42 Neut # (Auto) 3.17 10^3/uL (1.8-7.7) 04/30/22 10:42 Lymph # (Auto) 1.7 10^3/uL (0.8-4.8) 04/30/22 10:42 Walsh # (Auto) 0.5 10^3/uL (0.2-0.9) 04/30/22 10:42 Eos # (Auto) 0.1 10^3/uL (0.0-0.8) 04/30/22 10:42 Baso # (Auto) 0.0 10^3/uL (0.0-0.1) 04/30/22 10:42 Nucleated RBC % (auto) 0 % 04/30/22 10:42 Nucleated RBCs # 0.0 /100WBC 04/30/22 10:42 Sodium 139 mmol/L (136-145) 04/30/22 10:42 Potassium 4.2 mmol/L (3.5-5.1) 04/30/22 10:42 Chloride 99 mmol/L (98-107) 04/30/22 10:42 Carbon Dioxide 27 mmol/L (22-29) 04/30/22 10:42 Anion Gap 17.2 (5-19) 04/30/22 10:42 BUN 10 mg/dL (6-20) 04/30/22 10:42 Creatinine 0.8 mg/dL (0.7-1.2) 04/30/22 10:42 GFR Calculation 112.8 mL/min (90-130) 04/30/22 10:42 Glucose 84 mg/dL (65-115) 04/30/22 10:42 Calculated Osmolality 286 mOsm/kg (285-295) 04/30/22 10:42 Calcium 9.7 mg/dL (8.5-10.5) 04/30/22 10:42 Total Bilirubin 0.7 mg/dL (0.15-1.2) 04/30/22 10:42 AST 16 U/L (0-40) 04/30/22 10:42 ALT 12 U/L (0-41) 04/30/22 10:42 Alkaline Phosphatase 65 IU/L (40-130) 04/30/22 10:42 Total Protein 6.9 g/dL (6.6-8.7) 04/30/22 10:42 Albumin 4.9 g/dL (3.5-5.2) 04/30/22 10:42 Globulin 2.0 g/dL (1.3-4.6) 04/30/22 10:42 Salicylates < 0.3 mg/dL (3-10) L 04/30/22 10:42 Acetaminophen < 5.0 ug/mL (10-30) L 04/30/22 10:42 Ethyl Alcohol < 10 mg/dL (0-10) 04/30/22 10:42 Discharge Plan Discharge Patient Disposition: Admitted As Inpatient Clinical Impression: Bizarre behavior, Schizotypal personality disorder, Psychosis Condition: Stable Coding Level of Care Code ED Consulting Group Analyst for Moniqueg Fwd Exam Detailed
--- NOTE | 2022-04-30 10:25 | PC.PHAR ---
PT STATES HE TAKES NO MEDICATIONS
[2022-04-30 10:49] LABS: Basophils % 0.7 %; Eosinophils # 0.1 10^3/uL (0.0-0.8); Eosinophils % 2.2 %; Hematocrit 41.9 % (42.0-52.0); Hemoglobin 14.7 g/dL (11.7-16.6); Lymphocytes # 1.7 10^3/uL (0.8-4.8); Lymphocytes % 30.2 %; Mean Corpuscular HGB Conc 35.1 g/dL (30.0-36.0); Mean Corpuscular Hemoglobin 31.3 pg (28.0-34.0); Mean Corpuscular Volume 89.1 fl (80-94); Mean Platelet Volume 12.2 fL (7.4-10.4); Monocytes # 0.5 10^3/uL (0.2-0.9); Monocytes % 8.9 %; Neutrophils # 3.17 10^3/uL (1.8-7.7); Neutrophils % 57.8 %; Nucleated Red Blood Cells % 0 %; Platelet Count 229 10^3/cmm (130-400); Red Cell Distribution Width 11.9 % (12.1-15.1); White Blood Count 5.5 10^3/uL (4.0-10.0)
[2022-04-30 11:04] LABS: Alanine Aminotransferase 12 U/L (0-41); Albumin Level 4.9 g/dL (3.5-5.2); Alkaline Phosphatase 65 IU/L (40-130); Anion Gap 17.2 (5-19); Aspartate Amino Transferase 16 U/L (0-40); Blood Urea Nitrogen 10 mg/dL (6-20); Calcium 9.7 mg/dL (8.5-10.5); Carbon Dioxide 27 mmol/L (22-29); Chloride 99 mmol/L (98-107); Glomerular Filtration Rate 112.8 mL/min (90-130); Glucose 84 mg/dL (65-115); Osmolality Calculated 286 mOsm/kg (285-295); Potassium 4.2 mmol/L (3.5-5.1); Sodium 139 mmol/L (136-145); Total Bilirubin 0.7 mg/dL (0.15-1.2); Total Protein 6.9 g/dL (6.6-8.7)
[2022-04-30 11:05] LABS: Acetaminophen < 5.0 ug/mL (10-30); Alcohol Level < 10 mg/dL (0-10); Salicylate < 0.3 mg/dL (3-10)
[2022-04-30 14:09] VITALS: BP 110/73; PULSE 76; RESP 16; O2SAT 95
[2022-04-30 14:28] VITALS: BP 98/64; PULSE 61; RESP 17; TEMP 36.7; O2SAT 98
[2022-04-30 19:15] LABS: Amphetamines Screen Urine Negative (Negative); Barbiturates Screen Urine Negative (Negative); Benzodiazepines Screen Urine Negative (Negative); Cocaine Screen Urine Negative (Negative); Opiate Screen Urine Negative (Negative); PCP Screen Urine Negative (Negative); THC Screen Urine Negative (Negative)
[2022-04-30 19:58] VITALS: BP 105/69; PULSE 78; RESP 16; TEMP 36.9; O2SAT 95
[2022-05-01 06:00] VITALS: RESP 18
--- NOTE | 2022-05-01 08:12 | W.PM.NPUH&PS ---
Providers/Chief Complaint Admitting Physician: Rogelio Davila MD Chief Complaint: MHE HPI NPU History of Present Illness Yasir Davis is a 31 year old transgender female admitted to NPU after reporting previously to her therapist that there was a tracking device in her stomach. The patient reports that she has been in the process of transitioning to female and reports very little today on interview simply answering yes and no to open ended questioning. She reports that she had recently driven from [facility] to [place] but did not elaborate. She reports that she has struggled with falling asleep. She was unable to answer any questions regarding her safety or her mood. She did not answer any questions regarding whether she was safe or was hearing voices. Past Psychiatric History: hx of multiple inpatient hospitalizations, previous diagnosis of schizophrenia, schizotypal disorder, anxiety disorder nos, Outpatient tx: previously seen at [facility] under Dr. Christian and active psychotherapy, previously discharged from NPU in February 2022. Hx of trials on Abilify Medical Hx: receives treatment for gender transition, on spironolactone, on progesterone Allergies: nkda Surgical Hx: unknown Social Hx: unclear due to being poor historian, previous records indicate that he had lived in [place], and has been [place] He reports daily use of THC, unknown hx of trauma, unknown history of family Family Hx; unknown. Meds NPU Home Medications Medication Instructions Recorded Confirmed Last Taken Type progesterone micronized 100 mg 100 mg PO BEDTIME 04/30/22 04/30/22 Unknown History capsule spironolactone 50 mg tablet 50 mg PO BID 04/30/22 04/30/22 Unknown History Allergies Allergy/AdvReac Type Severity Reaction Status Date / Time aripiprazole [From Abilify] Allergy Intermediate Drooling Verified 03/12/22 09:04 PFS NPU PFSH: Medical History History of schizotypal personality disorder Psychiatric care Schizophrenia Surgical History No pertinent past surgical history Social History Smoking and tobacco status: current every day smoker cigarettes Packs smoked per day: 1 Years cigarettes smoked: 20 and cigars Cigars smoked per week: 40 Years smoked cigars: 19 Quit status (tobacco): has tried quititng Number of times tried to quit tobacco: 5 Second hand smoke exposure: Yes Mental Status Exam MSE Comments: This is an underweight, white male, with hospital scrubs on with poor grooming and eye contact. No abnormal movements except for psychomotor retardation. Cooperative with exam in no acute distress. Speech was limited and decreased rate and volume. Mood described as really tired; affect appeared subdued and odd. Thought process: nonlinear but appeared to be initially capable of discussing things in clear fashion followed by derailment when discussing anything more personal. Thought content: patient denied any suicidal or homicidal ideation, he denied delusions and none were specifically noted. He denied auditory or visual hallucinations. There was evidence of some thought blocking. Attention and concentration were impaired. and his memory was poor as he refused any further questioning simply answering yes or no to open ended questions and repeatedly asking if the tag writer here could speak kuwaiti. Refused to answer questions regarding where he was, date, place or time. Vitals/I&O/Wt Last Vital Signs Temp 98.4 F 04/30/22 19:58 Pulse 78 04/30/22 19:58 Resp 18 05/01/22 06:00 BP 105/69 04/30/22 19:58 Pulse Ox 95 04/30/22 19:58 Weight last 48 hrs Weight 67.132 kg Data NPU : 04/30/22 10:42 04/30/22 10:42 A&P Assessment and plan (1) Psychosis: Status: Acute (2) History of schizophrenia: Status: Acute (3) Bizarre behavior: Status: Acute (4) Cannabis use disorder, mild, abuse: Status: Acute (5) Unspecified personality disorder: Status: Acute (6) Schizotypal personality disorder: Status: Chronic Plan TO-15 minute checks monitor for need for antipsychotics social work aid to help with current homeless situation which may be underlying issue regarding patient's recent breakdown. Involuntary Hold Information 96 Hour Hold: 96 Hour Involuntary Admission: No Attestations NPU Medical Necessity Statement*: Inpatient hospitalization is medically necessary and the clinically appropriate intervention at this time expected to cross 2 midnights and we will initiate medications and make changes as indicated.? Likely length of stay 3-5 days. Coding Level of Care Code New Pt Acute Contour Path Tape Mill Operator for Chg Fwd Patient Type New History Problem Focused Exam Problem Focused Medical Decision Making Straight Forward Diagnoses Psychosis F29 History of schizophrenia Z86.59 Bizarre behavior R46.2 Cannabis use disorder, mild, abuse F12.10 Unspecified personality disorder F60.9 Schizotypal personality disorder F21
--- NOTE | 2022-05-01 08:35 | PC.NURSE ---
patient refused breakfast, wanted to sleep
--- NOTE | 2022-05-01 08:58 | PC.NURSE ---
IN BED RESTING. AROUSES TO VOICE. PT DENIES PAIN. DENIES SI/HI AND AVH AT THIS TIME. PT IS DISHOVELED AND SLOW TO RESPOND TO QUESTIONS. ALL QUESTIONS ANSWERED AND SUPPORT VOICED.
[2022-05-01 14:00] VITALS: BP 109/71; PULSE 83; RESP 16; O2SAT 97
--- NOTE | 2022-05-01 17:02 | PC.NURSE ---
BEHAVIORS PT WAS OBSERVED WRITING ON THE WALL WITH CRAYON. PT WAS VERBALLY REDIRECTED BY 2 STAFF AND OFFERED PAPER TO WRITE ON. PT WAS THEN OBSERVED ON THE [place] MONITORING SPEAKING TO THE TV AND WALKING AROUND THE [place] LOOKING AND TALKING TO UNSEEN OTHES.
[2022-05-01 19:55] VITALS: BP 98/64; PULSE 78; RESP 18; TEMP 36.9; O2SAT 96
--- NOTE | 2022-05-02 00:15 | NUR.SHIFT ---
2000- PT IN DAYROOM FOR ASSESSMENT. PRESENTS CALM AND COOPERATIVE ALTHOUGH ISOLATING WITHIN THE MILIEU. DENIES SI/HI/AVH. TOOK MEDS PRESCRIBED. A&OX4.
--- NOTE | 2022-05-02 03:12 | NUR.SHIFT ---
PT IN DAY ROOM ALMOST ALL OF SHIFT THUS FAR. DENIES SI/HI/AVH. PT EXTREMELY DISORGANIZED. WHEN ASKED IF PT WOULD TAKE SOMETHING FOR SYMPTOM RELIEF AND TO HELP WITH SLEEP, PT DECLINED. PT WROTE MANY NOTES WITH DISORGANIZED THOUGHT PROCESS. PLACED NOTES IN PATIENT CHART.
[2022-05-02 06:00] VITALS: RESP 15
--- NOTE | 2022-05-02 11:39 | P.NPUPN_ITS ---
Subjective NPU Subjective: Yasir was admitted with a history of bizarre behavior, inability to contract for safety outside of the hospital and has been spending most of his day writing and had not slept at all last night. She has been eating poorly but consuming fluids. She reports that all the medications that the NPU are giving her is counteracting her medications. She been refusing any antipsychotics. Mental Status Exam MSE Comments: This is an underweight, white male, with hospital scrubs on with poor? grooming and eye contact. No abnormal movements except for psychomotor retardation. Cooperative with exam in no acute distress. Speech was limited and decreased rate and volume. Thought process: nonlinear, very disorganized. Thought content: patient denied any suicidal or homicidal ideation, he appeared actively delusional and none were specifically noted. He denied auditory or visual hallucinations. There was evidence of some thought blocking. ? Attention and concentration were impaired. ? He was guarded and not willing to show his writings to the pattern chart writer of this note with active paranoia noted and the writings consisted of nonsense statements and perseverative ideas of transitioning. ? Continued to minimize his problems. Evidence of disorganized thinking. Vitals/I&O/Wt Last Vital Signs Temp 98.3 F 05/02/22 14:00 Pulse 75 05/02/22 14:00 Resp 16 05/02/22 14:00 BP 98/64 05/02/22 14:00 Pulse Ox 96 05/02/22 14:00 Data NPU : 04/30/22 10:42 04/30/22 10:42 A&P Assessment and plan (1) Schizophrenia: Status: Acute (2) Schizotypal personality disorder: Status: Chronic (3) Anxiety disorder, unspecified: Status: Chronic (4) Unspecified personality disorder: Status: Acute Plan TO-15 minute checks monitor for need for antipsychotics, patient remains psychotic and may require forceable medications as he appears unable to care for self and remains a significant threat for decompensation social work aid to help with current homeless situation which may be underlying issue regarding patient's recent breakdown.? Involuntary Hold Information 96 Hour Hold: 96 Hour Involuntary Admission: No Attestations NPU Medical Necessity Statement*: Inpatient hospitalization is medically necessary and the clinically appropriate intervention at this time expected to cross 2 midnights and? we will initiate medications and make changes as indicated.? Likely length of stay 5-8days. Coding Level of Care Code Established Pt Acute Plant Operator Control Room Operator for [facility] Patient Type Established History Problem Focused Exam Problem Focused Medical Decision Making Straight Forward Diagnoses Schizotypal personality disorder F21 Anxiety disorder, unspecified F41.9 Unspecified personality disorder F60.9 Schizophrenia F20.9
[2022-05-02 14:00] VITALS: BP 98/64; PULSE 75; RESP 16; TEMP 36.8; O2SAT 96
[2022-05-02] MEDS: spironolactone 25 mg Tablet PO (18:01)
[2022-05-02 20:08] VITALS: BP 105/67; PULSE 67; RESP 16; TEMP 36.7; O2SAT 96
[2022-05-03 06:00] VITALS: BP 104/69; PULSE 68; RESP 16; TEMP 36.6; O2SAT 100
--- NOTE | 2022-05-03 09:19 | W.PM.NPUPNS ---
Subjective NPU Subjective: Yasir was admitted with a history of bizarre behavior, significant psychotic symptoms with an inability to maintain safety outside of the hospital. The patient continues to engage in bizarre behavior including writing with crayon around various objects on the wall stating this is where they are planting bugs in the hospital. Patient reports being uncertain about his living situation when stabilized. He minimized any problems related to his mental state as he ignored any questions regarding his mental state and what brought him in the hospital. Mental Status Exam MSE Comments: This is an underweight, white male, with hospital scrubs on with poor? grooming and eye contact. No abnormal movements except for psychomotor retardation. Cooperative with exam in no acute distress. Speech was limited and decreased rate and volume.? Thought process: nonlinear, very disorganized.? Thought content: patient denied any suicidal or homicidal ideation, he appeared actively delusional. He denied auditory or visual hallucinations. There was evidence of some thought blocking. ? Attention and concentration were impaired. ? He was guarded and not willing to show his writings to the content writer of this note with active paranoia noted and the writings consisted of nonsense statements and perseverative ideas of transitioning. ? ? Continued to minimize his problems. Evidence of disorganized thinking.? Vitals/I&O/Wt Last Vital Signs Temp 97.9 F 05/03/22 06:00 Pulse 68 05/03/22 06:00 Resp 17 05/03/22 14:00 BP 112/70 05/03/22 14:00 Pulse Ox 97 05/03/22 14:00 Data NPU : 04/30/22 10:42 04/30/22 10:42 A&P Assessment and plan (1) Psychosis: Status: Acute (2) Schizophrenia: Status: Acute (3) History of schizophrenia: Status: Acute (4) Bizarre behavior: Status: Acute Plan TO-15 minute checks monitor for need for antipsychotics, patient remains psychotic and may require forceable medications as he appears unable to care for self and remains a significant threat for decompensation and inability to improve in the absence of medications. social work aid to help with current homeless situation which may be underlying issue regarding patient's recent breakdown.? He may require involuntary hospitalization Involuntary Hold Information 96 Hour Hold: 96 Hour Involuntary Admission: No Attestations NPU Medical Necessity Statement*: Inpatient hospitalization is medically necessary and the clinically appropriate intervention at this time expected to cross 2 midnights and? we will initiate medications and make changes as indicated.? Likely length of stay 5-8days. He continues to refuse all psychotropic medications. Coding Level of Care Code Established Pt Acute Media Supervisor for [facility] Patient Type Established History Problem Focused Exam Problem Focused Medical Decision Making Straight Forward Diagnoses Psychosis F29 Schizophrenia F20.9 History of schizophrenia Z86.59 Bizarre behavior R46.2
[2022-05-03] MEDS: spironolactone 25 mg Tablet PO ×2 (13:01→20:36)
[2022-05-03 14:00] VITALS: BP 112/70; RESP 17; O2SAT 97
[2022-05-03 20:23] VITALS: BP 101/66; PULSE 100; RESP 16; TEMP 36.4; O2SAT 95
[2022-05-04 06:00] VITALS: RESP 16
--- NOTE | 2022-05-04 08:34 | PC.NURSE ---
refused scheduled Aldactone...staff encouraged patient to take it, pt says I don't need that, I'm good
--- NOTE | 2022-05-04 10:53 | P.NPUPN_ITS ---
Subjective NPU Subjective: Yasir was admitted with a history of bizarre behavior, significant psychotic symptoms with an inability to maintain safety outside of the hospital. Patient continues to refuse any medications on the unit. He reports today that she was fine. She refused to answer any questions regarding her health and feelings. She reports no when asked about her living situation and when asked about her medications. She continues to sleep only a few hours per night and has been spending time writing about various issues for several hours on the unit. The writings consisted of various paranoid thoughts of things being bugged and implanted inside of him. Mental Status Exam MSE Comments: This is an underweight, white male, with hospital scrubs on with poor? grooming and eye contact. No abnormal movements appreciated, no posturing. . Relatively noncooperative with exam. Speech was limited and decreased rate and volume.? Thought process: nonlinear, very disorganized. Use of nonsequitirs. ? Thought content: patient denied any suicidal or homicidal ideation, he appeared actively delusional based on writings. He denied auditory or visual hallucinations. There was evidence of some thought blocking. ? Attention and concentration were impaired. Continued to minimize his problems. Vitals/I&O/Wt Last Vital Signs Temp 97.5 F L 05/03/22 20:23 Pulse 100 05/03/22 20:23 Resp 16 05/04/22 06:00 BP 101/66 05/03/22 20:23 Pulse Ox 95 05/03/22 20:23 Data NPU : 04/30/22 10:42 04/30/22 10:42 A&P Assessment and plan (1) Schizophrenia: TO-15 minute checks monitor for need for antipsychotics, patient remains psychotic and may require forceable medications as he appears unable to care for self and remains a significant threat for decompensation and inability to improve in the absence of medications.? social work aid to help with current homeless situation which may be underlying issue regarding patient's recent breakdown.? He may require involuntary hospitalization immediately. Status: Acute (2) Psychosis: Status: Acute (3) History of schizophrenia: Status: Acute (4) Bizarre behavior: Status: Acute (5) Anxiety disorder, unspecified: Status: Chronic Involuntary Hold Information 96 Hour Hold: 96 Hour Involuntary Admission: No Attestations NPU Medical Necessity Statement*: Inpatient hospitalization is medically necessary with likely length of stay 5-8 days.? He continues to refuse all psychotropic medications.? Coding Level of Care Code Established Pt Acute Stenographic Court Reporter for [facility] Patient Type Established History Problem Focused Exam Problem Focused Medical Decision Making Straight Forward Diagnoses Schizophrenia F20.9 Psychosis F29 History of schizophrenia Z86.59 Bizarre behavior R46.2 Anxiety disorder, unspecified F41.9
[2022-05-04 14:00] VITALS: BP 113/74; PULSE 75; RESP 17; TEMP 36.6; O2SAT 95
[2022-05-04] MEDS: spironolactone 25 mg Tablet PO (19:53)
[2022-05-04 22:00] VITALS: BP 109/69; PULSE 74; RESP 18; TEMP 36.5; O2SAT 99
[2022-05-05 06:00] VITALS: BP 95/63; PULSE 69; RESP 16; TEMP 36.8; O2SAT 97; BMI 24.6
[2022-05-05] MEDS: spironolactone 25 mg Tablet PO ×2 (09:22→19:53)
--- NOTE | 2022-05-05 10:15 | W.PM.NPUPNS ---
Subjective NPU Subjective: Yasir was admitted with a history of bizarre behavior, significant psychotic symptoms with an inability to maintain safety outside of the hospital.? He continues to engage in bizarre behavior on the unit while remaining guarded with staff. He has been writing about how his room is bugged and that pointing out areas where Russians have infiltrated into his system with reports that the Russians somehow influenced his Hormone Replacement Therapy Mental Status Exam MSE Comments: This is an normal weight, white male, with hospital scrubs on with improved grooming and intermittent eye contact. No abnormal movements appreciated, no posturing.? . Relatively noncooperative with exam. ? Speech was limited in productivity and decreased rate and decreased volume.? Thought process: nonlinear, very disorganized.? Answering in simple yes no fashion only. ? Thought content: patient denied any suicidal or homicidal ideation, he appeared actively delusional based on writings with signficant paranoia. He denied auditory or visual hallucinations. There was evidence of some thought blocking. ? Attention and concentration were impaired. Continued to minimize his problems. Vitals/I&O/Wt Last Vital Signs Temp 97.3 F L 05/05/22 14:00 Pulse 54 L 05/05/22 14:00 Resp 16 05/05/22 14:00 BP 94/61 05/05/22 14:00 Pulse Ox 96 05/05/22 14:00 Weight last 48 hrs Weight 67.132 kg Data NPU : 04/30/22 10:42 04/30/22 10:42 A&P Assessment and plan (1) Schizophrenia: Status: Acute (2) Psychosis: Status: Acute (3) Bizarre behavior: Status: Acute (4) Unspecified personality disorder: Status: Acute (5) Schizotypal personality disorder: Status: Chronic Plan TO-15 minute checks monitor for need for antipsychotics, patient remains psychotic and may require forceable medications as he appears unable to care for self and remains a significant threat for decompensation and inability to improve in the absence of medications.? social work aid to help with current homeless situation which may be underlying issue regarding patient's recent breakdown.? Place on involuntary basis. OT evaluation completed. Involuntary Hold Information 96 Hour Hold: 96 Hour Involuntary Admission: No Attestations NPU Medical Necessity Statement*: Inpatient hospitalization is medically necessary with likely length of stay 5-8 days.? He continues to refuse all psychotropic medications.? Coding Level of Care Code Established Pt Acute Sorting And Folding Supervisor for [facility] Patient Type Established History Problem Focused Exam Problem Focused Medical Decision Making Straight Forward Diagnoses Schizophrenia F20.9 Psychosis F29 Bizarre behavior R46.2 Unspecified personality disorder F60.9 Schizotypal personality disorder F21
[2022-05-05 14:00] VITALS: BP 94/61; PULSE 54; RESP 16; TEMP 36.3; O2SAT 96
[2022-05-05 17:09] VITALS: PULSE 60
[2022-05-05 20:37] VITALS: BP 101/61; PULSE 66; RESP 17; TEMP 36.8; O2SAT 97
[2022-05-06 05:58] VITALS: BP 97/55; PULSE 83; RESP 16; TEMP 36.6; O2SAT 99
--- NOTE | 2022-05-06 09:06 | PC.NURSE ---
refused scheduled Aldactone
[2022-05-06 14:00] VITALS: BP 100/64; PULSE 82; RESP 18; TEMP 36.6; O2SAT 94
--- NOTE | 2022-05-06 15:55 | P.NPUPN_ITS ---
Subjective NPU Subjective: Patient presents today much like previous presentations with a lot of unknowns into explanations for his behavior. 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 However he has no explanation for the behaviors that brought him to the hospital. We discussed surrounding that and the behaviors listed in the affidavit and discussed the likelihood of a 96-hour hold given his reticence for continued medication compliance and behavior. Mental Status Exam MSE Comments: This is a well-developed well-nourished white male, in hospital scrubs on with limited grooming and eye contact. No abnormal movements except for mild psychomotor retardation. Cooperative with exam in no acute distress. Speech was decreased rate and volume. Mood described as I will know; affect subdued and odd. Thought process mostly organized. Thought content: patient answered I do not know about suicidal or homicidal ideation, he denied delusions and none were specifically noted. He denied auditory or visual hallucinations. Attention and concentration were intact, and memory was mostly unreliable as he answered I do not know to many questions but none were formally tested. He is alert and oriented times person and place. Insight and judgment are impaired, impulse control is fair. Vitals/I&O/Wt Last Vital Signs Temp 98 F 05/06/22 14:00 Pulse 82 05/06/22 14:00 Resp 18 05/06/22 14:00 BP 100/64 05/06/22 14:00 Pulse Ox 94 05/06/22 14:00 Weight last 48 hrs Weight 67.132 kg Data NPU : 04/30/22 10:42 04/30/22 10:42 A&P Assessment and plan (1) Schizophrenia: Status: Acute (2) Psychosis: Status: Acute (3) Bizarre behavior: Status: Acute (4) Cannabis use disorder, mild, abuse: Status: Acute (5) Unspecified personality disorder: Status: Acute (6) Schizotypal personality disorder: Status: Chronic (7) Anxiety disorder, unspecified: Status: Chronic Plan This is a 31-year-old male who has reported double-digit hospitalizations in the last 2 years in the past and has become homeless again recently due to odd behavior after discontinuing his medication with significant thought disorder and impaired insight. Plan: 1.? Continue current medication.? We will attempt to restart medication but may need to wait until 21-day hold for forced medication 2.? Continue every 15 minute checks for safety. 3.? Encourage individual, group and milieu therapies. 4.? Encourage sober living treatment after discharge at the highest level of care to which he is willing to commit. 5.? We will place on 96-hour hold due to psychosis and poor functioning. Involuntary Hold Information 96 Hour Hold: 96 Hour Involuntary Admission: No Attestations NPU Medical Necessity Statement*: Inpatient hospitalization is medically necessary and the clinically appropriate intervention at this time.? We will initiate medications and make changes as indicated.? He will be in the hospital for over 2 midnights.? Likely length of stay 7-10 days Coding Level of Care Code Acute Adjunct History Instructor for [facility] Fwd Diagnoses Schizophrenia F20.9 Psychosis F29 Bizarre behavior R46.2 Cannabis use disorder, mild, abuse F12.10 Unspecified personality disorder F60.9 Schizotypal personality disorder F21 Anxiety disorder, unspecified F41.9
[2022-05-06] MEDS: spironolactone 25 mg Tablet PO (19:38)
[2022-05-06 20:06] VITALS: BP 91/55; PULSE 52; RESP 17; TEMP 36.6; O2SAT 98
[2022-05-07 06:00] VITALS: RESP 16
[2022-05-07] MEDS: spironolactone 25 mg Tablet PO ×2 (10:15→20:57)
[2022-05-07 13:51] VITALS: BP 97/64; PULSE 81; RESP 17; TEMP 36.8; O2SAT 95
--- NOTE | 2022-05-07 16:46 | P.NPUPN_ITS ---
Subjective NPU Subjective: Patient presents today with a continued minimalist response. Mostly responding with I do not know and okay as his answers and lack of response to other questions. We discussed the 96-hour hold to which he simply responded okay. He had no explanation for dramatic change in his behavior. Mental Status Exam MSE Comments: This is a well-developed well-nourished white male, in hospital scrubs on with limited grooming and eye contact. No abnormal movements except for mild psychomotor retardation. Cooperative with exam in no acute distress. Speech was decreased rate and volume. Mood described as I will know; affect subdued and odd. Thought process mostly organized. Thought content: patient ans wered I do not know about suicidal or homicidal ideation, he denied delusions and none were specifically noted. He denied auditory or visual hallucinations. Attention and concentration were intact, and memory was mostly unreliable as he answered I do not know to many questions but none were formally tested. He is alert and oriented times person and place. Insight and judgment are impaired, impulse control is fair. Vitals/I&O/Wt Last Vital Signs Temp 98.3 F 05/07/22 13:51 Pulse 67 05/07/22 20:00 Resp 16 05/07/22 20:00 BP 94/61 05/07/22 20:00 Pulse Ox 99 05/07/22 20:00 O2 Del Method 05/07/22 13:51 Data NPU : 04/30/22 10:42 04/30/22 10:42 A&P Assessment and plan (1) Schizophrenia: Status: Acute (2) Psychosis: Status: Acute (3) Bizarre behavior: Status: Acute (4) Cannabis use disorder, mild, abuse: Status: Acute (5) Unspecified personality disorder: Status: Acute (6) Schizotypal personality disorder: Status: Chronic (7) Anxiety disorder, unspecified: Status: Chronic Plan This is a 31-year-old male who has reported double-digit hospitalizations in the last 2 years in the past and has become homeless again recently due to odd behavior after discontinuing his medication with significant thought disorder and impaired insight. Plan: 1.? Continue current medication.? We will attempt to restart medication but may need to wait until 21-day hold for forced medication 2.? Continue every 15 minute checks for safety. 3.? Encourage individual, group and milieu therapies. 4.? Encourage sober living treatment after discharge at the highest level of care to which he is willing to commit. 5.? We will place on 96-hour hold due to psychosis and poor functioning. Involuntary Hold Information 96 Hour Hold: 96 Hour Involuntary Admission: No Attestations NPU Medical Necessity Statement*: Inpatient hospitalization is medically necessary and the clinically appropriate intervention at this time.? We will initiate medications and make changes as indicated.? Likely length of stay 7-10 days Coding Level of Care Code Acute Drink Waiter for [facility] Fwd Diagnoses Schizophrenia F20.9 Psychosis F29 Bizarre behavior R46.2 Cannabis use disorder, mild, abuse F12.10 Unspecified personality disorder F60.9 Schizotypal personality disorder F21 Anxiety disorder, unspecified F41.9
[2022-05-07 20:00] VITALS: BP 94/61; PULSE 67; RESP 16; O2SAT 99
[2022-05-08 06:00] VITALS: RESP 17
[2022-05-08] MEDS: spironolactone 25 mg Tablet PO ×2 (08:05→22:13)
[2022-05-08 14:00] VITALS: BP 100/52; PULSE 67; RESP 16; TEMP 37.1; O2SAT 94
--- NOTE | 2022-05-08 15:58 | W.PM.NPUPNS ---
Subjective NPU Subjective: Patient resents today with again with limited motivation towards completion about anything. Mostly amotivational syndrome where does not seem to matter to him what goes on. He is eating and sleeping okay. He mostly seems to be in his own world looking at a book or randomly writing on things. A patient advised me that at the start keeping his drawings in his room because Yasir had an PICC he was drawing up writing some random thing on it on the back and throwing it in the trash. He had no explanation for his behavior. Mental Status Exam MSE Comments: This is a well-developed well-nourished white male, in hospital scrubs on with limited grooming and eye contact. No abnormal movements except for mild psychomotor retardation. Cooperative with exam in no acute distress. Speech was decreased rate and volume. Mood described as I don't know; affect subdued and odd. Thought process mostly organized. Thought content: patient answered I do not know about suicidal or homicidal ideation, he denied delusions and none were specifically noted. He denied auditory or visual hallucinations. Attention and concentration were intact, and memory was mostly unreliable as he answered I do not know to many questions but none were formally tested. He is alert and oriented times person and place. Insight and judgment are impaired, impulse control is fair. Vitals/I&O/Wt Last Vital Signs Temp 98.3 F 05/07/22 13:51 Pulse 67 05/07/22 20:00 Resp 17 05/08/22 06:00 BP 94/61 05/07/22 20:00 Pulse Ox 99 05/07/22 20:00 O2 Del Method 05/07/22 13:51 Data NPU : 04/30/22 10:42 04/30/22 10:42 A&P Assessment and plan (1) Schizophrenia: Status: Acute (2) Psychosis: Status: Acute (3) Bizarre behavior: Status: Acute (4) Cannabis use disorder, mild, abuse: Status: Acute (5) Unspecified personality disorder: Status: Acute (6) Schizotypal personality disorder: Status: Chronic (7) Anxiety disorder, unspecified: Status: Chronic Plan This is a 31-year-old male who has reported double-digit hospitalizations in the last 2 years in the past and has become homeless again recently due to odd behavior after discontinuing his medication with significant thought disorder and impaired insight. Plan: 1.? Continue current medication.? We will attempt to restart medication but may need to wait until 21-day hold for forced medication 2.? Continue every 15 minute checks for safety. 3.? Encourage individual, group and milieu therapies. 4.? Encourage sober living treatment after discharge at the highest level of care to which he is willing to commit. 5.? 96-hour hold filed. We will switch to 21-day hold quickly to consider forced medication. Involuntary Hold Information 96 Hour Hold: 96 Hour Involuntary Admission: No Attestations NPU Medical Necessity Statement*: Inpatient hospitalization is medically necessary and the clinically appropriate intervention at this time.? We will initiate medications and make changes as indicated.? Likely length of stay 7-10 days Coding Level of Care Code Acute Senior Software Developer for g Fwd Diagnoses Schizophrenia F20.9 Psychosis F29 Bizarre behavior R46.2 Cannabis use disorder, mild, abuse F12.10 Unspecified personality disorder F60.9 Schizotypal personality disorder F21 Anxiety disorder, unspecified F41.9
[2022-05-08 19:44] VITALS: BP 88/55; PULSE 72; RESP 18; TEMP 36.9; O2SAT 96
[2022-05-09 06:00] VITALS: RESP 16
[2022-05-09] MEDS: spironolactone 25 mg Tablet PO (09:35)
[2022-05-09 14:00] VITALS: BP 123/69; PULSE 62; RESP 14; TEMP 36.7; O2SAT 98
--- NOTE | 2022-05-09 16:04 | P.NPUPN_ITS ---
Subjective NPU Subjective: Patient presents today reporting that things are going okay. However he continues to have bizarre behaviors. When I asked him what he was doing he had a page with $500 written countless times in a haphazard arrangement. That he had a random number [id number] and something -[id number] and something incorrectly subtracted leaving $207. That he had almost a binary code underneath with mostly ones that show me the paper as if it meant something. We discussed the 96-hour hold which he showed the paper and a plan to file a 21-day hold as he is not doing any better and refusing his medication. Mental Status Exam MSE Comments: This is a well-developed well-nourished white male, in hospital scrubs on with limited grooming and eye contact. No abnormal movements except for mild psychomotor retardation. Cooperative with exam in no acute distress. Speech was decreased rate and volume. Mood not described he just smiled and showed me the paper he was working on; affect subdued and odd. Thought process mostly organized. Thought content: patient answered I do not know about suicidal or homicidal ideation, he denied delusions and none were specifically noted. He denied auditory or visual hallucinations. Attention and concentration were intact, and memory was mostly unreliable as he answered I do not know to many questions but none were formally tested. He is alert and oriented times person and place. Insight and judgment are impaired, impulse control is fair. 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 Plan: 1.? Continue current medication.? We will attempt to restart medication but may need to wait until 21-day hold for forced medication 2.? Continue every 15 minute checks for safety. 3.? Encourage individual, group and milieu therapies. 4.? Encourage sober living treatment after discharge at the highest level of care to which he is willing to commit. 5.? 96-hour hold filed. We will switch to 21-day hold quickly to consider forced medication. Involuntary Hold Information 96 Hour Hold: 96 Hour Involuntary Admission: No Attestations NPU Medical Necessity Statement*: Inpatient hospitalization is medically necessary and the clinically appropriate intervention at this time.? We will initiate medications and make changes as indicated.? Likely length of stay 7-10 days Coding Level of Care Code Acute Instructor Dramatic Arts for g Fwd Diagnoses Schizophrenia F20.9 Psychosis F29 Bizarre behavior R46.2 Cannabis use disorder, mild, abuse F12.10 Unspecified personality disorder F60.9 Schizotypal personality disorder F21 Anxiety disorder, unspecified F41.9
[2022-05-09 19:43] VITALS: BP 99/63; PULSE 90; RESP 16; TEMP 37.1; O2SAT 98
[2022-05-10 06:00] VITALS: RESP 18
[2022-05-10] MEDS: spironolactone 25 mg Tablet PO ×2 (08:31→21:45)
--- NOTE | 2022-05-10 12:12 | W.PM.NPUPNS ---
Subjective NPU Subjective: Patient presents today reporting that he is doing okay. He 1 point he stated he liked being here. With that he said he was just getting. The time during our interview going through magazine and at one point identified an actress and a dress and endorsed that he liked the dress. Otherwise still lacking significant motivated behaviors. Mental Status Exam MSE Comments: This is a well-developed well-nourished white male, in hospital scrubs on with limited grooming and eye contact. No abnormal movements except for mild psychomotor retardation. Cooperative with exam in no acute distress. Speech was decreased rate and volume. Mood not okay; affect subdued and odd. Thought process mostly organized. Thought content: patient answered I do not know about suicidal or homicidal ideation, he denied delusions and none were specifically noted. He denied auditory or visual hallucinations. Attention and concentration were intact, and memory was mostly unreliable as he answered I do not know to many questions but none were formally tested. He is alert and oriented times person and place. Insight and judgment are impaired, impulse control is fair. 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 Plan: 1.? Continue current medication.? We will attempt to restart medication but may need to wait until 21-day hold for forced medication 2.? Continue every 15 minute checks for safety. 3.? Encourage individual, group and milieu therapies. 4.? Encourage sober living treatment after discharge at the highest level of care to which he is willing to commit. 5.? 96-hour hold filed. We will switch to 21-day hold quickly to consider forced medication. Involuntary Hold Information 96 Hour Hold: 96 Hour Involuntary Admission: No Attestations NPU Medical Necessity Statement*: Inpatient hospitalization is medically necessary and the clinically appropriate intervention at this time.? We will initiate medications and make changes as indicated.? Likely length of stay 7-10 days Coding Level of Care Code Acute Day Care Center Director for [facility] Fwd Diagnoses Schizophrenia F20.9 Psychosis F29 Bizarre behavior R46.2 Cannabis use disorder, mild, abuse F12.10 Unspecified personality disorder F60.9 Schizotypal personality disorder F21 Anxiety disorder, unspecified F41.9
[2022-05-10] MEDS: acetaminophen 325 mg Tablet 650 MG PO (12:20)
--- NOTE | 2022-05-10 12:21 | PC.NURSE ---
SCANNER NOT WORKING FOR PATIENT OR MEDICATION. PT ADMINISTERED TYLENOL FOR 7/10 HEAD PAIN
[2022-05-10 13:44] VITALS: BP 137/77; PULSE 89; RESP 16; O2SAT 97
[2022-05-10 19:41] VITALS: BP 92/60; PULSE 90; RESP 15; TEMP 36.9; O2SAT 98
[2022-05-11 06:00] VITALS: BP 100/64; PULSE 77; RESP 14; TEMP 36.6; O2SAT 99
--- NOTE | 2022-05-11 07:37 | P.NPUPN_ITS ---
Subjective NPU Subjective: Patient presents today essentially unchanged. He was found as usual sitting alone in the day room reading something. He had no self driven conversational thoughts. Had a couple times he laughed that things that were odd to find humor in. He continues to seem aware of the whole process and we did discuss that we would submit a 21-day hold in the morning. He has not expressed any resistance about staying here but as stated already he lacks goal direction or goal motivated behavior. Mental Status Exam MSE Comments: This is a well-developed well-nourished white male, in hospital scrubs on with limited grooming and eye contact. No abnormal movements except for mild psychomotor retardation. Cooperative with exam in no acute distress. Speech was decreased rate and volume. Mood not okay; affect subdued and odd. Thought process mostly organized. Thought content: patient denied suicidal or homicidal ideation, he denied delusions and none were specifically noted. He denied auditory or visual hallucinations. Attention and concentration were intact, and memory was mostly unreliable as he answered I do not know to many questions but none were formally tested. He is alert and oriented times person and place. Insight and judgment are impaired, impulse control is fair. 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 Plan: 1.? Continue current medication.? Continues to refuse to initiate medication so we will need to wait until 21-day hold for forced medication 2.? Continue every 15 minute checks for safety. 3.? Encourage individual, group and milieu therapies. 4.? Encourage sober living treatment after discharge at the highest level of care to which he is willing to commit. 5.? 96-hour hold filed. We will switch to 21-day hold quickly to consider forced medication. Involuntary Hold Information 96 Hour Hold: 96 Hour Involuntary Admission: No Attestations NPU Medical Necessity Statement*: Inpatient hospitalization is medically necessary and the clinically appropriate intervention at this time.? We will initiate medications and make changes as indicated.? Likely length of stay 7-10 days Coding Level of Care Code Acute Information Services Assistant for [facility] Fwd Diagnoses Schizophrenia F20.9 Psychosis F29 Bizarre behavior R46.2 Cannabis use disorder, mild, abuse F12.10 Unspecified personality disorder F60.9 Schizotypal personality disorder F21 Anxiety disorder, unspecified F41.9
[2022-05-11] MEDS: spironolactone 25 mg Tablet PO ×2 (09:48→20:35)
[2022-05-11 13:45] VITALS: BP 111/63; PULSE 64; RESP 15; TEMP 36.5; O2SAT 98
[2022-05-11 20:15] VITALS: BP 106/63; PULSE 79; RESP 17; TEMP 36.9; O2SAT 97
[2022-05-12 06:00] VITALS: RESP 16
--- NOTE | 2022-05-12 06:46 | P.NPUPN_ITS ---
Subjective NPU Subjective: Patient presents today reporting that he has no new issues. We discussed the fact that Friday we?d be filing a 21 day and he responded Okay with no negative emotion. He had no concerns continues to have limited self motivation. He essentially isolated sitting at a table and reads whatever hap pen to be lying there. Did not give any real explanation for why he was not willing to take medication. Continues to be isolative and without direction. Mental Status Exam MSE Comments: This is a well-developed well-nourished white male, in hospital scrubs on with limited grooming and eye contact. No abnormal movements except for mild psychomotor retardation. Cooperative with exam in no acute distress. Speech was decreased rate and volume. Mood okay; affect subdued and odd. Thought process mostly organized. Thought content: patient denied suicidal or homicidal ideation, he denied delusions and none were specifically noted. He denied auditory or visual hallucinations. Attention and concentration were intact, and memory was mostly unreliable as he answered I do not know to many questions but none were formally tested. He is alert and oriented times person and place. Insight and judgment are impaired, impulse control is fair. 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 Plan: 1.? Continue current medication.? Continues to refuse to initiate medication so we will need to wait until 21-day hold for forced medication 2.? Continue every 15 minute checks for safety. 3.? Encourage individual, group and milieu therapies. 4.? Encourage sober living treatment after discharge at the highest level of care to which he is willing to commit. 5.? 96-hour hold filed. We will switch to 21-day hold quickly to consider f orced medication. Involuntary Hold Information 96 Hour Hold: 96 Hour Involuntary Admission: No Attestations NPU Medical Necessity Statement*: Inpatient hospitalization is medically necessary and the clinically appropriate intervention at this time.? We will initiate medications and make changes as indicated.? Likely length of stay 7-10 days Coding Level of Care Code Acute Disintegrator Feeder for g Fwd Diagnoses Schizophrenia F20.9 Psychosis F29 Bizarre behavior R46.2 Cannabis use disorder, mild, abuse F12.10 Unspecified personality disorder F60.9 Schizotypal personality disorder F21 Anxiety disorder, unspecified F41.9
[2022-05-12] MEDS: spironolactone 25 mg Tablet PO ×2 (09:41→20:16)
[2022-05-12 14:00] VITALS: BP 134/70; PULSE 77; RESP 16; TEMP 36.8; O2SAT 97
[2022-05-12 19:59] VITALS: BP 102/61; PULSE 52; RESP 18; TEMP 37; O2SAT 99
[2022-05-13 06:00] VITALS: BP 97/55; PULSE 72; RESP 18; TEMP 36.6; O2SAT 99
--- NOTE | 2022-05-13 11:50 | W.PM.NPUPNS ---
Subjective NPU Subjective: Patient presents today and reported to him that the treatment team is filing 21 day paperwork for him to remain in hospital. Patient refusing medications, passively stating no and continues to write about various paranoid works that state you know what those secret cameras are for. He had taken down the address of one of his peers who was leaving today. He remains completely amotivated on the unit with minimal participation in the milieu. Mental Status Exam MSE Comments: This is a well-developed well-nourished white male, in hospital scrubs on with poor grooming and fleeting eye contact. No abnormal movements except for unchanged psychomotor retardation. Cooperative with exam in no acute distress. Speech was decreased rate and volume. Mood okay; affect subdued and odd. Thought process: initially organized but derailed later during points of the interview. Thought content: patient denied suicidal or homicidal ideation. He denied delusions and none were specifically noted. He denied auditory or visual hallucinations. Attention and concentration were grossly intact. He continued to answer okay and I dont know to most of the open ended questions although comprehension at times appeared intact, no catatonia no abnormal involuntary motor movements or posturing. Vitals/I&O/Wt Last Vital Signs Temp 98.1 F 05/13/22 13:58 Pulse 77 05/13/22 13:58 Resp 12 05/13/22 13:58 BP 102/65 05/13/22 13:58 Pulse Ox 95 05/13/22 13:58 O2 Del Method 05/13/22 13:58 Data NPU : 04/30/22 10:42 04/30/22 10:42 A&P Assessment and plan (1) Schizophrenia: Status: Acute (2) Psychosis: Status: Acute (3) Schizotypal personality disorder: Status: Chronic (4) Unspecified personality disorder: Status: Acute Plan This is a 31-year-old male who has reported double-digit hospitalizations in the last 2 years in the past and has become homeless again recently due to odd behavior after discontinuing his medication with significant thought disorder and impaired insight. Plan: 1.? No medications at this time. Filed for additional 21 day stay with use of forced medication. 2.? Continue every 15 minute checks for safety. 3.? Encourage individual, group and milieu therapies. 4.? Encourage sober living treatment after discharge at the highest level of care to which he is willing to commit. 5. Involuntary Hold Information 96 Hour Hold: 96 Hour Involuntary Admission: No Attestations NPU Medical Necessity Statement*: Inpatient hospitalization is medically necessary and the clinically appropriate intervention at this time.? We will initiate medications and make changes as indicated.? Likely length of stay 7-10 days Coding Level of Care Code Established Pt Acute Heat And Frost Insulator for Chg Fwd Patient Type Established History Problem Focused Exam Problem Focused Medical Decision Making Straight Forward Diagnoses Schizophrenia F20.9 Psychosis F29 Schizotypal personality disorder F21 Unspecified personality disorder F60.9
[2022-05-13 13:58] VITALS: BP 102/65; PULSE 77; RESP 12; TEMP 36.7; O2SAT 95
[2022-05-13 19:36] VITALS: BP 100/72; PULSE 84; RESP 16; TEMP 36.8; O2SAT 97
[2022-05-13] MEDS: spironolactone 25 mg Tablet PO (20:44)
[2022-05-14 05:56] VITALS: BP 83/48; PULSE 71; RESP 16; TEMP 36.6; O2SAT 98
[2022-05-14 07:03] VITALS: BP 100/58
[2022-05-14] MEDS: spironolactone 25 mg Tablet PO (09:48)
--- NOTE | 2022-05-14 11:38 | P.NPUPN_ITS ---
Subjective NPU Subjective: Patient is a 31 year old white male with schizophrenia and hx of schizotypal disorder admitted for unusual behavior, and active paranoia currently refusing medications. He continues to show relative anertia and apathy with continued periods of writing excessively showing active ideas of reference. The patient asked today whether he was scheduled to be discharged. The patient was informed that the treatment team had filed for a continued 21- day stay involuntarily. When asked what the patient would do and where he would go if he were to leave the hospital, the patient stated I do not know. He continued to state I do not know to numerous questions specific questions including why he was hospitalized . Mental Status Exam MSE Comments: This is a well-developed well-nourished white male, in hospital scrubs on with poor grooming and fleeting eye contact. No abnormal movements except for unchanged psychomotor retardation. Fairly uncooperative with exam in no acute distress. Speech was decreased rate and volume. Mood okay; affect subdued and odd. Thought process: superficial, Thought content: patient denied suicidal or homicidal ideation. He denied delusions and none were specifically noted in conversation but were supported by writings which showed ideas of reference and paranoid delusions. There was an overall poverty of content during the interview. He denied auditory or visual hallucinations. Attention and concentration were grossly intact. He continued to answer okay and I dont know to most of the open ended questions although comprehension at times appeared intact, no catatonia no abnormal involuntary motor movements or posturing. Vitals/I&O/Wt Last Vital Signs Temp 98 F 05/14/22 05:56 Pulse 71 05/14/22 05:56 Resp 16 05/14/22 05:56 BP 100/58 05/14/22 07:03 Pulse Ox 98 05/14/22 05:56 O2 Del Method 05/14/22 05:56 Data NPU : 04/30/22 10:42 04/30/22 10:42 A&P Assessment and plan (1) Schizophrenia: Status: Acute (2) Psychosis: Status: Acute (3) Schizotypal personality disorder: Status: Chronic (4) Unspecified personality disorder: Status: Acute Plan This is a 31-year-old male who has reported double-digit hospitalizations in the last 2 years in the past and has become homeless again recently due to odd behavior after discontinuing his medication with significant thought disorder and impaired insight. Plan: 1.? No medications at this time. Filed for additional 21 day stay with use of forced medication, disposition remains unknown as well. No social supports appear available. 2.? Continue every 15 minute checks for safety. 3.? Encourage individual, group and milieu therapies. 4.? Encourage sober living treatment after discharge at the highest level of care to which he is willing to commit. 5. Involuntary Hold Information 96 Hour Hold: 96 Hour Involuntary Admission: No Attestations NPU Medical Necessity Statement*: Inpatient hospitalization is medically necessary and the clinically appropriate intervention at this time.? We will initiate medications and make changes as indicated.? Likely length of stay 7-10 days Coding Level of Care Code Established Pt Acute Rotary Envelope Machine Operator for Chg Fwd Patient Type Established History Problem Focused Exam Problem Focused Medical Decision Making Straight Forward Diagnoses Schizophrenia F20.9 Psychosis F29 Schizotypal personality disorder F21 Unspecified personality disorder F60.9
[2022-05-14 14:00] VITALS: BP 95/60; PULSE 69; RESP 16; TEMP 36.6; O2SAT 94
[2022-05-14 19:48] VITALS: BP 108/64; PULSE 77; RESP 20; TEMP 36.8; O2SAT 94
[2022-05-14] MEDS: acetaminophen 325 mg Tablet 650 MG PO (20:48)
--- NOTE | 2022-05-14 21:17 | NUR.SHIFT ---
PT PRESENTS ANXIOUS BUT COOPERATIVE. REPORTS HIGH ANXIETY DUE TO RECEIVING THE 21 DAY HOLD PAPERWORK. PT DISORGANZIZED, BUT GENUINE AND WANTS TO UNDERSTAND. PT EASY TO REDIRECT. CONVERSATION HAD ABOUT EXPECTATIONS FOR THE 21 DAY HOLD AND WHAT PROVIDER WILL BE LOOKING FOR DURING THIS TIME. PT REPORTS 05/22 HEADACHE. ADMINISTERED TYLENOL WITH GOOD EFFECT. VSS. PT REPORTS LAST BM WAS 05/13. DENIES SI/HI/AVH AT THIS TIME. REPORTS GOOD APPETITE. PT IN DAYROOM. [facility] CONTACT WITH CONVERSATION AND LOGICAL QUESTIONS ASKED BY PATIENT ALTHOUGH HE IS STILL HAVING RACING THOUGHTS AND WRITING THOSE THOUGHTS DOWN. THIS NURSE EXPLAINED TO PATIENT THAT WE WANTED TO HELP WITH THE RACING THOUGHTS. PT ALSO CONCERNED THAT HE IS NOT GETTING HIS SPIRONOLACTONE WITH THE HORMONE FOR THEM TO WORK TOGETHER. PT IS KNOWLEDGEABLE ABOUT THE REASONS FOR EACH AND HOW ONE DOES NOT WORK WITHOUT THE OTHER. WILL NOTIFY DAYSHIFT OF PATIENT CONCERNS TO BE BROUGHT UP IN THE TEAM MEETING.
--- NOTE | 2022-05-14 22:41 | PC.NURSE ---
HOLDING SPIRONOLACTONE PER NURSING SHIFT REPORT
[2022-05-15 06:00] VITALS: BP 108/64; PULSE 77; RESP 20; TEMP 36.8; O2SAT 94
[2022-05-15 06:28] VITALS: BP 98/55; PULSE 82; RESP 16; TEMP 37.1; O2SAT 99
--- NOTE | 2022-05-15 08:24 | PC.NURSE ---
HOLDING SPIRONOLACTONE PER NURSING SHIFT REPORT
--- NOTE | 2022-05-15 13:22 | P.NPUPN_ITS ---
Subjective NPU Subjective: Patient is a 31 year old white male with schizophrenia and hx of schizotypal disorder admitted for unusual behavior, and active paranoia currently refusing medications. Patient remains unable to provide details regarding why he was hospitalized and remains confused about any details about his hospitalization here. He continues to simply receive sustenance on the unit. Patient reports being opposed to taking any medication as he reports that nothing is wrong. He asked if he could remain on spironolactone although he denies any mood symptoms. He continues to remain uncertain when asked details about his future. Mental Status Exam MSE Comments: This is a well-developed well-nourished white male, in hospital scrubs on with poor grooming and fleeting eye contact. No abnormal movements e xcept for unchanged psychomotor retardation. Fairly uncooperative with exam in no acute distress. Speech was decreased rate and volume, monotone in quality. Mood okay; affect odd, and blunted. Thought process: superficial, Thought content: patient denied suicidal or homicidal ideation. He denied delusions and none were specifically noted in conversation. There was continued presence of unrelated questions by the patient to the writer producer of this note. Continued lack of details and poverty of content noted. He denied auditory or visual hallucinations. Attention and concentration were grossly intact. He continued to answer okay and I dont know to most of the open ended questions although comprehension at times appeared intact, no catatonia no abnormal involuntary motor movements or posturing. 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 Plan: 1.? No medications at this time. Filed for additional 21 day stay with use of forced medication, disposition remains unknown as well. No social supports appear available. 2.? Continue every 15 minute checks for safety. 3.? Encourage individual, group and milieu therapies. 4.? Encourage sober living treatment after discharge at the highest level of care to which he is willing to commit. 5. Involuntary Hold Information 96 Hour Hold: 96 Hour Involuntary Admission: No Attestations NPU Medical Necessity Statement*: Inpatient hospitalization is medically necessary and the clinically appropriate intervention at this time.? We will initiate medications and make changes as indicated.? Likely length of stay 7-10 days. 21 day hearing scheduled tommorow. Coding Level of Care Code Established Pt Acute Still Operator Helper for Mandeep Hammond Patient Type Established History Problem Focused Exam Problem Focused Medical Decision Making Straight Forward Diagnoses Schizophrenia F20.9 Psychosis F29 Schizotypal personality disorder F21 Unspecified personality disorder F60.9
[2022-05-15 14:00] VITALS: BP 102/58; PULSE 66; RESP 16; TEMP 37; O2SAT 96
[2022-05-15 18:36] VITALS: BP 107/62; PULSE 87; RESP 15; TEMP 36.7; O2SAT 95
[2022-05-16 06:00] VITALS: BP 106/67; PULSE 72; RESP 16; TEMP 36.7; O2SAT 99
[2022-05-16 13:45] VITALS: BP 141/96; PULSE 62; RESP 16; TEMP 36.9; O2SAT 98
--- NOTE | 2022-05-16 14:15 | PC.NURSE ---
OFF UNIT FOR [address]
[2022-05-16 19:40] VITALS: BP 96/59; PULSE 63; RESP 16; TEMP 36.6; O2SAT 100
--- NOTE | 2022-05-16 20:14 | P.NPUPN_ITS ---
Subjective NPU Subjective: Patient is a 31 year old white male with schizophrenia and hx of schizotypal disorder admitted for unusual behavior, and active paranoia currently refusing medications. Patient continued to report having little goal directed behaviors. He had reported that he wished to leave the hospital but has no half-way and continues to struggle with apathy and amotivation on the unit. He had reported concern about various objects being bugged on the unit. Mental Status Exam MSE Comments: This is a well-developed well-nourished white male, in hospital scrubs on with poor grooming and fleeting eye contact. No abnormal movements except for unchanged psychomotor retardation. Fairly uncooperative with exam in no acute distress. Speech was decreased rate and volume, monotone in quality. Mood okay; affect remained odd, and blunted. Thought process: superficial, Thought content: patient denied suicidal or homicidal ideation. He denied delusions and none were specifically noted in conversation. There was continued presence of unrelated questions by the patient to the expert medical writer of this note. Continued lack of details and poverty of content noted. He denied auditory or visual hallucinations. Attention and concentration were grossly intact. He did use more complete sentences instead of stating i dont know, but remained superficial. no catatonia no abnormal involuntary motor movements or posturing. 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 Plan: 1.? Court supported 21 day stay, will begin Paliperidone 3mg tonight if refused begin IM haldol. 2.? Continue every 15 minute checks for safety. 3.? Encourage individual, group and milieu therapies. 4.? Encourage sober living treatment after discharge at the highest level of care to which he is willing to commit. 5. Involuntary Hold Information 96 Hour Hold: 96 Hour Involuntary Admission: No Attestations NPU Medical Necessity Statement*: Inpatient hospitalization is medically necessary and the clinically appropriate intervention at this time.? We will initiate forced medication today.Likely length of stay 7-10 days. 21 day stay supported with patient to be started on medication today. Coding Level of Care Code Established Pt Acute Bogger Operator for Mandeep Hammond Patient Type Established History Problem Focused Exam Problem Focused Medical Decision Making Straight Forward Diagnoses Schizophrenia F20.9 Psychosis F29 Schizotypal personality disorder F21 Unspecified personality disorder F60.9
[2022-05-16] MEDS: paliperidone ER 3 mg Tablet PO (22:36)
--- NOTE | 2022-05-16 22:36 | PC.NURSE ---
When offered the medication at 2044, he requested a print out on the medication. He read the same numerous times. Stated I don't have schizophrenia, and I don't want to notarize this. Pt was centered on a book about schizophrenia and why he wasn't going to notarize it. This software writer and Akin JOEL spoke with the Pt concerning the medication and that if the p.o.was refused, an IM had been ordered. At this time the Pt agreed to take the medication p.o. at this time.
[2022-05-17 06:00] VITALS: RESP 16
[2022-05-17 14:00] VITALS: BP 103/67; PULSE 76; RESP 16; TEMP 36.7; O2SAT 99
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
[2022-05-17 20:36] VITALS: BP 110/65; PULSE 67; RESP 15; O2SAT 97
[2022-05-17] MEDS: paliperidone ER 3 mg Tablet 6 MG PO (21:00)
[2022-05-18 05:32] VITALS: BP 110/65; PULSE 67; RESP 15; TEMP 36.7; O2SAT 97
[2022-05-18 05:46] VITALS: BP 89/61; PULSE 76; RESP 16; TEMP 36.6; O2SAT 95
[2022-05-18 14:00] VITALS: BP 99/61; PULSE 81; RESP 18; TEMP 36.7; O2SAT 98
--- NOTE | 2022-05-18 15:10 | W.PM.NPUPNS ---
Subjective NPU Subjective: Patient is a 31 year old white male with schizophrenia and hx of schizotypal disorder admitted for unusual behavior, and active paranoia currently refusing medications. Patient tolerating paliperidone. He reports that he will not talk to me unless he has a lunch truck operator present. He then proceeded to state that he has been good. He continues to show continued apathy and amotivation and continues to write excessively. He reports sleeping well and reports a good appetite. Mental Status Exam MSE Comments: This is a well-developed well-nourished white male, in hospital scrubs on with poor grooming and fleeting eye contact. Continued psychomotor retardation appreciated. He was cooperative with exam and appeared in no acute distress. Speech was more spontaneous today with normal rate and volume, monotone in quality. Mood described as good; affect remained blunted. Thought process: superficial, and at times completely illogical. Thought content: patient denied suicidal or homicidal ideation. NO overt delusions reported today but continued paranoia. Continued lack of details and poverty of content noted. He denied auditory or visual hallucinations. Attention and concentration were grossly intact. No catatonia no abnormal involuntary motor movements or posturing appreciated. 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 Plan: 1.? Court supported 21 day stay, Continue Paliperidone 6mg tonight if refused will give IM haldol. 2.? Continue every 15 minute checks for safety. 3.? Encourage individual, group and milieu therapies. 4.? Encourage sober living treatment after discharge at the highest level of care to which he is willing to commit. 5. Case management services essential Involuntary Hold Information 96 Hour Hold: 96 Hour Involuntary Admission: No Attestations NPU Medical Necessity Statement*: Inpatient hospitalization is medically necessary and the clinically appropriate intervention at this time to prevent access to lethal means, to reevaluate medication and to coordinate a safe discharge. We will continue forced medication Likely length of stay 7-10 days. 21 day stay supported currently. Coding Level of Care Code Established Pt Acute Ux Interaction Designer for Mandeep Hammond Patient Type Established History Problem Focused Exam Problem Focused Medical Decision Making Straight Forward Diagnoses Schizophrenia F20.9 Psychosis F29 Schizotypal personality disorder F21 Unspecified personality disorder F60.9
[2022-05-18 20:55] VITALS: RESP 16
[2022-05-18] MEDS: paliperidone ER 3 mg Tablet 6 MG PO (21:33)
[2022-05-19 06:00] VITALS: BP 95/57; PULSE 75; RESP 16; TEMP 36.4; O2SAT 97
--- NOTE | 2022-05-19 12:07 | P.NPUPN_ITS ---
Subjective NPU Subjective: Patient is a 31 year old white male with schizophrenia and hx of schizotypal disorder admitted for unusual behavior, and active paranoia currently refusing medications. Patient reports not wanting to take any medications. Patient reports no suicidal thoughts, he reports being uncertain about his living situation upon discharge. Staff reports patient has been redirectable but still minimally engaged in the milieu. He reports that he has continued to take paliperidone but reports that the medication has been changing his thoughts in a bad way. Mental Status Exam MSE Comments: This is a well-developed well-nourished white male, in hospital scrubs on with poor grooming and fleeting eye contact. Continued psychomotor retardation appreciated. He was cooperative with exam and appeared in no acute distress. Speech was again more spontaneous today with normal rate and volume, monotone in quality. Mood described as good; affect remained blunted. Thought process: superficial, and at times completely illogical. Thought content: patient denied suicidal or homicidal ideation. NO overt delusions reported today but continued paranoia. Continued lack of details and poverty o f content noted. He denied auditory or visual hallucinations. Attention and concentration were grossly intact. No catatonia no abnormal involuntary motor movements or posturing appreciated. 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 Plan: 1.? Court supported 21 day stay, Continue Paliperidone 6mg tonight if refused will give IM haldol. 2.? Continue every 15 minute checks for safety. 3.? Encourage individual, group and milieu therapies. 4.? Encourage sober living treatment after discharge at the highest level of care to which he is willing to commit. 5. Case management services essential Involuntary Hold Information 96 Hour Hold: 96 Hour Involuntary Admission: No Attestations NPU Medical Necessity Statement*: Inpatient hospitalization is medically necessary and the clinically appropriate intervention at this time to prevent access to lethal means, to reevaluate medication and to coordinate a safe discharge. We will continue forced medication Likely length of stay 7-10 days. 21 day stay supported currently. Coding Level of Care Code Established Pt Acute Land Surveyor Manager for Moniqueg Fwd Patient Type Established History Problem Focused Exam Problem Focused Medical Decision Making Straight Forward Diagnoses Schizophrenia F20.9 Psychosis F29 Schizotypal personality disorder F21 Unspecified personality disorder F60.9
[2022-05-19 14:00] VITALS: BP 86/53; PULSE 84; RESP 18; TEMP 36.6; O2SAT 95
[2022-05-19] MEDS: paliperidone ER 3 mg Tablet 6 MG PO (21:04)
--- NOTE | 2022-05-19 21:05 | PC.NURSE ---
At 2029, pt was approached by MASTER PLANNER to administer schuled 2100 dose of Invega 6mg, pt refused med at that time. Pt was again approached at 2099, with pt refusing med. production welding supervisor was on unit, call was placed to security for standby and Haldol injection was readied as per order. Pt decided he would go ahead and take his scheduled oral medication. Haldol injection wasted by 2 nurses.
[2022-05-19 21:21] VITALS: BP 109/59; PULSE 88; RESP 18; TEMP 36.6; O2SAT 95
[2022-05-20 06:00] VITALS: RESP 16
[2022-05-20] MEDS: acetaminophen 325 mg Tablet 650 MG PO (13:11)
[2022-05-20 13:57] VITALS: BP 117/72; PULSE 83; RESP 16; TEMP 36.8; O2SAT 95
[2022-05-20] MEDS: nicotine 2 mg Gum BUCCAL (14:00)
--- NOTE | 2022-05-20 14:38 | P.NPUPN_ITS ---
Subjective NPU Subjective: Patient is a 31 year old white male with schizophrenia and hx of schizotypal disorder admitted for unusual behavior, and active paranoia currently receiving forced medications on 21 day hold. Patient has been tolerating paliperidone without any noted side effects. Patient had been engaging in less bizarre behavior although he continues to write secret letters on the unit. The writings continue to show evidence of some paranoid thinking. The patient reports today that he wishes to remain here in [place] and is looking for a job. He reported no side effects nor did he report any problems with sleep continuity disruption today. Mental Status Exam MSE Comments: This is a well-developed well-nourished white male, in hospital scrubs on with poor grooming and fleeting eye contact. Less psychomotor slowing noted. He was cooperative with exam and appeared in no acute distress. Speech was more spontaneous today with normal rate and volume, monotone in quality. Mood described as good; affect remained blunted and mood incongruent. Thought process: superficial and concrete. Thought content: patient denied suicidal or homicidal ideation. NO overt delusions reported today but continued paranoia. There was a poverty of content. He denied auditory or visual hallucinations. Attention and concentration were grossly intact. No catatonia no abnormal involuntary motor movements or posturing appreciated. 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 Plan: 1.? Court supported 21 day stay, Continue Paliperidone 6mg tonight if refused will give IM haldol. 2.? Continue every 15 minute checks for safety. 3.? Encourage individual, group and milieu therapies. 4.? Encourage sober living treatment after discharge at the highest level of care to which he is willing to commit. 5. Case management services essential 6. Some modest improvement seen with paliperidone, less negative symptoms noted. Involuntary Hold Information 96 Hour Hold: 96 Hour Involuntary Admission: No Attestations NPU Medical Necessity Statement*: Inpatient hospitalization is medically necessary and the clinically appropriate intervention at this time to prevent access to lethal means, to reevaluate medication and to coordinate a safe discharge. We will continue forced medication Likely length of stay 7-10 days. 21 day stay supported currently. Coding Level of Care Code Established Pt Acute Bobbin Fixer for Mandeep Hammond Patient Type Established History Problem Focused Exam Problem Focused Medical Decision Making Straight Forward Diagnoses Schizophrenia F20.9 Psychosis F29 Schizotypal personality disorder F21 Unspecified personality disorder F60.9
[2022-05-20] MEDS: paliperidone ER 3 mg Tablet 6 MG PO (19:53)
[2022-05-20 19:54] VITALS: BP 123/77; PULSE 68; RESP 18; TEMP 37; O2SAT 99
[2022-05-20 21:40] VITALS: BP 123/77; PULSE 68; RESP 18; TEMP 37; O2SAT 99
[2022-05-21 05:41] VITALS: BP 102/64; PULSE 83; RESP 18; TEMP 36.7; O2SAT 100
[2022-05-21 13:21] VITALS: BP 102/64; PULSE 83; RESP 18; TEMP 36.7; O2SAT 100
[2022-05-21 13:43] VITALS: BP 101/62; PULSE 93; RESP 16; TEMP 36.6; O2SAT 94
--- NOTE | 2022-05-21 16:46 | P.NPUPN_ITS ---
Subjective NPU Subjective: Patient is a 31 year old white male with schizophrenia and hx of schizotypal disorder admitted for unusual behavior, and active paranoia currently receiving forced medications on 21 day hold. He has been more redirectable and goal directed asking if he could be discharged soon back to [facility] where he could reside. Patient reports having pillowcase cleaner through [facility] and appeared more goal oriented on the milieu although he had been sleeping more in the afternoon despite sleeping through the night. Patient reports no side effects from medication. He reports no suicidal or homicidal thoughts at this time. Mental Status Exam MSE Comments: This is a well-developed well-nourished white male, in hospital scrubs on with improving grooming and fleeting eye contact. Less psychomotor slowing noted although he appeared to have some evidence of shuffling type of gait. He was cooperative with exam and appeared in no acute distress. Speech was more spontaneous today with normal rate and volume, monotone in quality. Mood described as good; affect remained blunted and mood incongruent. Thought process: superficial and concrete. Thought content: patient denied suicidal or homicidal ideation. NO overt delusions reported today and less paranoia appreciated. He denied auditory or visual hallucinations. Attention and concentration were grossly intact. No catatonia no abnormal involuntary motor movements or posturing appreciated. 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 Plan: 1.? Court supported 21 day stay, Continue Paliperidone 6mg tonight if refused will give IM haldol. 2.? Continue every 15 minute checks for safety. 3.? Encourage individual, group and milieu therapies. 4.? Encourage sober living treatment after discharge at the highest level of care to which he is willing to commit. 5. Case management services essential 6. Some modest improvement seen with paliperidone, less negative symptoms noted. Involuntary Hold Information 96 Hour Hold: 96 Hour Involuntary Admission: No Attestations NPU 2 Medical Necessity Statement*: Inpatient hospitalization is medically necessary and the clinically appropriate intervention at this time to prevent access to le thal means, to reevaluate medication and to coordinate a safe discharge. We will continue forced medication Likely length of stay 7-10 days. 21 day stay supported currently. Coding Level of Care Code Established Pt Acute Instant Print Operator for Mandeep Fwginny Patient Type Established History Problem Focused Exam Problem Focused Medical Decision Making Straight Forward Diagnoses Schizophrenia F20.9 Psychosis F29 Schizotypal personality disorder F21 Unspecified personality disorder F60.9
[2022-05-21] MEDS: benztropine 1 mg Tablet 0.5 MG PO (17:59)
[2022-05-21] MEDS: paliperidone ER 3 mg Tablet 6 MG PO (20:11)
[2022-05-21] MEDS: acetaminophen 325 mg Tablet 650 MG PO (20:27)
[2022-05-21 20:30] VITALS: BP 117/80; PULSE 90; RESP 18; TEMP 36.8; O2SAT 96
[2022-05-22 06:00] VITALS: RESP 16
[2022-05-22] MEDS: benztropine 1 mg Tablet 0.5 MG PO ×2 (09:44→18:49)
[2022-05-22 14:00] VITALS: BP 96/58; PULSE 67; RESP 15; TEMP 37; O2SAT 97
--- NOTE | 2022-05-22 14:13 | P.NPUPN_ITS ---
Subjective NPU Subjective: Patient is a 31 year old white male with schizophrenia and hx of schizotypal disorder admitted for unusual behavior, and active paranoia currently receiving forced medications on 21 day hold. He continues to show signs of increased sociability, more spontaneous and increasingly goal directed. He reported no signs of his medication. He reported no thoughts of hurting himself or others. He reports that he would like to go to [employer]. He reports having the interview for [employer] for seeking employment. He reported adequate sleep. Mental Status Exam MSE Comments: This is a well-developed well-nourished white male, in hospital scrubs on with improving grooming and fleeting eye contact. Less psychomotor slowing noted today. He was cooperative with exam and appeared in no acute distress. Speech was again more spontaneous than previous days with normal rate and volume, monotone in quality. Mood described as good; affect remained somewhat flat. Thought process: linear and goal directed Thought content: patient denied suicidal or homicidal ideation. NO overt delusions reported today and less paranoia appreciated. He denied auditory or visual hallucinations. Attention and concentration were grossly intact. No catatonia no abnormal involuntary motor movements or posturing appreciated. 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 Plan: 1.? Court supported 21 day stay, Continue Paliperidone 6mg tonight if refused will give IM haldol. 2.? Continue every 15 minute checks for safety. 3.? Encourage individual, group and milieu therapies. 4.? Encourage sober living treatment after discharge at the highest level of care to which he is willing to commit. 5. Case management services essential at this time. Involuntary Hold Information 96 Hour Hold: 96 Hour Involuntary Admission: No Attestations NPU Medical Necessity Statement*: Inpatient hospitalization is medically necessary and the clinically appropriate intervention at this time to prevent access to lethal means, to reevaluate medication and to coordinate a safe discharge. We will continue forced medication Likely length of stay 7-10 days. 21 day stay supported currently. Coding Level of Care Code Established Pt Acute Compound Specialist for Moniqueg Fwd Patient Type Established History Problem Focused Exam Problem Focused Medical Decision Making Straight Forward Diagnoses Schizophrenia F20.9 Psychosis F29 Schizotypal personality disorder F21 Unspecified personality disorder F60.9
[2022-05-22] MEDS: acetaminophen 325 mg Tablet 650 MG PO (20:00)
[2022-05-22] MEDS: paliperidone ER 3 mg Tablet 6 MG PO (20:16)
[2022-05-22 20:41] VITALS: BP 110/64; PULSE 86; RESP 16; TEMP 36.6; O2SAT 99
[2022-05-23 06:00] VITALS: BP 93/59; PULSE 65; RESP 15; TEMP 36.8; O2SAT 98
[2022-05-23] MEDS: benztropine 1 mg Tablet 0.5 MG PO ×2 (09:54→17:52)
[2022-05-23 14:00] VITALS: BP 94/58; PULSE 82; RESP 20; TEMP 36.6; O2SAT 93
--- NOTE | 2022-05-23 17:32 | P.NPUPN_ITS ---
Subjective NPU Subjective: Patient presents today reporting that he has an understanding of the plan moving forward. More difficult and answer questions with answers other than I do not know with his first day back with this administrative underwriter. He endorsed he understood that the treatment team is working on helping him get connected with [facility] getting planning for discharge. We discussed the likelihood of a long-acting injectable before he leaves. Mental Status Exam MSE Comments: This is a well-developed well-nourished white male, in hospital scrubs on with improving grooming and eye contact. No abnormal movements and l ess psychomotor slowing noted today. He was cooperative with exam and appeared in no acute distress. Speech was more spontaneous with normal rate and volume, monotone in quality. Mood described as good; affect remained somewhat flat. Thought process: linear and goal directed Thought content: patient denied suicidal or homicidal ideation. NO overt delusions reported today and less paranoia appreciated. He denied auditory or visual hallucinations. Attention and concentration were grossly intact and memory is improving but none were formally tested. He is alert and oriented x3. Insight is limited judgment appeared improving impulse control appears improving. 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 Plan: 1.? Court supported 21 day stay, Continue Paliperidone 6mg tonight if refused will give IM haldol. We will initiate Invega injectable tomorrow. 2.? Continue every 15 minute checks for safety. 3.? Encourage individual, group and milieu therapies. 4.? Encourage sober living treatment after discharge at the highest level of care to which he is willing to commit. 5. Case management services essential at this time. Involuntary Hold Information 96 Hour Hold: 96 Hour Involuntary Admission: No Attestations NPU Medical Necessity Statement*: Inpatient hospitalization is medically necessary and the clinically appropriate intervention at this time to prevent access to lethal means, to reevaluate medication and to coordinate a safe discharge. We will continue forced medication Likely length of stay 6-9 days. Coding Level of Care Code Acute Commercial Specialist for [facility] Fwd Diagnoses Schizophrenia F20.9 Psychosis F29 Schizotypal personality disorder F21 Unspecified personality disorder F60.9
[2022-05-23 20:36] VITALS: BP 108/74; PULSE 57; RESP 16; TEMP 36.6; O2SAT 100
[2022-05-23] MEDS: paliperidone ER 3 mg Tablet 6 MG PO (21:26)
[2022-05-23] MEDS: acetaminophen 325 mg Tablet 650 MG PO (21:32)
--- NOTE | 2022-05-23 22:40 | NUR.SHIFT ---
PT PRESENTS A&OX3. DENIES SI/HI/AVH AT THIST NATALI. DENEIS DEPRESSION OR ANXIETY STATING, WHY DO YOU GUYS ASK ME THIS EVERY TIME. PT REPORTS GOOD APPETITE AND SLEEP PATTERN IS BETTER . PT FIXATED ON NOTARY. 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 THIS NURSE ASKED, ARE YOU A NOTARY IN [place] BECAUSE YOU HAVE TO BE REGISTERED A NOTARY IN THE STATE YOU DO THE NOTORIZATION IN PT ASKED THIS NURSE, HOW DO I DO THAT? WHAT DOES THAT MEAN. CAN I BECOME A NOTARY IF I HAVE CHILD SUPPORT COMING OUT OF MY TAXES. THIS NURSE EVENTUALLY PRINTED OUT [place] NOTARY INFORMATION FOR THE PATIENT TO SEE WHAT BECOMING A NOTARY ENTAILS. NOTIFIED HIM THAT I BELIEVE HE WOULD HAVE TO BE CAUGHT UP IN ORDER TO BE ABLE TO BE A NOTARY SO HE MAY WANT TO FIGURE OUT A BACKUP PLAN JUST IN CASE. PT EASILY REDIRECTABLE AND COOPERATIVE. TOOK MEDS PRESCRIBED.
[2022-05-24 05:52] VITALS: BP 88/59; PULSE 60; RESP 16; TEMP 36.6; O2SAT 97
[2022-05-24] MEDS: benztropine 1 mg Tablet 0.5 MG PO ×2 (08:33→17:42)
--- NOTE | 2022-05-24 10:04 | PC.NURSE ---
NEW ORDERS MORNING MEETING COMPLETED. DR. MICHELLE GAVE ORDERS TO GIVE INVEGA 234 MG IM NOW, GIVE IN DELTOID. ORDERS PLACED. EDUCATION GIVEN TO PT. VERBALIZES UNDERSTANDING.
--- NOTE | 2022-05-24 12:19 | PC.NURSE ---
NEW ORDER INVEGA 6 MG DISCONTINUED DUE TO RECEIVING INVEGA 234 MG IM ONCE.
[2022-05-24] MEDS: paliperidone palmitate 234 mg Syringe IM (12:36)
[2022-05-24] MEDS: acetaminophen 325 mg Tablet 650 MG PO (12:39)
[2022-05-24 14:00] VITALS: BP 102/64; PULSE 76; TEMP 36.8; O2SAT 96
--- NOTE | 2022-05-24 16:46 | W.PM.NPUPNS ---
Subjective NPU Subjective: Patient presents today reporting that he is doing okay. Witnessed him using humor and interaction with another patient demonstrating considerable progress and recovering from his psychotic state. We discussed the fact that we would be initiating the first loading dose of Invega long-acting injectable and he understood and agreed to proceed as is documented in this note. Mental Status Exam MSE Comments: This is a well-developed well-nourished white male, in hospital scrubs on with improving grooming and eye contact. No abnormal movements and less psychomotor slowing noted today. He was cooperative with exam and appeared in no acute distress. Speech was more spontaneous with normal rate and volume, monotone in quality. Mood described as good; affect remained somewhat flat, but reactive. Thought process: linear and goal directed Thought content: patient denied suicidal or homicidal ideation. NO overt delusions reported today and less paranoia appreciated. He denied auditory or visual hallucinations. Attention and concentration were grossly intact and memory is improving but none were formally tested. He is alert and oriented x3. Insight is limited judgment appeared improving impulse control appears improving. 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 Plan: 1.? Court supported 21 day stay, discontinued oral Invega. Gave Invega Sustenna 234 mg IM to the deltoid. 2.? Continue every 15 minute checks for safety. 3.? Encourage individual, group and milieu therapies. 4.? Encourage sober living treatment after discharge at the highest level of care to which he is willing to commit. 5. Case management services essential at this time. Involuntary Hold Information 96 Hour Hold: 96 Hour Involuntary Admission: No Attestations NPU Medical Necessity Statement*: Inpatient hospitalization is medically necessary and the clinically appropriate intervention at this time to prevent access to lethal means, to reevaluate medication and to coordinate a safe discharge. We will continue forced medication Likely length of stay 5-8 days. Coding Level of Care Code Acute Electric Frying Pan Repairer for [facility]arda Fwd Diagnoses Schizophrenia F20.9 Psychosis F29 Schizotypal personality disorder F21 Unspecified personality disorder F60.9
[2022-05-24 19:57] VITALS: RESP 16
[2022-05-25 06:00] VITALS: BP 81/45; PULSE 80; RESP 18; TEMP 36.7; O2SAT 98
[2022-05-25] MEDS: benzocaine 20% 7 gm 1 APPLIC MUCOUS MEM (06:17)
[2022-05-25] MEDS: benztropine 1 mg Tablet 0.5 MG PO ×2 (08:46→17:42)
--- NOTE | 2022-05-25 08:46 | P.NPUPN_ITS ---
Subjective NPU Subjective: Patient presents today reporting that is feeling okay. He was lying in bed and reports he was just feeling a little tired waiting for lunch to come. He denied any issues with the Invega injection yesterday. No pain or problems endorsed. We discussed continue to work with the treatment team at the beginning of the week to identify the best plan for discharge moving forward. Mental Status Exam MSE Comments: This is a well-developed well-nourished white male, in hospital scrubs on with improving grooming and eye contact. No abnormal movements and less psychomotor slowing noted today. He was cooperative with exam and appeared in no acute distress. Speech was more spontaneous with normal rate and volume, monotone in quality. Mood described as tired but okay; affect remained somewhat flat. Thought process: linear and goal directed Thought content: patient denied suicidal or homicidal ideation. NO overt delusions reported today and less paranoia appreciated. He denied auditory or visual hallucinations. Attention and concentration were grossly intact and memory is improving but none were formally tested. He is alert and oriented x3. Insight is limited judgment appeared improving impulse control appears improving. 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 Plan: 1.? Court supported 21 day stay, discontinued oral Invega. Gave Invega Sustenna 234 mg IM to the deltoid 05/24/22. Next injection 05/31/22 2.? Continue every 15 minute checks for safety. 3.? Encourage individual, group and milieu therapies. 4.? Encourage sober living treatment after discharge at the highest level of care to which he is willing to commit. 5. Case management services essential at this time. Involuntary Hold Information 96 Hour Hold: 96 Hour Involuntary Admission: No Attestations NPU Medical Necessity Statement*: Inpatient hospitalization is medically necessary and the clinically appropriate intervention at this time to prevent access to lethal means, to reevaluate medication and to coordinate a safe discharge. Likely length of stay 4-7 days. Coding Level of Care Code Acute Livestock Judging Coach for [facility] Gilesd Diagnoses Schizophrenia F20.9 Psychosis F29 Schizotypal personality disorder F21 Unspecified personality disorder F60.9
[2022-05-25 14:00] VITALS: BP 81/45; PULSE 80; RESP 18; TEMP 36.7; O2SAT 98
[2022-05-25] MEDS: acetaminophen 325 mg Tablet 650 MG PO (16:47)
[2022-05-25] MEDS: nicotine 2 mg Gum BUCCAL ×2 (18:05→20:09)
[2022-05-25 20:17] VITALS: BP 104/64; PULSE 80; RESP 18; TEMP 36.7; O2SAT 98
[2022-05-25 22:00] VITALS: BP 104/64; PULSE 80; RESP 18; TEMP 36.7; O2SAT 98
[2022-05-26 05:53] VITALS: BP 98/61; PULSE 61; RESP 16; TEMP 36.6; O2SAT 96
[2022-05-26 06:00] VITALS: BMI 24.6
[2022-05-26] MEDS: benztropine 1 mg Tablet 0.5 MG PO ×2 (08:27→17:48)
--- NOTE | 2022-05-26 10:42 | PC.NURSE ---
PT C/O MIN PAIN/DISCOMFORT ON LT DELTOID FROM INJECTION, WARM HEAT COMPRESS GIVEN, PT COMPLIANT WITH KEEPING HEAT ON SITE AND REPORTS IT HAS HELPED DECREASE PAIN/DISCOMFORT
[2022-05-26 14:00] VITALS: BP 90/55; PULSE 72; RESP 18; TEMP 36.6; O2SAT 98
--- NOTE | 2022-05-26 20:04 | P.NPUPN_ITS ---
Subjective NPU Subjective: Patient presents today reporting that he is doing okay. Discharge timeline. We discussed making sure he gets the second injection as part of our goal as well as him working with the treatment team to find a reasonable discharge option which does investigations for options have begun. He reports that he feels better on the medication and looks forward to discharge soon. Mental Status Exam MSE Comments: This is a well-developed well-nourished white male, in hospital scrubs on with improving grooming and eye contact. No abnormal movements and less psychomotor slowing noted today. He was cooperative with exam and appeared in no acute distress. Speech was more spontaneous with normal rate and volume, monotone in quality. Mood described as pretty good; affect remained somewhat flat. Thought process: linear and goal directed Thought content: patient denied suicidal or homicidal ideation. NO overt delusions reported today and less paranoia appreciated. He denied auditory or visual hallucinations. Attention and concentration were grossly intact and memory is improving but none were formally tested. He is alert and oriented x3. Insight is limited judgment appeared improving impulse control appears improving. 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 Plan: 1.? Court supported 21 day stay, discontinued oral Invega. Gave Invega Sustenna 234 mg IM to the deltoid 05/24/22. Next injection 05/31/22 2.? Continue every 15 minute checks for safety. 3.? Encourage individual, group and milieu therapies. 4.? Encourage sober living treatment after discharge at the highest level of care to which he is willing to commit. 5. Case management services essential at this time. Involuntary Hold Information 96 Hour Hold: 96 Hour Involuntary Admission: No Attestations NPU Medical Necessity Statement*: Inpatient hospitalization is medically necessary and the clinically appropriate intervention at this time to prevent access to l ethal means, to reevaluate medication and to coordinate a safe discharge. Likely length of stay 4-7 days. Coding Level of Care Code Acute Neon Glass Blower for Monique Gilesd Diagnoses Schizophrenia F20.9 Psychosis F29 Schizotypal personality disorder F21 Unspecified personality disorder F60.9
[2022-05-26 20:13] VITALS: BP 104/67; PULSE 77; RESP 18; TEMP 36.7; O2SAT 97
[2022-05-27 06:00] VITALS: BP 93/56; PULSE 73; RESP 18; TEMP 36.7; O2SAT 98
[2022-05-27] MEDS: benztropine 1 mg Tablet 0.5 MG PO ×2 (07:36→17:14)
[2022-05-27 14:00] VITALS: BP 100/67; PULSE 64; RESP 16; TEMP 36.6; O2SAT 100
--- NOTE | 2022-05-27 15:45 | W.PM.NPUPNS ---
Subjective NPU Subjective: Patient presents today with slow continued stabilization acknowledged and noted. Thaddeus from [facility] is supposed to come see him and identify whether they feel he is stable enough to return to their arrangement. Otherwise the treatment team is working with patient to pursue other options and looking towards discharge at the discussed the second Invega injection likely prior to discharge but that will depend on outpatient resources. Mental Status Exam MSE Comments: This is a well-developed well-nourished white male, in hospital scrubs on with improving grooming and eye contact. No abnormal movements and less psychomotor slowing noted today. He was cooperative with exam and appeared in no acute distress. Speech was more spontaneous with normal rate and volume, monotone in quality. Mood described as pretty good; affect continuing to expand. Thought process: linear and goal directed Thought content: patient denied suicidal or homicidal ideation. NO overt delusions reported today and less paranoia appreciated. He denied auditory or visual hallucinations. Attention and concentration were grossly intact and memory is improving but none were formally tested. He is alert and oriented x3. Insight is limited judgment appeared improving impulse control appears improving. 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 Plan: 1.? Court supported 21 day stay, discontinued oral Invega. Gave Invega Sustenna 234 mg IM to the deltoid 05/24/22. Next injection 05/31/22 2.? Continue every 15 minute checks for safety. 3.? Encourage individual, group and milieu therapies. 4.? Encourage sober living treatment after discharge at the highest level of care to which he is willing to commit. 5. Case management services essential at this time. Working with [facility] for possible discharge location. Involuntary Hold Information 96 Hour Hold: 96 Hour Involuntary Admission: No Attestations NPU Medical Necessity Statement*: Inpatient hospitalization is medically necessary and the clinically appropriate intervention at this time to prevent access to lethal means, to reevaluate medication and to coordinate a safe discharge. Likely length of stay 3-6 days. Coding Level of Care Code Acute Commercial Lines Assistant for [facility] Fwd Diagnoses Schizophrenia F20.9 Psychosis F29 Schizotypal personality disorder F21 Unspecified personality disorder F60.9
[2022-05-27] MEDS: benzocaine 20% 7 gm 1 APPLIC MUCOUS MEM (17:13)
[2022-05-27 19:05] VITALS: BP 106/70; PULSE 76; RESP 16; TEMP 36.9; O2SAT 97
[2022-05-28 06:00] VITALS: BP 94/58; PULSE 63; RESP 16; TEMP 36.8; O2SAT 96
[2022-05-28] MEDS: nicotine 2 mg Gum BUCCAL ×2 (09:34→18:49)
[2022-05-28] MEDS: benztropine 1 mg Tablet 0.5 MG PO ×2 (10:16→18:37)
[2022-05-28 13:39] VITALS: BP 111/70; PULSE 79; RESP 18; TEMP 36.6; O2SAT 100
--- NOTE | 2022-05-28 17:37 | W.PM.NPUPNS ---
Subjective NPU Subjective: Patient presents today reporting that he is feeling better. He reports that he has not spoken to the individual from [facility] but that he is open to going back there. We discussed identifying when he can get his second shot possibly early but certainly by Friday. He continues to work with the social work team to find out when [facility] would receive him and we agreed to discharge when appropriate. He has some questions about his insurance as he seems to have some medical concerns and wants to make sure that they can be taken care of like his teeth. Mental Status Exam MSE Comments: This is a well-developed well-nourished white male, in hospital scrubs on with improving grooming and eye contact. No abnormal movements and less psychomotor slowing noted today. He was cooperative with exam and appeared in no acute distress. Speech was more spontaneous with normal rate and volume, monotone in quality. Mood described as all right; affect continuing to expand. Thought process: linear and goal directed Thought content: patient denied suicidal or homicidal ideation. NO overt delusions reported today and less paranoia appreciated. He denied auditory or visual hallucinations. Attention and concentration were grossly intact and memory is improving but none were formally tested. He is alert and oriented x3. Insight is limited judgment appeared improving impulse control appears improving. 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 Plan: 1.? Court supported 21 day stay, discontinued oral Invega. Gave Invega Sustenna 234 mg IM to the deltoid 05/24/22. Next injection 05/31/22 2.? Continue every 15 minute checks for safety. 3.? Encourage individual, group and milieu therapies. 4.? Encourage sober living treatment after discharge at the highest level of care to which he is willing to commit. 5. Case management services essential at this time. Working with [facility] for possible discharge location. Involuntary Hold Information 96 Hour Hold: 96 Hour Involuntary Admission: No Attestations NPU Medical Necessity Statement*: Inpatient hospitalization is medically necessary and the clinically appropriate intervention at this time to prevent access to lethal means, to reevaluate medication and to coordinate a safe discharge. Likely length of stay 2-5 days. Coding Level of Care Code Acute [employer] [address] [employer] for Mandeep Fwd Diagnoses Schizophrenia F20.9 Psychosis F29 Schizotypal personality disorder F21 Unspecified personality disorder F60.9
[2022-05-28 20:07] VITALS: BP 121/68; PULSE 69; RESP 17; TEMP 36.8; O2SAT 98
[2022-05-29 06:00] VITALS: RESP 16
--- NOTE | 2022-05-29 08:48 | PC.NURSE ---
IN DAY AREA EATING BREAKFAST. DENIES SI/HI AND AVH AT THIS TIME. PT UPSET WHEN SPEAKING ABOUT INVEGA SHOT HE IS TO RECEIVE TOMORROW. EDUCATION GIVEN TO PT ABOUT INVEGA. PT STATES, I KNOW I KNOW I JUST DON'T WANT TO TAKE A SHOT AGAIN. INFORMED PT ONCE HE RECEIVES HIS SHOT HE WILL NOT HAVE TO TAKE HIS ORAL MEDS. PT STATES THE SAME THING ABOVE. ALL QUESTIONS ANSWERED AND SUPPORT VOICED.
--- NOTE | 2022-05-29 10:29 | PC.NURSE ---
refused scheduled Cogentin
[2022-05-29 14:00] VITALS: BP 104/66; PULSE 67; RESP 18; TEMP 36.6; O2SAT 100
--- NOTE | 2022-05-29 15:50 | W.PM.NPUPNS ---
Subjective NPU Subjective: Patient presents today reporting that he is doing okay. We are able to reach out to [facility] and develop a plan for discharge. He will get his second dose of Invega Sustenna today and he will be discharged tomorrow back to [facility]. He feels very positive about his plan and is excepting of the injection which we will continue q. monthly starting Friday after giving him the second dose a little early but within the window allowed for in the package insert. Mental Status Exam MSE Comments: This is a well-developed well-nourished white male, in hospital scrubs on with improving grooming and eye contact. No abnormal movements and less psychomotor slowing noted today. He was cooperative with exam and appeared in no acute distress. Speech was more spontaneous with normal rate and volume, monotone in quality. Mood described as feeling good about tomorrow; affect continuing to expand. Thought process: linear and goal directed Thought content: patient denied suicidal or homicidal ideation. NO overt delusions reported today and less paranoia appreciated. He denied auditory or visual hallucinations. Attention and concentration were grossly intact and memory is improving but none were formally tested. He is alert and oriented x3. Insight is limited judgment appeared improving impulse control appears improving. 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 Plan: 1.? Court supported 21 day stay, discontinued oral Invega. Gave Invega Sustenna 234 mg IM to the deltoid 05/24/22. Next injection today with plan for q. monthly injection a month from 05/31/2022. 2.? Continue every 15 minute checks for safety. 3.? Encourage individual, group and milieu therapies. 4.? Encourage sober living treatment after discharge at the highest level of care to which he is willing to commit. 5. Case management services essential at this time. Working with [facility] for possible discharge location. Involuntary Hold Information 96 Hour Hold: 96 Hour Involuntary Admission: No Attestations NPU Medical Necessity Statement*: Inpatient hospitalization is medically necessary and the clinically appropriate intervention at this time to prevent access to lethal means, to reevaluate medication and to coordinate a safe discharge. Plan for discharge tomorrow. Coding Level of Care Code Acute [employer] for Mandeep Fwd Diagnoses Schizophrenia F20.9 Psychosis F29 Schizotypal personality disorder F21 Unspecified personality disorder F60.9
[2022-05-29] MEDS: nicotine 2 mg Gum BUCCAL (18:04)
[2022-05-29 19:53] VITALS: BP 121/74; PULSE 72; RESP 17; TEMP 36.4; O2SAT 100
[2022-05-29] MEDS: paliperidone palmitate 156 mg Syringe IM (21:40)
[2022-05-29] MEDS: benztropine 1 mg Tablet 0.5 MG PO (22:19)
--- NOTE | 2022-05-29 22:21 | PC.NURSE ---
Patient refused 2100 dose of Cogentin 0.5 mg po.
[2022-05-30 05:46] VITALS: BP 80/51; PULSE 53; RESP 16; TEMP 36.6; O2SAT 95
--- NOTE | 2022-05-30 08:12 | PC.NURSE ---
refused scheduled cogentin
--- NOTE | 2022-05-30 09:28 | P.NPUDS_ITS ---
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 The patient reports that she has been in the process of transitioning to female and reports very little today on interview simply answering yes and no to open ended questioning. She reports that she had recently driven from [facility] to [place] but did not elaborate. She reports that she has struggled with falling asleep. She was unable to answer any questions regarding her safety or her mood. She did not answer any questions regarding whether she was safe or was hearing voices. Past Psychiatric History: hx of multiple inpatient hospitalizations, previous diagnosis of schizophrenia, schizotypal disorder, anxiety disorder nos, Outpatient tx: previously seen at [facility] [place] under Dr. Christian and active psychotherapy, previously discharged from NPU in February 2022. Hx of trials on Abilify Medical Hx: receives treatment for gender transition, on spironolactone, on progesterone Allergies: nkda Surgical Hx: unknown Social Hx: unclear due to being poor historian, previous records indicate that he had lived in [place], and has been residing in the [place] He reports daily use of THC, unknown hx of trauma, unknown history of family Family Hx; unknown. Hospital Course Hospital Course He quickly acclimated to the individual, group and milieu therapies provided. He had been doing well at [facility] but had discontinued his medication. He was on a 96-hour hold which became a 21-day hold and then we were able to assist him by forcing medication. He became cooperative very quickly and showed significant improvement. He was willing to take the Invega Sustenna injection and also received the second loading dose prior to discharge. He was able to contract for safety outside of the hospital prior to discharge. He has significant reticence about medication and so given his significant improvement the continued use of a long-acting injectable seems like the only viable means to keep him well. During the hospitalization, patient had routine laboratory studies which were within normal limits except for few outliers. Additionally there was a general medical evaluation which was also within normal limits and revealed no new acute processes. Discharge Summary: At the time of discharge, lethality was denied and psychosis was resolving. Mood and anxiety were well managed. Patient endorsed a plan to avoid all drugs of abuse and follow-up with the aftercare recommendations of the treatment team. Patient was evaluated and deemed to be absent credible lethality, and had achieved the maximum benefit from an inpatient hospitalization, so was discharged. Involuntary Hold Information 96 Hour Hold: 96 Hour Involuntary Admission: No Mental Status Exam MSE Comments: This is a well-developed well-nourished white male, in hospital scrubs on with improving grooming and eye contact. No abnormal movements and less psychomotor slowing noted today. He was cooperative with exam and appeared in no acute distress. Speech was more spontaneous with normal rate and volume, monotone in quality. Mood described as good; affect continuing to expand. Thought process: linear and goal directed Thought content: patient denied suicidal or homicidal ideation. NO overt delusions reported today and less paranoia appreciated. He denied auditory or visual hallucinations. Attention and concentration were grossly intact and memory is improving but none were formally tested. He is alert and oriented x3. Insight is limited judgment appeared improving impulse control appears improving. Discharge Data Studies Completed and Pending: Laboratory Results WBC 5.5 10^3/uL (4.0- 10.0) 04/30/22 10:42 RBC 4.70 10^6/uL (4.1 -5.3) 04/30/22 10:42 Hgb 14.7 g/dL (11.7-1 6.6) 04/30/22 10:42 Hct 41.9 % (42.0-52.0 ) L 04/30/22 10:42 MCV 89.1 fl (80-94) 04/30/22 10:42 MCH 31.3 pg (28.0-34. 0) 04/30/22 10:42 MCHC 35.1 g/dL (30.0-3 6.0) 04/30/22 10:42 RDW 11.9 % (12.1-15.1 ) L 04/30/22 10:42 Plt Count 229 10^3/cmm (130 -400) 04/30/22 10:42 MPV 12.2 fL (7.4-10.4 ) H 04/30/22 10:42 Neut % (Auto) 57.8 % 04/30/22 10:42 Lymph % (Auto) 30.2 % 04/30/22 10:42 Hamilton % (Auto) 8.9 % 04/30/22 10:42 Eos % (Auto) 2.2 % 04/30/22 10:42 Baso % (Auto) 0.7 % 04/30/22 10:42 Neut # (Auto) 3.17 10^3/uL (1.8 -7.7) 04/30/22 10:42 Lymph # (Auto) 1.7 10^3/uL (0.8- 4.8) 04/30/22 10:42 Hamilton # (Auto) 0.5 10^3/uL (0.2- 0.9) 04/30/22 10:42 Eos # (Auto) 0.1 10^3/uL (0.0- 0.8) 04/30/22 10:42 Baso # (Auto) 0.0 10^3/uL (0.0- 0.1) 04/30/22 10:42 Nucleated RBC % (a uto) 0 % 04/30/22 10:42 Nucleated RBCs # 0.0 /100WBC 04/30/22 10:42 Sodium 139 mmol/L (136-1 45) 04/30/22 10:42 Potassium 4.2 mmol/L (3.5-5 .1) 04/30/22 10:42 Chloride 99 mmol/L (98-107 ) 04/30/22 10:42 Carbon Dioxide 27 mmol/L (22-29) 04/30/22 10:42 Anion Gap 17.2 (5-19) 04/30/22 10:42 BUN 10 mg/dL (6-20) 04/30/22 10:42 Creatinine 0.8 mg/dL (0.7-1. 2) 04/30/22 10:42 GFR Calculation 112.8 mL/min (90- 130) 04/30/22 10:42 Glucose 84 mg/dL (65-115) 04/30/22 10:42 Calculated Osmolal ity 286 mOsm/kg (285- 295) 04/30/22 10:42 Calcium 9.7 mg/dL (8.5-10 .5) 04/30/22 10:42 Total Bilirubin 0.7 mg/dL (0.15-1 .2) 04/30/22 10:42 AST 16 U/L (0-40) 04/30/22 10:42 ALT 12 U/L (0-41) 04/30/22 10:42 Alkaline Phosphata se 65 IU/L (40-130) 04/30/22 10:42 Total Protein 6.9 g/dL (6.6-8.7 ) 04/30/22 10:42 Albumin 4.9 g/dL (3.5-5.2 ) 04/30/22 10:42 Globulin 2.0 g/dL (1.3-4.6 ) 04/30/22 10:42 Salicylates < 0.3 mg/dL (3-10 ) L 04/30/22 10:42 Urine Opiates Scre en Negative ng/mL (N egative) 04/30/22 14:40 Acetaminophen < 5.0 ug/mL (10-3 0) L 04/30/22 10:42 Ur Barbiturates Sc reen Negative ng/mL (N egative) 04/30/22 14:40 Ur Phencyclidine S crn Negative ng/mL (N egative) 04/30/22 14:40 Ur Amphetamines Sc reen Negative ng/mL (N egative) 04/30/22 14:40 U Benzodiazepines Scrn Negative ng/mL (N egative) 04/30/22 14:40 Urine Cocaine Scre en Negative ng/mL (N egative) 04/30/22 14:40 U Marijuana (THC) Screen Negative ng/mL (N egative) 04/30/22 14:40 Ethyl Alcohol < 10 mg/dL (0-10) 04/30/22 10:42 Vitals: Last Vital Signs Temp 98 F 05/30/22 05:46 Pulse 53 L 05/30/22 05:46 Resp 16 05/30/22 05:46 BP 80/51 05/30/22 05:46 Pulse Ox 95 05/30/22 05:46 O2 Del Method 05/30/22 05:46 FiO2 98 05/25/22 22:00 Discharge Plan Discharge Patient Disposition: Home Condition: Stable Prescriptions: New Invega Sustenna 156 mg/mL syringe 156 mg IM Q30D 30 Days Qty: 1 1RF Rx Instructions: Next injection due 06/28/2022 Discharge Orders: Discharge Order (Routine); Ordered 05/30/22 Ordered By: Ar Schulz Referrals: [facility] [Other] [facility] [Other] (Lawson Solitario) Bala Christian MD [Physician] - 06/03/22 11:45 am Savanah Church [facility] [Therapist] - Discharge Diet: Regular Discharge Activity: Resume usual activity Patient Instructions: Paliperidone (By injection) (Invega Sustenna, Invega Trinza, Invega..., Schizophrenia (GEN), Opioid Safety Discharge Attestations NPU Time Spent in Discharge Care*: less than 30 min Specific Discharge Activities: Specific discharge activities: educating patient, discussing with classification case manager/social workers/dc planners, documenting/other paperwork and evaluating patient/reviewing data Status at Discharge: Cognitive status at discharge: mildly impaired cognition , Behavioral status at discharge: cooperative and can be uncooperative , Coding Level of Care Code Acute [facility] DC note Diagnoses Schizophrenia F20.9 Psychosis F29 Schizotypal personality disorder F21 Unspecified personality disorder F60.9
[2022-05-30 09:45] VITALS: BP 80/51; PULSE 53; RESP 16; TEMP 36.6; O2SAT 95
--- NOTE | 2022-05-30 11:20 | PC.NURSE ---
DISCHARGE NOTE DISCHARGE TEACHING COMPLETED, REVIEWED UPCOMING APTS. VERBALIZED UNDERSTANDING. LEFT WITH ALL BELONGINGS.
== END 2022-05-30 13:10 | disposition home or self-care (01) | DRG 883 ==
LOC: ER 13:24 → NP 05-01 05:45
PROVIDERS: Admitting Provider Psychiatry & Neurology Psychiatry; Emergency Provider Physician Assistant; Visit Provider Psychiatry & Neurology Psychiatry
DX: F21 Schizotypal disorder (principal); F25.9 Schizoaffective disorder, unspecified; Z79.890 Hormone replacement therapy; F12.10 Cannabis abuse, uncomplicated; F17.210 Nicotine dependence, cigarettes, uncomplicated; Z59.01 Sheltered homelessness; Z91.19 Patient's noncompliance with other medical treatment and regimen
CPT/HCPCS: 80053; 80306; 80307; 85025; 87491; 87591; 96372; 97150; 97165; 97166; 99285

== ENCOUNTER 2022-06-06 21:37 | Emergency (ER) | payer MEDICAID, SELFPAY ==
[2022-06-06 22:01] VITALS: BP 125/89; PULSE 107; RESP 18; TEMP 37; O2SAT 97; BMI 24.5
[2022-06-06 22:05] VITALS: RESP 16
--- NOTE | 2022-06-06 22:15 | W.ED.GENADLT ---
HPI - General Adult General: Chief complaint: Medical Clearance Stated complaint: med issues Time Seen by Provider: 06/06/22 21:57 Source: patient Mode of arrival: ambulatory Limitations: no limitations History of Present Illness: 31-year-old male who states he has a history of schizophrenia he received an Invega shot for it he states he typically takes Cogentin with the Invega states he had a shot yesterday and he did not take his Cogentin today states he just feels jittery and often feels extremely anxious. He denies any psychiatric complaints no SI no HI no pain anywhere Associated symptoms: Deny chest pain, dyspnea, headache(s), nausea, rash or vomiting Review of Systems Const: Denies: fever(s), chills, body aches or change in appetite Eyes: Denies: blurry vision or eye discomfort ENMT: Denies: throat pain or dental pain Card: Denies: chest pain Resp: Denies: dyspnea GI: Denies: abdominal pain, nausea, vomiting or diarrhea : Denies: dysuria Musc: Denies: neck pain or back pain Skin/Breast: Denies: rash Neuro: Denies: headache(s) Psych: Denies: depression Axel/Lymph: Denies: easy bruising All/Imm: Denies: urticaria PFSH ED PFSH: Medical History History of schizotypal personality disorder Psychiatric care Schizophrenia Surgical History No pertinent past surgical history Social History Smoking and tobacco status: current every day smoker cigarettes Packs smoked per day: 1 Years cigarettes smoked: 20 and cigars Cigars smoked per week: 40 Years smoked cigars: 19 Quit status (tobacco): has tried quititng Number of times tried to quit tobacco: 5 Second hand smoke exposure: Yes Physical Exam Const: COMMON NORMALS: no acute distress, patient oriented x3 and healthy appearing HENMT: COMMON NORMALS: normocephalic and atraumatic HEAD & SCALP: normocephalic and atraumatic Eye: COMMON NORMALS: Equal, round and reactive pupils present and EOMs intact bilaterally PUPIL: Yes Equal, round and reactive pupils present Neck/C-Spine: COMMON NORMALS: full ROM and supple Chest: COMMONS NORMALS: normal inspection of the chest and normal palpation of entire chest wall Resp: COMMON NORMALS: normal respiratory effort, No retractions, No use of accessory muscles and clear to auscultation bilaterally AUSCULTATION: clear to auscultation bilaterally Cardio: COMMON NORMALS: regular rate, regular rhythm and No murmurs present (Cardio) RATE: regular rate RHYTHM: regular rhythm GI: COMMON NORMALS: Normal to inspection, nondistended, normoactive bowel sounds present, Soft to palpation, non-tender and no masses PALPATION: Yes Soft to palpation Extremity: COMMON NORMALS: normal to inspection and full ROM Neuro: COMMON NORMALS: patient oriented x3, moves all extremities and no focal motor deficits Psych: COMMON NORMALS: mental status grossly normal, Normal thought process present and cooperative THOUGHT PROCESS: Normal thought process present Skin: COMMON NORMALS: no rashes or lesions noted and no wounds GENERAL SKIN EXAM: no rashes or lesions noted Course Vital Signs: Vital signs: Vital Signs Temperature 98.6 F 06/06/22 22:01 Pulse Rate 107 H 06/06/22 22:01 Respiratory Rate 18 06/06/22 22:01 Blood Pressure 125/89 06/06/22 22:01 Pulse Oximetry 97 06/06/22 22:01 Oxygen Delivery Me thod 06/06/22 22:01 MDM - General Adult Medical Decision Making Patient presents here medication reaction patient was given his Cogentin here he is well-appearing stable for discharge she will follow PCP and return if worsening. Discharge Plan Discharge Patient Disposition: Home Clinical Impression: Medication reaction Qualifiers: Encounter type: initial encounter Qualified Code(s): T50.905A - Adverse effect of unspecified drugs, medicaments and biological substances, initial encounter Condition: Stable Prescriptions: No Action Invega Sustenna 156 mg/mL syringe 156 mg IM Q30D 30 Days Qty: 1 1RF Rx Instructions: Next injection due 06/28/2022 Discharge Orders: Discharge ED (Routine); Ordered 06/06/22 Ordered By: Raji Momin Discharge Diet: Advance as tolerated Discharge Activity: Resume usual activity Patient Instructions: Medicine Refill (ED) Coding Level of Care Code ED Title Coordinator for Chg Fwd Exam Comprehensive
[2022-06-06] MEDS: benztropine 1 mg Tablet 2 MG PO (23:07)
[2022-06-06 23:32] VITALS: RESP 16
== END 2022-06-06 23:33 | disposition home or self-care (01) ==
PROVIDERS: Emergency Provider Emergency Medicine
DX: F41.9 Anxiety disorder, unspecified (principal); T43.595A Adverse effect of other antipsychotics and neuroleptics, initial encounter
CPT/HCPCS: 99283

== ENCOUNTER 2022-07-29 16:46 | Emergency (ER) | payer MEDICAID, SELFPAY ==
[2022-07-29 17:15] VITALS: BP 97/62; PULSE 75; RESP 16; TEMP 36.9; O2SAT 99; BMI 24.1
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
== END 2022-07-29 20:16 | disposition home or self-care (01) ==
PROVIDERS: Emergency Provider Nurse Practitioner Family
DX: S90.31XA Contusion of right foot, initial encounter (principal); F17.210 Nicotine dependence, cigarettes, uncomplicated; V03.00XA Pedestrian on foot injured in collision with car, pick-up truck or van in nontraffic accident, initial encounter
CPT/HCPCS: 73630; 99283

== ENCOUNTER → 2022-08-15 10:55 | Outpatient (BNVA) | payer OTHER, SELFPAY | PROVIDERS: Visit Provider Psychiatry & Neurology Psychiatry | DX: F41.9 Anxiety disorder, unspecified (principal); Z79.899 Other long term (current) drug therapy | CPT/HCPCS: 80061; 83036 ==

== ENCOUNTER → 2022-08-28 09:34 | Outpatient (BNVA) | payer OTHER, SELFPAY ==
[2022-08-20 14:20] VITALS: BP 104/57; BMI 23.4
== END ==
PROVIDERS: Visit Provider Psychiatry & Neurology Neurology
DX: F20.9 Schizophrenia, unspecified (principal); F21 Schizotypal disorder; Z79.899 Other long term (current) drug therapy
CPT/HCPCS: 80053; 80061; 83036; 84443; 85025

== ENCOUNTER 2022-09-03 10:17 | Emergency (ER) | payer MEDICAID, SELFPAY ==
[2022-08-20 14:20] VITALS: BP 104/57; BMI 23.4
[2022-09-03 10:22] VITALS: BP 111/72; PULSE 98; RESP 16; TEMP 36.6; O2SAT 94
[2022-09-03 11:03] LABS: Basophils % 0.2 %; Eosinophils % 0.7 %; Hematocrit 41.1 % (42.0-52.0); Lymphocytes # 1.2 10^3/uL (0.8-4.8); Lymphocytes % 26.5 %; Mean Corpuscular HGB Conc 34.1 g/dL (30.0-36.0); Mean Corpuscular Hemoglobin 30.6 pg (28.0-34.0); Mean Corpuscular Volume 89.7 fl (80-94); Monocytes # 0.6 10^3/uL (0.2-0.9); Monocytes % 13.9 %; Neutrophils # 2.61 10^3/uL (1.8-7.7); Neutrophils % 58.7 %; Nucleated Red Blood Cells % 0 %; Platelet Count 174 10^3/cmm (130-400); Red Blood Count 4.58 10^6/uL (4.1-5.3); Red Cell Distribution Width 12.8 % (12.1-15.1); White Blood Count 4.5 10^3/uL (4.0-10.0)
[2022-09-03 11:21] LABS: Acetaminophen < 5.0 ug/mL (10-30); Alanine Aminotransferase 11 U/L (0-41); Albumin Level 4.2 g/dL (3.5-5.2); Alkaline Phosphatase 73 U/L (40-130); Anion Gap 17.7 (5-19); Aspartate Amino Transferase 17 U/L (0-40); Blood Urea Nitrogen 9 mg/dL (6-20); Calcium 9.3 mg/dL (8.5-10.5); Carbon Dioxide 21 mmol/L (22-29); Chloride 105 mmol/L (98-107); Globulin 2.7 g/dL (1.3-4.6); Glomerular Filtration Rate 112.8 mL/min (90-130); Glucose 119 mg/dL (65-115); Osmolality Calculated 290 mOsm/kg (285-295); Potassium 3.7 mmol/L (3.5-5.1); Salicylate < 0.3 mg/dL (3-10); Sodium 140 mmol/L (136-145); Total Bilirubin 0.4 mg/dL (0.15-1.2); Total Protein 6.9 g/dL (6.6-8.7)
--- NOTE | 2022-09-03 11:38 | ED_ITS ---
HPI - Anxiety General: Chief Complaint: Anxiety Stated Complaint: psych eval Time Seen by Provider: 09/03/22 10:26 Source: patient Mode of arrival: ambulatory History of Present Illness: 31-year-old male presents emergency room com plaining of increasing anxiety and suicidal thoughts. States he had suicidal thoughts yesterday about overdosing on medications he does get Invega monthly he still been getting it regularly was recently in the hospital in the [facility] for an extended stay. He states he is extremely anxious and still having suicidal thoughts today but does not have as much of a plan as he did yesterday. MD complaint: anxiety (Suicide thoughts) Associated symptoms: Deny chest pain, chills, fever(s), malaise, nausea or vomiting Review of Systems Const: Denies: fever(s), chills, body aches, change in appetite, fatigue or malaise ENMT: Denies: throat pain, ear or mastoid pain, nasal discharge or nasal congestion Card: Denies: chest pain, edema, dyspnea on exertion or orthopnea Resp: Denies: dyspnea, productive cough or non-productive cough GI: Denies: abdominal pain, nausea, vomiting, hematemesis, coffee ground emesis, diarrhea, constipation, bloating, hematochezia or melena : Denies: flank pain, dysuria, urinary frequency or urinary urgency Skin/Breast: Denies: rash or pruritus PFSH ED PFSH: Medical History (Updated 08/28/22 @ 09:26 by Bala Christian MD) History of schizotypal personality disorder Psychiatric care Schizophrenia Surgical History (Updated 08/15/22 @ 11:57 by Kajal Lizarraga RN) No pertinent past surgical history Family History (Updated 08/15/22 @ 11:22 by Kajal Lizarraga RN) Other Psychiatric illness Stroke Social History (Updated 08/23/22 @ 12:37 by Miguel Sosa LPN) Smoking and tobacco status: current every day smoker cigarettes Packs smoked per day: 0.25 Years cigarettes smoked: 20 and cigars Cigars smoked per week: 8 Years smoked cigars: 19 Quit status (tobacco): not considering quitting Second hand smoke exposure: Yes Smoking risk assessment/counseling performed?: No Alcohol intake: current Alcohol intake frequency: holidays/special occasions only Alcohol type: hard liquor Desire information about alcohol rehabilitation?: No Counseling given: Yes Other alcohol counseling details: Alcohol & medications don't mix. Desire information about substance/drug rehabilitation?: No Counseling given: No Adopted: No Caregiver/support person: No Lives independently: Yes Household members: none Marital status: Single Number of children: 1 Highest education level completed: High School Graduate service: No Current occupational status: disabled Pets and animals: No History of recent travel: No Leisure activites: music and games Sexually active: Yes Current gender identity: Trans [id number] Surekha/Protestant: None Special surekha needs: No Agree to transfusion: Yes Financial difficulty paying for basics: Hard Physical Exam Const: GENERAL APPEARANCE: cooperative and comfortable ORIENTATION/C ONSCIOUSNESS: Yes awake, Yes oriented to person, Yes oriented to place and Yes oriented to time HENMT: COMMON NORMALS: normocephalic, atraumatic and hearing grossly normal bilaterally HEAD & SCALP: normocephalic and atraumatic Resp: COMMON NORMALS: normal respiratory effort, No retractions, No use of accessory muscles and clear to auscultation bilaterally AUSCULTATION: clear to auscultation bilaterally Cardio: COMMON NORMALS: regular rate, regular rhythm and No murmurs present (Cardio) RATE: regular rate RHYTHM: regular rhythm GI: COMMON NORMALS: Soft to palpation and No hepatosplenomegaly present AUSCULTATION: Yes normoactive bowel sounds PALPATION: Yes Soft to palpation, No Tenderness to palpation present (GI), No Guarding due to palpation present (GI) and Yes No hepatosplenomegaly present Extremity: COMMON NORMALS: normal to inspection, capillary refill normal, no clubbing, cyanosis or edema, no calf tenderness and no pedal edema Neuro: SENSORIUM/ORIENTATION: Yes oriented to person, Yes oriented to place and Yes oriented to time Skin: COMMON NORMALS: no rashes or lesions noted GENERAL SKIN EXAM: no ra shes or lesions noted Course Vital Signs: Vital signs: Vital Signs Temperature 98.9 F 09/04/22 10:49 Pulse Rate 88 09/04/22 10:49 Respiratory Rate 17 09/04/22 00:54 Blood Pressure 104/68 09/04/22 10:49 Pulse Oximetry 93 09/04/22 10:49 Oxygen Delivery Me thod 09/04/22 10:49 MDM - Anxiety Medical Decision Making Initial plan was to admit the patient here however after I talked Dr. valenzuela and later came to light with had thought we had an open bed and we did not were making arrangements to try to transfer at this time. Patient is stable in the ER. 09/04/2022 2:29 PM We were able to find a facility that was only takes patient. He will be transferred via [facility]. He has been stable since he arrived here yesterday does not need to be premedicated medically he is cleared to go to psychiatric unit. Medical Records I reviewed the patient's medical records. Lab Data I reviewed the patient's lab results. 09/03/22 10:46 09/03/22 10:46 Laboratory Results WBC 4.5 10^3/uL (4.0-10.0) 09/03/22 10:46 RBC 4.58 10^6/uL (4.1-5.3) 09/03/22 10:46 Hgb 14.0 g/dL (11.7-16.6) 09/03/22 10:46 Hct 41.1 % (42.0-52.0) L 09/03/22 10:46 MCV 89.7 fl (80-94) 09/03/22 10:46 MCH 30.6 pg (28.0-34.0) 09/03/22 10:46 MCHC 34.1 g/dL (30.0-36.0) 09/03/22 10:46 RDW 12.8 % (12.1-15.1) 09/03/22 10:46 Plt Count 174 10^3/cmm (130-400) 09/03/22 10:46 MPV 12.0 fL (7.4-10.4) H 09/03/22 10:46 Neut % (Auto) 58.7 % 09/03/22 10:46 Lymph % (Auto) 26.5 % 09/03/22 10:46 [place] % (Auto) 13.9 % 09/03/22 10:46 Eos % (Auto) 0.7 % 09/03/22 10:46 Baso % (Auto) 0.2 % 09/03/22 10:46 Neut # (Auto) 2.61 10^3/uL (1.8-7.7) 09/03/22 10:46 Lymph # (Auto) 1.2 10^3/uL (0.8-4.8) 09/03/22 10:46 [place] # (Auto) 0.6 10^3/uL (0.2-0.9) 09/03/22 10:46 Eos # (Auto) 0.0 10^3/uL (0.0-0.8) 09/03/22 10:46 Baso # (Auto) 0.0 10^3/uL (0.0-0.1) 09/03/22 10:46 Nucleated RBC % (auto) 0 % 09/03/22 10:46 Nucleated RBCs # 0.0 /100WBC 09/03/22 10:46 Sodium 140 mmol/L (136-145) 09/03/22 10:46 Potassium 3.7 mmol/L (3.5-5.1) 09/03/22 10:46 Chloride 105 mmol/L (98-107) 09/03/22 10:46 Carbon Dioxide 21 mmol/L (22-29) L 09/03/22 10:46 Anion Gap 17.7 (5-19) 09/03/22 10:46 BUN 9 mg/dL (6-20) 09/03/22 10:46 Creatinine 0.8 mg/dL (0.7-1.2) 09/03/22 10:46 GFR Calculation 112.8 mL/min (90-130) 09/03/22 10:46 Glucose 119 mg/dL (65-115) H 09/03/22 10:46 Calculated Osmolality 290 mOsm/kg (285-295) 09/03/22 10:46 Calcium 9.3 mg/dL (8.5-10.5) 09/03/22 10:46 Total Bilirubin 0.4 mg/dL (0.15-1.2) 09/03/22 10:46 AST 17 U/L (0-40) 09/03/22 10:46 ALT 11 U/L (0-41) 09/03/22 10:46 Alkaline Phosphatase 73 U/L (40-130) 09/03/22 10:46 Creatine Kinase 319 U/L (39-308) H 09/04/22 10:46 Total Protein 6.9 g/dL (6.6-8.7) 09/03/22 10:46 Albumin 4.2 g/dL (3.5-5.2) 09/03/22 10:46 Globulin 2.7 g/dL (1.3-4.6) 09/03/22 10:46 TSH 0.63 uIU/mL (0.27-4.20) 09/04/22 10:46 Free T4 1.21 ng/dL (0.82-1.77) 09/04/22 10:46 Free T4 Index Cancelled 09/04/22 10:46 Thyroxine (T4) Cancelled 09/04/22 10:46 Urine Color Yellow (Yellow) 09/04/22 12:53 Urine Appearance Clear (CLEAR) 09/04/22 12:53 Urine pH 6.5 (5-7) 09/04/22 12:53 Ur Specific [place] 1.020 (1.005-1.030) 09/04/22 12:53 Urine Protein Neg (Negative) 09/04/22 12:53 Urine Glucose (UA) Norm (Normal) 09/04/22 12:53 Urine Ketones Negative (Negative) 09/04/22 12:53 Urine Blood 2+ (Negative) H 09/04/22 12:53 Urine Nitrate Negative (Negative) 09/04/22 12:53 Urine Bilirubin Neg (Negative) 09/04/22 12:53 Urine Urobilinogen Norm mg/dL (Negative) 09/04/22 12:53 Ur Leukocyte Esterase Negative (Negative) 09/04/22 12:53 Urine RBC 0-4 /hpf (0-2) H 09/04/22 12:53 Urine WBC None /hpf (0-5) 09/04/22 12:53 Ur Squamous Epith Cells None /hpf (0-5) 09/04/22 12:53 Amorphous Sediment Not Reportable 09/04/22 12:53 Urine Bacteria 4+ /hpf (NONE) H 09/04/22 12:53 Salicylates < 0.3 mg/dL (3-10) L 09/03/22 10:46 Urine Opiates Screen Negative ng/mL (Negative) 09/03/22 11:41 Acetaminophen < 5.0 ug/mL (10-30) L 09/03/22 10:46 Ur Barbiturates Screen Negative ng/mL (Negative) 09/03/22 11:41 Ur Phencyclidine Scrn Negative ng/mL (Negative) 09/03/22 11:41 Ur Amphetamines Screen Negative ng/mL (Negative) 09/03/22 11:41 U Benzodiazepines Scrn Negative ng/mL (Negative) 09/03/22 11:41 Urine Cocaine Screen Negative ng/mL (Negative) 09/03/22 11:41 U Marijuana (THC) Screen Negative ng/mL (Negative) 09/03/22 11:41 Ethyl Alcohol < 10 mg/dL (0-10) 09/03/22 10:46 SARS-CoV-2 Ag (Rapid) negative (Negative) 09/03/22 16:42 Discharge Plan Discharge Patient Disposition: Xfer Psychiatric Hosp Condition: Stable Coding Level of Care Code ED [employer] Clerk for Mandeep Fwd Exam Detailed
[2022-09-03 15:23] LABS: Amphetamines Screen Urine Negative (Negative); Barbiturates Screen Urine Negative (Negative); Benzodiazepines Screen Urine Negative (Negative); Cocaine Screen Urine Negative (Negative); Opiate Screen Urine Negative (Negative); PCP Screen Urine Negative (Negative); THC Screen Urine Negative (Negative)
[2022-09-03 15:40] LABS: Alcohol Level < 10 mg/dL (0-10)
[2022-09-03] MEDS: acetaminophen 500 mg Tablet 1000 MG PO (16:43)
[2022-09-03 17:11] LABS: SARS Covid-2 Antigen negative (Negative)
[2022-09-03 18:27] VITALS: BP 116/64
--- NOTE | 2022-09-03 19:16 | PC.NURSE ---
report given to WISAM Pavon to assume care
[2022-09-03 22:05] VITALS: BP 109/63; PULSE 68; RESP 14; TEMP 36.3; O2SAT 98
[2022-09-04 00:54] VITALS: RESP 17
[2022-09-04] MEDS: LORazepam 2 mg Tablet PO (01:21)
--- NOTE | 2022-09-04 08:26 | DCPLANNER ---
Addendum entered by Marianne Roach 09/04/22 11:50: Stella from [facility] called and informed disease case manager rn that the facility would accept patient. manager of disaster recovery informed charge nurse, patients nurse and the ER physician that patient was accepted. manager of disaster recovery gave patients nurse the phone number to call for nurse to nurse report. Addendum entered by Marianne Roach 09/04/22 09:17: manager of disaster recovery called the following facilities looking for placement for patient: [facility] - refaxed patients information at 9:00 [facility] no [facility] - on waiting list [facility] no beds call back in the afternoon [facility] voicenmil [facility] no [facility] reviewing [facility] reviewed [facility] - do not take patients insurance [facility] - bed pager [facility] - faxed information at 9:05 [facility] call back afternoon [facility] - faxed information at 9:05 Addendum entered by Marianne Roach 09/04/22 08:31: manager of disaster recovery followed up with facilities that patients information was faxed to: [facility] - stated that the facility could not meet patients needs Original Note: 09.03.22 late entry - manager of disaster recovery was asked to look for psych placement for patient. manager of disaster recovery called the following facilities on 09.03.22 for placement: [facility] - faxed paperwork on 09.03.22 at 1700 [facility] voicemail at 1610 [facility] - faxed paperwork at 1702 [facility] voicemail at 1612 [facility] no [facility] - faxed paperwork at 1705 [facility] - no beds [facility] - faxed information at 1705 [facility] no [facility] - faxed information at 1707 [facility] - faxed information at 1708 U - no beds [facility] - no beds [facility] - no beds
--- NOTE | 2022-09-04 09:13 | ECG_ITS ---
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 Measurements Intervals [place] Rate: 98 P: 71 HI: 127 QRS: 81 QRSD: 81 T: 55 QT: 351 QTc: 450 Interpretive Statements SINUS RHYTHM NONSPECIFIC T-WAVE ABNORMALITY No previous ECG available for comparison Electronically Signed On 09-05-2022 12:32:18 NEWSROOM INTERN by Rukhsana Brooks M.D. https://[employer].[address] Solutionsocean springs hospitalCapricorn Food Products Indiaohiohealth [facility].[employer][id number]
[2022-09-04 10:49] VITALS: BP 104/68; PULSE 88; TEMP 37.2; O2SAT 93
--- NOTE | 2022-09-04 11:53 | PC.NURSE ---
report called to Sabrina at [facility]. Pt updated on plans for transfer
[2022-09-04 13:07] LABS: Add Urine Culture? Yes; Add Urine Microscopic? YES; Bacteria Urine 4+ /hpf; Bilirubin Urine Neg (Negative); Blood Urine 2+ (Negative); Glucose Urine UA Norm (Normal); Ketones Urine Negative (Negative); Leukocyte Esterase Urine Negative (Negative); Nitrate Urine Negative (Negative); Protein Urine Neg (Negative); RBC Urine 0-4 /hpf (0-2); Urine Appearance Clear (CLEAR); Urine Color Yellow (Yellow); Urobilinogen Urine Norm (Negative); pH Urine 6.5 (5-7)
[2022-09-04 13:12] LABS: Creatine Phosphokinase 319 U/L (39-308); Free T4 Free Thyroxine 1.21 ng/dL (0.82-1.77); Thyroid Stimulating Hormone 0.63 uIU/mL (0.27-4.20)
[2022-09-04] MEDS: cefTRIAXone 1,000 MG in lidocaine 1% 2.1 ML 2.1 MG IM (14:19)
== END 2022-09-04 14:26 ==
PROVIDERS: Emergency Provider Family Medicine
DX: F41.9 Anxiety disorder, unspecified (principal); Z20.822 Contact with and (suspected) exposure to COVID-19; F17.210 Nicotine dependence, cigarettes, uncomplicated
CPT/HCPCS: 36415; 80053; 80306; 80307; 81001; 82550; 84439; 84443; 85025; 87086; 87426; 93005; 96372; 99285; J0696

== ENCOUNTER 2022-12-10 11:13 | Emergency (ER) | payer MEDICAID, SELFPAY ==
[2022-11-27 10:33] VITALS: BP 104/57; BMI 23.4
[2022-12-10 11:19] VITALS: BP 99/64; PULSE 86; RESP 17; TEMP 36.5; O2SAT 98; BMI 25.6
--- NOTE | 2022-12-10 11:33 | XR_ITS ---
WS: [id number] Left elbow, 3 views, 12/10/2022 Clinical Data: fall with bruising and pain Comparison: None. Findings: No fractures or dislocations are seen. The radial head is normal. The soft tissues are unremarkable. XR/XR elbow LT min 3V* [id number] Impression: Negative left elbow.
--- NOTE | 2022-12-10 12:05 | ED_ITS ---
HPI - Extremity Problem General: Chief complaint: Extremity Injury, Upper Stated complaint: fall, left side elbow injury Time Seen by Provider: 12/10/22 11:31 History of Present Illness: Patient is in for left elbow pain. He reports that yesterday after he got out of the shower he was putting his clothes on and he fell onto his left elbow. He reports that the elbow is continuing to hurt so he thought he would come and get it checked out. He denies any other injuries in the fall. Associated symptoms: Deny chest pain or fever(s) Review of Systems Const: Denies: fever(s), chills or body aches Eyes: Denies: change in vision or blurry vision Card: Denies: chest pain, palpitations, irregular heart rhythm, lig htheadedness or syncope Resp: Denies: dyspnea, productive cough or non-productive cough GI: Denies: abdominal pain, nausea or vomiting : Denies: flank pain, dysuria, urinary frequency, urinary urgency or urinary hesitancy Musc: Reports: joint pain Neuro: Denies: headache(s), numbness in extremities or weakness in extremities PFSH ED PFSH: Medical History History of schizotypal personality disorder Psychiatric care Schizophrenia Surgical History No pertinent past surgical history Family History Other Psychiatric illness Stroke Social History Smoking and tobacco status: current every day smoker cigarettes Packs smoked per day: 0.25 Years cigarettes smoked: 20 and cigars Cigars smoked per week: 8 Years smoked cigars: 19 Quit status (tobacco): not considering quitting Second hand smoke exposure: Yes Smoking risk assessment/counseling performed?: No Alcohol intake: current Alcohol intake frequency: holidays/special occasions only Alcohol type: hard liquor Desire information about alcohol rehabilitation?: No Counseling given: Yes Other alcohol counseling details: Alcohol & medications don't mix. Desire information about substance/drug rehabilitation?: No Counseling given: No Adopted: No Caregiver/support person: No Lives independently: Yes Household members: none Marital status: Single Number of children: 1 Highest education level completed: High School Graduate service: No Current occupational status: disabled Pets and animals: No Leisure activites: music and games Sexually active: Yes Current gender identity: Trans Irkc-ev-Jaaihy Surekha/Jehovah'S Witness: None Special surekha needs: No Agree to transfusion: Yes Financial difficulty paying for basics: Hard Physical Exam Const: COMMON NORMALS: no acute distress, patient oriented x3 and alert GENERAL APPEARANCE: cooperative ORIENTATION/CONSCIOUSNESS: Yes awake, Yes oriented to person, Yes oriented to place and Yes oriented to time Eye: COMMON NORMALS: Equal, round and reactive pupils present, EOMs intact bilaterally and conjunctivae normal GENERAL EYE: appearance normal, both eyes and all related structures ALIGNMENT: Yes alignment normal CONJUNCTIVA: Yes conjunctivae normal SCLERA: sclerae normal PUPIL: Yes Equal, round and reactive pupils present Resp: COMMON NORMALS: normal respiratory effort, No retractions, No use of accessory muscles and clear to auscultation bilaterally EFFORT & INSPECTION: Yes symmetric chest movement AUSCULTATION: clear to auscultation bilaterally Cardio: COMMON NORMALS: regular rate, regular rhythm, S1 normal heart sound present and S2 normal heart sound present RATE: regular rate RHYTHM: regular rhythm HEART SOUNDS: S1 normal heart sound present and S2 normal heart sound present GI: COMMON NORMALS: Normal to inspection, nondistended, normoactive bowel sounds present, Soft to palpation, non-tender, No hepatosplenomegaly present, no masses and no bruits INSPECTION: Yes normal to inspection PALPATION: Yes Soft to palpation and Yes No hepatosplenomegaly present Extremity: NARRATIVE EXTREMITY EXAM: Tenderness to palpation left lateral epicondyle. There is minimal bruising no martha minimal swelling noted. Patient has full range of motion. Color sensation movement is within normal limits to distal extremity. No obvious bony abnormalities appreciated. Neuro: COMMON NORMALS: patient oriented x3 SENSORIUM/ORIENTATION: Yes alert, Yes oriented to person, Yes oriented to place and Yes oriented to time Course Vital Signs: Vital signs: Vital Signs Temperature 97.7 F 12/10/22 11:19 Pulse Rate 86 12/10/22 11:19 Respiratory Rate 17 12/10/22 11:19 Blood Pressure 99/64 12/10/22 11:19 Pulse Oximetry 98 12/10/22 11:19 Oxygen Delivery Me thod 12/10/22 11:19 MDM - Extremity (Nontraumatic) Medical Decision Making Consider contusion elbow versus fracture elbow X-ray 3 view left elbow wet read: No acute osseous deformities Radiologist review of x-ray elbow: Negative left elbow We will treat patient conservatively for right elbow contusion. Educated him about typical course of injury and healing. Discussed conservative measures at home including ice, rest, elevation. Follow-up with primary care provider as needed. Return to the ER for new or worsening symptoms Lab Data Radiology Impressions Elbow X-Ray 12/10/22 11:33 Impression: Negative left elbow. Discharge Plan Discharge Patient Disposition: Home Clinical Impression: Contusion of elbow, left Qualifiers: Encounter type: initial encounter Qualified Code(s): S50.02XA - Contusion of left elbow, initial encounter Condition: Stable Prescriptions: No Action Invega Sustenna 156 mg/mL syringe 156 mg IM Q30D 30 Days Qty: 1 2RF Ventolin HFA 90 mcg/actuation HFA aerosol inhaler 2 puff INHALATION Q6H PRN (Reason: Shortness Of Breath) Discharge Orders: Discharge ED (Routine); Ordered 12/10/22 Ordered By: Karen Mack Discharge Diet: Usual diet Discharge Activity: Increase activity as tolerated Patient Instructions: Contusion Activity Restrictions/Additional Instructions: There were no fractures seen on your x-ray today. I recommend conservative treatment at home including icing the extremity 3-4 times a day for 20 minutes at a time, resting the extremity, elevating the extremity. Follow-up with your primary care provider as needed. Return to the ER for new or worsening symptoms Coding Level of Care Code ED Service Advocate Contact for Mandeep Hammond
[2022-12-10 12:16] VITALS: BP 99/64; PULSE 86; RESP 17; TEMP 36.5; O2SAT 98
== END 2022-12-10 12:18 | disposition home or self-care (01) ==
PROVIDERS: Emergency Provider Nurse Practitioner Family
DX: S50.02XA Contusion of left elbow, initial encounter (principal); W18.30XA Fall on same level, unspecified, initial encounter
CPT/HCPCS: 73080; 99283

== ENCOUNTER 2023-05-02 08:03 | Emergency (ER) | payer MEDICAID, SELFPAY ==
[2023-02-17 07:51] VITALS: BP 104/57; BMI 23.4
[2023-05-02 08:05] VITALS: BP 110/74; PULSE 101; RESP 16; TEMP 36.9; O2SAT 95; BMI 25.7
--- NOTE | 2023-05-02 08:12 | XR_ITS ---
WS: [id number] Exam: XR chest 1V portable [id number] Date/Time of Exam: 05/02/2023 8:15 AM Reason For Exam: Syncopal episode No priors. Findings: The lungs are clear and fully expanded. Costophrenic angles are sharp. No infiltrates. Bronchovascula r relief appears normal. Cardiac silhouette is unremarkable. Bony elements are intact. XR/XR chest 1V portable [id number] IMPRESSION: Unremarkable chest radiograph.
--- NOTE | 2023-05-02 08:21 | CT_ITS ---
WS: [id number] CT HEAD NONCONTRAST HISTORY: syncopal episode, fell and hit head TECHNIQUE: Contiguous axial imaging performed through the brain in 2.5 mm imaging. Bone and soft tiss ue windows. Sagittal and coronal reformats reviewed. All CT scans at [facility] use at least one of these dose optimization techniques: automated exposure control; mA and/or kV adjustment per pa tient size (includes targeted exams where dose is matched to clinical indication); or iterative recon struction. DLP: 1121.90 mGy.cm COMPARISON: 07/02/2021 No acute intracranial hemorrhage, midline shift or mass effect. No atrophy or prior infarcts or herniation. Ventricles: Normal size with no hydrocephalus. Paranasal sinuses: Small mucous retention cyst in the RIGHT maxillary sinus. Mastoid air cells: Well pneumatized. Calvarium and scalp: No skull fracture. Scalp laceration and edema centered over the high RIGHT parie diana bone. CT/CT head wo con* [id number] IMPRESSION: 1. No acute intracranial hemorrhage or edema. 2. RIGHT parietal scalp laceration with associated small hematoma.
--- NOTE | 2023-05-02 08:23 | ED_ITS ---
HPI - Syncope General: Chief Complaint: Syncope Stated Complaint: fall Time Seen by Provider: 05/02/23 08:05 History of Present Illness: Patient is a 32-year-old male who comes to the ED with syncopal episode. Patient gets monthly Invega shots and today he was at the facility and just got his Invega shot. He stood up to stretch right after Invega shot and he felt lightheaded and passed out. Patient fell and hit facility floor. He has a laceration to the back of his scalp. He was only out for a minute and then returned to baseline mental status once he woke up. Patient denies any current symptoms and says he feels completely normal. Denies any other preceding symptoms such as chest pain or diaphoresis. Denies any headache, vision changes or numbness tingling or weakness to 1 side of his face or extremities. Patient is up-to-date on his tetanus. Associated symptoms: Deny abdominal pain, chest pain, fever(s), headache(s) or nausea Review of Systems Const: Denies: fever(s), chills or fatigue Eyes: Denies: change in vision or eye discomfort ENMT: Denies: throat pain, odynophagia, nasal discharge or nasal congestion Card: Reports: syncope; Denies: chest pain, palpitations, edema, swelling of feet/ankles, dyspnea on exertion or orthopnea Resp: Denies: dyspnea, productive cough or non-productive cough GI: Denies: abdominal pain, nausea, vomiting, diarrhea, constipation or hematochezia : Denies: flank pain, difficulty urinating, dysuria or hematuria Musc: Denies: neck pain, back pain or extremity swelling Skin/Breast: Denies: rash or new lesions Neuro: Denies: headache(s), numbness in extremities or weakness in extremities PFS ED PFSH: Medical History History of schizotypal personality disorder Psychiatric care Schizophrenia Surgical History No pertinent past surgical history Family History Other Psychiatric illness Stroke Social History Smoking and tobacco status: current every day smoker cigarettes Packs smoked per day: 0.25 Years cigarettes smoked: 20 and cigars Cigars smoked per week: 8 Years smoked cigars: 19 Quit status (tobacco): not considering quitting Second hand smoke exposure: Yes Smoking risk assessment/counseling performed?: No Alcohol intake: current Alcohol intake frequency: holidays/special occasions on ly Alcohol type: hard liquor Desire information about alcohol rehabilitation?: No Counseling given: Yes Other alcohol counseling details: Alcohol & medications don't mix. Substance/Drug Use: never Desire information about substance/drug rehabilitation?: No Counseling given: No Adopted: No Caregiver/support person: No Lives independently: Yes Household members: none Marital status: Single Number of children: 1 Highest education level completed: High School Graduate service: No Current occupational status: disabled Pets and animals: No Leisure activites: music and games Sexually active: Yes Do you think of yourself as: Lesbian/Winslow/Homosexual Current gender identity: Trans [id number] Surekha/Yazidism: None Special surekha needs: No Agree to transfusion: Yes Financial difficulty paying for basics: Hard Physical Exam Const: COMMON NORMALS: no acute distress, patient oriented x3, healthy appearing and alert HENMT: COMMON NORMALS: normocephalic HEAD & SCALP: normocephalic and laceration right occipital Details of head laceration: linear, actively bleeding (Minimal active bleeding) and superficial; not pulsatile bleeding and not contaminated Head laceration size: 2 cm; no Stout's sign and no raccoon eyes MOUTH: Normal oral and palatal mucosa p resent THROAT: posterior oropharynx normal and uvula midline Eye: COMMON NORMALS: Equal, round and reactive pupils present and EOMs intact bilaterally GENERAL EYE: appearance normal, both eyes and all related structures PUPIL: Yes Equal, round and reactive pupils present Neck/C-Spine: COMMON NORMALS: supple GENERAL: Yes normal visual inspection Lymph: LYMPHATIC: no lymphadenopathy noted Resp: COMMON NORMALS: normal respiratory effort, No retractions, No use of accessory muscles and clear to auscultation bilaterally AUSCULTATION: clear to auscultation bilaterally Cardio: COMMON NORMALS: regular rate, regular rhythm, S1 normal heart sound present, S2 normal heart sound present, No gallops present (Cardio), No clicks present (Cardio), No murmurs present (Cardio) and Peripheral pulses 2+ throughout RATE: regular rate RHYTHM: regular rhythm HEART SOUNDS: S1 normal heart sound present and S2 normal heart sound present PERIPHERAL PULSES: Peripheral pulses 2+ throughout GI: COMMON NORMALS: Normal to inspection, nondistended, normoactive bowel sounds present, Soft to palpation, non-tender and no masses PALPATION: Yes Soft to palpation : COMMON NORMALS: Yes no CVA tenderness BLADDER/KIDNEY EXAM: Yes no CVA tenderness Back/Pelvis: COMMON NORMALS: no CVA tenderness Extremity: GENERAL: Yes normal exam except as noted Neuro: COMMON NORMALS: patient oriented x3 SENSORIUM/ORIENTATION: Yes alert GAIT: Yes Normal gait present SENSORY EXAM: Yes extremities (intact) MOTOR EXAM: 5/5 motor strength present throughout Skin: COMMON NORMALS: no rashes or lesions noted GENERAL SKIN EXAM: no rashes or lesions noted and dry skin Procedures Laceration Laceration 1: Site: scalp Side (If applicable): right Size (cm): 2 Description: linear Depth: simple, single layer Local Anesthetic: lidocaine 1% and with epi Amount of anesthesia used (mL): 6 Pre-repair: irrigated extensively (Normal saline) Skin layer closed with: other (Ramona) Number of sutures: 5 Technique: other ([place]) Course Vital Signs: Vital signs: Vital Signs Temperature 98.4 F 05/02/23 08:05 Pulse Rate 89 05/02/23 10:11 Respiratory Rate 16 05/02/23 10:11 Blood Pressure 121/77 05/02/23 10:11 Pulse Oximetry 100 05/02/23 10:11 Oxygen Delivery Me thod Room Air 05/02/23 09:06 MDM - Syncope Medical Decision Making Patient is a 32-year-old male who comes to the ED with syncopal episode. Patient gets monthly Invega shots and today he was at the facility and just got his Invega shot. He stood up to stretch right after Invega shot and he felt lightheaded and passed out. Patient fell and hit facility floor. He has a laceration to the back of his scalp. He was only out for a minute and then returned to baseline mental status once he woke up. Patient denies any current symptoms and says he feels completely normal. Denies any other preceding symptoms such as chest pain or diaphoresis. Denies any headache, vision changes or numbness tingling or weakness to 1 side of his face or extremities. Patient is up-to-date on his tetanus. Vitals are stable. Patient appears nontoxic in no acute distress or pain. He has a 2 cm laceration on the right occipital region of scalp. Neuro exam shows no deficits rest of exam is unremarkable. CBC and CMP are unremarkable. Baseline troponin normal. Chest x-ray shows no acute findings. Head CT shows no acute intracranial findings. Patient was given 1 L of IV fluids here in the ED. EKG showed normal sinus rhythm with no ST segment elevation or depression seen. Laceration was irrigated extensor with normal saline. Lidocaine 1% with epi was used as local and 5 ramona were placed to close laceration. Patient tolerated procedure well. Patient was diagnosed with a laceration of scalp and vasovagal syncopal episode. He is stable for discharge home and told to follow-up with his PCP to have his ramona reevaluated and removed potentially in 7 to 10 days. Strict return to ED precautions given. Patient understood and agreed with plan. Lab Data I reviewed the patient's lab results. 05/02/23 08:54 05/02/23 08:54 Radiology Impressions Chest X-Ray 05/02/23 08:12 IMPRESSION: Unremarkable chest radiograph. Head CT 05/02/23 08:21 IMPRESSION: 1. No acute intracranial hemorrhage or edema. 2. RIGHT parietal scalp laceration with associated small hematoma. Laboratory Results WBC 6.6 10^3/uL (4.0-10.0) 05/02/23 08:54 RBC 4.48 10^6/uL (4.1-5.3) 05/02/23 08:54 Hgb 13.9 g/dL (11.7-16.6) 05/02/23 08:54 Hct 40.9 % (42.0-52.0) L 05/02/23 08:54 MCV 91.3 fl (80-94) 05/02/23 08:54 MCH 31.0 pg (28.0-34.0) 05/02/23 08:54 MCHC 34.0 g/dL (30.0-36.0) 05/02/23 08:54 RDW 12.4 % (12.1-15.1) 05/02/23 08:54 Plt Count 218 10^3/cmm (130-400) 05/02/23 08:54 MPV 12.2 fL (7.4-10.4) H 05/02/23 08:54 Neut % (Auto) 66.6 % 05/02/23 08:54 Lymph % (Auto) 25.0 % 05/02/23 08:54 [place] % (Auto) 5.5 % 05/02/23 08:54 Eos % (Auto) 2.1 % 05/02/23 08:54 Baso % (Auto) 0.5 % 05/02/23 08:54 Neut # (Auto) 4.37 10^3/uL (1.8-7.7) 05/02/23 08:54 Lymph # (Auto) 1.6 10^3/uL (0.8-4.8) 05/02/23 08:54 [place] # (Auto) 0.4 10^3/uL (0.2-0.9) 05/02/23 08:54 Eos # (Auto) 0.1 10^3/uL (0.0-0.8) 05/02/23 08:54 Baso # (Auto) 0.0 10^3/uL (0.0-0.1) 05/02/23 08:54 Nucleated RBC % (auto) 0 % 05/02/23 08:54 Nucleated RBCs # 0.0 /100WBC 05/02/23 08:54 Sodium 145 mmol/L (136-145) 05/02/23 08:54 Potassium 3.9 mmol/L (3.5-5.1) 05/02/23 08:54 Chloride 108 mmol/L (98-107) H 05/02/23 08:54 Carbon Dioxide 25 mmol/L (22-29) 05/02/23 08:54 Anion Gap 15.9 (5-19) 05/02/23 08:54 BUN 8 mg/dL (6-20) 05/02/23 08:54 Creatinine 0.7 mg/dL (0.7-1.2) 05/02/23 08:54 GFR Calculation 130.7 mL/min (90-130) H 05/02/23 08:54 Glucose 98 mg/dL (65-115) 05/02/23 08:54 Calculated Osmolality 298 mOsm/kg (285-295) H 05/02/23 08:54 Calcium 9.2 mg/dL (8.5-10.5) 05/02/23 08:54 Total Bilirubin 0.3 mg/dL (0.15-1.2) 05/02/23 08:54 AST 13 U/L (0-40) 05/02/23 08:54 ALT 11 U/L (0-41) 05/02/23 08:54 Alkaline Phosphatase 72 U/L (40-130) 05/02/23 08:54 Troponin T Baseline 7 ng/L (0-15) 05/02/23 08:54 Total Protein 6.8 g/dL (6.6-8.7) 05/02/23 08:54 Albumin 4.5 g/dL (3.5-5.2) 05/02/23 08:54 Globulin 2.3 g/dL (1.3-4.6) 05/02/23 08:54 EKG Data EKG 1: EKG interpretation date: 05/02/23 Interpretation: Normal sinus rhythm, no ST segment elevation or depression seen. 72 bpm. Discharge Plan Discharge Patient Disposition: Home Clinical Impression: Episode of syncope Qualifiers: Syncope type: vasovagal syncope Qualified Code(s): R55 - Syncope and collapse Laceration of scalp Qualifiers: Encounter type: initial encounter Qualified Code(s): S01.01XA - Laceration without foreign body of scalp, initial encounter Condition: Stable Prescriptions: No Action benztropine 1 mg tablet 0.5 mg PO BID Qty: 60 2RF Invega Sustenna 156 mg/mL syringe 156 mg IM Q30D 30 Days Qty: 1 2RF mupirocin 2 % ointment 1 applic topical BID Qty: 22 0RF Ventolin HFA 90 mcg/actuation HFA aerosol inhaler 2 puff INHALATION Q6H PRN (Reason: Shortness Of Breath) Discharge Orders: Discharge ED (Routine); Ordered 05/02/23 Ordered By: Marco A Whitlock Discharge Diet: Regular Discharge Activity: Increase activity as tolerated Patient Instructions: Scalp Laceration, Syncope (DC) Activity Restrictions/Additional Instructions: Follow-up with medical provider as directed in the next 7 to 10 days to have ramona removed. Limit activity today and rest. Continue taking all home medications as previously prescribed. You can rinse your hair with some shampoo and water but do not scrub over laceration site. Do not submerge head/laceration site in any bodies of water like lakes or [place] until it is completely healed up. Return to the ER or your medical provider if condition worsens. Please read and understand discharge instructions. Thank you for choosing [facility] for your healthcare needs today. Please realize this is an emergency room and that we are providing you with a medical screening exam and this may not be complete and all inclusive of all the testing and or work up that you may need to determine your ailment or severity of your illness. It is very important that you follow up as instructed or that you return to the Emergency Department should you have concerns or if your condition changes or worsens in any way. Coding Level of Care Code ED Hand Knitter for Mandeep Hammond
[2023-05-02] MEDS: sodium chloride 0.9% 1,000 ML 999 ML IV (08:52)
[2023-05-02 09:06] VITALS: BP 110/74; PULSE 81; RESP 16; O2SAT 96
[2023-05-02] MEDS: lidocaine-epi 1% 20 mL INJ INJECTION (09:10)
[2023-05-02 09:29] LABS: Basophils % 0.5 %; Eosinophils # 0.1 10^3/uL (0.0-0.8); Eosinophils % 2.1 %; Hematocrit 40.9 % (42.0-52.0); Hemoglobin 13.9 g/dL (11.7-16.6); Lymphocytes # 1.6 10^3/uL (0.8-4.8); Mean Corpuscular Volume 91.3 fl (80-94); Mean Platelet Volume 12.2 fL (7.4-10.4); Monocytes # 0.4 10^3/uL (0.2-0.9); Monocytes % 5.5 %; Neutrophils # 4.37 10^3/uL (1.8-7.7); Neutrophils % 66.6 %; Nucleated Red Blood Cells % 0 %; Platelet Count 218 10^3/cmm (130-400); Red Blood Count 4.48 10^6/uL (4.1-5.3); Red Cell Distribution Width 12.4 % (12.1-15.1); White Blood Count 6.6 10^3/uL (4.0-10.0)
[2023-05-02 09:41] LABS: Troponin(5th) Baseline 7 ng/L (0-15)
[2023-05-02 09:43] LABS: Alanine Aminotransferase 11 U/L (0-41); Albumin Level 4.5 g/dL (3.5-5.2); Alkaline Phosphatase 72 U/L (40-130); Anion Gap 15.9 (5-19); Aspartate Amino Transferase 13 U/L (0-40); Blood Urea Nitrogen 8 mg/dL (6-20); Calcium 9.2 mg/dL (8.5-10.5); Carbon Dioxide 25 mmol/L (22-29); Chloride 108 mmol/L (98-107); Creatinine Clr Calc Pharmacy 148.7477; Globulin 2.3 g/dL (1.3-4.6); Glomerular Filtration Rate 130.7 mL/min (90-130); Glucose 98 mg/dL (65-115); Osmolality Calculated 298 mOsm/kg (285-295); Potassium 3.9 mmol/L (3.5-5.1); Sodium 145 mmol/L (136-145); Total Bilirubin 0.3 mg/dL (0.15-1.2); Total Protein 6.8 g/dL (6.6-8.7)
[2023-05-02 10:11] VITALS: BP 121/77; PULSE 89; RESP 16; O2SAT 100
--- NOTE | 2023-05-02 10:13 | ECG_ITS ---
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 Measurements Intervals [place] Rate: 72 P: 61 MI: 127 QRS: 86 QRSD: 98 T: 38 QT: 379 QTc: 416 Interpretive Statements SINUS RHYTHM WITH SINUS ARRHYTHMIA Compared to ECG 09/04/2022 09:17:38 T-wave abnormality no longer present Electronically Signed On 05-02-2023 11:44:11 CDT by Thaddeus Michel M.D. [email or web address]
--- NOTE | 2023-05-07 10:54 | DCPLANNER ---
compensation and benefits manager was triggered to call patient due to no primary care physician - patient is established with Dr. Barreto.
--- NOTE | 2023-05-09 08:51 | PC.NURSE ---
PT RETURNED TO ED FOR STAPLE REMOVAL. 5 YULIYA REMOVED. ASPEN CUNHA ASSESSED STAPLE REMOVAL SITE.
== END 2023-05-02 10:13 | disposition home or self-care (01) ==
PROVIDERS: Emergency Provider Physician Assistant; PCP Family Medicine
DX: R55 Syncope and collapse (principal); S01.01XA Laceration without foreign body of scalp, initial encounter; F17.210 Nicotine dependence, cigarettes, uncomplicated; W18.30XA Fall on same level, unspecified, initial encounter; Y92.531 Health care provider office as the place of occurrence of the external cause
CPT/HCPCS: 12001; 70450; 71045; 80053; 84484; 85025; 93005; 96360; 99285; J7030

== ENCOUNTER → 2023-06-25 13:45 | Outpatient (BNVA) | payer MEDICAID, SELFPAY ==
[2023-06-11 09:28] VITALS: BP 104/57; BMI 23.4
== END ==
PROVIDERS: PCP Family Medicine; Visit Provider Internal Medicine Cardiovascular Disease
DX: R55 Syncope and collapse (principal); I49.8 Other specified cardiac arrhythmias
CPT/HCPCS: 93270

== ENCOUNTER → 2023-08-11 08:58 | Outpatient (BNVA) | payer OTHER, SELFPAY ==
[2023-08-04 07:36] VITALS: BP 104/57; BMI 23.4
== END ==
PROVIDERS: PCP Family Medicine; Visit Provider Psychiatry & Neurology Neurology
DX: F41.9 Anxiety disorder, unspecified (principal)
CPT/HCPCS: 80061; 83036

== ENCOUNTER → 2024-07-26 10:45 | Outpatient (BNVA) | payer MEDICARE, SELFPAY ==
[2024-07-19 07:42] VITALS: BP 121/52; BMI 27.6
== END ==
PROVIDERS: PCP Family Medicine; Referring Provider Family Medicine; Visit Provider Psychiatry & Neurology Neurology
DX: R56.9 Unspecified convulsions (principal); R55 Syncope and collapse
CPT/HCPCS: 99203

== ENCOUNTER → 2024-08-12 10:07 | Outpatient (BNVA) | payer OTHER, SELFPAY ==
[2024-07-19 07:42] VITALS: BP 121/52; BMI 27.6
== END ==
PROVIDERS: PCP Family Medicine; Visit Provider Psychiatry & Neurology Psychiatry
DX: F41.9 Anxiety disorder, unspecified (principal); F60.9 Personality disorder, unspecified; F20.9 Schizophrenia, unspecified
CPT/HCPCS: 80061; 83036

== ENCOUNTER 2024-08-18 08:04 | Outpatient (CLI) | payer MEDICARE, SELFPAY ==
[2024-08-16 09:33] VITALS: BP 126/85; BMI 28.5
--- NOTE | 2024-08-18 08:00 | MR_ITS ---
WS: [id number] MRI BRAIN WITH AND WITHOUT CONTRAST HISTORY: R56.9 - Unspecified convulsions COMPARISON: CT head 05/02/2023 TECHNIQUE: Multiplanar imaging performed through the brain with MultiHance 15 ml's IV. No acute infarcts are seen. Starkey-white matter differentiation is well preserved. There is slight asym metry of the hippocampal formations with the LEFT being slightly larger with a slightly different hanny entation. No sclerosis or atrophy. Signal is normal within the hippocampus. No susceptibility artifacts or prior lacunar infarcts. Ventricles and extra-axial spaces are normal. Clivus and pituitary gland are normal. Visualized posterior fossa and brainstem are also normal. Postcontrast images are negative for masses or vascular malformations. Dural venous sinuses are normal. Paranasal sinuses: Mucoperiosteal thickening and heterogeneity within the maxillary sinuses. Inspissa martha secretions. The remaining sinuses are clear. Mastoid air cells: Normal. Calvarium and scalp: Normal. MR/MR head wo/w con [id number] IMPRESSION: 1. No acute infarct or remote infarct. No volume loss or atrophy. 2. No hippocampal atrophy or sclerosis. 3. Normal appearance of the starkey-white matter differentiation. 4. No enhancing masses or vascular malformation.
[2024-08-18] MEDS: gadobenate dimeglumine 20 mL vial IV (08:43)
== END 2024-08-18 08:05 | disposition home or self-care (01) ==
PROVIDERS: PCP Family Medicine; Visit Provider Psychiatry & Neurology Neurology
DX: R56.9 Unspecified convulsions (principal)
CPT/HCPCS: 70553

== ENCOUNTER → 2024-12-02 11:09 | Outpatient (BNVA) | payer MEDICAID, SELFPAY ==
[2024-08-30 09:59] VITALS: BP 126/85; BMI 28.5
== END ==
PROVIDERS: PCP Family Medicine; Visit Provider Emergency Medicine
DX: J02.9 Acute pharyngitis, unspecified (principal)
CPT/HCPCS: 87880

== ENCOUNTER 2025-01-24 11:00 | Outpatient (CLI) | payer MEDICARE, MEDICAID, SELFPAY ==
[2024-08-30 09:59] VITALS: BP 126/85; BMI 28.5
== END 2025-01-24 11:01 | disposition home or self-care (01) ==
LOC: LAB 11:04
PROVIDERS: PCP Family Medicine
DX: F64.9 Gender identity disorder, unspecified (principal)
CPT/HCPCS: 36415; 80048

== ENCOUNTER 2025-02-06 06:07 | Emergency (ER) | payer MEDICARE, MEDICAID, SELFPAY ==
[2024-08-30 09:59] VITALS: BP 126/85; BMI 28.5
[2025-02-06 06:15] VITALS: BP 133/87; PULSE 86; RESP 20; TEMP 36.8; O2SAT 96; BMI 27.4
--- NOTE | 2025-02-06 06:24 | ED.C_ITS ---
HPI - Psych General: Chief Complaint: Psychiatric Symptoms Stated Complaint: MHE Time Seen by Provider: 02/06/25 06:08 Source: patient and EMS Mode of arrival: EMS Limitations: no limitations History of Present Illness: 34-year-old male who states that he open a [employer] account and in fact his [employer] account and caused him to be anxious and stressed does have a history of anxiety disorder. He denies being suicidal or homicidal. He denies any worse or improving factors patient is calm currently Associated symptoms: Deny depression or suicidal ideation Related Data Home Medications ?Medication ?Instructions ?Recorded ?Confirmed albuterol sulfate 90 mcg/actuation 2 puff inhalation Q 6H PRN 09/03/22 12/02/24 aerosol inhaler (Ventolin HFA) Shortness Of Breath fluticasone propionate 50 intranasal 07/26/24 12/02/24 mcg/actuation nasal spray,suspension budesonide-formoterol HFA 160 2 puff inhalation BID 12/02/24 mcg-4.5 mcg/actuation aerosol inhaler Previous Rx's ?Medication ?Instructions ?Recorded amoxicillin 500 mg tablet 500 mg PO BID 10 days #20 ta bs 12/02/24 promethazine-DM 6.25 mg-15 mg/5 mL 7.5 ml PO Q6H PRN c ough #118 mL 12/02/24 oral syrup hydroxyzine pamoate 25 mg capsule 25 mg PO Q8H PRN anx iety #20 caps 02/06/25 Allergies Allergy/AdvReac Type Severity Reaction Status Date / Time aripiprazole (From [facility]) Allergy Intermediate Drooling Verified 12/02/24 10:22 clonazepam Allergy Unknown Verified 12/02/24 10:22 mirtazapine AdvReac ADR-Confusi Verified 12/02/24 10:22 on risperidone AdvReac ADR-Confusi Verified 12/02/24 10:22 on Review of Systems Const: Denies: fever(s), chills, body aches or change in appetite ENMT: Denies: throat pain or dental pain Card: Denies: chest pain Resp: Denies: dyspnea GI: Denies: abdominal pain, nausea, vomiting or diarrhea Musc: Denies: neck pain or back pain Skin/Breast: Denies: rash Neuro: Denies: headache(s) Psych: Reports: anxiety; Denies: depression or suicidal ideation PFSH ED PFSH: Medical History Schizophrenia History of schizotypal personality disorder Psychiatric care Surgical History No pertinent past surgical history Family History Other Psychiatric illness Stroke Social History Smoking and tobacco/nicotine status: never used tobacco/nicotine Second hand smoke exposure: Yes Alcohol intake: current Alcohol intake frequency: holidays/special occasions only Alcohol type: hard liquor Substance/Drug Use: current Substance/Drug use frequency: few times a week Adopted: No Caregiver/support person: No Lives independently: Yes Household members: none Housing: Apartment Marital status: Single Number of children: 1 Highest education level completed: High School Graduate service: No Current occupational status: disabled Pets and animals: No Leisure activites: music and games Sexually active: Yes Are you practicing safe sex: Yes Do you think of yourself as: Lesbian/Winslow/Homosexual Current gender identity: Trans [id number] Surekha/Scientology: Religious Special surekha needs: No Agree to transfusion: Yes Physical Exam Const: COMMON NORMALS: no acute distress, patient oriented x3 and healthy appearing HENMT: COMMON NORMALS: normocephalic and atraumatic HEAD & SCALP: normocephalic and atraumatic Eye: COMMON NORMALS: conjunctivae normal CONJUNCTIVA: Yes conjunctivae normal Neck/C-Spine: COMMON NORMALS: full ROM and supple Chest: COMMONS NORMALS: normal inspection of the chest Resp: COMMON NORMALS: normal respiratory effort Cardio: COMMON NORMALS: regular rate RATE: regular rate Extremity: COMMON NORMALS: normal to inspection and full ROM Neuro: COMMON NORMALS: patient oriented x3, moves all extremities and no focal motor deficits Psych: COMMON NORMALS: mental status grossly normal, Normal thought process present and cooperative THOUGHT PROCESS: Normal thought process present Skin: COMMON NORMALS: no rashes or lesions noted and no wounds GENERAL SKIN EXAM: no rashes or lesions noted Course Vital Signs: Vital signs: Vital Signs Temperature 98.2 F 02/06/25 06:15 Pulse Rate 86 02/06/25 06:15 Respiratory Rate 20 H 02/06/25 06:15 Blood Pressure 133/87 02/06/25 06:15 Pulse Oximetry 96 02/06/25 06:15 MDM - Psych Medical Decision Making Patient presents here with anxiety he is not suicidal or homicidal pulm room we have no beds in the [facility] he does not to be transferred this time does not require [address] him on Vistaril he is to go to the crisis center return if worsening he understands agrees to plan No radiology studies performed this visit Discharge Plan Discharge Patient Disposition: Home Clinical Impression: LORNA (generalized anxiety disorder) Condition: Stable Prescriptions: New hydroxyzine pamoate 25 mg capsule 25 mg PO Q8H PRN (Reason: anxiety) Qty: 20 0RF No Action promethazine-DM 6.25-15 mg/5 mL syrup 7.5 ml PO Q6H PRN (Reason: cough) Qty: 118 0RF amoxicillin 500 mg tablet 500 mg PO BID 10 Days Qty: 20 0RF fluticasone propionate 50 mcg/actuation spray,suspension intranasal budesonide-formoterol 160-4.5 mcg/actuation HFA aerosol inhaler 2 puff inhalation BID Ventolin HFA 90 mcg/actuation HFA aerosol inhaler 2 puff INHALATION Q6H PRN (Reason: Shortness Of Breath) Discharge Orders: Discharge ED (Routine); Ordered 02/06/25 Ordered By: Raji Momin Referrals: Doyle Barreto MD [Primary Care Provider] - Discharge Diet: Advance as tolerated Discharge Activity: Resume usual activity Patient Instructions: Anxiety (ED) Print Language: Montserratian Coding Level of Care Code ED Police Guard for Mandeep Hammond
[2025-02-06] MEDS: hyDROXYzine 25 mg Capsule 50 MG PO (06:27)
== END 2025-02-06 06:30 | disposition home or self-care (01) ==
PROVIDERS: Emergency Provider Emergency Medicine; PCP Family Medicine
DX: F41.1 Generalized anxiety disorder (principal)
CPT/HCPCS: 99283; J9999

== ENCOUNTER → 2025-02-10 10:04 | Outpatient (BNVA) | payer MEDICAID, SELFPAY ==
[2024-08-30 09:59] VITALS: BP 126/85; BMI 28.5
== END ==
PROVIDERS: PCP Family Medicine; Visit Provider Psychiatry & Neurology Neurology
DX: R56.9 Unspecified convulsions (principal)
CPT/HCPCS: 95819

== ENCOUNTER 2025-02-11 17:10 | Inpatient (IN) | payer MEDICARE, SELFPAY ==
[2024-08-30 09:59] VITALS: BP 126/85; BMI 28.5
[2025-02-11 17:10] VITALS: BP 118/78; PULSE 100; RESP 16; TEMP 36.9; O2SAT 95
--- NOTE | 2025-02-11 17:19 | ED.C_ITS ---
HPI - Psych 2 General: Chief Complaint: Psychiatric Symptoms Stated Complaint: mhe Time Seen by Provider: 02/11/25 17:15 History of Present Illness: 34-year-old male presents emergency room via EMS sparsely nonresponsive. At 1 time patient gave with single verbal response when asked if he was okay he said no. EMS reports that he had a left left his apartment in [facility] and may have been using drugs. Patient does not respond to any verbal or physical stimuli. He has multiple small items in his pockets but that is helpful or informing. Admissions in the past to psychiatry unit. Reviewing the chart it looks like he had extended stays both times. Patient has had similar presentations in the past where he has been minimally responsive. Related Data Home Medications ?Medication ?Instructions ?Recorded ?Confirmed albuterol sulfate 90 mcg/actuation 2 puff inhalation Q 6H PRN 09/03/22 02/10/25 aerosol inhaler (Ventolin HFA) Shortness Of Breath fluticasone propionate 50 intranasal 07/26/24 02/10/25 mcg/actuation nasal spray,suspension budesonide-formoterol HFA 160 2 puff inhalation BID 02/10/25 mcg-4.5 mcg/actuation aerosol inhaler Previous Rx's ?Medication ?Instructions ?Recorded amoxicillin 500 mg tablet 500 mg PO BID 10 days #20 ta bs 12/02/24 promethazine-DM 6.25 mg-15 mg/5 mL 7.5 ml PO Q6H PRN c ough #118 mL 12/02/24 oral syrup hydroxyzine pamoate 25 mg capsule 25 mg PO Q8H PRN anx iety #20 caps 02/06/25 Allergies Allergy/AdvReac Type Severity Reaction Status Date / Time aripiprazole (From Abiliy) Allergy Intermediate Drooling Verified 02/10/25 10:08 clonazepam Allergy Unknown Verified 02/10/25 10:08 mirtazapine AdvReac ADR-Confusi Verified 02/10/25 10:08 on risperidone AdvReac ADR-Confusi Verified 02/10/25 10:08 on Review of Systems 2 General: Reports: Other (Declines to respond.) PFSH ED 2 PFSH: Medical History Schizophrenia History of schizotypal personality disorder Psychiatric care Surgical History No pertinent past surgical history Family History Other Psychiatric illness Stroke Social History Smoking and tobacco/nicotine status: never used tobacco/nicotine Second hand smoke exposure: Yes Alcohol intake: current Alcohol intake frequency: holidays/special occasions only Alcohol type: hard liquor Substance/Drug Use: current Substance/Drug use frequency: few times a week Adopted: No Caregiver/support person: No Lives independently: Yes Household members: none Housing: Apartment Marital status: Single Number of children: 1 Highest education level completed: High School Graduate service: No Current occupational status: disabled Pets and animals: No Leisure activites: music and games Sexually active: Yes Are you practicing safe sex: Yes Do you think of yourself as: Lesbian/Winslow/Homosexual Current gender identity: Trans [id number] Surekha/Islam: Mandaeism Special surekha needs: No Agree to transfusion: Yes Physical Exam 2 Const: COMMON NORMALS: no acute distress GENERAL APPEARANCE: cooperative and comfortable ORIENTATION/CONSCIOUSNESS: Yes awake HENMT: COMMON NORMALS: normocephalic, atraumatic and hearing grossly normal bilaterally HEAD & SCALP: normocephalic and atraumatic Resp: COMMON NORMALS: normal respiratory effort, No retractions, No use of accessory muscles and clear to auscultation bilaterally AUSCULTATION: clear to auscultation bilaterally Cardio: COMMON NORMALS: regular rate, regular rhythm and No murmurs present (Cardio) RATE: regular rate RHYTHM: regular rhythm GI: COMMON NORMALS: Soft to palpation and No hepatosplenomegaly present A USCULTATION: Yes normoactive bowel sounds PALPATION: Yes Soft to palpation, No Tenderness to palpation present (GI), No Guarding due to palpation present (GI) and Yes No hepatosplenomegaly present Extremity: COMMON NORMALS: normal to inspection, capillary refill normal, no clubbing, cyanosis or edema, no calf tenderness and no pedal edema Skin: COMMON NORMALS: no rashes or lesions noted GENERAL SKIN EXAM: no rashes or lesions noted Course 2 Vital Signs: Vital signs: Vital Signs Temperature 98.5 F 02/11/25 17:10 Pulse Rate 100 02/11/25 17:10 Respiratory Rate 16 02/11/25 17:10 Blood Pressure 118/78 02/11/25 17:10 Pulse Oximetry 95 02/11/25 17:10 Oxygen Delivery Me thod Room Air 02/11/25 17:10 MDM - Psych Medical Decision Making 34-year-old male who is poorly responsive. Looking back to the chart he has had extended length days in the MPU in the past at least 1-1 or 2 times in the past similar type presentation where he just did not respond. Discussed with Dr. Schulz we will go ahead and admit him. He is not on any antidepressant or antipsychotics in the past previous discharge diagnoses included schizophrenic diagnosis. 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 Orders written. Medical Records I reviewed the patient's medical records. Lab Data I reviewed the patient's lab results. 02/11/25 18:01 02/11/25 18:01 Radiology Impressions Chest X-Ray 02/11/25 17:30 IMPRESSION: No acute findings. Head CT 02/11/25 17:31 IMPRESSION: No acute intracranial abnormality. Laboratory Results WBC 7.87 10^3/uL (3.29-11.43) 02/11/25 18:01 RBC 3.99 10^6/uL (3.85-5.65) 02/11/25 18:01 Hgb 12.30 g/dL (11.27-16.99) 02/11/25 18:01 Hct 37.0 % (37-53) 02/11/25 18:01 MCV 92.7 fl (82-101) 02/11/25 18:01 MCH 30.8 pg (27-33) 02/11/25 18:01 MCHC 33.2 g/dL (30-55) 02/11/25 18:01 RDW 13.1 % (12.1-15.1) 02/11/25 18:01 Plt Count 249 10^3/cmm (157-399) 02/11/25 18:01 MPV 11.7 fL (7.4-10.4) H 02/11/25 18:01 Neut % (Auto) 72.9 % 02/11/25 18:01 Lymph % (Auto) 18.8 % 02/11/25 18:01 [place] % (Auto) 6.5 % 02/11/25 18:01 Eos % (Auto) 0.9 % 02/11/25 18:01 Baso % (Auto) 0.5 % 02/11/25 18:01 Neut # (Auto) 5.74 10^3/uL (1.8-7.7) 02/11/25 18:01 Lymph # (Auto) 1.5 10^3/uL (0.8-4.8) 02/11/25 18:01 [place] # (Auto) 0.5 10^3/uL (0.2-0.9) 02/11/25 18:01 Eos # (Auto) 0.1 10^3/uL (0.0-0.8) 02/11/25 18:01 Baso # (Auto) 0.0 10^3/uL (0.0-0.1) 02/11/25 18:01 Nucleated RBC % (auto) 0 % 02/11/25 18: Nucleated RBCs # 0.0 /100WBC 02/11/25 18:01 Sodium 141 mmol/L (136-145) 02/11/25 18:01 Potassium 3.7 mmol/L (3.5-5.1) 02/11/25 18:01 Chloride 106 mmol/L (98-107) 02/11/25 18:01 Carbon Dioxide 22 mmol/L (22-29) 02/11/25 18:01 Anion Gap 16.7 (5-19) 02/11/25 18:01 BUN 9 mg/dL (6-20) 02/11/25 18:01 Creatinine 0.6 mg/dL (0.7-1.2) L 02/11/25 18:01 GFR Calculation 154.2 mL/min (90-130) H 02/11/25 18:01 Glucose 123 mg/dL (65-115) H 02/11/25 18:01 Calculated Osmolality 292 mOsm/kg (285-295) 02/11/25 18:01 Lactic Acid 0.9 mmol/L (0.5-2.2) 02/11/25 18:01 Calcium 9.4 mg/dL (8.5-10.5) 02/11/25 18:01 Magnesium 2.3 mg/dL (1.7-2.3) 02/11/25 18:01 Total Bilirubin 0.4 mg/dL (0.15-1.2) 02/11/25 18:01 AST 22 U/L (0-40) 02/11/25 18:01 ALT 34 U/L (0-41) 02/11/25 18:01 Alkaline Phosphatase 80 U/L (40-130) 02/11/25 18:01 Troponin T Baseline < 6 ng/L (0-15) 02/11/25 18:01 Troponin T 120 Minute 6.00 ng/L (0-15) 02/11/25 20:06 Delta Troponin T 0.72193 ABS# (0-10) 02/11/25 20:06 Total Protein 6.3 g/dL (6.6-8.7) L 02/11/25 18:01 Albumin 4.3 g/dL (3.5-5.2) 02/11/25 18: Globulin 2.0 g/dL (1.3-4.6) 02/11/25 18:01 Lipase 11 U/L (13-60) L 02/11/25 18:01 Urine Color Yellow (Yellow) 02/11/25 18:44 Urine Appearance Clear (CLEAR) 02/11/25 18:44 Urine pH 6.5 (5-7) 02/11/25 18:44 Ur Specific [place] 1.015 (1.005-1.030) 02/11/25 18:44 Urine Protein Neg (Negative) 02/11/25 18:44 Urine Glucose (UA) Norm (Normal) 02/11/25 18:44 Urine Ketones Negative (Negative) 02/11/25 18:44 Urine Blood Neg (Negative) 02/11/25 18:44 Urine Nitrate Negative (Negative) 02/11/25 18:44 Urine Bilirubin Neg (Negative) 02/11/25 18:44 Urine Urobilinogen 4 mg/dL (Negative) H 02/11/25 18:44 Ur Leukocyte Esterase Trace (Negative) H 02/11/25 18:44 Urine RBC 0-2 /hpf (0-2) 02/11/25 18:44 Urine WBC 6-10 /hpf (0-5) 02/11/25 18:44 Ur Squamous Epith Cells 0-5 /hpf (0-5) 02/11/25 18:44 Amorphous Sediment Not Reportable 02/11/25 18:44 Urine Bacteria None seen /hpf (NONE) 02/11/25 18:44 Hyaline Casts 0.81 /lpf 02/11/25 18:44 Urine Mucus Trace /hpf 02/11/25 18:44 Salicylates < 0.3 mg/dL (3-10) L 02/11/25 18:01 Urine Opiates Screen Negative ng/mL (Negative) 02/11/25 18:44 Acetaminophen < 5.0 ug/mL (10-30) L 02/11/25 18:01 Ur Barbiturates Screen Negative ng/mL (Negative) 02/11/25 18:44 Ur Phencyclidine Scrn Negative ng/mL (Negative) 02/11/25 18:44 Ur Amphetamines Screen Negative ng/mL (Negative) 02/11/25 18:44 U Benzodiazepines Scrn Negative ng/mL (Negative) 02/11/25 18:44 Urine Cocaine Screen Negative ng/mL (Negative) 02/11/25 18:44 U Marijuana (THC) Screen Positive ng/mL (Negative) H 02/11/25 18:44 Ethyl Alcohol < 10 mg/dL (0-10) 02/11/25 18:01 Influenza A (PCR) Negative (Negative) 02/11/25 17:54 Influenza Type B (PCR) Negative (Negative) 02/11/25 17:54 RSV (PCR) Negative (Negative) 02/11/25 17:54 SARS-CoV-2 (PCR) Negative (Negative) 02/11/25 17:54 All radiology interpretation(s) finalized by discharge Discharge Plan Discharge Condition: Stable Prescriptions: No Action promethazine-DM 6.25-15 mg/5 mL syrup 7.5 ml PO Q6H PRN (Reason: cough) Qty: 118 0RF amoxicillin 500 mg tablet 500 mg PO BID 10 Days Qty: 20 0RF fluticasone propionate 50 mcg/actuation spray,suspension intranasal budesonide-formoterol 160-4.5 mcg/actuation HFA aerosol inhaler 2 puff inhalation BID Ventolin HFA 90 mcg/actuation HFA aerosol inhaler 2 puff INHALATION Q6H PRN (Reason: Shortness Of Breath) hydroxyzine pamoate 25 mg capsule 25 mg PO Q8H PRN (Reason: anxiety) Qty: 20 0RF Referrals: Doyle Barreto MD [Primary Care Provider, Family Practice] Print Language: Turkmen Coding Level of Care Code ED Ceramic Chemist for Mandeep Hammond
--- NOTE | 2025-02-11 17:30 | XRR_ITS ---
PROCEDURE INFORMATION: Exam: XR Chest Exam date and time: 02/11/2025 6:07 PM Age: 34 years old Clinical indication: Cough and dyspnea; Additional info: Dyspnea/cough TECHNIQUE: Imaging protocol: Radiologic exam of the chest. Views: 1 view. COMPARISON: CR XR chest 1V portable [id number] 05/02/2023 8:21 AM FINDINGS: Lungs: Unremarkable. No consolidation. Pleural spaces: Unremarkable. No pleural effusion. No pneumothorax. Heart/Mediastinum: Unremarkable. No cardiomegaly. Bones/joints: Unremarkable. XR/XR chest 1V portable [id number] IMPRESSION: No acute findings.
--- NOTE | 2025-02-11 17:31 | CTR_ITS ---
PROCEDURE INFORMATION: Exam: CT Head Without Contrast Exam date and time: 02/11/2025 6:10 PM Age: 34 years old Clinical indication: Altered mental status/memory loss; Additional info: AMS TECHNIQUE: Imaging protocol: Computed tomography of the head without contrast. Radiation optimization: All CT scans at this facility use at least one of these dose optimization techniques: automated exposure control; mA and/or kV adjustment per patient size (includes targeted exams where dose is matched to clinical indication); or iterative reconstruction. COMPARISON: MR head wo/w con [id number] 08/18/2024 8:34 AM RADIATION DOSE METRICS: Total DLP (mGy-cm): 1113.98 FINDINGS: Brain: Normal. No hemorrhage. Unremarkable white matter. No mass effect. Cerebral ventricles: No ventriculomegaly. Paranasal sinuses: Visualized sinuses are unremarkable. No fluid levels. Mastoid air cells: Visualized mastoid air cells are well aerated. Bones: Unremarkable. No acute fracture. Soft tissues: Unremarkable. CT/CT head wo con* [id number] IMPRESSION: No acute intracranial abnormality.
--- NOTE | 2025-02-11 17:34 | ECG_ITS ---
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 Measurements Intervals [place] Rate: 87 P: 36 GA: 127 QRS: 67 QRSD: 94 T: 36 QT: 383 QTc: 462 Interpretive Statements SINUS RHYTHM Compared to ECG 05/02/2023 09:02:54 Sinus arrhythmia no longer present Electronically Signed On 02-14-2025 09:24:35 CDT by Julio Ordaz M.D. [email or web address]
--- NOTE | 2025-02-11 17:58 | PC.NURSE ---
Security documented on the personal belongings a pocket knife, it has been confiscated and taken to the security office
[2025-02-11 18:08] LABS: Basophils % 0.5 %; Eosinophils # 0.1 10^3/uL (0.0-0.8); Eosinophils % 0.9 %; Lymphocytes # 1.5 10^3/uL (0.8-4.8); Lymphocytes % 18.8 %; Mean Corpuscular HGB Conc 33.2 g/dL (30-55); Mean Corpuscular Hemoglobin 30.8 pg (27-33); Mean Corpuscular Volume 92.7 fl (82-101); Mean Platelet Volume 11.7 fL (7.4-10.4); Monocytes # 0.5 10^3/uL (0.2-0.9); Monocytes % 6.5 %; Neutrophils # 5.74 10^3/uL (1.8-7.7); Neutrophils % 72.9 %; Nucleated Red Blood Cells % 0 %; Platelet Count 249 10^3/cmm (157-399); Red Blood Count 3.99 10^6/uL (3.85-5.65); Red Cell Distribution Width 13.1 % (12.1-15.1); White Blood Count 7.87 10^3/uL (3.29-11.43)
[2025-02-11 18:25] LABS: Acetaminophen < 5.0 ug/mL (10-30); Alanine Aminotransferase 34 U/L (0-41); Albumin Level 4.3 g/dL (3.5-5.2); Alcohol Level < 10 mg/dL (0-10); Alkaline Phosphatase 80 U/L (40-130); Anion Gap 16.7 (5-19); Aspartate Amino Transferase 22 U/L (0-40); Blood Urea Nitrogen 9 mg/dL (6-20); Calcium 9.4 mg/dL (8.5-10.5); Carbon Dioxide 22 mmol/L (22-29); Chloride 106 mmol/L (98-107); Creatinine Clr Calc Pharmacy 165.1588; Glomerular Filtration Rate 154.2 mL/min (90-130); Glucose 123 mg/dL (65-115); Lipase 11 U/L (13-60); Magnesium 2.3 mg/dL (1.7-2.3); Osmolality Calculated 292 mOsm/kg (285-295); Potassium 3.7 mmol/L (3.5-5.1); Salicylate < 0.3 mg/dL (3-10); Sodium 141 mmol/L (136-145); Total Bilirubin 0.4 mg/dL (0.15-1.2); Total Protein 6.3 g/dL (6.6-8.7)
[2025-02-11 18:26] LABS: Lactic Sepsis W/Reflex 0.9 mmol/L (0.5-2.2)
[2025-02-11 18:31] LABS: Troponin(5th) Baseline < 6 ng/L (0-15)
[2025-02-11 18:38] LABS: Influenza A NEGATIVE (Negative); Influenza B NEGATIVE (Negative); Respiratory Syncytial Virus Ce NEGATIVE (Negative); SARS-CoV-2 PCR NEGATIVE (Negative)
[2025-02-11 19:04] LABS: Bacteria Urine None Seen /hpf; Hyaline Casts Urine 0.81 /lpf; RBC Urine 0-2 /hpf (0-2); Squamous Epithelial Cell Urine 0-5 /hpf (0-5)
[2025-02-11 19:06] LABS: Add Urine Microscopic? YES; Bilirubin Urine Neg (Negative); Blood Urine Neg (Negative); Glucose Urine UA Norm (Normal); Ketones Urine Negative (Negative); Leukocyte Esterase Urine Trace (Negative); Nitrate Urine Negative (Negative); Protein Urine Neg (Negative); Specific Gravity, Urine 1.015 (1.005-1.030); Urine Appearance Clear (CLEAR); Urine Color Yellow (Yellow); Urobilinogen Urine 4 mg/dL (Negative); pH Urine 6.5 (5-7)
[2025-02-11 19:09] LABS: Amphetamines Screen Urine Negative (Negative); Barbiturates Screen Urine Negative (Negative); Benzodiazepines Screen Urine Negative (Negative); Cocaine Screen Urine Negative (Negative); Opiate Screen Urine Negative (Negative); PCP Screen Urine Negative (Negative); THC Screen Urine Positive (Negative)
[2025-02-11 19:16] LABS: Mucus Urine TRACE /hpf; UA Slide Review UA Slide Review Perf
--- NOTE | 2025-02-11 19:34 | ECG_ITS ---
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 Measurements Intervals [place] Rate: 75 P: 48 MO: 124 QRS: 65 QRSD: 98 T: 36 QT: 393 QTc: 441 Interpretive Statements SINUS RHYTHM Compared to ECG 02/11/2025 17:34:47 No significant changes Electronically Signed On 02-14-2025 10:26:25 CDT by Julio Ordaz M.D. [email or web address]
[2025-02-11 20:33] LABS: Troponin 5 2HR Delta 0.00001 ABS# (0-10)
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
--- NOTE | 2025-02-12 10:34 | PC.NURSE ---
Per mother, patient is to have a TILT test soon. Mother reports patient has been having blackouts.
[2025-02-12 14:00] VITALS: BP 92/57; PULSE 73; RESP 18; TEMP 37.1; O2SAT 96
--- NOTE | 2025-02-12 15:26 | W.PM.NPUH&PS ---
Providers/Chief Complaint Admitting Physician: Ar Schulz MD Primary Care Provider: Doyle Barreto MD Chief Complaint: mhe HPI NPU History of Present Illness Yasir Davis is a 34 year old male who presented to the emergency department with the following report: Chief Complaint: Psychiatric Symptoms Stated Complaint: mhe Time Seen by Provider: 02/11/25 17:15 History of Present Illness: 34-year-old male presents emergency room via EMS sparsely nonresponsive. At 1 time patient gave with single verbal response when asked if he was okay he said no. EMS reports that he had a left left his apartment in [facility] and may have been using drugs. Patient does not respond to any verbal or physical stimuli. He has multiple small items in his pockets but that is helpful or informing. Admissions in the past to psychiatry unit. Reviewing the chart it looks like he had extended stays both times. Patient has had similar presentations in the past where he has been minimally responsive. He was admitted to the neuropsychiatric unit for definitive treatment of those issues. He is known to [facility] psychiatry through inpatient and outpatient services. Many of his hospitalizations have been with significant resistance to treatment either through volitional means or through moments of dysfunction that prevented him from participating. An excerpt of his last discharge summary from 2020 is included below for history and context given that he presents today as either and incapable or unwilling participant. It is known that he has had some communication with individuals since he hit the emergency department. However it has been clear that at times he has been mute either selectively or secondary to possible catatonia per staff reports and direct observation. This investment underwriter attempted on multiple occasions to engage him and the final attempt this afternoon he was in his room and had been seen shortly before that time having some limited interaction with other individuals. He was found in his room lying in bed and when this investment underwriter approached him and called his name there was no response. Multiple attempts were made to arouse him. Specifically yelling at 1 point fairly loudly his name, calling his name softly and introducing myself and identifying that we had met before and he should recall. This was without success. At 1 point this investment underwriter gently grabbed a shoulder and another time his thigh and attempted to get him to participate in the evaluation. There were a few times that this investment underwriter struck the clipboard against the wood of the bed and the wall and attempts to elicit even a response of the startle variety without any engagement. He is known from these past services that are noted below as well as outpatient services including the crisis stabilization center significantly as well as [facility] outpatient. During his last hospitalization he did have some difficulty with EPS but did okay on Abilify. I did speak to him while he was in the room telling him that we had reviewed this and were hoping that put him back on the medication that was helpful. His last prescription submitted for estrogen and spironolactone. He has had reports of gender dysphoria at times and possible attempts at transitioning but again he did not answer any questions during the time I was in the room. We discussed the fact that Dr. Davila would be here tomorrow if in fact he did not get up in the next couple hours and speak. Per his 07/24/2021 [facility] inpatient psychiatric discharge summary: Diagnoses at Discharge Discharge Diagnosis (1) Extrapyramidal reaction: Status: Acute (2) Anxiety disorder, unspecified: Status: Chronic (3) Schizotypal personality disorder: Status: Chronic (4) Cannabis abuse: Status: Chronic Reason for Visit Reason for Visit: TIRED; EXCESSIVE SALIVATION Brief History: History of Present Illness Yasir Davis is a 30 year old male who presented to the emergency department with the following report: Chief complaint: General Medical Stated complaint: TIRED; EXCESSIVE SALIVATION Time Seen by Provider: 07/21/21 17:31 History of Present Illness: HPI narrative: 30-year-old male presents emergency room via EMS. He was recently hospitalized in the neuropsychiatric unit for an extended period of time. He was discharged home on 15 mg of Abilify and went to the [facility]. He presents to the emergency room today via EMS complaining of excessive drooling essentially his arms neck being locked into place. On initial arrival he has obviously having extrapyramidal symptoms. He denies any other issues. He is on still been taking his Abilify regularly denies taking any excessive doses. Onset (ago): unknown Location: head, neck and upper extremity Severity: severe Relieving factors: none Exacerbating factors: none Associated symptoms: Deny chest pain, dyspnea, nausea or vomiting. He was admitted to the neuropsychiatric unit for definitive treatment of those issues. Patient known to this investment underwriter from his last hospitalization which started with significant confusion and his inability to be very communicative. We treated and had significant response and he was discharged to [facility] He presented back to the emergency department as identified above secondary to significant EPS. In the emergency department he received Cogentin and Benadryl with positive response essentially verifying the diagnosis. He presents today with limited speech as usual but confirming the stiffening and side effects of EPS that were identified and also reporting improvement with the medications given. We discussed the risk benefits and alternatives of adjusting the medication down to 10 mg p.o. daily of the Abilify and continuing Cogentin and Benadryl as needed to make sure that he can tolerate the medication going forward. He understood agreed to proceed as documented in this note. We reviewed his last inpatient hospitalization and he denies any substantive changes so an excerpt is included below for context. Per his 07/03/2021 [facility] inpatient psychiatric evaluation: History of Present Illness David Huerta is a 30 year old male who presented to the ED with the following report: Chief Complaint: Altered Mental Status Stated Complaint: MHE EVAL Time Seen by Provider: 07/02/21 09:33 History of Present Illness: HPI Narrative: 30-year-old male presents emergency room via EMS. He was stopped by the police for driving a vehicle without tags on it he was unable to answer questions and seemed altered. EMS was called and he was transported here. On arrival here he is not able to answer very many questions he can tell me he has asthma and uses albuterol on produces an albuterol inhaler that is 124 puffs out of it but is from May 2020 the inhaler is also broken. He denies any recent illness. He does state that he was headed to [place] then later when asked about a pain smear on his right forearm states he had been painting in [place] but he cannot tell me who he was with where he stayed or any other details. He denies any suicidal homicidal ideation denies any visual or auditory hallucinations. He does admit to using alcohol yesterday but will not quantify the amount he used he denies any other illicit drug use. Denies any history of suicidal ideation previous psychiatry admissions or mental health diagnoses. MD complaint: altered mental status Onset (ago): unknown Duration: constant History of same: No Relieving factors: none Exacerbating factors: none Associated psychiatric symptoms: none Associated symptoms: Deny auditory hallucinations, visual hallucinations, delusions, depression, homicidal ideation, suicidal ideation or racing thoughts Treatments prior to arrival: none. He was admitted to the neuropsychiatric unit for definitive treatment of those issues. He presents today reporting that he had one psychiatric hospitalization at [facility] in 2017 or 2018 but denies outpatient services or ever being on medication. He reports he did have a suicide attempt in 2012 after his son?s mom was keeping his son away and he did not respond well to that. He endorses smoking two to three packs of cigars a day, drinking alcohol maybe once a week, smoking marijuana daily, but denied any other illicit drug use. He denies ever being in a rehab or having a DUI. He was positive for cannabis on his drug screen. After this, his ability to provide history was very limited with many questions followed by significant pauses and answers of I don?t know. He reports he is here because the hvac r tech pulled him over and took his ID?s and brought him here, but he has no understanding of why they brought him here. He reports his vehicle had no tags and that is what elicited the stop, but beyond that he cannot give any articulated information about what happened. When asked about what could lead to concerns that people were having, that led to him being put on a 96-hour hold, he said he did not know, and then he reported that sometimes he cannot eat because he was poisoned from years ago. He did endorse paranoia and we discussed the risks, benefits, and alternatives of a trial of Abilify, and he understood and agreed to proceed as is documented in this note but was unwilling to start medication at this time. PSYCHIATRIC HISTORY: As above. SUBSTANCE ABUSE HISTORY: As above. FAMILY HISTORY: He reports that there is mental health on his mother?s side including DID and addiction issues on his father?s side. He denies any suicide attempts or completions in the family. DEVELOPMENTAL HISTORY: He denies any issues with his mother?s or delivery of him. He met all developmental milestones on time. He denies learning support, emotional support, or special education classes. He stated that he required speech therapy in school. PSYCHOSOCIAL HISTORY: He reports his parents were together when he was born but ended up splitting up. They had four children together including him as the youngest and his three older sisters. His mother did not have any other children, but he is unsure about whether his father has other children. When asked about his childhood, he had one of the longest pauses that happened during the interview, and then he reported he did not know how his childhood was. He could not explain this, but then when asked specifically about emotional, physical, or sexual abuse, he did not have any, and when I asked how he could not remember his childhood, but knew that there was no abuse, he made some response about his mother asking him did he want some job and somehow the intonation in her voice let him know that everything was alright, but he denied CYS involvement or placement. He graduated from high school and had a few credits of college. He endorses being homosexual with his longest relationship being seven years. He has never been , he has an 11-year-old son with whom he does not have contact, he has never been in the , and does not have any orthodox belief system. His longest employment he reports was in his youth when he worked for [employer] until about 2004 for about three or four years. He is currently homeless; he could not give an approximation of how long that has been the case. LEGAL HISTORY: He endorses he went to longterm one time in 2014 for two weeks. MEDICAL HISTORY: He denied any issues but please see E.D. note for full details. Hospital Course He quickly acclimated to individual, group and milieu therapies. Cogentin was started and Abilify was decreased to 10 mg from 15mg po qdaily with marked improvement. He was able to contract for safety outside of the hospital. During the hospitalization, patient had routine laboratory studies which were within normal limits except for few outliers. Additionally there was a general medical evaluation which was also within normal limits and revealed no new acute processes. Discharge Summary: At the time of discharge, he denied psychosis or lethality. Mood and anxiety were well managed. Patient endorsed a plan to avoid all drugs of abuse and follow-up with the aftercare recommendations of the treatment team. Patient was evaluated and deemed to be absent credible lethality, and had achieved the maximum benefit from an inpatient hospitalization, so was discharged. Meds NPU Home Medications ?Medication ?Instructions ?Recorded ?Confirmed ?Last Taken ?Type fluticasone propionate 50 2 spray intranasal BID PRN 07/26/24 02/11/25 Unknown History mcg/actuation nasal Congestion spray,suspension (Flonase Allergy Relief) estradiol 2 mg tablet (Estrace) 2 mg PO BID 02/11/25 02/11/25 Unknown History spironolactone 25 mg tablet 25 mg PO BID 02/11/25 02/11/25 Unknown History (Aldactone) Allergies Allergy/AdvReac Type Severity Reaction Status Date / Time aripiprazole (From [facility]) Allergy Intermediate Drooling Verified 02/10/25 10:08 clonazepam Allergy Unknown Verified 02/10/25 10:08 mirtazapine AdvReac ADR-Confusi Verified 02/10/25 10:08 on risperidone AdvReac ADR-Confusi Verified 02/10/25 10:08 on PFSH NPU PFSH: Medical History Schizophrenia History of schizotypal personality disorder Psychiatric care Surgical History No pertinent past surgical history Family History Other Psychiatric illness Stroke Social History Smoking and tobacco/nicotine status: never used tobacco/nicotine Second hand smoke exposure: Yes Alcohol intake: current Alcohol intake frequency: holidays/special occasions only Alcohol type: hard liquor Substance/Drug Use: current Substance/Drug use frequency: few times a week Adopted: No Caregiver/support person: No Lives independently: Yes Household members: none Housing: Apartment Marital status: Single Number of children: 1 Highest education level completed: High School Graduate service: No Current occupational status: disabled Pets and animals: No Leisure activites: music and games Sexually active: Yes Are you practicing safe sex: Yes Do you think of yourself as: Lesbian/Winslow/Homosexual Current gender identity: Trans [id number] Surekha/Anabaptism: Sabianist Special surekha needs: No Agree to transfusion: Yes Mental Status Exam MSE Comments: This is an underweight, white male, with hospital scrubs on with adequate grooming and no eye contact. No abnormal movements or tics noted except for psychomotor retardation. He was mute and appeared to pretend that he did not hear this investment underwriter and was asleep. Mood not described, affect appeared not to hear investment underwriter or respond to being shaken. Thought process: Not observed. Thought content: patient did not respond to any questions or sounds while this investment underwriter was in the room. Vitals/I&O/Wt Last Vital Signs Temp 98.5 F 02/11/25 17:10 Pulse 100 02/11/25 17:10 Resp 16 02/11/25 17:10 BP 118/78 02/11/25 17:10 Pulse Ox 95 02/11/25 17:10 O2 Del Method Room Air 02/11/25 22:23 Weight last 48 hrs Weight 72.575 kg Data NPU 02/11/25 18:01 02/11/25 18:01 Micro: Microbiology 02/11/25 17:58 Blood Culture - Preliminary Blood SPECIMEN COLLECTED 02/11/25 18:01 Blood Culture - Preliminary Blood SPECIMEN COLLECTED Microbiology 02/11/25 17:58 Blood Blood Culture - Preliminary SPECIMEN COLLECTED 02/11/25 18:01 Blood Blood Culture - Preliminary SPECIMEN COLLECTED A&P Assessment and plan (1) Schizophrenia: (2) Psychosis: (3) Schizotypal personality disorder: (4) Unspecified personality disorder: Plan This is a 34-year-old male who has reported double-digit hospitalizations in the past and has had some hospitalizations where he has been either avoidance of sharing some facts more was disorganized at a level where he was unable to make a effectively presents to get either resistant or possibly catatonic apparently not on any antipsychotics or medication for his mental health challenge. Plan: 1.? Continue current medication. Need to restart past medications and likely antipsychotic. 2.? Continue every 15 minute checks for safety. 3.? Encourage individual, group and milieu therapies. 4.? Encourage sober living treatment after discharge at the highest level of care to which he is willing to commit. 5. Obtain collateral information. 6. Evaluate against the backdrop of the 96-hour hold. PDMP PDMP Reviewed: Not Reviewed Involuntary Hold Information 96 Hour Hold: 96 Hour Involuntary Admission: No Attestations NPU Medical Necessity Statement*: Inpatient hospitalization is medically necessary and the clinically appropriate intervention at this time expected to cross 2 midnights and we will initiate medications and make changes as indicated.? Likely length of stay 7-10 days. Coding Level of Care Code Acute Code for [facility] Fwd Diagnoses Schizophrenia F20.9 Psychosis F29 Schizotypal personality disorder F21 Unspecified personality disorder F60.9
--- NOTE | 2025-02-12 16:45 | PC.NURSE ---
During morning assessment, patient would not respond to this morning's questions. Patient would not uncover his head or respond in any fashion. This nurse tried to persuade patient to rouse by bringing lunch and drinks. Still nothing. Then at 1450, a visitor came. When this nurse asked patient if he was willing to visit, patient was able to reply. This nurse applied a telfa and tegaderm on patient's right AC at patient's request, to cover bruising. Patient's VS were obtained. Patient then went to dayroom for visitation. Patient later said that he no longer wants his mother to have information about his care
[2025-02-12 22:00] VITALS: BP 104/69; PULSE 76; RESP 16; TEMP 36.9; O2SAT 95
[2025-02-13 05:53] VITALS: BP 112/76; PULSE 100; RESP 18; O2SAT 94
[2025-02-13 14:00] VITALS: BP 91/65; PULSE 80; RESP 16; O2SAT 95
--- NOTE | 2025-02-13 18:00 | P.NPUPN_ITS ---
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 The patient's urine was positive for marijuana only. He was unable to provide any information regarding why he was placed in the hospital. He had been isolative and remained in his room. He had expressed that he had a place to live and initially was unable to provide information where he was living but when asked if he wished to go home soon he had provided the address relatively quickly. He had reported no problems currently. He continued to appear somewhat aloof and guarded here on the milieu. He had stated that he was currently not taking any medications. Mental Status Exam 2 MSE Comments: The patient was lying completely covered by the blankets and did not take his head or any body part out of the blankets throughout the interview. He appeared in no acute distress. His gait was not tested. His hygiene was difficult to assess. There was no evidence of any abnormal involuntary motor movements, tics, or tremors appreciated. His mood was not endorsed. His affect was difficult to assess. His thought process was mostly linear and superficial. He did not endorse any homicidal or suicidal ideation. He denied any auditory or visual hallucinations. There was evidence of paranoia. His insight and judgment appeared impaired. His impulse control appeared limited. Vitals/I&O/Wt Last Vital Signs Temp 98.5 F 02/12/25 22:00 Pulse 80 02/13/25 14:00 Resp 16 02/13/25 14:00 BP 91/65 02/13/25 14:00 Pulse Ox 95 02/13/25 14:00 O2 Del Method Room Air 02/12/25 14:00 Weight last 48 hrs Weight 72.575 kg Data NPU 02/11/25 18:01 02/11/25 18:01 Micro: Microbiology 02/11/25 17:58 Blood Culture - Preliminary Blood NEGATIVE TO DATE 02/11/25 18:01 Blood Culture - Preliminary Blood NEGATIVE TO DATE Microbiology 02/11/25 17:58 Blood Blood Culture - Preliminary NEGATIVE TO DATE 02/11/25 18:01 Blood Blood Culture - Preliminary NEGATIVE TO DATE A&P Assessment and plan (1) Schizophrenia: (2) Psychosis: (3) Schizotypal personality disorder: (4) Unspecified personality disorder: Plan This is a 34-year-old male who has reported double-digit hospitalizations in the past and has had some hospitalizations where he has been either avoidance of sharing some facts more was disorganized at a level where he was unable to make a effectively presents to get either resistant or possibly catatonic apparently not on any antipsychotics or medication for his mental health challenge. Plan: 1.? Patient on no medication, may likely benefit from antipsychotic medication. 2.? Continue every 15 minute checks for safety. 3.? Encourage individual, group and milieu therapies. 4.? Encourage sober living treatment after discharge at the highest level of care to which he is willing to commit. 5. Obtain collateral information. 6. Evaluate against the backdrop of the 96-hour hold. PDMP PDMP Reviewed: Not Reviewed Involuntary Hold Information 2 96 Hour Hold: 96 Hour Involuntary Admission: No Attestations NPU 2 Medical Necessity Statement*: Inpatient hospitalization is medically necessary and the clinically appropriate intervention at this time expected to cross 2 midnights and we will initiate medications and make changes as indicated.? Likely length of stay 7-10 days. Coding Level of Care Code Acute Code for [facility] Fwd Diagnoses Schizophrenia F20.9 Psychosis F29 Schizotypal personality disorder F21 Unspecified personality disorder F60.9
[2025-02-13] MEDS: hyDROXYzine 25 mg Capsule 50 MG PO (20:22)
[2025-02-13] MEDS: trazodone 50 mg Tablet PO (20:22)
--- NOTE | 2025-02-13 20:27 | PC.NURSE ---
Pt. refused Invega stating it caused him to black out when he was on it about 23 months ago and he fell causing him to have to have rosette in his head.
[2025-02-13 21:07] VITALS: BP 93/57; PULSE 72; RESP 16; TEMP 36.9; O2SAT 96
[2025-02-14 06:00] VITALS: BP 90/55; PULSE 86; RESP 16; TEMP 36.9; O2SAT 96
--- NOTE | 2025-02-14 09:47 | PC.NURSE ---
[facility] employment evaluator/case manager Xochitl present, talking with patient and Eva in dayroom. Patient does not seem distressed
[2025-02-14 14:00] VITALS: BP 96/56; PULSE 75; RESP 13; TEMP 37.2; O2SAT 95
--- NOTE | 2025-02-14 17:51 | P.NPUPN_ITS ---
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 The patient had reported that he was feeling better. He reported no suicidal or homicidal thoughts. He had continued to isolate himself on the milieu. He had reported that he had a place to live. He had reported that he had been upset at seeing a friend of his and that this had led him to coming into the hospital. The patient had not showed evidence of any catatonia today. He continued to struggle with completion of activities of daily living without prompting. He reported no side effects from his Invega. Mental Status Exam 2 MSE Comments: The patient was lying completely covered by the blankets but did reveal himself today to junior copywriter. He appeared in no acute distress. His gait was not tested. His hygiene was difficult to assess. There was no evidence of any abnormal involuntary motor movements, tics, or tremors appreciated. His mood was reported as okay. His affect was odd. His thought process was mostly linear and superficial. He did not endorse any homicidal or suicidal ideation. There was an overall poverty of content. He denied any auditory or visual hallucinations. There was no clear evidence of paranoia. His insight and judgment appeared impaired. His impulse control appeared limited. 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 Plan: 1.? Continue invega 3mg daily. 2.? Continue every 15 minute checks for safety. 3.? Encourage individual, group and milieu therapies. 4.? Encourage sober living treatment after discharge at the highest level of care to which he is willing to commit. 5. Obtain collateral information. 6. Evaluate against the backdrop of the 96-hour hold. PDMP PDMP Reviewed: Not Reviewed Involuntary Hold Information 2 96 Hour Hold: 96 Hour Involuntary Admission: No Attestations NPU 2 Medical Necessity Statement*: Inpatient hospitalization is medically necessary and the clinically appropriate intervention at this time expected to cross 2 midnights and we will initiate medications and make changes as indicated.? Likely length of stay 3-4 days. 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
[2025-02-14 20:36] VITALS: BP 96/64; PULSE 73; RESP 16; TEMP 37.1; O2SAT 96
[2025-02-14] MEDS: hyDROXYzine 25 mg Capsule 50 MG PO (20:44)
[2025-02-14] MEDS: trazodone 50 mg Tablet PO (20:44)
[2025-02-14] MEDS: paliperidone ER 3 mg Tablet PO (20:44)
[2025-02-15 06:00] VITALS: BP 84/51; PULSE 76; RESP 16; TEMP 37.2; O2SAT 95
[2025-02-15 14:00] VITALS: BP 95/64; PULSE 78; RESP 16; TEMP 36.7; O2SAT 95
--- NOTE | 2025-02-15 16:26 | P.NPUPN_ITS ---
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 The patient had reported that he was feeling better. The patient had stated that he was continuing to feel better. He had remained isolative in his room and did struggle with oral intake. The patient had apparently had episodes of lightheadedness and possible hypotension from Invega in the past as this had been discontinued on an outpatient basis. He had reported no contact from any peers and stated that he had been doing better while visiting his hospice case manager on a near daily basis here in town. He had reported limited social supports but reports that he had been able to manage and maintain safety at home. Mental Status Exam 2 MSE Comments: The patient was nearly naked on underneath the covers. He appeared in no acute distress. His gait was not tested. His hygiene was poor. There was no evidence of any abnormal involuntary motor movements, tics, or tremors appreciated. His mood was reported as allright. His affect was odd and subdued. His thought process was mostly linear and superficial. He did not endorse any homicidal or suicidal ideation. There was an overall poverty of content. He denied any auditory or visual hallucinations. There was no clear evidence of paranoia. His insight and judgment appeared impaired. His impulse control appeared limited. 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 Plan: 1.? Hold on invega tonight. 2.? Continue every 15 minute checks for safety. 3.? Encourage individual, group and milieu therapies. 4.? Encourage sober living treatment after discharge at the highest level of care to which he is willing to commit. 5. Obtain collateral information. 6. Evaluate against the backdrop of the 96-hour hold. PDMP PDMP Reviewed: Not Reviewed Involuntary Hold Information 2 96 Hour Hold: 96 Hour Involuntary Admission: No Attestations NPU 2 Medical Necessity Statement*: Inpatient hospitalization is medically necessary and the clinically appropriate intervention at this time expected to cross 2 midnights and we will initiate medications and make changes as indicated.? Likely length of stay 1-2 days. 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
[2025-02-15 20:48] VITALS: BP 113/77; PULSE 90; RESP 17; TEMP 37; O2SAT 95
[2025-02-16 06:00] VITALS: BP 111/71; PULSE 76; RESP 17; TEMP 37; O2SAT 96
--- NOTE | 2025-02-16 09:22 | DCPLANNER ---
Imm was given to pt and rights explained. Copy placed in pt file.
[2025-02-16 13:04] VITALS: BP 111/71; PULSE 76; RESP 17; TEMP 37; O2SAT 96
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
== END 2025-02-16 13:28 | disposition home or self-care (01) | DRG 885 ==
LOC: ER 20:39 → NP 21:18
PROVIDERS: Admitting Provider Psychiatry & Neurology Psychiatry; Emergency Provider Family Medicine; PCP Family Medicine; Visit Provider Psychiatry & Neurology Psychiatry
DX: F25.9 Schizoaffective disorder, unspecified (principal); Z59.00 Homelessness unspecified; Z79.890 Hormone replacement therapy; F64.9 Gender identity disorder, unspecified
CPT/HCPCS: 36415; 70450; 71045; 80053; 80306; 80307; 81001; 83605; 83690; 83735; 84484; 85025; 87040; 87637; 93005; 97150; 97165; 99285; J9999

== ENCOUNTER 2025-02-23 10:34 | Inpatient (IN) | payer MEDICARE, SELFPAY ==
[2024-08-30 09:59] VITALS: BP 126/85; BMI 28.5
[2025-02-23] VITALS (7 sets, daily range): BP systolic 94–123; BP diastolic 58–80; PULSE 73–99; RESP 16–18; TEMP 36.8–37.4; O2SAT 94–100
--- NOTE | 2025-02-23 10:40 | ED.C_ITS ---
HPI - Psych General: Chief Complaint: Psychiatric Symptoms Stated Complaint: SI Time Seen by Provider: 02/23/25 10:35 Source: patient and EMS Mode of arrival: EMS Limitations: no limitations History of Present Illness: 34-year-old male with a history of schiz ophrenia along with depression he has had previous suicidal attempt in the past as well. Patient found a friend 2 weeks ago he has had increased depression he did have a recent admission but states that over the last week he has been extremely depressed and having suicidal thoughts. Associated symptoms: Reports depression and suicidal ideation Related Data Home Medications ?Medication ?Instructions ?Recorded ?Confirmed fluticasone propionate 50 2 spray intranasal BID PRN 1 02/16/25 mcg/actuation nasal Congestion spray,suspension (Flonase Allergy Relief) estradiol 2 mg tablet (Estrace) 2 mg PO BID 02/11/25 0 02/16/25 spironolactone 25 mg tablet 25 mg PO BID 02/11/2505/06 (Aldactone) Allergies Allergy/AdvReac Type Severity Reaction Status Date / Time aripiprazole (From [facility]) Allergy Intermediate Drooling Verified 02/10/25 10:08 clonazepam Allergy Unknown Verified 02/10/25 10:08 mirtazapine AdvReac ADR-Confusi Verified 02/10/25 10:08 on paliperidone AdvReac ADR-Faintin Verified 02/23/25 08:14 g risperidone AdvReac ADR-Confusi Verified 02/10/25 10:08 on Review of Systems Const: Denies: fever(s), chills, body aches or change in appetite ENMT: Denies: throat pain or dental pain Card: Denies: chest pain Resp: Denies: dyspnea GI: Denies: abdominal pain, nausea, vomiting or diarrhea Musc: Denies: neck pain or back pain Skin/Breast: Denies: rash Neuro: Denies: headache(s) Psych: Reports: depression and suicidal ideation [facility] ED PFSH: Medical History Schizophrenia History of schizotypal personality disorder Psychiatric care Surgical History No pertinent past surgical history Family History Other Psychiatric illness Stroke Social History Smoking and tobacco/nicotine status: never used tobacco/nicotine Second hand smoke exposure: Yes Alcohol intake: current Alcohol intake frequency: holidays/special occasions only Alcohol type: hard liquor Substance/Drug Use: current Substance/Drug use frequency: few times a week Adopted: No Caregiver/support person: No Lives independently: Yes Household members: none Housing: Apartment Marital status: Single Number of children: 1 Highest education level completed: High School Graduate service: No Current occupational status: disabled Pets and animals: No Leisure activites: music and games Sexually active: Yes Are you practicing safe sex: Yes Do you think of yourself as: Lesbian/[place]/Homosexual Current gender identity: Trans [id number] Surekha/Rastafarian: Zoroastrian Special surekha needs: No Agree to transfusion: Yes Physical Exam Const: COMMON NORMALS: no acute distress, patient oriented x3 and healthy appearing HENMT: COMMON NORMALS: normocephalic and atraumatic HEAD & SCALP: normocephalic and atraumatic Neck/C-Spine: COMMON NORMALS: full ROM and supple Chest: COMMONS NORMALS: normal inspection of the chest Resp: COMMON NORMALS: normal respiratory effort Cardio: COMMON NORMALS: regular rate RATE: regular rate Extremity: COMMON NORMALS: normal to inspection and full ROM Neuro: COMMON NORMALS: patient oriented x3, moves all extremities and no focal motor deficits Psych: COMMON NORMALS: mental status grossly normal, Normal thought process present and cooperative MOOD & AFFECT: Yes depressed mood THOUGHT PROCESS: Normal thought process present THOUGHT CONTENT: Yes Suicidality present Skin: COMMON NORMALS: no rashes or lesions noted and no wounds GENERAL SKIN EXAM: no rashes or lesions noted Course Vital Signs: Vital signs: Vital Signs Temperature 98.3 F 02/23/25 10:35 Pulse Rate 84 02/23/25 10:35 Respiratory Rate 18 02/23/25 10:35 Blood Pressure 123/80 02/23/25 10:35 Pulse Oximetry 96 02/23/25 10:35 Oxygen Delivery Me thod Room Air 02/23/25 10:35 MDM - Psych Medical Decision Making Patient presents here with suicidal ideation he is medically cleared I spoke to psychiatrist will admit at this time. Medical Records I reviewed the patient's medical records. Lab Data I reviewed the patient's lab results. No radiology studies performed this visit Discharge Plan Discharge Condition: Stable Prescriptions: No Action fluticasone propionate [Flonase Allergy Relief] 50 mcg/actuation spray,suspension 2 spray intranasal BID PRN (Reason: Congestion) spironolactone [Aldactone] 25 mg tablet 25 mg PO BID estradiol [Estrace] 2 mg tablet 2 mg PO BID Referrals: Doyle Barreto MD [Primary Care Provider, Family Practice] Print Language: Maori Coding Level of Care Code ED Clock Repairer for Mandeep Hammond
[2025-02-23] MEDS: LORazepam 1 mg Tablet PO (10:50)
[2025-02-23 11:07] LABS: Basophils # 0.1 10^3/uL (0.0-0.1); Basophils % 0.7 %; Eosinophils # 0.1 10^3/uL (0.0-0.8); Eosinophils % 1.2 %; Hematocrit 39.2 % (37-53); Lymphocytes % 21.1 %; Mean Corpuscular HGB Conc 33.4 g/dL (30-55); Mean Corpuscular Hemoglobin 30.8 pg (27-33); Mean Corpuscular Volume 92.2 fl (82-101); Mean Platelet Volume 12.1 fL (7.4-10.4); Monocytes # 0.6 10^3/uL (0.2-0.9); Monocytes % 6.5 %; Neutrophils # 6.53 10^3/uL (1.8-7.7); Neutrophils % 69.9 %; Nucleated Red Blood Cells % 0 %; Platelet Count 246 10^3/cmm (157-399); Red Blood Count 4.25 10^6/uL (3.85-5.65); Red Cell Distribution Width 12.6 % (12.1-15.1); White Blood Count 9.35 10^3/uL (3.29-11.43)
--- NOTE | 2025-02-23 11:11 | PC.NURSE ---
96 hour hold rights read to patient at 1102 in chahal bed in the ER. Patient verbalized understanding.
[2025-02-23 11:24] LABS: Alanine Aminotransferase 25 U/L (0-41); Albumin Level 4.4 g/dL (3.5-5.2); Alkaline Phosphatase 79 U/L (40-130); Anion Gap 15.1 (5-19); Aspartate Amino Transferase 17 U/L (0-40); Blood Urea Nitrogen 6 mg/dL (6-20); Calcium 9.1 mg/dL (8.5-10.5); Carbon Dioxide 24 mmol/L (22-29); Chloride 103 mmol/L (98-107); Creatinine Clr Calc Pharmacy 160.7068; Globulin 2.5 g/dL (1.3-4.6); Glomerular Filtration Rate 154.2 mL/min (90-130); Glucose 112 mg/dL (65-115); Osmolality Calculated 286 mOsm/kg (285-295); Potassium 3.1 mmol/L (3.5-5.1); Sodium 139 mmol/L (136-145); Total Bilirubin 0.5 mg/dL (0.15-1.2); Total Protein 6.9 g/dL (6.6-8.7)
[2025-02-23 11:32] LABS: Acetaminophen < 5.0 ug/mL (10-30); Alcohol Level < 10 mg/dL (0-10); Salicylate < 0.3 mg/dL (3-10)
--- NOTE | 2025-02-23 14:05 | PC.NURSE ---
SEE FLOW SHEET.
[2025-02-23] MEDS: albuterol 2.5 mg/3 mL Neb INHALATION (16:45)
[2025-02-23] MEDS: estradiol 1 mg Tablet 2 MG PO (18:04)
[2025-02-23] MEDS: spironolactone 25 mg Tablet PO (18:04)
[2025-02-24 06:00] VITALS: BP 101/55; PULSE 75; RESP 16; O2SAT 95
[2025-02-24] MEDS: estradiol 1 mg Tablet 2 MG PO ×2 (08:59→18:19)
[2025-02-24] MEDS: spironolactone 25 mg Tablet PO ×2 (08:59→18:19)
[2025-02-24] MEDS: nicotine 2 mg Gum BUCCAL (09:08)
--- NOTE | 2025-02-24 09:10 | PC.NURSE ---
Morning assessment Patient denies SI, HI, AVH, depression and anxiety. Patient has flat affect. Patient denies any questions or concerns.
[2025-02-24 11:36] VITALS: O2SAT 99
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
[2025-02-24] MEDS: CAPLYTA 42 MG PO (13:30)
[2025-02-24 14:00] VITALS: BP 93/55; PULSE 90; RESP 18; TEMP 37.1; O2SAT 96
[2025-02-24 20:26] VITALS: BP 93/60; PULSE 88; RESP 16; TEMP 36.4; O2SAT 97
[2025-02-25 06:00] VITALS: BP 91/56; PULSE 75; RESP 17; TEMP 36.8; O2SAT 97
[2025-02-25] MEDS: CAPLYTA 42 MG PO (08:08)
[2025-02-25] MEDS: nicotine 2 mg Gum BUCCAL (08:08)
[2025-02-25] MEDS: estradiol 1 mg Tablet 2 MG PO (08:09)
[2025-02-25] MEDS: spironolactone 25 mg Tablet PO (08:09)
--- NOTE | 2025-02-25 09:29 | PC.NURSE ---
Morning assessment During morning assessment, patient refused to acknowledge this nurse. Patient resting in bed on back with head covered by blanket. Respirations observed.
[2025-02-25 14:00] VITALS: RESP 16
--- NOTE | 2025-02-25 14:26 | P.NPUPN_ITS ---
Subjective NPU 2 Subjective: Patient presented today being mute as he has been last 2 times that we have engaged 1 another. Never opened his eyes he was staying out of the cover he was not reactive in any way. It was noteworthy that his breathing was very normal and did not change during any time this marine underwriter was in the room. He did not respond to any questions nor did he open his eyes. Mental Status Exam 2 MSE Comments: This is an underweight, white male, with hospital scrubs on with adequate grooming and no eye contact. No abnormal movements or tics noted except for psychomotor retardation. He was mute and appeared to pretend that he did not hear this marine underwriter and was asleep. Mood not described, affect appeared not to hear marine underwriter or respond to being shaken. Thought process: Not observed. Thought content: patient did not respond to any questions or sounds while this marine underwriter was in the room. Vitals/I&O/Wt Last Vital Signs Temp 98.3 F 02/25/25 06:00 Pulse 75 02/25/25 06:00 Resp 17 02/25/25 06:00 BP 91/56 02/25/25 06:00 Pulse Ox 97 02/25/25 06:00 O2 Del Method Room Air 02/25/25 06:00 Data NPU 02/23/25 11:03 02/23/25 11:03 A&P Assessment and plan (1) Schizophrenia: (2) Psychosis: (3) Schizotypal personality disorder: (4) Unspecified personality disorder: Plan This is a 34-year-old male with multiple inpatient hospitalizations who once again presents 1 week after last discharge with suicidal ideation and evidence of continued psychosis. He continues to show significant negative symptoms of schizophrenia with some continued difficulties with his thinking patterns with evidence of derailment and general poverty of content. He would be a good candidate for trial of an antipsychotic at this time. There remains concerns by others that the patient may have been having declining mood and functioning since the initiation of medications including spironolactone and estradiol to help with transition from 1 gender to another. This will need to be investigated further. Plan: 1.? Begin Caplyta 42mg daily. 2.? Continue every 15 minute checks for safety. 3.? Encourage individual, group and milieu therapies. 4.? Encourage sober living treatment after discharge at the highest level of care to which he is willing to commit. 5. Obtain collateral information. 6. Evaluate against the backdrop of the 96-hour hold. PDMP PDMP Reviewed: Not Reviewed Involuntary Hold Information 2 Hold Status: Legal Status: 96 Hour Hold Date/Time Hold Expires: 03/01/25 @ 10:46 96 Hour Hold: 96 Hour Involuntary Admission: No Attestations NPU 2 Medical Necessity Statement*: Inpatient hospitalization is medically necessary and the clinically appropriate intervention at this time expected to cross 2 midnights and we will initiate medications and make changes as indicated.? Likely length of stay 7-10 days. Coding Level of Care Code Acute Code for Chg Fwd Diagnoses Schizophrenia F20.9 Psychosis F29 Schizotypal personality disorder F21 Unspecified personality disorder F60.9
--- NOTE | 2025-02-25 18:34 | PC.NURSE ---
Patient refusing 1800 medications of spironolactone and estrace. Patient not responding to this nurse. Patient laying in bed with blanket over head. Respirations present, even and unlabored. Medications returned to Pyxis.
[2025-02-25 21:52] VITALS: RESP 16
[2025-02-26 06:00] VITALS: BP 96/56; PULSE 84; RESP 16; O2SAT 96
[2025-02-26] MEDS: spironolactone 25 mg Tablet PO ×2 (09:03→17:28)
[2025-02-26] MEDS: nicotine 2 mg Gum BUCCAL (09:03)
[2025-02-26] MEDS: estradiol 1 mg Tablet 2 MG PO ×2 (09:03→17:28)
[2025-02-26] MEDS: CAPLYTA 42 MG PO (09:04)
--- NOTE | 2025-02-26 12:07 | W.PM.NPUPNS ---
Subjective NPU Subjective: Patient presented today continuing to struggle with isolation and being mute at this point in his likely that he is being selectively mute and he continues to have the same engagement pattern or lack of engagement pattern with staff in general. He is very isolative and stays in his room with the blankets pulled over him and wrapped around him fairly tightly. He continues to be noncommunicative with this commercial insurance underwriter. Mental Status Exam MSE Comments: This is an underweight, white male, with hospital scrubs on with adequate grooming and no eye contact. No abnormal movements or tics noted except for psychomotor retardation. He was mute and appeared to pretend that he did not hear this commercial insurance underwriter and was asleep. Mood not described, affect appeared not to hear commercial insurance underwriter or respond to being shaken. Thought process: Not observed. Thought content: patient did not respond to any questions or sounds while this commercial insurance underwriter was in the room. 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 He continues to show significant negative symptoms of schizophrenia with some continued difficulties with his thinking patterns with evidence of derailment and general poverty of content. He would be a good candidate for trial of an antipsychotic at this time. There remains concerns by others that the patient may have been having declining mood and functioning since the initiation of medications including spironolactone and estradiol to help with transition from 1 gender to another. This will need to be investigated further. Plan: 1.? Begin Caplyta 42mg daily. 2.? Continue every 15 minute checks for safety. 3.? Encourage individual, group and milieu therapies. 4.? Encourage sober living treatment after discharge at the highest level of care to which he is willing to commit. 5. Obtain collateral information. 6. Evaluate against the backdrop of the 96-hour hold. PDMP PDMP Reviewed: Not Reviewed Involuntary Hold Information Hold Status: Legal Status: 96 Hour Hold Date/Time Hold Expires: 03/01/25 @ 10:46 96 Hour Hold: 96 Hour Involuntary Admission: No Attestations NPU Medical Necessity Statement*: Inpatient hospitalization is medically necessary and the clinically appropriate intervention at this time. We will monitor/initiate medications and make changes as indicated.? Likely length of stay 7-10 days. Coding Level of Care Code Acute Code for [facility] Fwd Diagnoses Schizophrenia F20.9 Psychosis F29 Schizotypal personality disorder F21 Unspecified personality disorder F60.9
[2025-02-26 14:00] VITALS: BP 95/60; PULSE 91; RESP 17; O2SAT 94
[2025-02-26 21:14] VITALS: BP 95/62; PULSE 79; RESP 17; TEMP 37; O2SAT 96; BMI 24.3
[2025-02-27 06:00] VITALS: BP 94/58; PULSE 82; RESP 16; TEMP 36.4; O2SAT 96
--- NOTE | 2025-02-27 08:18 | P.NPUPN_ITS ---
Subjective NPU 2 Subjective: Patient presented today reporting that he was feeling okay. He actually took his blanket from off of his head and spoke to this magnetic tape typewriter operator for the first time. He is reporting that things have been challenging recently but was not more specific. He agreed that we would be able to talk more and get a better sense of his situation. He denied any side effects of the medication. Mental Status Exam 2 MSE Comments: This is an underweight, white male, with hospital scrubs on with adequate grooming and no eye contact. No abnormal movements or tics noted except for decreasing psychomotor retardation. He was more cooperative with exam in mild distress. Speech was more normal rate and volume. Mood described as okay, affect slightly subdued. Thought process organized. Thought content: Patient denied suicidal or homicidal ideation, there were no delusions reported or noted, he denied current auditory or visual hallucinations. Attention and concentration were limited and memory was mostly unreliable but no more formally tested. He was alert and oriented to person and place. Insight and judgment are impaired and impulse control is impaired. 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 He continues to show significant negative symptoms of schizophrenia with some continued difficulties with his thinking patterns with evidence of derailment and general poverty of content. He would be a good candidate for trial of an antipsychotic at this time. There remains concerns by others that the patient may have been having declining mood and functioning since the initiation of medications including spironolactone and estradiol to help with transition from 1 gender to another. This will need to be investigated further. Plan: 1.? Begin Caplyta 42mg daily. 2.? Continue every 15 minute checks for safety. 3.? Encourage individual, group and milieu therapies. 4.? Encourage sober living treatment after discharge at the highest level of care to which he is willing to commit. 5. Obtain collateral information. 6. Evaluate against the backdrop of the 96-hour hold. PDMP PDMP Reviewed: Not Reviewed Involuntary Hold Information 2 Hold Status: Legal Status: 96 Hour Hold Date/Time Hold Expires: 03/01/25 @ 10:46 96 Hour Hold: 96 Hour Involuntary Admission: No Attestations NPU 2 Medical Necessity Statement*: Inpatient hospitalization is medically necessary and the clinically appropriate intervention at this time. We will monitor/initiate medications and make changes as indicated.? Likely length of stay 7-10 days. Coding Level of Care Code Acute Code for [facility] Fwd Diagnoses Schizophrenia F20.9 Psychosis F29 Schizotypal personality disorder F21 Unspecified personality disorder F60.9
[2025-02-27] MEDS: CAPLYTA 42 MG PO (08:34)
[2025-02-27] MEDS: spironolactone 25 mg Tablet PO ×2 (08:34→17:45)
[2025-02-27] MEDS: estradiol 1 mg Tablet 2 MG PO ×2 (08:34→17:46)
[2025-02-27 10:28] LABS: Amphetamines Screen Urine Negative (Negative); Barbiturates Screen Urine Negative (Negative); Benzodiazepines Screen Urine Negative (Negative); Cocaine Screen Urine Negative (Negative); Opiate Screen Urine Negative (Negative); PCP Screen Urine Negative (Negative); THC Screen Urine Negative (Negative)
[2025-02-27 14:00] VITALS: BP 103/60; PULSE 77; RESP 16; TEMP 37.1; O2SAT 95
[2025-02-27] MEDS: nicotine 2 mg Gum BUCCAL (17:03)
[2025-02-27 20:25] VITALS: BP 99/63; PULSE 73; RESP 16; TEMP 36.8; O2SAT 96
[2025-02-28 06:00] VITALS: BP 107/64; PULSE 75; RESP 16; TEMP 37.1; O2SAT 98
[2025-02-28] MEDS: CAPLYTA 42 MG PO (08:18)
[2025-02-28] MEDS: estradiol 1 mg Tablet 2 MG PO ×2 (08:19→17:55)
[2025-02-28] MEDS: spironolactone 25 mg Tablet PO ×2 (08:19→17:55)
[2025-02-28] MEDS: acetaminophen 325 mg Tablet 650 MG PO (09:14)
[2025-02-28 14:00] VITALS: BP 103/58; PULSE 73; RESP 16; TEMP 36.7; O2SAT 95
--- NOTE | 2025-02-28 18:02 | P.NPUPN_ITS ---
Subjective NPU 2 Subjective: Patient presented again today mute reverting back to his previous interactions. He was under the blanket again and appeared to be reading a book and was not engageable by this mortgage loan underwriter. Staff reports that he was less engaging with other individuals today without any report of why he is gone back to how he was being before. No additional changes noted. Mental Status Exam 2 MSE Comments: This is an underweight, white male, with hospital scrubs on with adequate grooming and no eye contact. No abnormal movements or tics noted except for psychomotor retardation. He was mute and appeared to pretend that he did not hear this mortgage loan underwriter and was asleep. Mood not described, affect appeared not to hear mortgage loan underwriter or respond to being shaken. Thought process: Not observed. Thought content: patient did not respond to any questions or sounds while this mortgage loan underwriter was in the room. 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 He continues to show significant negative symptoms of schizophrenia with some continued difficulties with his thinking patterns with evidence of derailment and general poverty of content. He would be a good candidate for trial of an antipsychotic at this time. There remains concerns by others that the patient may have been having declining mood and functioning since the initiation of medications including spironolactone and estradiol to help with transition from 1 gender to another. This will need to be investigated further. Plan: 1.? Begin Caplyta 42mg daily. 2.? Continue every 15 minute checks for safety. 3.? Encourage individual, group and milieu therapies. 4.? Encourage sober living treatment after discharge at the highest level of care to which he is willing to commit. 5. Obtain collateral information. 6. Evaluate against the backdrop of the 96-hour hold. PDMP PDMP Reviewed: Not Reviewed Involuntary Hold Information 2 Hold Status: Legal Status: 96 Hour Hold Date/Time Hold Expires: 03/01/25 @ 10:46 96 Hour Hold: 96 Hour Involuntary Admission: No Attestations NPU 2 Medical Necessity Statement*: Inpatient hospitalization is medically necessary and the clinically appropriate intervention at this time. We will monitor/initiate medications and make changes as indicated.? Likely length of stay days. Coding Level of Care Code Acute Code for Chg Fwd Diagnoses Schizophrenia F20.9 Psychosis F29 Schizotypal personality disorder F21 Unspecified personality disorder F60.9
[2025-02-28 20:03] VITALS: BP 106/69; PULSE 78; RESP 16; O2SAT 95
[2025-03-01 06:00] VITALS: BP 107/69; PULSE 74; RESP 17; O2SAT 96
[2025-03-01] MEDS: estradiol 1 mg Tablet 2 MG PO (08:25)
[2025-03-01] MEDS: spironolactone 25 mg Tablet PO (08:25)
--- NOTE | 2025-03-01 11:10 | W.PM.NPUDCS ---
Diagnoses at Discharge Discharge Diagnosis (1) Schizophrenia: Status: Chronic (2) Psychosis: Status: Resolved (3) Schizotypal personality disorder: Status: Chronic (4) Unspecified personality disorder: Status: Acute Reason for Visit Reason for Visit: SI Involuntary Hold Information Hold Status: Legal Status: 96 Hour Hold Date/Time Hold Expires: 03/01/25 @ 10:46 96 Hour Hold: 96 Hour Involuntary Admission: No Discharge Data Studies Completed and Pending: Laboratory Results WBC 9.35 10^3/uL (3.2 9-11.43) 02/23/25 11:03 RBC 4.25 10^6/uL (3.8 5-5.65) 02/23/25 11:03 Hgb 13.10 g/dL (11.27 -16.99) 02/23/25 11:03 Hct 39.2 % (37-53) 02/23/25 11:03 MCV 92.2 fl (82-101) 02/23/25 11:03 MCH 30.8 pg (27-33) 02/23/25 11:03 MCHC 33.4 g/dL (30-55) 02/23/25 11:03 RDW 12.6 % (12.1-15.1 ) 02/23/25 11:03 Plt Count 246 10^3/cmm (157 -399) 02/23/25 11:03 MPV 12.1 fL (7.4-10.4 ) H 02/23/25 11:03 Neut % (Auto) 69.9 % 02/23/25 11:03 Lymph % (Auto) 21.1 % 02/23/25 11:03 [place] % (Auto) 6.5 % 02/23/25 11:03 Eos % (Auto) 1.2 % 02/23/25 11:03 Baso % (Auto) 0.7 % 02/23/25 11:03 Neut # (Auto) 6.53 10^3/uL (1.8 -7.7) 02/23/25 11:03 Lymph # (Auto) 2.0 10^3/uL (0.8- 4.8) 02/23/25 11:03 [place] # (Auto) 0.6 10^3/uL (0.2- 0.9) 02/23/25 11:03 Eos # (Auto) 0.1 10^3/uL (0.0- 0.8) 02/23/25 11:03 Baso # (Auto) 0.1 10^3/uL (0.0- 0.1) 02/23/25 11:03 Nucleated RBC % (a uto) 0 % 02/23/25 11:03 Nucleated RBCs # 0.0 /100WBC 02/23/25 11:03 Sodium 139 mmol/L (136-1 45) 02/23/25 11:03 Potassium 3.1 mmol/L (3.5-5 .1) L 02/23/25 11:03 Chloride 103 mmol/L (98-10 7) 02/23/25 11:03 Carbon Dioxide 24 mmol/L (22-29) 02/23/25 11:03 Anion Gap 15.1 (5-19) 02/23/25 11:03 BUN 6 mg/dL (6-20) 02/23/25 11:03 Creatinine 0.6 mg/dL (0.7-1. 2) L 02/23/25 11:03 GFR Calculation 154.2 mL/min (90- 130) H 02/23/25 11:03 Glucose 112 mg/dL (65-115 ) 02/23/25 11:03 Calculated Osmolal ity 286 mOsm/kg (285- 295) 02/23/25 11:03 Calcium 9.1 mg/dL (8.5-10 .5) 02/23/25 11:03 Total Bilirubin 0.5 mg/dL (0.15-1 .2) 02/23/25 11:03 AST 17 U/L (0-40) 02/23/25 11:03 ALT 25 U/L (0-41) 02/23/25 11:03 Alkaline Phosphata se 79 U/L (40-130) 02/23/25 11:03 Total Protein 6.9 g/dL (6.6-8.7 ) 02/23/25 11:03 Albumin 4.4 g/dL (3.5-5.2 ) 02/23/25 11:03 Globulin 2.5 g/dL (1.3-4.6 ) 02/23/25 11:03 Salicylates < 0.3 mg/dL (3-10 ) L 02/23/25 11:03 Urine Opiates Scre en Negative ng/mL (N egative) 02/27/25 09:47 Acetaminophen < 5.0 ug/mL (10-3 0) L 02/23/25 11:03 Ur Barbiturates Sc reen Negative ng/mL (N egative) 02/27/25 09:47 Ur Phencyclidine S crn Negative ng/mL (N egative) 02/27/25 09:47 Ur Amphetamines Sc reen Negative ng/mL (N egative) 02/27/25 09:47 U Benzodiazepines Scrn Negative ng/mL (N egative) 02/27/25 09:47 Urine Cocaine Scre en Negative ng/mL (N egative) 02/27/25 09:47 U Marijuana (THC) Screen Negative ng/mL (N egative) 02/27/25 09:47 Ethyl Alcohol < 10 mg/dL (0-10) 02/23/25 11:03 Vitals: Last Vital Signs Temp 98.0 F 02/28/25 14:00 Pulse 74 03/01/25 06:00 Resp 17 03/01/25 06:00 BP 107/69 03/01/25 06:00 Pulse Ox 96 03/01/25 06:00 O2 Del Method Room Air 03/01/25 06:00 Discharge Plan Discharge Patient Disposition: Home Condition: Stable Prescriptions: New Caplyta 42 mg capsule 42 mg PO DAILY 30 Days Qty: 30 1RF Continued spironolactone [Aldactone] 25 mg tablet 25 mg PO BID estradiol [Estrace] 2 mg tablet 2 mg PO BID budesonide-formoterol 160-4.5 mcg/actuation HFA aerosol inhaler 2 puff INHALATION BID Discharge Orders: Discharge Order (Routine); Ordered 03/01/25 Ordered By: Ar Schulz Referrals: [facility] [Outside] Referral Note: Doyle Barreto MD [Primary Care Provider, Family Practice] Adela Rocha, PMHNP [Staff Physician, Psychiatry] - 03/16/25 1:30 pm Discharge Diet: Regular Discharge Activity: Resume usual activity Patient Instructions: Opioid Safety Discharge Attestations NPU Time Spent in Discharge Care*: less than 30 min Specific Discharge Activities: Specific discharge activities: educating patient, discussing with employment case manager/social workers/dc planners, documenting/other paperwork and evaluating patient/reviewing data Status at Discharge: Cognitive status at discharge: mildly impaired cognition, Behavioral status at discharge: cooperative and can be uncooperative, Coding Level of Care Code Acute Code for g Fwd Diagnoses Schizophrenia F20.9 Psychosis F29 Schizotypal personality disorder F21 Unspecified personality disorder F60.9
--- NOTE | 2025-03-01 11:34 | DCPLANNER ---
Imm was printed and rights explained to pt and copy placed in file.
[2025-03-01 12:20] VITALS: BP 107/69; PULSE 74; RESP 17; TEMP 37.1; O2SAT 100
[2025-03-01] MEDS: CAPLYTA 42 MG PO (12:39)
== END 2025-03-01 12:56 | disposition home or self-care (01) | DRG 885 ==
LOC: ER 11:12 → NP 12:06
PROVIDERS: Admitting Provider Psychiatry & Neurology Psychiatry; Emergency Provider Emergency Medicine; PCP Family Medicine; Visit Provider Psychiatry & Neurology Psychiatry
DX: F20.9 Schizophrenia, unspecified (principal); R45.851 Suicidal ideations; F21 Schizotypal disorder; R63.6 Underweight; Z68.24 Body mass index [BMI] 24.0-24.9, adult
CPT/HCPCS: 36415; 80053; 80306; 80307; 85025; 94640; 97150; 97165; 99285; J7613; J8499; J9999

== ENCOUNTER 2025-03-06 23:07 | Inpatient (IN) | payer MEDICARE, SELFPAY ==
[2024-08-30 09:59] VITALS: BP 126/85; BMI 28.5
[2025-03-06 23:08] VITALS: BP 122/83; PULSE 92; RESP 18; TEMP 36.7; O2SAT 99
--- NOTE | 2025-03-06 23:45 | W.ED.PSYCHS ---
HPI - Psych General: Chief Complaint: Psychiatric Symptoms Stated Complaint: MHE Time Seen by Provider: 03/06/25 23:39 History of Present Illness: 34 year old male patient with a history of schizophrenia presents to the Emergency Department with altered mental status and difficulty communicating clearly. History is limited due to patient's current mental state. Patient acknowledges history of methamphetamine use, though denies use today. Patient also confirms alcohol use, though quantity is unclear. Patient reports previous psychiatric hospitalizations, though specific details are difficult to obtain due to patient's current condition. Patient endorses experiencing stress. Patient presents with disorganized thought process and tangential speech Communication is impaired with fragmented responses Patient received medication during ED stay with reported improvement in symptoms Patient able to confirm some history despite altered mental status Related Data Home Medications ?Medication ?Instructions ?Recorded ?Confirmed estradiol 2 mg tablet (Estrace) 2 mg PO BID 02/11/25 03/03/25 spironolactone 25 mg tablet 25 mg PO BID 02/11/25 03/03/25 (Aldactone) budesonide-formoterol HFA 160 2 puff inhalation BID 02/23/25 03/03/25 mcg-4.5 mcg/actuation aerosol inhaler Previous Rx's ?Medication ?Instructions ?Recorded lumateperone 42 mg capsule 42 mg PO DAILY 30 days #30 caps 03/01/25 (Caplyta) Allergies Allergy/AdvReac Type Severity Reaction Status Date / Time aripiprazole (From [facility]) Allergy Intermediate Drooling Verified 02/10/25 10:08 clonazepam Allergy Unknown Verified 02/10/25 10:08 mirtazapine AdvReac ADR-Confusi Verified 02/10/25 10:08 on paliperidone AdvReac ADR-Faintin Verified 02/23/25 08:14 g risperidone AdvReac ADR-Confusi Verified 02/10/25 10:08 on Review of Systems General: Reports: ROS unobtainable due to mental status PFS ED PFSH: Medical History Schizophrenia History of schizotypal personality disorder Psychiatric care Surgical History No pertinent past surgical history Family History Other Psychiatric illness Stroke Social History Smoking and tobacco/nicotine status: never used tobacco/nicotine Second hand smoke exposure: Yes Alcohol intake: current Alcohol intake frequency: holidays/special occasions only Alcohol type: hard liquor Substance/Drug Use: current Substance/Drug use frequency: few times a week Adopted: No Caregiver/support person: No Lives independently: Yes Household members: none Housing: Apartment Marital status: Single Number of children: 1 Highest education level completed: High School Graduate service: No Current occupational status: disabled Pets and animals: No Leisure activites: music and games Sexually active: Yes Are you practicing safe sex: Yes Do you think of yourself as: Lesbian/Wins[place]/Homosexual Current gender identity: Trans [employer] Surekha/Restoration: Sikhism Special surekha needs: No Agree to transfusion: Yes Physical Exam Const: COMMON NORMALS: no acute distress and alert; limitations Resp: COMMON NORMALS: normal respiratory effort and No use of accessory muscles Cardio: COMMON NORMALS: regular rate, regular rhythm, S1 normal heart sound present and S2 normal heart sound present RATE: regular rate RHYTHM: regular rhythm HEART SOUNDS: S1 normal heart sound present and S2 normal heart sound present GI: COMMON NORMALS: Normal to inspection, nondistended, normoactive bowel sounds present Neuro: SENSORIUM/ORIENTATION: Yes alert Course Vital Signs: Vital signs: Vital Signs Temperature 98.0 F 03/06/25 23:08 Pulse Rate 92 03/06/25 23:08 Respiratory Rate 18 03/06/25 23:08 Blood Pressure 122/83 03/06/25 23:08 Pulse Oximetry 99 03/06/25 23:08 Oxygen Delivery Me thod Room Air 03/06/25 23:08 MDM - Psych Medical Decision Making 1. Altered Mental Status - Likely multifactorial etiology including possible substance use and psychiatric component - Medication administered in ED with reported improvement - Will require psychiatric evaluation 2. Substance Use Disorder - History of meth use and alcohol use - Will need substance use assessment and appropriate referrals 3. Psychiatric History - Previous psychiatric hospitalizations noted - Psychiatric consultation recommended for comprehensive evaluation and disposition planning Lab Data 03/06/25 23:59 03/06/25 23:59 Laboratory Results WBC 9.90 10^3/uL (3.29-11.43) 03/06/25 23:59 RBC 4.04 10^6/uL (3.85-5.65) 03/06/25 23:59 Hgb 12.60 g/dL (11.27-16.99) 03/06/25 23:59 Hct 36.8 % (37-53) L 03/06/25 23:59 MCV 91.1 fl (82-101) 03/06/25 23:59 MCH 31.2 pg (27-33) 03/06/25 23: MCHC 34.2 g/dL (30-55) 03/06/25 23:59 RDW 12.4 % (12.1-15.1) 03/06/25 23: Plt Count 235 10^3/cmm (157-399) 03/06/25 23: MPV 12.9 fL (7.4-10.4) H 03/06/25 23:59 Neut % (Auto) 67.0 % 03/06/25 23:59 Lymph % (Auto) 24.9 % 03/06/25 23:59 [place] % (Auto) 5.5 % 03/06/25 23:59 Eos % (Auto) 1.8 % 03/06/25 23:59 Baso % (Auto) 0.5 % 03/06/25 23:59 Neut # (Auto) 6.63 10^3/uL (1.8-7.7) 03/06/25 23:59 Lymph # (Auto) 2.5 10^3/uL (0.8-4.8) 03/06/25 23:59 [place] # (Auto) 0.5 10^3/uL (0.2-0.9) 03/06/25 23:59 Eos # (Auto) 0.2 10^3/uL (0.0-0.8) 03/06/25 23:59 Baso # (Auto) 0.1 10^3/uL (0.0-0.1) 03/06/25 23:59 Nucleated RBC % (auto) 0 % 03/06/25 23: Nucleated RBCs # 0.0 /100WBC 03/06/25 23:59 Sodium 138 mmol/L (136-145) 03/06/25 23:59 Potassium 2.8 mmol/L (3.5-5.1) L* 03/06/25 23:59 Chloride 101 mmol/L (98-107) 03/06/25 23:59 Carbon Dioxide 22 mmol/L (22-29) 03/06/25 23:59 Anion Gap 17.8 (5-19) 03/06/25 23:59 BUN 7 mg/dL (6-20) 03/06/25 23:59 Creatinine 0.7 mg/dL (0.7-1.2) 03/06/25 23:59 GFR Calculation 129.1 mL/min (90-130) 03/06/25 23:59 Glucose 140 mg/dL (65-115) H 03/06/25 23:59 Calculated Osmolality 286 mOsm/kg (285-295) 03/06/25 23:59 Calcium 9.2 mg/dL (8.5-10.5) 03/06/25 23:59 Total Bilirubin 0.5 mg/dL (0.15-1.2) 03/06/25 23:59 AST 51 U/L (0-40) H 03/06/25 23:59 ALT 59 U/L (0-41) H 03/06/25 23:59 Alkaline Phosphatase 77 U/L (40-130) 03/06/25 23:59 Total Protein 6.6 g/dL (6.6-8.7) 03/06/25 23:59 Albumin 4.0 g/dL (3.5-5.2) 03/06/25 23:59 Globulin 2.6 g/dL (1.3-4.6) 03/06/25 23:59 Salicylates 3.4 mg/dL (3-10) 03/06/25 23:59 Urine Opiates Screen Negative ng/mL (Negative) 03/07/25 01:24 Acetaminophen < 5.0 ug/mL (10-30) L 03/06/25 23:59 Ur Barbiturates Screen Negative ng/mL (Negative) 03/07/25 01:24 Ur Phencyclidine Scrn Negative ng/mL (Negative) 03/07/25 01:24 Ur Amphetamines Screen Negative ng/mL (Negative) 03/07/25 01:24 U Benzodiazepines Scrn Negative ng/mL (Negative) 03/07/25 01:24 Urine Cocaine Screen Negative ng/mL (Negative) 03/07/25 01:24 U Marijuana (THC) Screen Positive ng/mL (Negative) H 03/07/25 01:24 Ethyl Alcohol < 10 mg/dL (0-10) 03/06/25 23:59 No radiology studies performed this visit ED provider radiology interpretation(s): None Other Data 34-year-old male in with some tangential speech and presentation concerning for decompensated psychiatric disease. Workup in the emergency department revealed some hypokalemia that was replaced. There is no other medical condition precluding workup and psychiatry talk with Dr. Schulz who was agreeable to placing back in the inpatient unit it sounds like Dr. Schulz is quite familiar with the patient. Discharge Plan Discharge Patient Disposition: Xfer Psychiatric Hosp Clinical Impression: Cannabis abuse Schizophrenia Qualifiers: Schizophrenia type: other Qualified Code(s): F20.89 - Other schizophrenia Condition: Stable Referrals: Doyle Barreto MD [Primary Care Provider, [facility]] Print Language: Estonian Coding Level of Care Code ED Boarding House Manager for Mandeep Hammond
[2025-03-07] VITALS (9 sets, daily range): BP systolic 103–118; BP diastolic 68–80; PULSE 60–96; RESP 16–20; TEMP 36.7–37.2; O2SAT 97–100
[2025-03-07 00:27] LABS: Alanine Aminotransferase 59 U/L (0-41); Alkaline Phosphatase 77 U/L (40-130); Anion Gap 17.8 (5-19); Aspartate Amino Transferase 51 U/L (0-40); Basophils # 0.1 10^3/uL (0.0-0.1); Basophils % 0.5 %; Blood Urea Nitrogen 7 mg/dL (6-20); Calcium 9.2 mg/dL (8.5-10.5); Carbon Dioxide 22 mmol/L (22-29); Chloride 101 mmol/L (98-107); Eosinophils # 0.2 10^3/uL (0.0-0.8); Eosinophils % 1.8 %; Globulin 2.6 g/dL (1.3-4.6); Glomerular Filtration Rate 129.1 mL/min (90-130); Glucose 140 mg/dL (65-115); Hematocrit 36.8 % (37-53); Lymphocytes # 2.5 10^3/uL (0.8-4.8); Lymphocytes % 24.9 %; Mean Corpuscular HGB Conc 34.2 g/dL (30-55); Mean Corpuscular Hemoglobin 31.2 pg (27-33); Mean Corpuscular Volume 91.1 fl (82-101); Mean Platelet Volume 12.9 fL (7.4-10.4); Monocytes # 0.5 10^3/uL (0.2-0.9); Monocytes % 5.5 %; Neutrophils # 6.63 10^3/uL (1.8-7.7); Nucleated Red Blood Cells % 0 %; Osmolality Calculated 286 mOsm/kg (285-295); Platelet Count 235 10^3/cmm (157-399); Red Blood Count 4.04 10^6/uL (3.85-5.65); Red Cell Distribution Width 12.4 % (12.1-15.1); Salicylate 3.4 mg/dL (3-10); Sodium 138 mmol/L (136-145); Total Bilirubin 0.5 mg/dL (0.15-1.2); Total Protein 6.6 g/dL (6.6-8.7)
[2025-03-07 00:28] LABS: Acetaminophen < 5.0 ug/mL (10-30); Alcohol Level < 10 mg/dL (0-10)
[2025-03-07 00:29] LABS: Potassium 2.8 mmol/L (3.5-5.1)
[2025-03-07] MEDS: potassium chloride ER 20 mEq Tablet 40 MEQ PO (00:58)
[2025-03-07 01:38] LABS: Amphetamines Screen Urine Negative (Negative); Barbiturates Screen Urine Negative (Negative); Benzodiazepines Screen Urine Negative (Negative); Cocaine Screen Urine Negative (Negative); Opiate Screen Urine Negative (Negative); PCP Screen Urine Negative (Negative); THC Screen Urine Positive (Negative)
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
[2025-03-07 08:18] LABS: Anion Gap 15.6 (5-19); Blood Urea Nitrogen 5 mg/dL (6-20); Calcium 9.1 mg/dL (8.5-10.5); Carbon Dioxide 23 mmol/L (22-29); Chloride 106 mmol/L (98-107); Glomerular Filtration Rate 154.2 mL/min (90-130); Glucose 97 mg/dL (65-115); Osmolality Calculated 289 mOsm/kg (285-295); Potassium 3.6 mmol/L (3.5-5.1); Sodium 141 mmol/L (136-145)
[2025-03-07] MEDS: spironolactone 25 mg Tablet PO ×2 (08:50→18:15)
[2025-03-07] MEDS: acetaminophen 325 mg Tablet 650 MG PO (08:50)
[2025-03-07] MEDS: albuterol 2.5 mg/3 mL Neb INHALATION ×3 (09:55→21:08)
[2025-03-07] MEDS: budesonide 0.5 mg/2 mL Neb INHALATION ×2 (09:57→21:08)
[2025-03-08] MEDS: trazodone 50 mg Tablet PO ×2 (00:40→21:38)
[2025-03-08] MEDS: hyDROXYzine 25 mg Capsule 50 MG PO ×2 (00:40→21:38)
[2025-03-08 06:00] VITALS: BP 98/66; PULSE 66; RESP 18; O2SAT 96
[2025-03-08] MEDS: estradiol 1 mg Tablet 2 MG PO ×2 (09:07→18:03)
[2025-03-08] MEDS: spironolactone 25 mg Tablet PO ×2 (09:07→18:03)
[2025-03-08] MEDS: albuterol 2.5 mg/3 mL Neb INHALATION ×2 (10:57→20:20)
[2025-03-08 11:00] VITALS: PULSE 68; RESP 16; O2SAT 98
[2025-03-08 14:00] VITALS: BP 118/60; PULSE 82; RESP 16; TEMP 36.6; O2SAT 97
--- NOTE | 2025-03-08 16:40 | P.NPUPN_ITS ---
Subjective NPU 2 Subjective: Patient presented today reporting that he is doing all right. He did identify that he had been taking his Caplyta and that he is open to continuing it. We discussed that he seemed more social and seems to be doing better in general since the Caplyta. He agreed and we discussed how to get the medication from his apartment. We also discussed whether him being here with a representation but independent living was not serving him well. Staff report concerns that he the of his neighbor is having a greater impact that he is discussing. He denied any side effects with medication. Mental Status Exam 2 MSE Comments: This is an underweight, white male, with hospital scrubs on with adequate grooming and limited eye contact. No abnormal movements or tics noted except for mild psychomotor retardation. He was cooperative with exam in mild to moderate distress. Speech was decreased rate and volume as well as productivity. Mood described as okay, affect slightly subdued and confused. Thought process disorganized with thought derailment and many answers missing the abiel as to the question being asked. Thought content: Patient endorsed suicidal but denied homicidal ideation, there were no delusions reported or noted, he denied current auditory or visual hallucinations. Attention and concentration were limited and memory was mostly unreliable but no more formally tested. He was alert and oriented to person and place. Insight and judgment are impaired and impulse control is impaired. 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 He continues to show significant negative symptoms of schizophrenia with some continued difficulties with his thinking patterns with evidence of derailment and general poverty of content. Plan: 1.? Continue Caplyta 42mg daily. Awaiting medication to be brought from home. 2.? Continue every 15 minute checks for safety. 3.? Encourage individual, group and milieu therapies. 4.? Encourage sober living treatment after discharge at the highest level of care to which he is willing to commit. 5. Obtain collateral information. 6. Evaluate against the backdrop of the 96-hour hold. 7. Patient presented looking almost better than he did when he was discharged but seeming more disorganized than when he left seeming odd and confused and unclear as to why he is here but also unable to articulate what is going on in general making this group underwriter wonder whether he just cannot function independently or something. PDMP PDMP Reviewed: Not Reviewed Involuntary Hold Information 2 Hold Status: Date/Time Hold Expires: Voluntary 96 Hour Hold: 96 Hour Involuntary Admission: No Attestations NPU 2 Medical Necessity Statement*: Inpatient hospitalization is medically necessary and the clinically appropriate intervention at this time. We will initiate/monitor medications and make changes as indicated. Likely length of stay 7-10 days. Coding Level of Care Code Acute Code for [facility] Fwd Diagnoses Schizophrenia F20.89 Schizophrenia type: other Psychosis F29 Schizotypal personality disorder F21 Unspecified personality disorder F60.9
[2025-03-08 20:20] VITALS: PULSE 79; RESP 18; O2SAT 98
[2025-03-08] MEDS: budesonide 0.5 mg/2 mL Neb INHALATION (20:20)
[2025-03-08 20:27] VITALS: PULSE 81
[2025-03-08 22:00] VITALS: BP 112/70; PULSE 98; RESP 17; TEMP 37.1; O2SAT 95
[2025-03-09] VITALS (7 sets, daily range): BP systolic 105–111; BP diastolic 66–70; PULSE 79–99; RESP 16–18; TEMP 36.7–37.3; O2SAT 93–98
--- NOTE | 2025-03-09 06:21 | PC.NURSE ---
vs not collected pt ref resp 16
[2025-03-09] MEDS: spironolactone 25 mg Tablet PO (08:59)
[2025-03-09] MEDS: estradiol 1 mg Tablet 2 MG PO (08:59)
[2025-03-09] MEDS: albuterol 2.5 mg/3 mL Neb INHALATION ×3 (09:05→16:42)
[2025-03-09] MEDS: budesonide 0.5 mg/2 mL Neb INHALATION (09:05)
[2025-03-09] MEDS: NON-FORMULARY MEDICATION (Lumateperone [Caplyta] 42 mg capsule) 42 EACH PO ×2 (15:00→15:30)
--- NOTE | 2025-03-09 17:12 | P.NPUPN_ITS ---
Subjective NPU 2 Subjective: Patient presented today reporting that things are going all right. We finally got his Caplyta to the hospital and so he was restarted on that. He reports that he does feel better with the Caplyta and that he is not having any additional concerns at this moment. We discussed him being more prosocial and interactive since he has been on the Caplyta. He denied any side effects to the medication. Mental Status Exam 2 MSE Comments: This is an underweight, white male, with hospital scrubs on with adequate grooming and limited eye contact. No abnormal movements or tics noted except for mild psychomotor retardation. He was cooperative with exam in mild to moderate distress. Speech was decreased rate and volume as well as productivity. Mood described as okay, affect slightly subdued and confused. Thought process disorganized with thought derailment and many answers missing the abiel as to the question being asked. Thought content: Patient endorsed suicidal but denied homicidal ideation, there were no delusions reported or noted, he denied current auditory or visual hallucinations. Attention and concentration were limited and memory was mostly unreliable but no more formally tested. He was alert and oriented to person and place. Insight and judgment are impaired and impulse control is impaired. 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 He continues to show significant negative symptoms of schizophrenia with some continued difficulties with his thinking patterns with evidence of derailment and general poverty of content. Plan: 1.? Continue Caplyta 42mg daily. Awaiting medication to be brought from home. 2.? Continue every 15 minute checks for safety. 3.? Encourage individual, group and milieu therapies. 4.? Encourage sober living treatment after discharge at the highest level of care to which he is willing to commit. 5. Obtain collateral information. 6. Evaluate against the backdrop of the 96-hour hold. 7. Patient presented looking almost better than he did when he was discharged but seeming more disorganized than when he left seeming odd and confused and unclear as to why he is here but also unable to articulate what is going on in general making this technical writer and editor wonder whether he just cannot function independently or something. PDMP PDMP Reviewed: Not Reviewed Involuntary Hold Information 2 Hold Status: Date/Time Hold Expires: Voluntary 96 Hour Hold: 96 Hour Involuntary Admission: No Attestations NPU 2 Medical Necessity Statement*: Inpatient hospitalization is medically necessary and the clinically appropriate intervention at this time. We will initiate/monitor medications and make changes as indicated. Likely length of stay 6-9 days. Coding Level of Care Code Acute Code for g Fwd Diagnoses Schizophrenia F20.89 Schizophrenia type: other Psychosis F29 Schizotypal personality disorder F21 Unspecified personality disorder F60.9
[2025-03-09] MEDS: haloperidol 5 mg Tablet PO (22:45)
[2025-03-09] MEDS: trazodone 50 mg Tablet PO (22:45)
[2025-03-09] MEDS: hyDROXYzine 25 mg Capsule 50 MG PO (22:45)
--- NOTE | 2025-03-09 22:51 | PC.NURSE ---
TOYS AND GAMES HAND FINISHER reported to signee that pt. had his fingers in his ears, and his pant legs was yet. Pt. would not respond to TOYS AND GAMES HAND FINISHER, but did see TOYS AND GAMES HAND FINISHER. Signee went to pt. room and as TOYS AND GAMES HAND FINISHER described pt. had his fingers in his ears and at first pt. would not respond to signee either, but then when asked again pt. stated he had been on [employer] and he heard them say his legal name. Pt. stated he had legally changed his name through [employer]. Signee asked pt. if he would like something to help him sleep and he said he would. Pt. kept his fingers in his ears the whole time. Medication pulled for hallucinations and sleep aid.
[2025-03-10 06:00] VITALS: BP 89/54; PULSE 82; RESP 16; TEMP 36.8; O2SAT 96
[2025-03-10] MEDS: NON-FORMULARY MEDICATION (Lumateperone [Caplyta] 42 mg capsule) 42 EACH PO (09:15)
[2025-03-10 09:30] VITALS: PULSE 101; RESP 18; O2SAT 95
[2025-03-10] MEDS: budesonide 0.5 mg/2 mL Neb INHALATION ×2 (09:30→20:29)
[2025-03-10] MEDS: albuterol 2.5 mg/3 mL Neb INHALATION (09:30)
[2025-03-10] MEDS: nicotine 2 mg Gum BUCCAL (09:38)
[2025-03-10 14:00] VITALS: BP 90/54; PULSE 93; RESP 18; TEMP 37.2; O2SAT 95
--- NOTE | 2025-03-10 17:00 | P.NPUPN_ITS ---
Subjective NPU 2 Subjective: Patient presented today reporting that things are going fine. He continues to be more communicative than his last day and likely ever. We discussed continuing the Caplyta and that it seems to be a good fit for him. We continue to work with his outpatient team to find a reasonable safe environment for him to continue his improvement and recovery. He denied any side effects with medication. Mental Status Exam 2 MSE Comments: This is an underweight, white male, with hospital scrubs on with adequate grooming and limited eye contact. No abnormal movements or tics noted except for mild psychomotor retardation. He was cooperative with exam in mild distress. Speech was decreased rate and volume but improved in productivity as well as understandability. Mood described as okay, affect slightly subdued and confused. Thought process disorganized with thought derailment and many answers missing the abiel as to the question being asked. Thought content: Patient endorsed suicidal but denied homicidal ideation, there were no delusions reported or noted, he denied current auditory or visual hallucinations. Attention and concentration were limited and memory was mostly unreliable but no more formally tested. He was alert and oriented to person and place. Insight and judgment are impaired and impulse control is impaired. 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 He continues to show significant negative symptoms of schizophrenia with some continued difficulties with his thinking patterns with evidence of derailment and general poverty of content. Plan: 1.? Continue Caplyta 42mg daily. Awaiting medication to be brought from home. 2.? Continue every 15 minute checks for safety. 3.? Encourage individual, group and milieu therapies. 4.? Encourage sober living treatment after discharge at the highest level of care to which he is willing to commit. 5. Obtain collateral information. 6. Evaluate against the backdrop of the 96-hour hold. 7. Patient presented continued to improve slowly. PDMP PDMP Reviewed: Not Reviewed Involuntary Hold Information 2 Hold Status: Date/Time Hold Expires: Voluntary 96 Hour Hold: 96 Hour Involuntary Admission: No Attestations NPU 2 Medical Necessity Statement*: Inpatient hospitalization is medically necessary and the clinically appropriate intervention at this time. We will initiate/monitor medications and make changes as indicated. Likely length of stay 5-8 days. Coding Level of Care Code Acute Code for g Fwd Diagnoses Schizophrenia F20.89 Schizophrenia type: other Psychosis F29 Schizotypal personality disorder F21 Unspecified personality disorder F60.9
--- NOTE | 2025-03-10 19:40 | PC.NURSE ---
pt ref. vs not collected RN notified resp 16
[2025-03-10 20:00] VITALS: PULSE 82; RESP 16; O2SAT 95
[2025-03-10 20:31] VITALS: PULSE 88; RESP 16; O2SAT 95
[2025-03-10] MEDS: hyDROXYzine 25 mg Capsule 50 MG PO (20:58)
[2025-03-10] MEDS: trazodone 50 mg Tablet PO (20:58)
[2025-03-10] MEDS: haloperidol 5 mg Tablet PO (20:58)
--- NOTE | 2025-03-11 03:51 | PC.NURSE ---
Pt. just came up to signee and asked if signee could put [employer] on his wrist because he was in Wrestling. Signee told pt. better not do that.
[2025-03-11 06:00] VITALS: BP 82/56; PULSE 83; RESP 16; TEMP 37; O2SAT 97
[2025-03-11] MEDS: hyDROXYzine 25 mg Capsule 50 MG PO ×2 (07:05→20:06)
[2025-03-11] MEDS: NON-FORMULARY MEDICATION (Lumateperone [Caplyta] 42 mg capsule) 42 EACH PO (07:19)
--- NOTE | 2025-03-11 07:19 | PC.NURSE ---
pt requesting medication administration early today.
[2025-03-11] MEDS: albuterol 2.5 mg/3 mL Neb INHALATION (08:25)
[2025-03-11] MEDS: budesonide 0.5 mg/2 mL Neb INHALATION ×2 (08:25→20:38)
[2025-03-11 08:28] VITALS: PULSE 80; RESP 16; O2SAT 96
--- NOTE | 2025-03-11 08:38 | W.PM.NPUPNS ---
Subjective NPU Subjective: Patient presented today doing okay. He reports that he is taking the medication without concerns. He continues to be less [facility]ative [facility] We discussed Dr. Davila coming back on Friday and I was hoping that he will be able to be discharged sometime within the next week. We continue to work with him and try to understand what is the big challenge and whether the outpatient treatment team's plans are maybe getting him a different place to live might be helpful he seems to have limited investment in specifics. He denied any side effects of medication. Mental Status Exam MSE Comments: This is an underweight, white male, with hospital scrubs on with adequate grooming and limited eye contact. No abnormal movements or tics noted except for mild psychomotor retardation. He was cooperative with exam in mild distress. Speech was decreased rate and volume but improved in productivity as well as understandability. Mood described as okay, affect slightly subdued and confused. Thought process disorganized with thought derailment and many answers missing the abiel as to the question being asked. Thought content: Patient endorsed suicidal but denied homicidal ideation, there were no delusions reported or noted, he denied current auditory or visual hallucinations. Attention and concentration were limited and memory was mostly unreliable but no more formally tested. He was alert and oriented to person and place. Insight and judgment are impaired and impulse control is impaired. 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 He continues to show significant negative symptoms of schizophrenia with some continued difficulties with his thinking patterns with evidence of derailment and general poverty of content. Plan: 1.? Continue Caplyta 42mg daily. Awaiting medication to be brought from home. 2.? Continue every 15 minute checks for safety. 3.? Encourage individual, group and milieu therapies. 4.? Encourage sober living treatment after discharge at the highest level of care to which he is willing to commit. 5. Obtain collateral information. 6. Evaluate against the backdrop of the 96-hour hold. 7. Patient presented continued to improve slowly. PDMP PDMP Reviewed: Not Reviewed Involuntary Hold Information Hold Status: Date/Time Hold Expires: Voluntary 96 Hour Hold: 96 Hour Involuntary Admission: No Attestations NPU Medical Necessity Statement*: Inpatient hospitalization is medically necessary and the clinically appropriate intervention at this time. We will initiate/monitor medications and make changes as indicated. Likely length of stay 4-7 days. Coding Level of Care Code Acute Code for [facility] Fwd Diagnoses Schizophrenia F20.89 Schizophrenia type: other Psychosis F29 Schizotypal personality disorder F21 Unspecified personality disorder F60.9
[2025-03-11 14:00] VITALS: BP 112/74; PULSE 74; RESP 16; TEMP 37; O2SAT 96
[2025-03-11 19:54] VITALS: BP 110/71; PULSE 97; RESP 18; O2SAT 94
[2025-03-11 20:00] VITALS: PULSE 101; RESP 18; O2SAT 96
[2025-03-11] MEDS: trazodone 50 mg Tablet PO (20:06)
[2025-03-11] MEDS: ibuprofen 600 mg Tablet PO (20:33)
[2025-03-12 05:28] VITALS: RESP 16
[2025-03-12 08:00] VITALS: PULSE 92; RESP 16; O2SAT 94
[2025-03-12] MEDS: budesonide 0.5 mg/2 mL Neb INHALATION ×2 (08:05→21:58)
[2025-03-12] MEDS: albuterol 2.5 mg/3 mL Neb INHALATION (08:05)
--- NOTE | 2025-03-12 11:18 | P.NPUPN_ITS ---
Subjective NPU 2 Subjective: Patient presented today reporting that he is doing all right. He continues to seem to benefit from taking the Caplyta per staff reports and direct observation. We discussed the fact that Dr. Davila is returning tomorrow and that he would monitor him over the next few days and that we are hopeful that with assistance from his counter caser we could consider discharge sometime this week. He continues to be more engaging and less isolative per staff reports and direct observation and he denied any side effects to the medication. Mental Status Exam 2 MSE Comments: This is an underweight, white male, with hospital scrubs on with adequate grooming and limited eye contact. No abnormal movements or tics noted except for mild psychomotor retardation. He was cooperative with exam in mild distress. Speech was decreased rate and volume but improved in productivity as well as understandability. Mood described as okay, affect slightly subdued and confused. Thought process disorganized with thought derailment and many answers missing the abiel as to the question being asked. Thought content: Patient endorsed suicidal but denied homicidal ideation, there were no delusions reported or noted, he denied current auditory or visual hallucinations. Attention and concentration were limited and memory was mostly unreliable but no more formally tested. He was alert and oriented to person and place. Insight and judgment are impaired and impulse control is impaired. 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 He continues to show significant negative symptoms of schizophrenia with some continued difficulties with his thinking patterns with evidence of derailment and general poverty of content. Plan: 1.? Continue Caplyta 42mg daily. Awaiting medication to be brought from home. 2.? Continue every 15 minute checks for safety. 3.? Encourage individual, group and milieu therapies. 4.? Encourage sober living treatment after discharge at the highest level of care to which he is willing to commit. 5. Obtain collateral information. 6. Evaluate against the backdrop of the 96-hour hold. 7. Patient presented continued to improve slowly. PDMP PDMP Reviewed: Not Reviewed Involuntary Hold Information 2 Hold Status: Date/Time Hold Expires: Voluntary 96 Hour Hold: 96 Hour Involuntary Admission: No Attestations NPU 2 Medical Necessity Statement*: Inpatient hospitalization is medically necessary and the clinically appropriate intervention at this time. We will initiate/monitor medications and make changes as indicated. Likely length of stay 4-7 days. Coding Level of Care Code Acute Code for [facility] Fwd Diagnoses Schizophrenia F20.89 Schizophrenia type: other Psychosis F29 Schizotypal personality disorder F21 Unspecified personality disorder F60.9
[2025-03-12 14:00] VITALS: BP 106/69; PULSE 94; RESP 18; TEMP 36.7; O2SAT 95
[2025-03-12 20:09] VITALS: BP 97/61; PULSE 87; RESP 18; TEMP 36.7; O2SAT 98
[2025-03-12] MEDS: hyDROXYzine 25 mg Capsule 50 MG PO (20:28)
[2025-03-12] MEDS: trazodone 50 mg Tablet PO (20:28)
[2025-03-12] MEDS: OLANZapine 5 mg ODT PO (20:28)
[2025-03-12 22:00] VITALS: PULSE 102; RESP 16; O2SAT 96
[2025-03-13 06:00] VITALS: BP 101/57; PULSE 74; RESP 18; TEMP 36.6; O2SAT 99; BMI 24.1
[2025-03-13 14:00] VITALS: BP 96/69; PULSE 98; RESP 18; TEMP 36.8; O2SAT 91
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
[2025-03-13] MEDS: CAPLYTA 42 MG 1 EACH PO (18:04)
--- NOTE | 2025-03-13 18:37 | PC.NURSE ---
Dr. Davila came and retrieved this nurse and asked if pt had been receiving his Caplyta. I looked in the med room and the medication was in the pt drawer, but none had been given since his last dose on 03/11. I looked into the reason why in the MAR and found the med listed at the very bottom of the MAR and it was not populating a reminder time at the top that it needed to be given. Sendy DIXON contacted pharmacy and they stated that the order needed to be reentered by them and then it would offer the reminder. This was done and the medication was given at that time per Dr. Davila ok. Only the 03/12 dose of caplyta dose was missed in total.
[2025-03-13] MEDS: hyDROXYzine 25 mg Capsule 50 MG PO (20:17)
[2025-03-13] MEDS: trazodone 50 mg Tablet PO (20:17)
[2025-03-13 20:22] VITALS: BP 96/58; PULSE 83; RESP 17; TEMP 36.4; O2SAT 95
[2025-03-14 06:00] VITALS: BP 115/71; PULSE 82; RESP 17; TEMP 37.1; O2SAT 97
[2025-03-14 08:00] VITALS: PULSE 86; RESP 16; O2SAT 96
[2025-03-14] MEDS: hyDROXYzine 25 mg Capsule 50 MG PO ×2 (08:01→23:16)
[2025-03-14] MEDS: CAPLYTA 42 MG 1 EACH PO (08:01)
[2025-03-14] MEDS: budesonide 0.5 mg/2 mL Neb INHALATION ×2 (08:32→20:48)
[2025-03-14] MEDS: albuterol 2.5 mg/3 mL Neb INHALATION ×2 (08:32→20:48)
[2025-03-14 08:37] VITALS: PULSE 89
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
[2025-03-14 14:00] VITALS: BP 106/79; PULSE 83; RESP 18; TEMP 36.6; O2SAT 97
[2025-03-14] MEDS: nicotine 2 mg Gum BUCCAL ×2 (15:55→18:48)
--- NOTE | 2025-03-14 17:04 | P.NPUPN_ITS ---
Subjective NPU 2 Subjective: 34-year-old male with multiple inpatient hospitalizations with a history of schizophrenia currently admitted voluntarily. The patient had reported feeling better. He had continued to have periods of time where he had been tired and required prompting for completion of activities of daily living. He had reported adequate sleep. He had appeared more social on the unit. He had been taking his Caplyta without any complaints of side effects from his medication regimen. Mental Status Exam 2 MSE Comments: This is an underweight, disheveled, white male, with hospital scrubs on with poor grooming and limited eye contact. No abnormal movements or tics noted except for mild psychomotor retardation. He was cooperative with exam in mild distress. Speech was decreased rate and volume but improved in productivity as well as understandability. Mood described as allright. His affect was blunted. Thought process was more linear and logical today. Thought content: Patient endorsed suicidal but denied homicidal ideation, there were no delusions reported or noted, he denied current auditory or visual hallucinations. Attention and concentration were limited and memory was mostly unreliable but no more formally tested. He was alert and oriented to person and place. Insight and judgment are impaired and impulse control is impaired. 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 He continues to show significant negative symptoms of schizophrenia with some continued difficulties with his thinking patterns with evidence of derailment and general poverty of content. Plan: 1.? Continue Caplyta 42mg daily. 2.? Continue every 15 minute checks for safety. 3.? Encourage individual, group and milieu therapies. 4.? Encourage sober living treatment after discharge at the highest level of care to which he is willing to commit. 5. Obtain collateral information. 6. Patient continues to show improvement. PDMP PDMP Reviewed: Not Reviewed Involuntary Hold Information 2 Hold Status: Date/Time Hold Expires: Voluntary 96 Hour Hold: 96 Hour Involuntary Admission: No Attestations NPU 2 Medical Necessity Statement*: Inpatient hospitalization is medically necessary and the clinically appropriate intervention at this time. We will initiate/monitor medications and make changes as indicated. Likely length of stay 1-2 days. 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
[2025-03-14 20:04] VITALS: BP 108/69; PULSE 86; RESP 17; TEMP 36.4; O2SAT 99
[2025-03-14 20:48] VITALS: PULSE 88; RESP 16; O2SAT 96
[2025-03-14] MEDS: nicotine 4 mg lozenge MUCOUS MEM (21:15)
[2025-03-14] MEDS: trazodone 50 mg Tablet PO (23:16)
[2025-03-15 06:00] VITALS: BP 107/64; PULSE 86; RESP 17; TEMP 37.6; O2SAT 96
[2025-03-15 08:00] VITALS: PULSE 89; RESP 18; O2SAT 96
[2025-03-15] MEDS: nicotine 4 mg lozenge MUCOUS MEM (08:09)
[2025-03-15] MEDS: CAPLYTA 42 MG 1 EACH PO (08:09)
[2025-03-15] MEDS: albuterol 2.5 mg/3 mL Neb INHALATION (08:40)
[2025-03-15] MEDS: budesonide 0.5 mg/2 mL Neb INHALATION (08:40)
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
[2025-03-15] MEDS: nicotine 2 mg Gum BUCCAL (12:22)
[2025-03-15 12:34] VITALS: BP 128/86; PULSE 80; RESP 16; TEMP 36.9; O2SAT 98
--- NOTE | 2025-03-15 12:55 | DCPLANNER ---
Imm was given to pt and rights explained and copy placed in pts file.
== END 2025-03-15 14:04 | disposition home or self-care (01) | DRG 885 ==
LOC: ER 03-07 03:10 → NP 03-07 03:17
PROVIDERS: Admitting Provider Psychiatry & Neurology Psychiatry; Emergency Provider Family Medicine; PCP Family Medicine; Visit Provider Psychiatry & Neurology Psychiatry
DX: F20.9 Schizophrenia, unspecified (principal); F21 Schizotypal disorder; R63.6 Underweight; Z68.24 Body mass index [BMI] 24.0-24.9, adult
CPT/HCPCS: 80048; 80053; 80306; 80307; 85025; 94640; 97150; 97165; 99285; J7613; J7626; J8499; J9999

== ENCOUNTER → 2025-08-08 10:48 | Outpatient (BNVA) | payer OTHER, SELFPAY ==
[2024-08-30 09:59] VITALS: BP 126/85; BMI 28.5
== END ==
PROVIDERS: PCP Family Medicine; Visit Provider Nurse Practitioner Psychiatric/Mental Health
DX: F41.9 Anxiety disorder, unspecified (principal); F12.10 Cannabis abuse, uncomplicated; F41.1 Generalized anxiety disorder
CPT/HCPCS: 80061; 83036